=== PATIENT | male | born 1945 | race Caucasian/White ===

== ENCOUNTER → 2018-04-12 06:28 | Outpatient (CLI) | payer MEDICARE, OTHER, SELFPAY ==
--- NOTE | 2018-04-12 06:29 | ECHOD_ITS ---
Reason For Study: CHEST PAIN Procedure This was a 2D Doppler, Color Flow transthoracic echocardiogram. The exam was of adequate technical quality. Exam performed in department. Left Ventricle Normal LV size. Left ventricular systolic function is normal. The estimated ejection fraction is 65 %. No regional wall motion abnormalities noted. Right Ventricle Normal RV size. ICD or pacer leads identified within the right ventricle. Normal systolic function. Atria The left atrium is mildly enlarged. Normal right atrium. ICD or pacer leads identified within the right atrium. No doppler evidence for ASD. Mitral Valve There is no mitral annular calcification. Normal mitral valve. Mild (1+) mitral valve insufficiency. Tricuspid Valve Normal tricuspid valve. Mild tricuspid valve insufficiency. Right ventricular systolic pressure estimated to be 29 mmHg. Aortic Valve Trisinus/trileaflet aortic valve. Mild focal aortic valve calcification. Trivial aortic valve insufficiency. Pulmonic Valve The pulmonic valve is not well visualized. Trivial pulmonic valve insufficiency. Great Vessels Normal sized aortic root. Pericardium/Pleural No pericardial effusion. MMode/2D Measurements & Calculations LVIDd: 5.0 cm IVSd: 1.1 cm Ao root diam: 3.3 cm LVIDs: 3.4 cm LVPWd: 1.2 cm LA dimension: 4.0 cm RVDd: 3.3 cm FS: 31.4 % LAV(MOD-bp): 71.3 ml LA A4 area: 22.9 cm2 RA A4 area: 19.7 cm2 LAV(MOD-bp) Indexed: 31.4 ml/m2 LAV(MOD-sp2): 72.6 ml LAV(MOD-sp4): 73.5 ml Doppler Measurements & Calculations MV E max harshil: 69.0 cm/sec Lat Peak E' Harshil: 8.6 cm/sec Med Peak E' Harshil: 14.7 cm/sec MV A max harshil: 46.7 cm/sec E/E' lat: 8.0 E/E' med: 4.7 MV E/A: 1.5 Ao V2 max: 112.0 cm/sec AI max harshil: 300.5 cm/sec LV V1 max: 74.4 cm/sec Ao max P.0 mmHg AI max P.2 mmHg LV V1 max P.2 mmHg AI dec slope: 107.2 cm/sec2 AI P1/2t: 820.6 msec MR max harshil: 459.0 cm/sec PA V2 max: 76.2 cm/sec PI end-d harshil: 92.6 cm/sec MR max P.3 mmHg TR max harshil: 255.2 cm/sec TR max P.1 mmHg Interpretation Summary Left ventricular systolic function is normal. The estimated ejection fraction is 65 %. The left atrium is mildly enlarged. Mild (1+) mitral valve insufficiency. Mild tricuspid valve insufficiency. Mild focal aortic valve calcification. Trivial aortic valve insufficiency. Trivial pulmonic valve insufficiency. Right ventricular systolic pressure estimated to be 29 mmHg. Transmitral diastolic flow velocities suggest diastolic dysfunction (pseudonormal pattern). ICD or pacer leads identified within the right atrium ICD or pacer leads identified within the right ventricle. Ordering Physician: Ayaan Miramontes Referring Physician: TAMI Sales M.D. Performed By: Sendy Johnson RDCS, RVT
--- NOTE | 2018-04-12 17:54 | STRESSREP ---
Stress Test Report Date: 04/12/2018 Procedure: Pharmacologic stress nuclear imaging study Indications: Chest pain; CAD; PCI; PPM Consent: Per the patient Procedure: The patient underwent pharmacologic (Regadenoson) evaluation with a peak heart rate of 83 beats per minute (56 predicted maximal heart rate) and a peak blood pressure of 120/80 mmHg. The baseline ECG demonstrated normal sinus rhythm. The peak pharmacologic ECG demonstrated no obvious ECG changes. There were no cardiac dysrhythmias pretest, during pharmacologic infusion, or recovery. There was no complaint of chest discomfort during pharmacologic infusion or recovery. The examination was discontinued secondary to completion of protocol. Impression: 1. Pharmacologic (Regadenoson) evaluation 2. Peak pharmacologic ECG with no obvious ECG changes. 3. There were no cardiac dysrhythmias pretest, during pharmacologic infusion, or recovery. 4. Nuclear images pending Myocardial perfusion imaging study: Technique: The patient was injected with 14.5 millicuries of technetium 99m Cardiolite and subsequently rest SPECT Cardiolite nuclear imaging was obtained in the horizontal long, vertical long, and short axis views. The patient underwent pharmacologic (Regadenoson) evaluation with a peak heart rate of 83 beats per minute (56 % percent predicted maximal heart rate) and a peak blood pressure of 120/80 mmHg. The patient was injected with 44.1 millicuries of technetium 99m Cardiolite and subsequently stress SPECT Cardiolite nuclear imaging was obtained in the horizontal long, vertical long, and short axis views. A gated Cardiolite study at peak stress was obtained. Interpretation: Rest and stress SPECT Cardiolite nuclear imaging status post realignment, normalization, and attenuation correction demonstrate relative uniform tracer uptake and myocardial perfusion appearing within normal limits. There is end systolic thickening and brightening. The gated Cardiolite study demonstrates myocardial thickening and inward wall motion. The reported LVEF is 62 %. Impression: 1. Rest and stress SPECT Cardiolite nuclear imaging demonstrate relative uniform tracer uptake and myocardial perfusion appearing within normal limits. 2. The gated Cardiolite study reports an LVEF of 62 %. This note was generated with [employer] software. It may contain incorrect words, spelling, and punctuation that were not noted in checking the note before signing.
== END ==
PROVIDERS: Family Provider Family Medicine; PCP Family Medicine; Referring Provider Internal Medicine Cardiovascular Disease; Visit Provider Internal Medicine Cardiovascular Disease
DX: I25.10 Atherosclerotic heart disease of native coronary artery without angina pectoris (principal); Z95.5 Presence of coronary angioplasty implant and graft
CPT/HCPCS: 78452; 93017; 93306; A9500; A4216; J2785

== ENCOUNTER → 2018-08-04 12:22 | Outpatient (CLI) | payer MEDICARE, SELFPAY ==
[2018-06-17 10:06] VITALS: BMI 32.8
[2018-08-04 13:17] LABS: ALB/GLOB Ratio 1.1 RATIO (0.9-2.4); AST(SGOT) 23 U/L (15-37); Alanine Aminotransfer ALT/SGPT 36 U/L (16-61); Albumin, Serum 3.8 g/dL (3.2-5.0); Alkaline Phosphatase 49 U/L (45-117); Anion Gap 7 (5-15); BUN 16 mg/dL (7-18); BUN/Creat Ratio 14.4 RATIO (10-20); CPK Total, Creatine Kinase 72 U/L (39-308); Calcium,Total 8.7 mg/dL (8.5-10.1); Chloride 105 mmol/L (98-107); Cholesterol 176 mg/dL (200); Creatinine, Serum 1.11 mg/dL (0.70-1.30); EST Glomerular Filtration Rate 69 mL/min (>60); Est Glom Filt Rate - Afr Amer 83 mL/min (>60); Globulin 3.6 g/dL (2.2-4.2); Glucose 88 mg/dL (74-106); High Density Lipoprotein 36 mg/dL; Potassium 4.2 mmol/L (3.5-5.1); Protein, Total 7.4 g/dL (6.4-8.2); Sodium Level 142 mmol/L (136-145); Triglycerides 160 mg/dL; Very Low Density Lipoprotein 32 mg/dL (5-40)
== END ==
PROVIDERS: Family Provider Family Medicine; PCP Family Medicine; Referring Provider Family Medicine; Visit Provider Family Medicine
DX: E78.5 Hyperlipidemia, unspecified (principal)
CPT/HCPCS: 80053; 80061; 82550

== ENCOUNTER → 2018-10-12 08:04 | Outpatient (CLI) | payer MEDICARE, SELFPAY ==
[2018-06-17 10:06] VITALS: BMI 32.8
--- NOTE | 2018-10-12 08:08 | RAD_ITS ---
STUDY: X-RAY - ESOPHAGUS (BARIUM SWALLOW) WITH FLUOROSCOPY REASON FOR EXAM: Male, 73 years old. History of esophageal diverticulum. TECHNIQUE: 16 view(s) of the esophagus were obtained following swallowing of barium. FLUOROSCOPY TIME (if supplied): (0:30) minutes/seconds COMPARISON: None. FINDINGS: There is no demonstrated esophageal foreign body. There is no demonstrated stricture or mucosal abnormality. There is evidence of a traction diverticulum in the midportion of the esophagus. This measures 5.5 mm x 3.9 mm. Normal gastroesophageal junction, without a demonstrated hiatal hernia. The patient ingest a 12 mm tablet of barium without any difficulty. There is also evidence of a diverticula involving the second and fourth portions of the duodenum. The largest measures 8.7 mm x 9.5 mm. There is atherosclerotic calcification of the aortic arch with tortuosity of the descending aorta. Normal visualized pulmonary parenchyma. Normal visualized osseous structures of the thorax. 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 Diverticula seen in the second portion and fourth portion of the duodenum. Electronically Signed: Mumtaz Geiger, at 15:37 EDT , Service support ,
== END ==
PROVIDERS: Family Provider Family Medicine; PCP Family Medicine; Referring Provider Family Medicine; Visit Provider Family Medicine
DX: Q39.6 Congenital diverticulum of esophagus (principal)
CPT/HCPCS: 74220

== ENCOUNTER 2019-03-23 10:08 | Observation (INO) | payer MEDICARE, SELFPAY ==
[2018-12-23 12:59] VITALS: BMI 32.9
[2019-03-23] VITALS (14 sets, daily range): BP systolic 94–157; BP diastolic 58–89; PULSE 70–130; RESP 12–18; TEMP 36.3–36.8; O2SAT 96–99; BMI 31.4; BMI 32.3; BMI 32.4
--- NOTE | 2019-03-23 10:17 | EKG12_ITS ---
Test Reason : CP Blood Pressure : / mmHG Vent. Rate : 141 BPM Atrial Rate : 300 BPM P-R Int : 000 ms QRS Dur : 078 ms QT Int : 290 ms P-R-T Axes : 000 014 049 degrees QTc Int : 444 ms Atrial fibrillation with rapid ventricular response Abnormal ECG Confirmed by AUBREY NG, BERONICA ([id number]), material expeditor LOGAN NEWELL ([id number] on 03/27/2019 3:45:46 PM Referred By: Diana Aldana Confirmed By:STEPHANIE BURGOS MD
--- NOTE | 2019-03-23 10:21 | EKG12_ITS ---
Test Reason : CP Blood Pressure : / mmHG Vent. Rate : 121 BPM Atrial Rate : 340 BPM P-R Int : 000 ms QRS Dur : 080 ms QT Int : 332 ms P-R-T Axes : 000 020 018 degrees QTc Int : 471 ms Atrial fibrillation with rapid ventricular response with premature ventricular or aberrantly conducte d complexes Abnormal ECG Confirmed by AUBREY NG, BERONICA ([id number]), assistant film editor LOGAN NEWELL ([id number]) on 03/27/2019 4:09:47 PM Referred By: Diana Aldana Confirmed By:STEPHANIE BURGOS MD
--- NOTE | 2019-03-23 10:26 | ED.VIS.GEN ---
History of Present Illness Chief Complaint: Chest Pain Informant: Patient Onset: Today Narrative: Presents with chest pressure and aching awakening at 2:30 AM this morning less than 8 hours ago. States symptoms were persistent was slowly improving and resolved prior to arrival. Reports no radicular symptoms, states had sweats. No nausea or dyspnea. Reports for coronary stents in [address] Miramontes, also reports had a pacemaker placed in 2013 due to slow heart rate. History of atrial fibrillation on Xarelto, he also is on Plavix took both medications this morning. He does not take aspirin due to history of nosebleeds. History of hypertension, hypercholesterolemia. Remote tobacco in the 1960s. Occasional dry cough. No vomiting or diarrhea. Reports lightheaded symptoms this morning. Denies feelings of racing heart or palpitations. Prior similar symptoms: Yes Past Medical History - Allergies and Home Meds Allergies/Adverse Reactions: Allergies atorvastatin [From Lipitor] Adverse Reaction (Severe, Verified 03/23/19 10:09) elevated LFT's lisinopril Adverse Reaction (Severe, Verified 03/23/19 10:09) cough gemfibrozil Adverse Reaction (Unknown, Verified 03/23/19 10:09) Unknown simvastatin Adverse Reaction (Unknown, Verified 03/23/19 10:09) Unknown bacitracin [From Triple Antibiotic] Adverse Reaction (Verified 03/23/19 10:09) Unknown bacitracin zinc [From Triple Antibiotic] Adverse Reaction (Verified 03/23/19 10:09) Unknown colistimethate sodium [From Triple Antibiotic] Adverse Reaction (Verified 03/23/19 10:09) Unknown gramicidin D [From Triple Antibiotic] Adverse Reaction (Verified 03/23/19 10:09) Unknown neomycin sulfate [From Triple Antibiotic] Adverse Reaction (Verified 03/23/19 10:09) Unknown polymyxin B [From Triple Antibiotic] Adverse Reaction (Verified 03/23/19 10:09) Unknown polymyxin B sulfate [From Triple Antibiotic] Adverse Reaction (Verified 03/23/19 10:09) Unknown pramoxine HCl [From Triple Antibiotic] Adverse Reaction (Verified 03/23/19 10:09) Unknown Primary Care Physician: Nasim Sales III, MD [Primary Care Provider] - Surgical History: angioplasty, cholecystectomy, pacemaker implantation, - - Repair of a torn ligament in his ankle Smoking Status: Former smoker - Family History Maternal Family History: Family History (Last Reviewed 06/17/18 @ 10:07 by Loida Guerrero) Mother CVA (cerebral vascular accident) Father Heart disease Sister Heart disease Family History: Reports: Heart Disease Sibling Family History: Family History (Last Reviewed 06/17/18 @ 10:07 by Loida Guerrero) Mother CVA (cerebral vascular accident) Father Heart disease Sister Heart disease Family History: Reports: Heart Disease Review of Systems General: Denies: Chills, Fever, Sweats Eyes: Denies: Visual changes - bilaterally, Diplopia ENT: Denies: Rhinorrhea, Sore throat Cardiovascular: Reports: Chest pain. Denies: Palpitations Respiratory: Reports: Cough. Denies: Dyspnea, Dyspnea on exertion Gastrointestinal: Denies: Abdominal pain, Nausea, Vomiting, Diarrhea, Melena, Hematochezia Genitourinary: Denies: Dysuria, Hematuria, Frequency Musculoskeletal: Denies: Back pain, Extremity Pain Skin: Denies: Rash, Wounds Neurological: Denies: Headache, Weakness, Numbness Physical Exam Vital Signs/Narrative: Vital Signs Temp Pulse Resp BP Pulse Ox 03/23/19 10:09 97.3 F L 78 12 94/65 98 Inital Vital Signs reviewed: Yes General: Well nourished, Well developed, No Acute Distress Head: Normocephalic, Atraumatic Eyes: Perrl, EOMI ENT: Moist mucous membranes, No rhinorrhea Neck: Supple, Nontender Cardiovascular: Irregular, Tachycardia Respiratory: No distress, CTA bilaterally, Chest nontender Abdomen: Soft, Nontender, Nondistended, Normal bowel sounds Back: Nontender, Normal Inspection Extremities: Nontender, No edema Skin: Normal color, No rash Neurological: Alert, Oriented x3, Cranial nerves II-XII grossly intact, Normal Strength, Normal Sensation Psychological: Normal affect, Normal Mood Diagnostic/Tx/Re-eval Abnormal Lab Results 03/23/19 03/23/19 03/23/19 10:24 10:24 10:24 WBC 7.0 RBC 4.75 Hgb 14.8 Hct 45.7 MCV 96.2 H MCH 31.2 MCHC 32.4 RDW Std Deviation 47.7 H RDW Coeff of Mimi 13.4 Plt Count 280 MPV 11.7 Immature Gran % (Auto) 0.600 Neut % (Auto) 75.4 H Lymph % (Auto) 13.8 L Clark % (Auto) 9.2 Eos % (Auto) 0.7 Baso % (Auto) 0.3 Absolute Neuts (auto) 5.3 Absolute Lymphs (auto) 0.97 Nucleated RBC % 0 PT 25.4 H INR 2.3 APTT 47.7 H Sodium 140 Potassium 3.9 Chloride 109 H Carbon Dioxide 29.0 Anion Gap 2 L BUN 21 H Creatinine 1.60 H Estim Creat Clear Calc 43.14 Est GFR (MDRD) Af Amer 55 L Est GFR (MDRD) Non-Af 45 L BUN/Creatinine Ratio 13.1 Glucose 116 H Calcium 9.0 Troponin I < 0.015 Clinical Impression(s) from Imaging Studies Chest X-Ray 03/23/19 10:28 IMPRESSION: Blunting of left costophrenic angle with mild increased markings at the left lung base suggestive of linear atelectasis and/or scarring. Electronically Signed: Mumtaz Juanjo, at 11:24 EDT , Service support , Patient EKG with AWindy fib with RVR at 141, blood pressure initial 90 465 triage, however my evaluation was 110 systolic. He was monitored without intervention heart rate improved to 90s to the 110s. Cardiac work-up negative. Labs noted slight PARK creatinine 1.6 from 1.1. Given 500 cc bolus. He remains asymptomatic he did take his Plavix and Xarelto this morning therefore no additional anticoagulants are given especially with nosebleeds from aspirin. Patient's heart score is a 4. I discussed with hospitalist Dr. Aldana for admission to PCU. - EKG Initial EKG Interpretation: Atrial Fibrillation - Atrial fibrillation rate of 141, no ST changes. ED Disposition - Plan for ED Patient: Disposition: Acute Care Hospital [facility] Diagnosis: Chest pain, Atrial fibrillation, PARK (acute kidney injury) Referrals: Nasim Sales III, MD [Primary Care Provider] -
--- NOTE | 2019-03-23 10:28 | RAD_ITS ---
STUDY: X-RAY CHEST REASON FOR EXAM: Male, 74 years old. Chest pain. TECHNIQUE: Single AP portable view of the chest. COMPARISON: Comparison is made with prior study dated April 26, 2016. FINDINGS: EKG electrodes are seen. Blunting of the left costophrenic angle with increased markings at the left lung base suggestive of left basilar atelectasis and/or scarring. Normal size heart. A left-sided dual-chamber pacemaker is seen. Normal mediastinum and jose. Normal visualized pulmonary arteries. There is atherosclerotic tortuosity of the aortic arch and descending thoracic aorta. There are diffuse degenerative changes of the visualized thoracic spine. Normal visualized ribs, clavicles, and shoulders. There is no demonstrated abnormality of the visualized soft tissue structures of the upper abdomen. RAD/Chest 1 View (Portable) IMPRESSION: Blunting of left costophrenic angle with mild increased markings at the left lung base suggestive of linear atelectasis and/or scarring. Electronically Signed: Mumtaz Geiger, at 11:24 EDT , Service support ,
[2019-03-23 10:37] LABS: Absolute Lymphocyte Count 0.97 X10^3/uL (0.83-4.51); Absolute Neutrophil Count 5.3 X10^3/uL (2.0-7.7); Basophil# 0.02 X10^3/uL; Basophil% 0.3 % (0-1); Eosinophil# 0.05 X10^3/uL; Eosinophils% 0.7 % (0-5); Hematocrit 45.7 % (40-54); Hemoglobin 14.8 g/dL (13.0-16.5); Lymphocyte # 0.97 X10^3/ul (4.0); Lymphocyte % 13.8 % (19-41); Mean Corp Hgb Conc 32.4 g/dL (32-36); Mean Corpuscular Hgb 31.2 pg (27.0-32.0); Mean Corpuscular Volume 96.2 fL (80-94); Mean Platelet Vol. 11.7 fl (6.2-12.0); Monocyte# 0.65 X10^3/uL; Monocyte% 9.2 % (0-10); NRBC Flagged by Analyzer 0 % (0-5); Neutrophil % 75.4 % (47-70); Platelet Count 280 K/mm3 (150-450); RBC Distribution Width CV 13.4 % (11.6-14.6); RBC Distribution Width SD 47.7 fl (35.1-43.9); Red Blood Count 4.75 M/mm3 (4.6-6.2)
[2019-03-23 10:54] LABS: Anion Gap 2 (5-15); BUN 21 mg/dL (7-18); BUN/Creat Ratio 13.1 RATIO (10-20); Chloride 109 mmol/L (98-107); EST Glomerular Filtration Rate 45 mL/min (>60); Est Glom Filt Rate - Afr Amer 55 mL/min (>60); Estimated Creatinine Clearance 43.14 ml/min; Glucose 116 mg/dL (74-106); Potassium 3.9 mmol/L (3.5-5.1); Sodium Level 140 mmol/L (136-145)
[2019-03-23 10:59] LABS: International Normalized Ratio 2.3; Partial Thromboplast Time 47.7 Seconds (24.1-36.2); Prothrombin Time (Protime)PT. 25.4 SECONDS (11.7-14.9)
--- NOTE | 2019-03-23 12:00 | HP.PCM_ITS ---
History of Present Illness Date of Admission: 03/23/19 Chief Complaint: Chest pain The patient is a 74 year old M with a past medical history as listed. He was admitted through the ED on 03/23/2019 with a complaint of chest pressure was started at around 2:30 AM on morning of admission. He had associated ligh theadedness, dizziness and some nausea but no vomiting and said the pain radiated up to the side of his left jaw. Pain was persistent and was worsened with slight exertion and relieved by rest so he decided to come into the ED. 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 He has a history of A. fib on Xarelto and states his been compliant with his medications. He has not taken his beta-reinier today as it usually taken in the evenings that he took it last evening. In the ED, he was noted to be in A. fib and going in and out of RVR. He denied any palpitations or feelings of racing heart. Review of systems is otherwise negative. In the ED, vitals were essentially stable but heart rate was fluctuating from the low 100s up to 1 the 130s during review. Initial troponin was negative and creatinine was 1.6, with a baseline of around 1.1. CBC was unremarkable and EKG showed A. fib with RVR. He has been admitted to be managed for chest pain to rule out ACS and A. fib with RVR. [] Past Medical History Past Medical History (Chronic Problems): Chronic Problems (Last Updated 12/23/18 @ 13:23 by LESA Chaves) Hyperlipidemia (Chronic) Presence of stent in coronary artery (Chronic ~06/17/12) PTCA/RAMIN in the prox LAD, distal RCA and prox Rt PDA 06/17/12 Atherosclerotic heart disease of inupiat coronary artery without angina pectoris (Chronic) Paroxysmal atrial fibrillation (Chronic) Sick sinus syndrome (Chronic) Presence of cardiac pacemaker (Chronic ~2013) Implant 04/04/14 Hypertension (Chronic) Medical History: Medical History (Last Updated 12/23/18 @ 13:23 by LESA Chaves) Hyperlipidemia (Chronic) E78.5 Atherosclerotic heart disease of inupiat coronary artery without angina pectoris (Chronic) I25.10 Paroxysmal atrial fibrillation (Chronic) I48.0 Sick sinus syndrome (Chronic) I49.5 Presence of cardiac pacemaker (Chronic) Onset Date: ~2013 Z95.0 Implant 04/04/14 Hypertension (Chronic) I10 Diverticulosis K57.90 GERD (gastroesophageal reflux disease) K21.9 RADHA (obstructive sleep apnea) G47.33 Osteoarthritis M19.90 RLS (restless legs syndrome) G25.81 Tubular adenoma of colon D12.6 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 Chest pain on exertion (Inactive) R07.9 Colon polyp (Inactive) K63.5 Zenkers diverticulum (Inactive) K22.5 Allergies atorvastatin [From Lipitor] Adverse Reaction (Severe, Verified 03/23/19 10:09) elevated LFT's lisinopril Adverse Reaction (Severe, Verified 03/23/19 10:09) cough gemfibrozil Adverse Reaction (Unknown, Verified 03/23/19 10:09) Unknown simvastatin Adverse Reaction (Unknown, Verified 03/23/19 10:09) Unknown bacitracin [From Triple Antibiotic] Adverse Reaction (Verified 03/23/19 10:09) Unknown bacitracin zinc [From Triple Antibiotic] Adverse Reaction (Verified 03/23/19 10:09) Unknown colistimethate sodium [From Triple Antibiotic] Adverse Reaction (Verified 03/23/19 10:09) Unknown gramicidin D [From Triple Antibiotic] Adverse Reaction (Verified 03/23/19 10:09) Unknown neomycin sulfate [From Triple Antibiotic] Adverse Reaction (Verified 03/23/19 10:09) Unknown polymyxin B [From Triple Antibiotic] Adverse Reaction (Verified 03/23/19 10:09) Unknown polymyxin B sulfate [From Triple Antibiotic] Adverse Reaction (Verified 03/23/19 10:09) Unknown pramoxine HCl [From Triple Antibiotic] Adverse Reaction (Verified 03/23/19 10:09) Unknown Home Medications: Ambulatory Orders Medication Instructions Recorded Clopidogrel Bisulfate [Plavix] 75 mg PO DAILY 04/29/13 Nadolol [Corgard (Beta Reinier)] 10 mg PO QHS 12/01/14 Losartan Potassium [Cozaar] 25 mg PO DAILY 04/26/16 Pantoprazole Sodium [Protonix] 40 mg PO DAILY 03/23/17 nitroglycerin 0.4 mg sublingual 0.4 mg SUBLINGUAL Q5-15M PRN #25 09/06/18 tablet tab rivaroxaban 20 mg tablet 20 mg PO DAILY #30 tab 05/19/18 tamsulosin 0.4 mg capsule 0.4 mg PO DAILY 06/17/18 fenofibrate 160 mg tablet 160 mg PO DAILY #30 tab 09/01/18 Surgical History: Surgical History (Last Reviewed 06/17/18 @ 10:07 by Loida Guerrero) Presence of stent in coronary artery (Chronic) Onset Date: ~06/17/12 Z95.5 PTCA/RAMIN in the prox LAD, distal RCA and prox Rt PDA 06/17/12 Postsurgical percutaneous transluminal coronary angioplasty (PTCA) status Onset Date: ~06/17/12 Z98.61 PTCA/RAMIN in the prox LAD, distal RCA and prox Rt PDA 06/17/12 History of cataract surgery Z98.49 History of inguinal hernia repair Z98.890, Z87.19 History of laparoscopic cholecystectomy Z90.49 Surgical History: angioplasty, cholecystectomy, pacemaker implantation, - - Repair of a torn ligament in his ankle Psychiatric History: No pertinent psych hx Lives: Spouse/ Significant Other Smoking Status: Former smoker Tobacco Use: Non-smoker Alcohol: None Drugs: None - *Family History Maternal Family History: Family History (Last Reviewed 06/17/18 @ 10:07 by Loida Guerrero) Mother CVA (cerebral vascular accident) Father Heart disease Sister Heart disease History Items: Heart Disease Sibling Family History: Family History (Last Reviewed 06/17/18 @ 10:07 by Loida Guerrero) Mother CVA (cerebral vascular accident) Father Heart disease Sister Heart disease History Items: Heart Disease Review of Systems Constitutional: Denies: Chills, Fever, Malaise, Weakness, Weight Change Eyes: Reports: Blurred vision HEENT: Denies: Head Aches, Sinus Congestion, Sinus Drainage Cardiovascular: Reports: Chest Pain, Chest Pressure, Heaviness, Light Headedness. Denies: Chest Tightness, Edema, Orthopnea, Palpitations, Paroxysmal Noc. Dyspnea, Syncope Respiratory: Denies: Cough, Pleuritic Pain, Shortness of Breath, Shortness of breath at rest, Sputum production Gastrointestinal: Denies: Abdominal Pain, Nausea, Vomiting Genitourinary: Denies: Dysuria Musculoskeletal: Denies: Joint Pain, Joint Tenderness Skin: Denies: Rash, Wounds Neurological: Denies: Numbness, Tingling, Focal weakness Psychiatric: Denies: Anxiety, Depression, Homicidal Ideations, Suicidal Ideations Hematologic/ Lymphatic: Denies: Easy Bruising, Easy Bleeding VTE Information - Inpt Only VTE Present on Admission: No VTE Pharm Prophylaxis ordered?: Yes Patient Problems: Active and Suspected Problems (Last Updated 12/23/18 @ 13:23 by LESA Chaves) Chest pain (Acute) Atrial fibrillation (Acute) PARK (acute kidney injury) (Acute) - Physical Exam General: Alert, Oriented x3, Cooperative, No apparent distress HEENT: Atraumatic, PERRLA, EOMI, Normocephalic Oral: Moist Mucosa Neck: Supple, No JVD, Negative Carotid Bruits Lungs: Clear to auscultation, Normal air movement, No rhonchi, No wheeze Cardiovascular: Regular rate, Regular Rhythm, Normal S1, Normal S2, No murmurs, - - pacemaker palpable in left upper chest Abdomen: Bowel Sounds Present, Soft, Non Tender, Non-Distended, No Hepato- splenomegaly Extremities: No clubbing, No cyanosis, No edema, Capillary Refill Less than 3 Seconds Skin: No rashes, No breakdown Musculoskeletal: No Tenderness to Palpation of Joints or Extremities Lymphatic: No Cervical, Supraclavicular, or Inguinal Adenopathy Neurological: Cranial nerves II-XII grossly intact, Neuro grossly intact, Motor Exam 5/5 strength throughout Psych/Mental Status: Normal Affect, Appropriate, Alert and oriented to time, place, person, mood and affect Vital Signs Temp Pulse Resp BP Pulse Ox 97.3 F L 78 12 94/65 98 03/23/19 10:09 03/23/19 10:09 03/23/19 10:09 03/23/19 10:03/23/19 10:09 Oxygen Flow Rate (L/min) 2 Oxygen Delivery Method Nasal Cannula Weight: 225 lb 12.054 oz Body Mass Index (BMI) 31.4 Laboratory Tests Past 24 Hrs 03/23/19 03/23/19 03/23/19 10:24 10:24 10:24 WBC 7.0 RBC 4.75 Hgb 14.8 Hct 45.7 MCV 96.2 H MCH 31.2 MCHC 32.4 RDW Std Deviation 47.7 H RDW Coeff of Mimi 13.4 Plt Count 280 MPV 11.7 Immature Gran % (Auto) 0.600 Neut % (Auto) 75.4 H Lymph % (Auto) 13.8 L Haywood % (Auto) 9.2 Eos % (Auto) 0.7 Baso % (Auto) 0.3 Absolute Neuts (auto) 5.3 Absolute Lymphs (auto) 0.97 Nucleated RBC % 0 PT 25.4 H INR 2.3 APTT 47.7 H Sodium 140 Potassium 3.9 Chloride 109 H Carbon Dioxide 29.0 Anion Gap 2 L BUN 21 H Creatinine 1.60 H Estim Creat Clear Calc 43.14 Est GFR (MDRD) Af Amer 55 L Est GFR (MDRD) Non-Af 45 L BUN/Creatinine Ratio 13.1 Glucose 116 H Calcium 9.0 Troponin I < 0.015 Diagnostic Data Chest X-Ray 03/23/19 10:28 IMPRESSION: Blunting of left costophrenic angle with mild increased markings at the left lung base suggestive of linear atelectasis and/or scarring. Electronically Signed: Mumtaz Juanjo, at 11:24 EDT , Service support , Assessment/Plan All Active Problems (Last Updated 12/23/18 @ 13:23 by LESA Chaves) Chest pain (Acute) Atrial fibrillation (Acute) PARK (acute kidney injury) (Acute) 74-year-old male admitted with complaint of chest pain. 1. Chest pain to r/o ACS * admit to PCU with telemetry * has a history of CAD s/p stents x 4, last one being in 2011 * initial tropnin negative, and EKG showed no acute ST changes and showed Afib * cycle troponins * if troponins x 3 are negative, to have stress test tomorrow * 2. Afib wtih RVR * has known history of AFib; last took his nadolol last night * HR fluctuates between 90s and 130s at time of review * on xarelto * resume nadolol; IV lopressor prn if HR remains poorly controlled * 3. PARK: Cr is 1.6. Baseline Cr is ~ 1.1. Will hydrate and monitor 4. Hypertension: on nadolol and losartan. Will monitor 5. History of CAD s/p stents: has had 4 stents, last onei n 2011. On nadolol, fenofibrate (due to statin allergy) and losartan 6. BPH: on tamsulosin DVT prophylaxis: on xarelto; will hold xarelto and give therapeutic lovenox in light of chest pain, pending stress test result Code Visit OBSV E&M: [id number] Initial observation care L3
--- NOTE | 2019-03-23 12:08 | CASEMGMT ---
RN CM Assessment Introduced role of RN CM to patient, patient Destinee and Dtr Demetrice Baldwin at bedside.? Patient is alert, oriented and able?to participate in RN CM Assessment. ?Care providers, pharmacy, and demographics verified. Presentation: Chest pressure this morning, H/o stents in 2011. Admit Dx: CP Re-Admit: No Barriers/Issues: None PCP: Nasim Sales Specialists: Cardio- Dr Miramontes Preferred Pharmacy: [facility] Insurance: [facility] Rx Benefit:?Yes LNOK: Destinee Perez LW/HPOA: Has a HPOA who is Dtr Demetrice Baldwin, aware not on file at [facility]. Living Arrangements:? Lives with and 9yo grandchild in a 2 story home, Bedroom on upper level with 15 steps. 4 steps to enter home. ADL?s: Independent with ambulation and ADLs Transportation: Patient and drive. to transport upon DC. DME: None HHC: None SNF: None Goal: Home and does not think will have any needs. Denies any issues, concerns or questions with DC Planning at this time. Aware CM remains available for any emerging needs. DC PLAN: Home with no anticipated needs identified. ESTEE Mckenzie
[2019-03-23] MEDS: Nadolol 20 MG Tablet 10 MG PO (14:37)
[2019-03-23] MEDS: 0.9% Normal Saline 1,000 ML 100 ML IV (14:37)
[2019-03-23] MEDS: Metoprolol Tartrate 5 MG/5 ML Vial IV ×3 (14:53→15:09)
[2019-03-23] MEDS: Enoxaparin 100 MG/ML Syringe SC (21:38)
[2019-03-24] VITALS (10 sets, daily range): BP systolic 97–128; BP diastolic 58–81; PULSE 63–144; RESP 18; TEMP 36.3–36.7; O2SAT 97–98
--- NOTE | 2019-03-24 05:55 | EKG12_ITS ---
Test Reason : AM EKG Blood Pressure : / mmHG Vent. Rate : 101 BPM Atrial Rate : 163 BPM P-R Int : 000 ms QRS Dur : 080 ms QT Int : 308 ms P-R-T Axes : 000 026 020 degrees QTc Int : 399 ms Atrial fibrillation with rapid ventricular response Abnormal ECG When compared with ECG of 23-MAR-2019 13:03, MANUAL COMPARISON REQUIRED, DATA IS UNCONFIRMED Confirmed by AUBREY NG, BERONICA ([id number]), image editor LOGAN NEWELL ([id number]) on 03/27/2019 4:11:27 PM Referred By: Diana Aldana Confirmed By:STEPHANIE BURGOS MD
[2019-03-24] MEDS: Losartan Potassium 25 MG Tablet PO (06:02)
[2019-03-24] MEDS: Clopidogrel Bisulfate 75 MG Tablet PO (06:02)
[2019-03-24 06:16] LABS: Absolute Lymphocyte Count 1.38 X10^3/uL (0.83-4.51); Absolute Neutrophil Count 4.5 X10^3/uL (2.0-7.7); Basophil# 0.02 X10^3/uL; Basophil% 0.3 % (0-1); Eosinophil# 0.07 X10^3/uL; Eosinophils% 1.1 % (0-5); Hematocrit 43.8 % (40-54); Hemoglobin 14.4 g/dL (13.0-16.5); Lymphocyte # 1.38 X10^3/ul (4.0); Lymphocyte % 20.8 % (19-41); Mean Corp Hgb Conc 32.9 g/dL (32-36); Mean Corpuscular Hgb 31.2 pg (27.0-32.0); Mean Platelet Vol. 12.1 fl (6.2-12.0); Monocyte# 0.59 X10^3/uL; Monocyte% 8.9 % (0-10); NRBC Flagged by Analyzer 0 % (0-5); Neutrophil # 4.54 X10^3/uL (2.7-7.7); Neutrophil % 68.6 % (47-70); Platelet Count 243 K/mm3 (150-450); RBC Distribution Width CV 13.6 % (11.6-14.6); RBC Distribution Width SD 47.5 fl (35.1-43.9); Red Blood Count 4.61 M/mm3 (4.6-6.2); White Blood Count 6.6 K/mm3 (4.4-11.0)
[2019-03-24 06:45] LABS: Anion Gap 6 (5-15); BUN 20 mg/dL (7-18); BUN/Creat Ratio 17.4 RATIO (10-20); Calcium,Total 8.2 mg/dL (8.5-10.1); Chloride 110 mmol/L (98-107); Creatinine, Serum 1.15 mg/dL (0.70-1.30); EST Glomerular Filtration Rate 66 mL/min (>60); Est Glom Filt Rate - Afr Amer 80 mL/min (>60); Estimated Creatinine Clearance 60.02 ml/min; Glucose 102 mg/dL (74-106); Potassium 3.9 mmol/L (3.5-5.1); Sodium Level 142 mmol/L (136-145)
[2019-03-24] MEDS: Tamsulosin HCl 0.4 MG Capsule PO (09:38)
[2019-03-24] MEDS: Pantoprazole Sodium 40 MG Tablet PO (09:38)
[2019-03-24] MEDS: Fenofibrate 145 MG Tablet PO (09:38)
--- NOTE | 2019-03-24 10:10 | STRESSREP ---
Stress Test Report Date: March 24, 2019 Procedure: Pharmacologic stress nuclear imaging study Indications: [Chest pain] Consent: Per the patient Procedure: The patient underwent pharmacologic (Regadenoson) evaluation with a peak heart rate of 120 beats per minute (82 %predicted maximal heart rate) and a peak blood pressure of 122/70 mmHg. The baseline ECG demonstrated atrial fibrillation. EKG during lexiscan infusion revealed no significant ischemic changes. EKG post infusion revealed no significant ischemic changes [There were no significant cardiac dysrhythmias pretest, during pharmacologic infusion, or recovery]. Occasional PVCs noted. [There was no complaint of chest discomfort during pharmacologic infusion or recovery]. The examination was discontinued secondary to completion of protocol. Impression: 1. Lexiscan stress test test is negative for Lexiscan infusion induced EKG changes of ischemia. 2. Lexiscan stress test test is negative for Lexiscan infusion induced chest pain. 3. Results of the nuclear portion of the test is as below Myocardial perfusion imaging study: Technique: The patient was injected with 10.2 millicuries of technetium 99m Cardiolite and subsequently rest SPECT Cardiolite nuclear imaging was obtained in the horizontal long, vertical long, and short axis views. The patient underwent pharmacologic (Regadenoson) evaluation. Please see above for details. The patient was injected with 30.1 millicuries of technetium 99m Cardiolite and subsequently stress SPECT Cardiolite nuclear imaging was obtained in the horizontal long, vertical long, and short axis views. A gated Cardiolite study at peak stress was obtained. Interpretation: Rest and stress SPECT Cardiolite nuclear imaging status post realignment, normalization, and attenuation correction demonstrate normal myocardial radioisotope uptake during the rest and stress images. Gated images reveal mild apical hypokinesis which could be artifactual. The reported LVEF is 59 %. Impression: 1. There is no evidence of significant ischemia or infarction. 2. Estimated ejection fraction is 59%. This note was generated with [employer] software. It may contain incorrect words, spelling, and punctuation that were not noted in checking the note before signing.
--- NOTE | 2019-03-24 11:00 | DCINST_ITS ---
- Discharge Diagnoses Current Active Problems: Current Active and Chronic Problems (Last Updated 12/23/18 @ 13:23 by LESA Chaves) Chest pain (Acute) Atrial fibrillation (Acute) PARK (acute kidney injury) (Acute) You will use the following diet at home:: Cardiac Your food should be the consistency of: Regular Your liquids should be the consistency of: Regular/Thin Discharge Activity: Return to Normal Activity Weight Bearing Status: Weight bearing as tolerated Call your doctor if you observe: Shortness of breath, Dizziness, Chest pain, Increased palpitations (irregular heartbeat) Instructions: Angina, Warning Signs of a Heart Attack, Atrial Fibrillation Additional Instructions: Nadolol changed to metoprolol 50mg bid. TO follow up with motion picture critic for pacemaker check as scheduled Allergies/Adverse Reactions: Allergies atorvastatin [From Lipitor] Adverse Reaction (Severe, Verified 03/23/19 10:09) elevated LFT's lisinopril Adverse Reaction (Severe, Verified 03/23/19 10:09) cough gemfibrozil Adverse Reaction (Unknown, Verified 03/23/19 10:09) Unknown simvastatin Adverse Reaction (Unknown, Verified 03/23/19 10:09) Unknown bacitracin [From Triple Antibiotic] Adverse Reaction (Verified 03/23/19 10:09) Unknown bacitracin zinc [From Triple Antibiotic] Adverse Reaction (Verified 03/23/19 1 0:09) Unknown colistimethate sodium [From Triple Antibiotic] Adverse Reaction (Verified 03/23/19 10:09) Unknown gramicidin D [From Triple Antibiotic] Adverse Reaction (Verified 03/23/19 10:09) Unknown neomycin sulfate [From Triple Antibiotic] Adverse Reaction (Verified 03/23/19 10:09) Unknown polymyxin B [From Triple Antibiotic] Adverse Reaction (Verified 03/23/19 10:09) Unknown polymyxin B sulfate [From Triple Antibiotic] Adverse Reaction (Verified 03/23/19 10:09) Unknown pramoxine HCl [From Triple Antibiotic] Adverse Reaction (Verified 03/23/19 10:09) Unknown Medications to take at Discharge Clopidogrel Bisulfate [Plavix] 75 mg PO DAILY 04/29/13 Losartan Potassium [Cozaar] 25 mg PO DAILY 04/26/16 Pantoprazole Sodium [Protonix] 40 mg PO DAILY 03/23/17 nitroglycerin 0.4 mg sublingual tablet 0.4 mg SUBLINGUAL Q5-15M PRN #25 tab 03/17/18 rivaroxaban 20 mg tablet 20 mg PO DAILY #30 tab 05/19/18 tamsulosin 0.4 mg capsule 0.4 mg PO DAILY 06/17/18 fenofibrate 160 mg tablet 160 mg PO DAILY #30 tab 09/01/18 Metoprolol Tartrate [Lopressor (beta azul)] 50 mg PO BID #60 tab 03/24/19 The following prescriptions were given: Metoprolol Tartrate [Lopressor (beta azul)] 50 mg PO BID #60 tab Transmission Status: Pending to [id number] Primary Care Physician: Nasim Sales III, MD [Primary Care Provider] - Please follow up with your Primary Care Physician in: one week Test Results: Test results from this visit will be discussed in further detail at your follow- up appointment, if applicable. Please Follow Up With: Ayaan Miramontes MD When: 1-2 weeks; call office within one week for an appointment Proposed Discharge Date: 03/24/19
--- NOTE | 2019-03-24 11:02 | PCM.DC.SUM ---
Discharge Date and Diagnosis - Problem List Patient Problems: Active and Suspected Problems (Last Updated 12/23/18 @ 13:23 by LESA Chaves) Chest pain (Acute) Atrial fibrillation (Acute) PARK (acute kidney injury) (Acute) Date of Admission: 03/23/19 Date of Discharge: 03/24/19 - Primary Discharge Diagnosis Active and Suspected Problems (Last Updated 12/23/18 @ 13:23 by LESA Chaves) Chest pain (Acute) Atrial fibrillation (Acute) PARK (acute kidney injury) (Acute) - Secondary Discharge Diagnosis Chronic Problems (Last Updated 12/23/18 @ 13:23 by LESA Chaves) Hyperlipidemia (Chronic) Presence of stent in coronary artery (Chronic ~06/17/12) PTCA/RAMIN in the prox LAD, distal RCA and prox Rt PDA 06/17/12 Atherosclerotic heart disease of [place] coronary artery without angina pectoris (Chronic) Paroxysmal atrial fibrillation (Chronic) Sick sinus syndrome (Chronic) Presence of cardiac pacemaker (Chronic ~2013) Implant 04/04/14 Hypertension (Chronic) Hospital Course and Treatment Imaging Results: 03/24/19 05:55 Nuclear Stress Test - Chemical [NM] AM (NON MEDS) Operations: None, - Procedures: Stress test Summary of Care Provided: The patient is a 74 year old M with a past medical history as listed. He was admitted through the ED on 03/23/2019 with a complaint of chest pressure was started at around 2:30 AM on morning of admission. He had associated lightheadedness, dizziness and some nausea but no vomiting and said the pain radiated up to the side of his left jaw. Pain was persistent and was worsened with slight exertion and relieved by rest so he decided to come into the ED. 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 He has a history of A. fib on Xarelto and states his been compliant with his medications. He has not taken his beta-azul today as it usually taken in the evenings that he took it last evening. In the ED, he was noted to be in A. fib and going in and out of RVR. He denied any palpitations or feelings of racing heart. Review of systems is otherwise negative. In the ED, vitals were essentially stable but heart rate was fluctuating from the low 100s up to the 130s during review. Initial troponin was negative and creatinine was 1.6, with a baseline of around 1.1. CBC was unremarkable and EKG showed A. fib with RVR. He was admitted to be managed for chest pain to rule out ACS and A. fib with RVR. Troponins were negative. Patient hadnt taken his nadolol on day of admisison; once this was given, HR improved to the 70s and 80s. However, on day of discharge, HR was fluctuating between high 90s and low hundreds. This was discussed with DR Kuhn (Dr Miramontes being currently away), and decision was made to give patient a dose of IV Cardizem and also switch nadolol to p.o. metoprolol 50 mg twice daily. Patient and family were on board with this idea. Patient remained hemodynamically stable. He had a stress test on 03/24/2019 which was negative. He was discharged home on 03/24/2019. 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 Patient's he has an upcoming pacemaker check with cardiology and he was counseled to keep this appointment. Patient seen and examined prior to discharge. He had no complaints. Review of systems otherwise negative. Labs and vitals reviewed. Home medication reviewed and reconciled. o/e: Vital Signs Height 5 ft 11 in Weight: 232 lb Weight in Pounds 232.0 lbs Pulse Ox 98 Temperature 97.8 F Pulse Rate 107 Respiratory Rate 18 Blood Pressure 114/81 Blood Pressure Position Semi-Fowlers General: Alert, Oriented x3, Cooperative, No apparent distress HEENT: Atraumatic, PERRLA, EOMI, Normocephalic Oral: Moist Mucosa Neck: Supple, No JVD, Negative Carotid Bruits Lungs: Clear to auscultation, Normal air movement, No rhonchi, No wheeze Cardiovascular: Regular rate, Regular Rhythm, Normal S1, Normal S2, No murmurs, - - pacemaker Abdomen: Bowel Sounds Present, Soft, Non Tender, Non-Distended, No Hepato-splenomegaly Extremities: No clubbing, No cyanosis, No edema, Capillary Refill Less than 3 Seconds Skin: No rashes, No breakdown Musculoskeletal: No Tenderness to Palpation of Joints or Extremities Lymphatic: No Cervical, Supraclavicular, or Inguinal Adenopathy Neurological: Cranial nerves II-XII grossly intact, Neuro grossly intact, Motor Exam 5/5 strength throughout Psych/Mental Status: Normal Affect, Appropriate, Alert and oriented to time, place, person, mood and affect Plan as above. Patient Problems: Active and Suspected Problems (Last Updated 12/23/18 @ 13:23 by LESA Chaves) Chest pain (Acute) Atrial fibrillation (Acute) PARK (acute kidney injury) (Acute) - Physical Exam Vital Signs Temp Pulse Resp BP Pulse Ox 97.8 F 63 18 122/72 H 97 03/24/19 09:35 03/24/19 09:35 03/24/19 09:35 03/24/19 09:35 03/24/19 09:35 Oxygen Flow Rate (L/min) 2 Oxygen Delivery Method Room Air Weight: 232 lb Body Mass Index (BMI) 32.3 Intake and Output for Last 24 Hours 03/22/19 03/23/19 03/24/19 23:59 23:59 23:59 Intake Total 1548.33 / 1548.33 1151.67 / 1151.67 Balance 1548.33 / 1548.33 1151.67 / 1151.67 Laboratory Tests Past 24 Hrs 03/23/19 03/23/19 03/23/19 10:24 13:20 16:40 WBC RBC Hgb Hct MCV MCH MCHC RDW Std Deviation RDW Coeff of Mimi Plt Count MPV Immature Gran % (Auto) Neut % (Auto) Lymph % (Auto) [place] % (Auto) Eos % (Auto) Baso % (Auto) Absolute Neuts (auto) Absolute Lymphs (auto) Nucleated RBC % PT 25.4 H INR 2.3 APTT 47.7 H Sodium Potassium Chloride Carbon Dioxide Anion Gap BUN Creatinine Estim Creat Clear Calc Est GFR (MDRD) Af Amer Est GFR (MDRD) Non-Af BUN/Creatinine Ratio Glucose Calcium Troponin I < 0.015 < 0.015 03/24/19 03/24/19 05:19 05:19 WBC 6.6 RBC 4.61 Hgb 14.4 Hct 43.8 MCV 95.0 H MCH 31.2 MCHC 32.9 RDW Std Deviation 47.5 H RDW Coeff of Mimi 13.6 Plt Count 243 MPV 12.1 H Immature Gran % (Auto) 0.300 Neut % (Auto) 68.6 Lymph % (Auto) 20.8 [place] % (Auto) 8.9 Eos % (Auto) 1.1 Baso % (Auto) 0.3 Absolute Neuts (auto) 4.5 Absolute Lymphs (auto) 1.38 Nucleated RBC % 0 PT INR APTT Sodium 142 Potassium 3.9 Chloride 110 H Carbon Dioxide 26.0 Anion Gap 6 BUN 20 H Creatinine 1.15 Estim Creat Clear Calc 60.02 Est GFR (MDRD) Af Amer 80 Est GFR (MDRD) Non-Af 66 BUN/Creatinine Ratio 17.4 Glucose 102 Calcium 8.2 L Troponin I Discharge Diet: Low fat/ Low Cholesterol Discharge Activity: Return to Normal Activity Weight Bearing Status: Weight bearing as tolerated Call your doctor if you observe: Shortness of breath, Dizziness, Chest pain, Increased palpitations (irregular heartbeat) Home Medications: Medications to take at Discharge Clopidogrel Bisulfate [Plavix] 75 mg PO DAILY 04/29/13 Losartan Potassium [Cozaar] 25 mg PO DAILY 04/26/16 Pantoprazole Sodium [Protonix] 40 mg PO DAILY 03/23/17 nitroglycerin 0.4 mg sublingual tablet 0.4 mg SUBLINGUAL Q5-15M PRN #25 tab 03/17/18 rivaroxaban 20 mg tablet 20 mg PO DAILY #30 tab 05/19/18 tamsulosin 0.4 mg capsule 0.4 mg PO DAILY 06/17/18 fenofibrate 160 mg tablet 160 mg PO DAILY #30 tab 09/01/18 Metoprolol Tartrate [Lopressor (beta azul)] 50 mg PO BID #60 tab 03/24/19 Following Prescrptions Were Given to Patient: Metoprolol Tartrate [Lopressor (beta azul)] 50 mg PO BID #60 tab Transmission Status: Received by [id number] Primary Care Physician: Nasim Sales III, MD [Primary Care Provider] - Please follow up with your Primary Care Physician in: one week Please Follow Up With: Ayaan Miramontes MD When: 1-2 weeks; call office within one week for an appointment Patient Instructions: Angina, Atrial Fibrillation, Warning Signs of a Heart Attack Disposition: Home Minutes spent on discharge:: 35 Patient Condition:: Stable Medical Necessity - Tobacco Use Smoking Status: Former smoker Tobacco Use: Non-smoker Meaningful Use Info Meaningful Use Diagnoses (Choose all that apply): None applicable Code Visit OBSV E&M: 83565 Observation care discharge
[2019-03-24] MEDS: 0.9% NaCl Peripheral Flush Adult/Peds IV (11:28)
[2019-03-24] MEDS: Metoprolol Tartrate 50 MG Tablet PO (11:28)
[2019-03-24] MEDS: dilTIAZem 25 MG/5 ML Vial 20 MG IV BOLUS (11:28)
== END 2019-03-24 11:02 | disposition home or self-care (01) ==
LOC: ED 11:59 → PCU 13:05
PROVIDERS: Admitting Provider Student in an Organized Health Care Education/Training Program; Emergency Provider Emergency Medicine; Family Provider Family Medicine; PCP Family Medicine; Referring Provider Student in an Organized Health Care Education/Training Program; Visit Provider Student in an Organized Health Care Education/Training Program
DX: R07.89 Other chest pain (principal); I10 Essential (primary) hypertension; R42 Dizziness and giddiness; R11.0 Nausea; E78.5 Hyperlipidemia, unspecified; I48.0 Paroxysmal atrial fibrillation; G47.33 Obstructive sleep apnea (adult) (pediatric); G25.81 Restless legs syndrome; M19.90 Unspecified osteoarthritis, unspecified site; K21.9 Gastro-esophageal reflux disease without esophagitis; N17.9 Acute kidney failure, unspecified; N40.0 Benign prostatic hyperplasia without lower urinary tract symptoms; I25.10 Atherosclerotic heart disease of native coronary artery without angina pectoris; Z79.01 Long term (current) use of anticoagulants; Z79.02 Long term (current) use of antithrombotics/antiplatelets; Z87.891 Personal history of nicotine dependence; Z79.899 Other long term (current) drug therapy; Z95.0 Presence of cardiac pacemaker; Z95.5 Presence of coronary angioplasty implant and graft
CPT/HCPCS: 36415; 71045; 78452; 80048; 84484; 85025; 85610; 85730; 93005; 93017; 96361; 96372; 96374; 96375; 99218; 99285; A9500; J7030; J7040; A4216; G0378; J2785

== ENCOUNTER 2019-04-14 14:01 | Emergency (ER) | payer MEDICARE, SELFPAY ==
[2019-04-05 10:15] VITALS: BMI 32.6
[2019-04-14] VITALS (12 sets, daily range): BP systolic 106–156; BP diastolic 61–108; PULSE 60–127; RESP 12–21; TEMP 36.6; O2SAT 96–99; BMI 33.0
--- NOTE | 2019-04-14 14:19 | EKG12_ITS ---
Test Reason : PALPITATIONS Blood Pressure : / mmHG Vent. Rate : 119 BPM Atrial Rate : 340 BPM P-R Int : 000 ms QRS Dur : 084 ms QT Int : 274 ms P-R-T Axes : 000 019 030 degrees QTc Int : 385 ms Atrial fibrillation with rapid ventricular response Abnormal ECG Confirmed by JESUS NG, ELOY ([id number]), food editor MORA RUIZ ([id number]) on 04/18/2019 10:20:11 AM Referred By: CESAR/XAVI Confirmed By:ELOY LEE MD
--- NOTE | 2019-04-14 14:20 | RAD_ITS ---
STUDY: X-RAY CHEST REASON FOR EXAM: Male, 74 years old. Chest pain and chest palpitations. TECHNIQUE: Single AP portable view of the chest. COMPARISON: Comparison is made with prior study of March 23, 2019. FINDINGS: EKG electrodes are seen. Blunting of both kyphotic angles with increased markings at the lung bases suggesting bibasilar atelectasis. Normal size heart. A left-sided dual-chamber pacemaker is seen. Normal mediastinum and jose. Normal visualized pulmonary arteries. There is atherosclerotic tortuosity of the aortic arch and descending thoracic aorta. There are diffuse degenerative changes of the visualized thoracic spine. Normal visualized ribs, clavicles, and shoulders. There is no demonstrated abnormality of the visualized soft tissue structures of the upper abdomen. RAD/Chest 1 View (Portable) IMPRESSION: Blunting of both cause tremaine angles with mild degree of atelectasis at the lung bases. Electronically Signed: Mumtaz Geiger, at 14:47 EDT , Service support ,
--- NOTE | 2019-04-14 14:20 | EKG12_ITS ---
Test Reason : REPEAT Blood Pressure : / mmHG Vent. Rate : 108 BPM Atrial Rate : 340 BPM P-R Int : 000 ms QRS Dur : 084 ms QT Int : 318 ms P-R-T Axes : 000 008 041 degrees QTc Int : 426 ms Atrial fibrillation with rapid ventricular response Abnormal ECG Confirmed by JESUS NG, ELOY ([id number]), state editor MORA RUIZ ([id number]) on 04/18/2019 10:20:34 AM Referred By: CESAR Confirmed By:ELOY LEE MD
--- NOTE | 2019-04-14 14:21 | ED.DCSUM_ITS ---
History of Present Illness Chief Complaint: Palpitations Detail of Chief Complaint: Onset 11 AM and read narrative Informant: Patient Onset: Today, Hours Context: Sudden Onset Timing: Continuous Quality: Palpitations Location: Chest airway. Current Severity: Mild Maximum Severity: Moderate Worsened by: Nothing Relieved by: . Nothing Associated Symptoms: . Diaphoresis,. Chest discomfort with bilateral jaw pain Narrative: She is a 74-year-old male recently admitted for A. fib with RVR. He presents because of palpitations that started at 11 AM. He states he was diaphoretic at noon. He reports chest discomfort that started 15 minutes ago, 1400 with radiation to the jaw right and left side. He has no other associated symptoms. Patient is on Xarelto. Patient has never been cardioverted. He denies leg pain , swelling discoloration. He denies history of PE or DVT. He denies shortness of breath, dyspnea on exertion, orthopnea or PND. Prior similar symptoms: Yes Recent Illness/Hospitalization: Yes - Past Medical History (1) Atrial fibrillation Status: Acute (2) Atherosclerotic heart disease of [place] coronary artery without angina pectoris Status: Chronic (3) Hyperlipidemia Status: Chronic (4) Hypertension Status: Chronic (5) Paroxysmal atrial fibrillation Status: Chronic (6) Presence of cardiac pacemaker Status: Chronic Comment: Implant 04/04/14 (7) Presence of stent in coronary artery Status: Chronic Comment: PTCA/RAMIN in the prox LAD, distal RCA and prox Rt PDA 06/17/12 (8) Sick sinus syndrome Status: Chronic Past Medical History - Allergies and Home Meds Allergies/Adverse Reactions: Allergies atorvastatin [From Lipitor] Adverse Reaction (Severe, Verified 04/14/19 14:02) elevated LFT's lisinopril Adverse Reaction (Severe, Verified 04/14/19 14:02) cough gemfibrozil Adverse Reaction (Unknown, Verified 04/14/19 14:02) Unknown simvastatin Adverse Reaction (Unknown, Verified 04/14/19 14:02) Unknown bacitracin [From Triple Antibiotic] Adverse Reaction (Verified 04/14/19 14:02) Unknown bacitracin zinc [From Triple Antibiotic] Adverse Reaction (Verified 04/14/19 14:02) Unknown colistimethate sodium [From Triple Antibiotic] Adverse Reaction (Verified 04/14/19 14:02) Unknown gramicidin D [From Triple Antibiotic] Adverse Reaction (Verified 04/14/19 14:02) Unknown neomycin sulfate [From Triple Antibiotic] Adverse Reaction (Verified 04/14/19 14:02) Unknown polymyxin B [From Triple Antibiotic] Adverse Reaction (Verified 04/14/19 14:02) Unknown polymyxin B sulfate [From Triple Antibiotic] Adverse Reaction (Verified 04/14/19 14:02) Unknown pramoxine HCl [From Triple Antibiotic] Adverse Reaction (Verified 04/14/19 14:02) Unknown Primary Care Physician: Tremaine Sales III, MD [Primary Care Provider] - Prior records reviewed: Yes Surgical History: angioplasty, cholecystectomy, pacemaker implantation, - - Repair of a torn ligament in his ankle Lives: Spouse/ Significant Other Smoking Status: Former smoker Alcohol: Rare Drugs: None - Family History Maternal Family History: Family History (Last Reviewed 04/05/19 @ 14:46 by LESA Chaves) Mother CVA (cerebral vascular accident) Father Heart disease Sister Heart disease Family History: Reports: Heart Disease Sibling Family History: Family History (Last Reviewed 04/05/19 @ 14:46 by LESA Chaves) Mother CVA (cerebral vascular accident) Father Heart disease Sister Heart disease Family History: Reports: Heart Disease Review of Systems General: Denies: Chills, Fever, Malaise, Sweats Eyes: Denies: Visual changes - bilaterally, Blurred Vision - bilaterally, Diplopia ENT: Denies: Rhinorrhea, Sore throat Cardiovascular: Reports: Chest pain, Palpitations, Heart racing Respiratory: Reports: Dyspnea. Denies: Cough, Sputum, Dyspnea on exertion, Orthopnea, Paroxysmal nocturnal dyspnea, -, - Gastrointestinal: Denies: Abdominal pain, Nausea, Vomiting, Diarrhea, Melena, Hematochezia Genitourinary: Denies: Dysuria, Hematuria, Frequency Musculoskeletal: Denies: Myalgias, Arthralgias, Neck pain, Back pain, Swelling, Extremity Pain Skin: Denies: Rash, Wounds Neurological: Denies: Headache, Weakness, Numbness Hematologic: Denies: Easy bruising, Easy bleeding Allergy: Denies: Uticaria, Swelling of the mouth, Swelling of the tongue Physical Exam Vital Signs/Narrative: Vital Signs Temp Pulse Resp BP Pulse Ox 04/14/19 14:03 97.9 F 127 H 15 156/108 H 98 Inital Vital Signs reviewed: Yes General: Well nourished, Well developed, No Acute Distress Head: Normocephalic, Atraumatic Eyes: Perrl, EOMI. Negative for: Pale conjunctiva, Scleral icterus ENT: Moist mucous membranes, No rhinorrhea Neck: Supple, Nontender, No lymphadenopathy, No JVD Cardiovascular: Irregular, Tachycardia Respiratory: No distress, CTA bilaterally, Chest nontender Abdomen: Soft, Nontender, Nondistended, Normal bowel sounds Rectal: Deferred Back: Nontender, Normal Inspection Extremities: Nontender, No edema Skin: Normal color, No rash, No Trauma. Negative for: Cyanosis, Diaphoresis, Jaundice Neurological: Alert, Oriented x3, Cranial nerves II-XII grossly intact, Normal Strength, Normal Sensation Psychological: Normal affect, Normal Mood Diagnostic/Tx/Re-eval Impressions Chest X-Ray 04/14/19 14:20 IMPRESSION: Blunting of both cause tremaine angles with mild degree of atelectasis at the lung bases. Electronically Signed: Mumtaz Geiger, at 14:47 EDT , Service support , 04/14/19 14:20 Chest 1 View (Portable) [RAD] Stat Laboratory Results 04/14/19 04/14/19 14:10 14:10 WBC 6.3 RBC 4.67 Hgb 14.6 Hct 45.1 MCV 96.6 H MCH 31.3 MCHC 32.4 RDW Std Deviation 48.1 H RDW Coeff of Mimi 13.6 Plt Count 262 MPV 11.8 Sodium 141 Potassium 3.8 Chloride 107 Carbon Dioxide 28.0 Anion Gap 6 BUN 20 H Creatinine 1.25 Estim Creat Clear Calc 55.22 Est GFR (MDRD) Af Amer 73 Est GFR (MDRD) Non-Af 60 BUN/Creatinine Ratio 16.0 Glucose 92 Calcium 8.6 Troponin I < 0.015 Chest x-ray reveals no acute process. H&H is unremarkable. GFR is 60. First troponin is less than 0.015. - EKG Initial EKG Interpretation: Atrial Fibrillation - Circular rate is 119. QRS duration 84 ms. QT duration 274 ms and axis is normal. Follow-up EKG Interpretation: Atrial Fibrillation - Ventricular rate 108. QRS duration 84 ms. QT duration 318 ms. [place] is normal. EKG is unchanged from first EKG. This EKG was obtained with chest discomfort. - Medical Decision Making History of recurrent A. fib on Xarelto patient was given option of cardioversion. He states he would like to think about it. Because patient now is complaining of chest discomfort radiation to the right and left side of his jaw will obtain a repeat patient was informed if he is truly having cardiac chest pain since he has had coronary disease the treatment for A. fib with RVR is cardioversion. He has not had anything to eat since 11 AM. Chest pain may be related to the A. fib versus cardiac ischemia versus other causes. Was informed that his first EKG and second EKG reveals no evidence of cardiac ischemia. His blood work was unremarkable. After explaining risk benefits of cardioversion and sedation with propofol he will consent. He was given opportunity ask questions. None were asked. He has no contraindications to propofol and specifically no allergy to egg or soy products. Case was discussed with Dr. Dias who is on-call for cardiology. Since patient is pain-free and is no longer in A. fib will discharge to home. Procedures Procedure(s): 1. Deep procedural sedation using a total of 70 mg of propofol. Total time of procedure 5 minutes. 2. Cardioversion unsuccessful with 150 J. Successful with 200 J synchronized. Patient now has a paced rhythm on the monitor. He is no longer in A. fib. ED Disposition - Plan for ED Patient: Disposition: Home or Assisted Living Diagnosis: Atrial fibrillation with rapid ventricular response Instructions: Atrial Fibrillation Referrals: Tremaine Sales III, MD [Primary Care Provider] - Ayaan Miramontes MD [STAFF PHYSICIAN] - 5-7 Days
[2019-04-14 14:41] LABS: Hematocrit 45.1 % (40-54); Hemoglobin 14.6 g/dL (13.0-16.5); Mean Corp Hgb Conc 32.4 g/dL (32-36); Mean Corpuscular Hgb 31.3 pg (27.0-32.0); Mean Corpuscular Volume 96.6 fL (80-94); Mean Platelet Vol. 11.8 fl (6.2-12.0); Platelet Count 262 K/mm3 (150-450); RBC Distribution Width CV 13.6 % (11.6-14.6); RBC Distribution Width SD 48.1 fl (35.1-43.9); Red Blood Count 4.67 M/mm3 (4.6-6.2); White Blood Count 6.3 K/mm3 (4.4-11.0)
[2019-04-14 15:02] LABS: Anion Gap 6 (5-15); BUN 20 mg/dL (7-18); Calcium,Total 8.6 mg/dL (8.5-10.1); Chloride 107 mmol/L (98-107); Creatinine, Serum 1.25 mg/dL (0.70-1.30); EST Glomerular Filtration Rate 60 mL/min (>60); Est Glom Filt Rate - Afr Amer 73 mL/min (>60); Estimated Creatinine Clearance 55.22 ml/min; Glucose 92 mg/dL (74-106); Potassium 3.8 mmol/L (3.5-5.1); Sodium Level 141 mmol/L (136-145)
[2019-04-14] MEDS: Propofol 200 MG/20 ML Vial IV BOLUS (16:33)
--- NOTE | 2019-04-14 17:37 | ED.RN ---
REVIEWED D/C INSTRUCTIONS, FOLLOW UP CARE, AND S/S THAT WOULD WARRANT A RETURN TO THE ED WITH PT. PT VERBALIZED AN UNDERSTANDING AND DENIES FURTHER QUESTIONS FOR THIS RN. PT SKIN P/W/D, RESP EVEN AND UNLABORED, PT A&O X 3, NO DISTRESS NOTED. PT AMBULATED OUT OF ED, GAIT STEADY.
== END 2019-04-14 17:38 | disposition home or self-care (01) ==
PROVIDERS: Emergency Provider Emergency Medicine; Family Provider Family Medicine; PCP Family Medicine
DX: I48.0 Paroxysmal atrial fibrillation (principal); I25.10 Atherosclerotic heart disease of native coronary artery without angina pectoris; E78.5 Hyperlipidemia, unspecified; I10 Essential (primary) hypertension; Z95.0 Presence of cardiac pacemaker; Z95.5 Presence of coronary angioplasty implant and graft; Z87.891 Personal history of nicotine dependence; Z79.02 Long term (current) use of antithrombotics/antiplatelets; Z79.899 Other long term (current) drug therapy
CPT/HCPCS: 71045; 80048; 84484; 85027; 92960; 93005; 96374; 99285; J7030; A4216

== ENCOUNTER 2019-05-16 10:15 | Day surgery (SDC) | payer MEDICARE, SELFPAY ==
[2019-05-03 15:27] VITALS: BMI 33.5
[2019-05-15 10:55] VITALS: BMI 33.5
--- NOTE | 2019-05-16 11:49 | HP.PCM_ITS ---
Problem List (1) Atrial fibrillation Status: Acute (2) CAD in [place] artery Status: Chronic (3) Presence of stent in coronary artery Status: Chronic Comment: PTCA/RAMIN in the prox LAD, distal RCA and prox Rt PDA 06/17/12 (4) Presence of cardiac pacemaker Status: Chronic Comment: Implant 04/04/14 (5) Hyperlipidemia Status: Chronic Qualifiers: (6) Hypertension Status: Chronic History and Physical Date of Admission: 05/16/19 [facility] [address] [place] [address] OFFICE VISIT Date of Service: 05/03/19 MR#: [id number] Acct: [id number] Name: CONSTANTINO CORBETT Rep # : [id number] : 1945 Provider: Loida Hartman Age/Sex: 74/M Location: [facility] Status: Signed HPI HPI History of Present Illness Details: CONSTANTINO CORBETT, is a 73 M who presents to the office today for for outpatient cardiovascular follow-up. He has a history of paroxysmal atrial fibrillation, permanent pacemaker, CAD status post LAD and RCA PCI, hyperlipidemia, and hypertension. Patient was in the hospital on March 23, 2019 for shortness of breath. He was noted to have atrial fibrillation with RVR. He was given IV Cardizem and nadolol. He was then in the ER on 04/14 for AFib with RVR. He notes that he has been having flucating BP readings. He notes that when it is low he feels fatigued. He sts that he feels like his chest is quivering currently. He sts that he notes that he feels that this is also occurring at bedtime. He notes that in the morning he wakes up and feels okay. He notes that a few minutes later he notes that he has a pressure in his chest and has cold sweats, he notes that this will last for a while then it will go away, then he notes that he is fatigued the rest of the day. He notes that this has been ongoing since his ER visit. EKG today demonstrates atrial fibrillation. Intake Vital Signs 05/03/19 Height 5 ft 11 in 05/03/19 Weight: 240 lb 05/03/19 Body Mass Index (BMI) 33.5 05/03/19 Blood Pressure 122/77 H 05/03/19 Blood Pressure Location Lt brachial 05/03/19 Blood Pressure Position Sitting 05/03/19 Respiratory Rate 18 05/03/19 Pulse Rate 95 05/03/19 Pulse Source Monitor 05/03/19 Pulse Ox 98 Intake Visit Reasons: palpitations Batch Attendant Required: No Accompanied by: None Is patient in pain?: No Allergies atorvastatin [From Lipitor] Adverse Reaction (Severe, Verified 05/03/19 15:27) elevated LFT's lisinopril Adverse Reaction (Severe, Verified 05/03/19 15:27) cough gemfibrozil Adverse Reaction (Unknown, Verified 05/03/19 15:27) Unknown simvastatin Adverse Reaction (Unknown, Verified 05/03/19 15:27) Unknown bacitracin [From Triple Antibiotic] Adverse Reaction (Verified 05/03/19 15:27) Unknown bacitracin zinc [From Triple Antibiotic] Adverse Reaction (Verified 05/03/19 15:27) Unknown colistimethate sodium [From Triple Antibiotic] Adverse Reaction (Verified 05/03/19 15:27) Unknown gramicidin D [From Triple Antibiotic] Adverse Reaction (Verified 05/03/19 15:27) Unknown neomycin sulfate [From Triple Antibiotic] Adverse Reaction (Verified 05/03/19 15:27) Unknown polymyxin B [From Triple Antibiotic] Adverse Reaction (Verified 05/03/19 15:27) Unknown polymyxin B sulfate [From Triple Antibiotic] Adverse Reaction (Verified 05/03/19 15:27) Unknown pramoxine HCl [From Triple Antibiotic] Adverse Reaction (Verified 05/03/19 15:27) Unknown Medications Clopidogrel Bisulfate [Plavix] 75 mg PO DAILY 04/29/13 [History Confirmed 05/03/19] Losartan Potassium [Cozaar] 25 mg PO DAILY 04/26/16 [History Confirmed 05/03/19] Pantoprazole Sodium [Protonix] 40 mg PO DAILY 03/23/17 [History Confirmed 05/03/19] nitroglycerin 0.4 mg sublingual tablet 0.4 mg SUBLINGUAL Q5-15M PRN #25 tab 03/17/18 [Rx Confirmed 05/03/19] tamsulosin 0.4 mg capsule 0.4 mg PO DAILY 06/17/18 [History Confirmed 05/03/19] fenofibrate 160 mg tablet 160 mg PO DAILY #30 tab 09/01/18 [Rx Confirmed 05/03/19] metoprolol tartrate 50 mg tablet 50 mg PO BID #180 tab 04/05/19 [Rx Confirmed 05/03/19] rivaroxaban 20 mg tablet 20 mg PO DAILY #30 tab 04/05/19 [Rx Confirmed 05/03/19] amiodarone 200 mg tablet 200 mg PO .COMPLEX #42 tab 05/03/19 [Rx Confirmed 05/03/19] furosemide 40 mg tablet 40 mg PO DAILY #30 tab 05/03/19 [Rx Confirmed 05/03/19] [facility] Medical History Hyperlipidemia (Chronic) Atherosclerotic heart disease of [place] coronary artery without angina pectoris (Chronic) Paroxysmal atrial fibrillation (Chronic) Sick sinus syndrome (Chronic) Presence of cardiac pacemaker (Chronic ~2013) Hypertension (Chronic) Diverticulosis (Chronic) GERD (gastroesophageal reflux disease) (Chronic) RADHA (obstructive sleep apnea) (Chronic) Osteoarthritis (Chronic) RLS (restless legs syndrome) (Chronic) Tubular adenoma of colon (Chronic) [place] diverticulum (Chronic) Chest pain on exertion (Inactive) Colon polyp (Inactive) [place] diverticulum (Inactive) Surgical History Presence of stent in coronary artery (Chronic ~06/17/12) Postsurgical percutaneous transluminal coronary angioplasty (PTCA) status (Chronic ~06/17/12) History of cataract surgery (Resolved) History of inguinal hernia repair (Resolved) History of laparoscopic cholecystectomy (Resolved) Family History Mother CVA (cerebral vascular accident) Father Heart disease Sister Heart disease Social History (Updated 05/05/19 @ 16:43 by LESA Chaves) Smoking Status: Former smoker alcohol intake: never ROS Const Const: Positive for fatigue and weakness; negative for fever(s) or headache(s) Eyes Eyes: Negative for blind spots, loss of peripheral vision or transient loss of vision ENT ENT: Negative for headache(s), dizziness, tinnitus or Nosebleed/epistaxis Cardio Chest Pain: No Palpitations: Yes Edema: Bilateral Muscle aches with walking: None Resp Respiratory: Positive for SOB with activity; negative for SOB at rest, SOB orthopnea\SOB lying down or Cough GI GI: Negative nausea, vomiting, heartburn or vomiting blood/hematemesis : Negative for hematuria Musc Musc: Negative for muscle aches/ myalgia Neuro Neuro: Positive for weakness; negative for dizziness, lightheadedness, near syncope, syncope, orthostatic symptoms or headache(s) Mamadou Hematologic/Lymphatic: Negative for easy bleeding Endo Endo: Positive for fatigue Cardiology Exam Const Appearance: cooperative and other (Appears fatigued) Nutritional Appearance: overweight Orientation: alert, awake and oriented x3 Head Head: normal to inspection, normocephalic and atraumatic Ears: hearing grossly normal bilaterally Nose: external nose normal Face and Sinus: face symmetric Mouth: oral mucosae normal Teeth and gingiva: fair dentition Eyes Eyelids: eyelids normal Conjunctivae: conjunctivae normal Pupils: PERRL EOM: EOM intact bilaterally Neck Neck: normal visual inspection Carotids: normal carotid upstroke Chest Chest inspection: normal inspection of the chest and symmetric chest movement Auscultation: Bilateral: Clear to Auscultation Cardio Palpation: normal PMI Rate: tachycardic Rhythm: irregularly irregular Heart sounds: S1 normal and S2 normal GI GI: normal to inspection, soft and bowel sounds present Neuro General: alert, awake, oriented x3, gait normal, moves all extremities, no focal sensory deficit and no focal motor deficits Skin Skin: no rashes or lesions noted Extremities Pulses: Normal: Right Radial Pulse, Left Radial Pulse Lower Extremity Edema: None: Bilateral Psych Psychological: normal affect Assessment & Plan 1. Atrial fibrillation I48.91 Plan - LESA Chaves Feel the patient is symptomatic with his atrial fibrillation. His rate is not well controlled. He is on metoprolol. He is also on a factor X a inhibitor in addition to his Plavix. Would like to start him on an antiarrhythmic. We will load him with amiodarone. We will have him return next week for an EKG, if he remains in atrial fibrillation we will then plan on a cardioversion. With his shortness of breath will also add a diuretic to see if this helps with his symptoms. If he is not able to be successfully cardioverted would consider referring him to EP. 2. Atherosclerosis of [place] coronary artery of [place] heart without angina pectoris I25.10 Plan - LESA Chaves Stable, from a cardiac standpoint patient does not have any symptoms of angina. We recommend that they continue with current aggressive medical management and risk factor modification. 3. Hypertension I10 Plan - LESA Chaves Blood pressure is well controlled on current medications, we do not recommend any changes at this time. 4. Presence of cardiac pacemaker Z95.0 Implant 04/04/14 Plan - LESA Chaves Pacemaker is functioning appropriately. We will continue to monitor at routine scheduled pacemaker interrogations. 5. Hyperlipidemia, unspecified hyperlipidemia type E78.5 Plan - LESA Chaves Managed by PCP, will continue with current medications. Laboratory Tests 08/04/18 13:10 Cholesterol 176 LDL Cholesterol 108 HDL Cholesterol 36 L Plan Detail Other Medications New: amiodarone 200 mg PO take 3 times a day for one week, then decrease to twice a day for a week, then once a day; 42 tabs 11RF furosemide (Lasix) 40 mg PO DAILY 30 tabs 3RF Additional Comments - LESA Chaves The above patient was discussed with Dr. Miramontes, he agrees with plan of care. Thank you for allowing us to participate in patient's plan of care, if you have any questions please do not hesitate to call. This note was generated using a voice recognition system and there may be incorrect words, spelling or punctuation errors that were not noted when reviewing the office note prior to saving. Follow Up 1 Week (EKG- will schedule cardioversion then if still in AFib) 1 Month (MMM- please give portal information) Coding Level of Care Code Off vis,est,level 4 Diagnoses Atrial fibrillation I48.91 Atherosclerosis of [place] coronary artery of [place] heart without angina pectoris I25.10 ??[place] vs. transplanted heart: [place] heart Hypertension I10 ??Hypertension type: essential hypertension Presence of cardiac pacemaker Z95.0 Hyperlipidemia, unspecified hyperlipidemia type E78.5 ??Hyperlipidemia type: unspecified Coding Level of Care Code Off vis,est,level 4 Diagnoses Atrial fibrillation I48.91 Atherosclerosis of [place] coronary artery of [place] heart without angina pectoris I25.10 ??[place] vs. transplanted heart: [place] heart Hypertension I10 ??Hypertension type: essential hypertension Presence of cardiac pacemaker Z95.0 Hyperlipidemia, unspecified hyperlipidemia type E78.5 ??Hyperlipidemia type: unspecified Supplemental Info Supplemental Information Echocardiogram in 2018: Left ventricular systolic function is normal. The estimated ejection fraction is 65 %. The left atrium is mildly enlarged. Mild (1+) mitral valve insufficiency. Mild tricuspid valve insufficiency. Mild focal aortic valve calcification. Trivial aortic valve insufficiency. Trivial pulmonic valve insufficiency. Right ventricular systolic pressure estimated to be 29 mmHg. Transmitral diastolic flow velocities suggest diastolic dysfunction (pseudonormal pattern). ICD or pacer leads identified within the right atrium ICD or pacer leads identified within the right ventricle. Stress Test 2019: Impression: 1. Lexiscan stress test test is negative for Lexiscan infusion induced EKG changes of ischemia. 2. Lexiscan stress test test is negative for Lexiscan infusion induced chest pain. 3. Results of the nuclear portion of the test is as below Myocardial perfusion imaging study: Technique: The patient was injected with 10.2 millicuries of technetium 99m Cardiolite and subsequently rest SPECT Cardiolite nuclear imaging was obtained in the horizontal long, vertical long, and short axis views. The patient underwent pharmacologic (Regadenoson) evaluation. Please see above for details. The patient was injected with 30.1 millicuries of technetium 99m Cardiolite and subsequently stress SPECT Cardiolite nuclear imaging was obtained in the horizontal long, vertical long, and short axis views. A gated Cardiolite study at peak stress was obtained. Interpretation: Rest and stress SPECT Cardiolite nuclear imaging status post realignment, normalization, and attenuation correction demonstrate normal myocardial radioisotope uptake during the rest and stress images. Gated images reveal mild apical hypokinesis which could be artifactual. The reported LVEF is 59 %. Impression: 1. There is no evidence of significant ischemia or infarction. 2. Estimated ejection fraction is 59%. Labs LDL Cholesterol 108 mg/dL (0-130) 08/04/18 HDL Cholesterol 36 mg/dL (40-) L 08/04/18 Triglycerides 160 mg/dL (-199) 08/04/18 VLDL Cholesterol 32 mg/dL (5-40) 08/04/18 Diagnostics Electrocardiogram 04/14/19 Stress Test Nuclear Medicine 03/24/19 Stress Test 03/24/19 Pacemaker Check 03/30/19 Chest X-Ray 04/14/19 05/05/19 [id number] <Electronically signed by Loida Owens> Date _ Loida MCFADDEN 05/08/19 0750<Electronically signed by Ayaan Miramontes MD> Cosigner Signature: Date (if applicable) Ayaan Miramontes MD CC: ~ I have re-examined the patient. There are no clinical changes since date of exam.
--- NOTE | 2019-05-16 12:25 | PCM.OP.PRO ---
Procedure Report Date of Procedure: 05/16/19 CONSCIOUS SEDATION REPORT DATE OF SERVICE: May 16, 2019 BRIEF HISTORY OF PRESENT ILLNESS: The patient is a 74-year-old male who presented to [facility] for an elective outpatient cardioversion due to underlying atrial fibrillation. The patient denies a history of COPD or asthma. He is a non-smoker. He does report having been diagnosed previously with obstructive sleep apnea, but reports that he does not currently utilize any form of nocturnal Pap therapy. He is currently anticoagulated on Xarelto. His last known ejection fraction was approximately 60%. PHYSICAL EXAMINATION: VITAL SIGNS: Reviewed and were acceptable. GENERAL: The patient is a male, in no apparent distress, speaking in full sentences. HEENT: Normocephalic, atraumatic. Mucous membranes are moist and pink. Good mouth opening noted. Trachea is midline. Good neck mobility. CHEST: S1, S2 irregularly irregular. No murmurs, rubs or gallops were noted. LUNGS: Clear to auscultation bilaterally without appreciable wheezes, rales or rhonchi. ABDOMEN: Soft, nontender, nondistended. Positive bowel sounds. EXTREMITIES: There is no clubbing, cyanosis or edema. ASA Class: II DESCRIPTION OF PROCEDURE: After confirmation of informed consent, the patient's anesthesia plan was reviewed in detail. Propofol was chosen. Risks and benefits were reviewed and the patient agreed to proceed. At 1202, the patient was given 40 mg of propofol. The patient achieved an appropriate level of sedation and was given a 200 joule synchronized cardioversion by Dr. Miramontes at the bedside. This was successful in achieving normal sinus rhythm. The patient was monitored until 1212, at which time he reached his baseline mental status and function. The patient tolerated the procedure well. COMPLICATIONS: None ESTIMATED BLOOD LOSS: None RECOMMENDATIONS: Okay to recover in usual fashion. Code Visit [id number]: Other Procedure See Report - [id number]
--- NOTE | 2019-05-16 13:11 | EKG12_ITS ---
Test Reason : DCCV Blood Pressure : / mmHG Vent. Rate : 062 BPM Atrial Rate : 062 BPM P-R Int : 224 ms QRS Dur : 090 ms QT Int : 432 ms P-R-T Axes : -14 012 027 degrees QTc Int : 438 ms Poor data quality, interpretation may be adversely affected Atrial-paced rhythm with prolonged AV conduction Abnormal ECG When compared with ECG of 16-MAY-2019 11:30, MANUAL COMPARISON REQUIRED, DATA IS UNCONFIRMED Confirmed by JAI NG, RLAPH ([id number]), publications editor MORA RUIZ ([id number]) on 05/23/2019 3:12:31 PM Referred By: Ayaan Miramontes Confirmed By:RALPH VERGARA MD
--- NOTE | 2019-05-16 13:12 | CARDIOVERS_ITS ---
Cardioversion Cardioversion: Date: 05-16-19 Procedure: Synchronized Biphasic DC Cardioversion Indications: Atrial fibrillation/flutter Consent: [Per the Patient] Anesthesia: per Dr. Baker of pulmonology and critical care medicine with propofol 40 mg IV push total Procedure: Synchronized Biphasic DC Cardioversion: 200 J x1: Result: Sinus rhythm Complications: no apparent complications This note was generated with Continuentation software. It may contain incorrect words, spelling, and punctuation that were not noted in checking the note before signing.
== END 2019-05-16 13:20 | disposition home or self-care (01) ==
LOC: CLSP 10:16
PROVIDERS: Family Provider Family Medicine; PCP Family Medicine; Referring Provider Internal Medicine Cardiovascular Disease; Visit Provider Internal Medicine Cardiovascular Disease
DX: I48.91 Unspecified atrial fibrillation (principal); I25.10 Atherosclerotic heart disease of native coronary artery without angina pectoris; I10 Essential (primary) hypertension; Z95.0 Presence of cardiac pacemaker; E78.5 Hyperlipidemia, unspecified; E66.3 Overweight; Z68.33 Body mass index [BMI] 33.0-33.9, adult; K21.9 Gastro-esophageal reflux disease without esophagitis; M19.90 Unspecified osteoarthritis, unspecified site; Z87.891 Personal history of nicotine dependence; Z79.02 Long term (current) use of antithrombotics/antiplatelets; Z79.899 Other long term (current) drug therapy
CPT/HCPCS: 92960; 93005; J7040

== ENCOUNTER → 2020-01-31 | Outpatient (CLI) | payer MEDICARE, SELFPAY ==
[2020-01-18 10:56] VITALS: BMI 33.5
[2020-01-31 17:21] LABS: Ferritin 127 ng/mL (26-388)
== END | disposition home or self-care (01) ==
LOC: LAB 15:22
PROVIDERS: PCP Family Medicine; Referring Provider Internal Medicine Pulmonary Disease; Visit Provider Internal Medicine Pulmonary Disease
DX: R25.2 Cramp and spasm (principal)
CPT/HCPCS: 36415; 82728

== ENCOUNTER → 2020-04-16 | Outpatient (CLI) | payer MEDICARE, SELFPAY ==
[2020-01-18 10:56] VITALS: BMI 33.5
[2020-04-16 12:40] LABS: Anion Gap 3 (5-15); Chloride 104 mmol/L (98-107); Potassium 3.6 mmol/L (3.5-5.1); Sodium Level 137 mmol/L (136-145)
[2020-04-17 08:40] LABS: Calcium,Total 8.7 mg/dL (8.5-10.1); Magnesium 2.5 mg/dL (1.6-2.6)
== END | disposition home or self-care (01) ==
LOC: LAB 11:29
PROVIDERS: PCP Family Medicine; Referring Provider Internal Medicine Pulmonary Disease; Visit Provider Internal Medicine Pulmonary Disease
DX: G47.33 Obstructive sleep apnea (adult) (pediatric) (principal); G25.81 Restless legs syndrome; I48.91 Unspecified atrial fibrillation
CPT/HCPCS: 36415; 80051; 82310; 83735

== ENCOUNTER → 2020-04-30 | Outpatient (CLI) | payer MEDICARE, SELFPAY ==
[2020-01-18 10:56] VITALS: BMI 33.5
[2020-04-30 12:35] LABS: Hematocrit 46.6 % (40-54); Hemoglobin 15.1 g/dL (13.0-16.5); Mean Corp Hgb Conc 32.4 g/dL (32-36); Mean Corpuscular Hgb 30.8 pg (27.0-32.0); Mean Corpuscular Volume 94.9 fL (80-94); Mean Platelet Vol. 12.6 fl (6.2-12.0); Platelet Count 243 K/mm3 (150-450); RBC Distribution Width SD 49.2 fl (35.1-43.9); Red Blood Count 4.91 M/mm3 (4.6-6.2); White Blood Count 7.2 K/mm3 (4.4-11.0)
[2020-04-30 12:55] LABS: ALB/GLOB Ratio 1.1 RATIO (0.9-2.4); AST(SGOT) 24 U/L (15-37); Alanine Aminotransfer ALT/SGPT 26 U/L (16-61); Albumin, Serum 3.9 g/dL (3.2-5.0); Alkaline Phosphatase 45 U/L (45-117); Anion Gap 4 (5-15); BUN 20 mg/dL (7-18); BUN/Creat Ratio 14.4 RATIO (10-20); Calcium,Total 9.1 mg/dL (8.5-10.1); Chloride 104 mmol/L (98-107); Cholesterol 169 mg/dL (200); Creatinine, Serum 1.39 mg/dL (0.70-1.30); EST Glomerular Filtration Rate 53 mL/min (>60); Est Glom Filt Rate - Afr Amer 64 mL/min (>60); Globulin 3.6 g/dL (2.2-4.2); Glucose 98 mg/dL (74-106); High Density Lipoprotein 37 mg/dL; Protein, Total 7.5 g/dL (6.4-8.2); Sodium Level 137 mmol/L (136-145); Triglycerides 141 mg/dL; Very Low Density Lipoprotein 28 mg/dL (5-40)
== END | disposition home or self-care (01) ==
LOC: LABSPEC 12:19
PROVIDERS: PCP Family Medicine; Visit Provider Family Medicine
DX: I10 Essential (primary) hypertension (principal); E78.5 Hyperlipidemia, unspecified
CPT/HCPCS: 80053; 80061; 85027

== ENCOUNTER → 2020-08-21 09:46 | Outpatient (CLI) | payer MEDICARE, SELFPAY ==
[2020-01-18 10:56] VITALS: BMI 33.5
[2020-08-21 11:19] LABS: Hemoglobin A1c 6.2 % (3.8-5.6)
[2020-08-21 11:28] LABS: Magnesium 2.2 mg/dL (1.6-2.6)
== END ==
PROVIDERS: PCP Family Medicine; Referring Provider Family Medicine; Visit Provider Family Medicine
DX: Z79.899 Other long term (current) drug therapy (principal)
CPT/HCPCS: 36415; 83036; 83735; 84443

== ENCOUNTER → 2020-09-24 14:54 | Outpatient (CLI) | payer MEDICARE, SELFPAY ==
[2020-09-24 14:19] VITALS: BMI 33.7
--- NOTE | 2020-09-24 15:02 | VDLE_ITS ---
Reason For Study: Swelling RIGHT LEFT GSV is normal. CFV is compressible, spontaneous, phasic, CFV is compressible, spontaneous, phasic, competent, and demonstrates normal competent and demonstrates normal augmentation. augmentation. FV is compressible, spontaneous, phasic, competent and demonstrates normal augmentation. POP V is compressible, spontaneous, phasic, competent and demonstrates normal augmentation. T/P Trunk is compressible. PTV is compressible. RT PerV is compressible. Procedure This is a venous duplex using B-mode, color flow and spectral Doppler. Exam performed in department. A preliminary report was called and/or faxed to [facility]. Interpretation Summary There is no evidence of right lower extremity deep vein thrombosis. Right great saphenous vein appears patent and compressible segmentally. Normal flow patterns left common femoral vein Ordering Physician: Jose Luis Sales Referring Physician: TAMI Sales M.D. Performed By: Rossy Arevalo RVT
[2020-09-24 15:53] LABS: Hematocrit 48.3 % (40-54); Hemoglobin 15.3 g/dL (13.0-16.5); Mean Corp Hgb Conc 31.7 g/dL (32-36); Mean Corpuscular Hgb 30.4 pg (27.0-32.0); Mean Corpuscular Volume 95.8 fL (80-94); Mean Platelet Vol. 12.7 fl (6.2-12.0); Platelet Count 261 K/mm3 (150-450); RBC Distribution Width CV 14.6 % (11.6-14.6); RBC Distribution Width SD 51.8 fl (35.1-43.9); Red Blood Count 5.04 M/mm3 (4.6-6.2); White Blood Count 7.2 K/mm3 (4.4-11.0)
[2020-09-24 16:21] LABS: BNP,B-Type NATRIURETIC PEPTIDE 266.9 pg/mL (0-100)
[2020-09-24 16:23] LABS: ALB/GLOB Ratio 1.1 RATIO (0.9-2.4); AST(SGOT) 27 U/L (15-37); Alanine Aminotransfer ALT/SGPT 32 U/L (16-61); Alkaline Phosphatase 52 U/L (45-117); Anion Gap 6 (5-15); BUN 20 mg/dL (7-18); BUN/Creat Ratio 12.5 RATIO (10-20); Chloride 104 mmol/L (98-107); EST Glomerular Filtration Rate 45 mL/min (>60); Est Glom Filt Rate - Afr Amer 54 mL/min (>60); Globulin 3.8 g/dL (2.2-4.2); Glucose 90 mg/dL (74-106); Potassium 4.1 mmol/L (3.5-5.1); Protein, Total 7.8 g/dL (6.4-8.2); Sodium Level 138 mmol/L (136-145)
== END ==
PROVIDERS: PCP Family Medicine; Referring Provider Surgery; Visit Provider Surgery
DX: Z01.818 Encounter for other preprocedural examination (principal); M79.604 Pain in right leg; R60.0 Localized edema; R07.9 Chest pain, unspecified
CPT/HCPCS: 36415; 80053; 83880; 85027; 93971

== ENCOUNTER → 2020-09-30 10:40 | Outpatient (CLI) | payer MEDICARE, SELFPAY ==
[2020-09-24 14:19] VITALS: BMI 33.7
--- NOTE | 2020-09-30 10:43 | ECHOD_ITS ---
Reason For Study: CHF Procedure This was a 2D Doppler, Color Flow transthoracic echocardiogram. The study was technically difficult. Due to arrhythmia. Exam performed in department. Left Ventricle Normal LV size. Left ventricular systolic function is normal. The estimated ejection fraction is 55 %. Unable to assess diastolic dysfunction. No regional wall motion abnormalities noted. Right Ventricle Normal RV size. ICD or pacer leads identified within the right ventricle. Normal systolic function. Atria The left atrium is moderately enlarged. Normal right atrium. ICD or pacer leads identified within the right atrium. No doppler evidence for ASD. Mitral Valve There is no mitral annular calcification. Normal mitral valve. Mild (1+) mitral valve insufficiency. Tricuspid Valve Normal tricuspid valve. Mild to moderate (1-2+) tricuspid valve insufficiency. Right ventricular systolic pressure estimated to be 34 mmHg. Aortic Valve Trisinus/trileaflet aortic valve. Mild focal aortic valve calcification. Trivial aortic valve insufficiency. Pulmonic Valve The pulmonic valve is not well visualized. Trivial pulmonic valve insufficiency. Great Vessels Normal sized aortic root. Pericardium/Pleural No pericardial effusion. MMode/2D Measurements & Calculations LVIDd: 5.1 cm IVSd: 1.1 cm Ao root diam: 3.4 cm LVIDs: 3.7 cm LVPWd: 1.1 cm FS: 26.2 % LAV(MOD-bp): 84.7 ml LA A4 area: 27.2 cm2 LA dimension(2D): 4.6 cm LAV(MOD-bp) Indexed: 37.2 ml/m2 LAV(MOD-sp2): 67.9 ml LAV(MOD-sp4): 98.3 ml RA A4 area: 18.7 cm2 Doppler Measurements & Calculations MV E max lisandro: 77.5 cm/sec Ao V2 max: 92.4 cm/sec LV V1 max: 74.3 cm/sec Ao max P.4 mmHg LV V1 max P.2 mmHg PA V2 max: 69.7 cm/sec TR max lisandro: 273.3 cm/sec TR max P.7 mmHg ECHO/Echo Complete Interpretation Summary The study was technically difficult. Left ventricular systolic function is normal. The estimated ejection fraction is 55 %. The left atrium is moderately enlarged. Mild (1+) mitral valve insufficiency. Mild to moderate (1-2+) tricuspid valve insufficiency. Mild focal aortic valve calcification. Trivial pulmonic valve insufficiency. Right ventricular systolic pressure estimated to be 34 mmHg. Unable to assess diastolic dysfunction. ICD or pacer leads identified within the right atrium ICD or pacer leads identified within the right ventricle. Ordering Physician: Ayaan Miramontes Referring Physician: Nasim Sales Performed By: Sendy Johnson, FELIX, RVT
== END ==
PROVIDERS: PCP Family Medicine; Referring Provider Internal Medicine Cardiovascular Disease; Visit Provider Internal Medicine Cardiovascular Disease
DX: I49.5 Sick sinus syndrome (principal); I25.10 Atherosclerotic heart disease of native coronary artery without angina pectoris; R60.9 Edema, unspecified; Z95.0 Presence of cardiac pacemaker
CPT/HCPCS: 93306

== ENCOUNTER 2020-11-13 05:20 | Day surgery (SDC) | payer MEDICARE, SELFPAY ==
[2020-09-24 14:19] VITALS: BMI 33.7
[2020-10-31 09:42] VITALS: BMI 33.5
[2020-11-05 09:54] LABS: Hematocrit 47.5 % (40-54); Hemoglobin 14.9 g/dL (13.0-16.5); Mean Corp Hgb Conc 31.4 g/dL (32-36); Mean Corpuscular Hgb 29.6 pg (27.0-32.0); Mean Corpuscular Volume 94.4 fL (80-94); Mean Platelet Vol. 12.5 fl (6.2-12.0); Platelet Count 223 K/mm3 (150-450); RBC Distribution Width CV 14.7 % (11.6-14.6); RBC Distribution Width SD 51.1 fl (35.1-43.9); Red Blood Count 5.03 M/mm3 (4.6-6.2)
[2020-11-05 10:06] LABS: International Normalized Ratio 1.4; Prothrombin Time (Protime)PT. 16.6 SECONDS (11.7-14.9)
[2020-11-05 10:07] LABS: Partial Thromboplast Time 36.4 Seconds (24.1-36.2)
[2020-11-05 10:26] LABS: AST(SGOT) 26 U/L (15-37); Alanine Aminotransfer ALT/SGPT 29 U/L (16-61); Albumin, Serum 3.9 g/dL (3.2-5.0); Alkaline Phosphatase 49 U/L (45-117); Anion Gap 5 (5-15); BUN 17 mg/dL (7-18); BUN/Creat Ratio 13.4 RATIO (10-20); Bilirubin, Direct 0.36 mg/dL (0.00-0.30); Calcium,Total 8.7 mg/dL (8.5-10.1); Chloride 104 mmol/L (98-107); Creatinine, Serum 1.27 mg/dL (0.70-1.30); EST Glomerular Filtration Rate 59 mL/min (>60); Est Glom Filt Rate - Afr Amer 71 mL/min (>60); Globulin 3.6 g/dL (2.2-4.2); Glucose 96 mg/dL (74-106); Potassium 3.9 mmol/L (3.5-5.1); Protein, Total 7.5 g/dL (6.4-8.2); Sodium Level 138 mmol/L (136-145)
[2020-11-13] VITALS (7 sets, daily range): BP systolic 96–139; BP diastolic 56–80; PULSE 68–100; RESP 16; TEMP 35.8–36.9; O2SAT 88–97; BMI 73.6; BMI 33.4
--- NOTE | 2020-11-13 05:55 | PCM.HP.BLA ---
History and Physical Date of Admission: 11/13/20 Intake Visit Reasons: H & P hernia surgery 11/08 Chief Complaint: umbilical hernia Manager Business Planning Required: No Is patient in pain?: No Allergies atorvastatin [From Lipitor] Adverse Reaction (Severe, Verified 10/31/20 09:43) elevated LFT'slisinopril Adverse Reaction (Severe, Verified 10/31/20 09:43) coughgemfibrozil Adverse Reaction (Unknown, Verified 10/31/20 09:43) Unknownsimvastatin Adverse Reaction (Unknown, Verified 10/31/20 09:43) Unknownbacitracin [From Triple Antibiotic] Adverse Reaction (Verified 10/31/20 09:43) Unknownbacitracin zinc [From Triple Antibiotic] Adverse Reaction (Verified 10/31/20 09:43) Unknowncolistimethate sodium [From Triple Antibiotic] Adverse Reaction (Verified 10/31/20 09:43) Unknowngramicidin D [From Triple Antibiotic] Adverse Reaction (Verified 10/31/20 09:43) Unknownneomycin sulfate [From Triple Antibiotic] Adverse Reaction (Verified 10/31/20 09:43) Unknownpolymyxin B [From Triple Antibiotic] Adverse Reaction (Verified 10/31/20 09:43) Unknownpolymyxin B sulfate [From Triple Antibiotic] Adverse Reaction (Verified 10/31/20 09:43) Unknownpramoxine HCl [From Triple Antibiotic] Adverse Reaction (Verified 10/31/20 09:43) Unknown Medications Clopidogrel Bisulfate [Plavix] 75 mg PO DAILY 04/29/13 [History Confirmed 10/31/20] Pantoprazole Sodium [Protonix] 40 mg PO DAILY 03/23/17 [History Confirmed 10/31/20] nitroglycerin 0.4 mg sublingual tablet 0.4 mg SUBLINGUAL Q5-15M PRN #25 tab 03/17/18 [Rx Confirmed 10/31/20] tamsulosin 0.4 mg capsule 0.4 mg PO DAILY 06/17/18 [History Confirmed 10/31/20] fenofibrate 160 mg tablet 160 mg PO DAILY #30 tab 09/01/18 [Rx Confirmed 10/31/20] diltiazem HCl 240 mg capsule,extended release 24 hr 240 mg PO DAILY #30 cap 05/03/20 [Rx Confirmed 10/31/20] rivaroxaban 20 mg tablet 20 mg PO DAILY #30 tab 05/22/20 [Rx Confirmed 10/31/20] metoprolol tartrate 50 mg tablet 25 mg PO BID #180 tab 09/04/20 [Rx Confirmed 10/31/20] furosemide 40 mg tablet 40 mg PO .COMPLEX PRN #90 tab 10/09/20 [Rx Confirmed 10/31/20] PFSH Medical History? Ventral incisional hernia without obstruction or gangrene (Acute) Hyperlipidemia (Chronic) Atherosclerotic heart disease of [place] coronary artery without angina pectoris (Chronic) Paroxysmal atrial fibrillation (Chronic) Sick sinus syndrome (Chronic) Presence of cardiac pacemaker (Chronic ~2013) Hypertension (Chronic) Diverticulosis (Chronic) GERD (gastroesophageal reflux disease) (Chronic) RADHA (obstructive sleep apnea) (Chronic) Osteoarthritis (Chronic) RLS (restless legs syndrome) (Chronic) Tubular adenoma of colon (Chronic) [place] diverticulum (Chronic) History of cardioversion (Resolved ~05/16/19) Chest pain on exertion (Inactive) Colon polyp (Inactive) [place] diverticulum (Inactive) Surgical History? Presence of stent in coronary artery (Chronic ~06/17/12) Postsurgical percutaneous transluminal coronary angioplasty (PTCA) status (Chronic ~06/17/12) History of cataract surgery (Resolved) History of inguinal hernia repair (Resolved) History of laparoscopic cholecystectomy (Resolved) Family History? Mother CVA (cerebral vascular accident)Father Heart diseaseSister Heart disease Social History? (Updated 10/31/20 @ 15:43 by Marilu MCFADDEN PA-C) Smoking Status:? Former smoker? alcohol intake:? never? HPI HPI HPI: CONSTANTINO BECERRILTRACYOBEY, is a 75 M who presents to the office today for? HPI HPI Surgical H&P: Yes HPI: CONSTANTINO CORBETT, is a 75 M who presents to the office today for an update history and physical for an elective hernia repair. Patient denies recent hospitalizations or illnesses. Patient denies any new issues with hernia. He is maintained on Plavix and Xarelto due to stents and history of A Fib. Patient denies chest pain or shortness of breath.? Patient's previous history per Dr. Sales: CONSTANTINO CORBETT, is a 75 M who presents to the office today for surgical consultation regarding a ventral hernia.? The patient has requested that I assist him with his surgical care.? His primary care physician is Dr. Nasim Sales, [facility] and his customs import specialist is Dr. Ayaan Miramontes. Within the past month or so he has developed a bulge with some intermittent tenderness just superior to the umbilicus.? I have assisted him with a remote laparoscopic cholecystectomy. He also complains today of a sore spot at the lateral right ankle.? He is concerned about the possibility of DVT.? He denies any history of trauma. He denies any cough or sneeze or history of acute injury to the abdomen. He does note that he has had some progressive weight gain.? He is not sure whether this is fluid weight or nutritional weight. Upon investigating the weight change he does note that whereas he has had chronic swelling of the left lower extremity he has newer swelling of the right lower extremity and more swelling noted bilaterally. He does have a history of atrial fibrillation and sleep apnea and has a left chest pacemaker in place.? He is on clopidogrel and Xarelto.? He claims in addition to that he previously was on aspirin but developed epistasis and had the aspirin held. He states that he was evaluated for possible ablation of his A. fib because he can frequently be erratic but he states he was not felt to be a candidate at that time. His most recent colonoscopy was September 03, 2016.? 2 polyps were removed from the descending colon.? Diverticulosis was identified.? That procedure was performed by Dr. Lewis Llanos. He was just recently seen September 04, [address] Ayaan Miramontes.? At that time the patient was not admitting to any new complaints.? I do not believe that the patient mentioned that he was wanting to proceed with surgical repair of his hernia. ROS General General: Yes fatigue; no weight change, appetite, colon cancer, breast cancer or weakness HEENT HEENT: No difficulty swallowing, eye injury, eye surgery, swollen glands or hoarseness Endo Endocrine: No thyroid disease, diabetes mellitus, thyroid cancer, Hair loss, heat intolerance or cold intolerance Musc Musculoskeletal: No back problems, arthritis, rheumatoid arthritis, gout or joint pain Cardio Cardiovascular: Yes pacemaker, heart disease, atrial fibrillation, high blood pressure and heart stent; no murmur, heart attack, palpitations, shortness of breat with exertion or chest pain Psych Psychiatric: No depression, anxiety or hearing voices Resp Respiratory: Yes shortness of breath, Yes sleep apnea, No cough, No COPD, No asthma, No emphysema, No wheezing Gastro Gastrointestinal: Yes abdominal pain, No nausea or vomiting, No diarrhea, No constipation, No blood in stool, Yes acid reflux, No hemorrhoids, No ulcers, No gallbladder problem, No black,tarry stools [place] Hematologic: Yes blood thinners, No blood disorders, No bleeding, No anemia, No blood clots Neuro Neurologic: No weakness Exam Const General: cooperative, healthy appearing, comfortable, no acute distress HENMT Head: normal to inspection Eyes General: appearance normal, both eyes and all related structures Neck Neck: normal visual inspection Neck mass: No Resp Effort & Inspection: normal respiratory effort Auscultation: clear to auscultation bilaterally Cardio Rate: regular rate Rhythm: regular rhythm Heart Sounds: no murmurs GI Inspection: normal to inspection Palpation: soft, hernia (superior to the umbilicus. Well-healed umbilical incision noted. ) Auscultation: normal bowel sounds Skin General: no rashes or lesions noted Neuro General: no focal motor deficits Extrem General: edema (bilaterally) Psych Appearance: grossly normal Affect: normal affect Assessment & Plan Problems 1. Ventral incisional hernia without obstruction or gangrene? K43.[address] Sales will plan to perform a supraumbilical ventral? hernia repair with mesh. Procedure details, risks and benefits have been reviewed. Patient has had the opportunity to ask and have questions answered. Patient verbally understands and agrees with the plan. Patient was instructed to hold Plavix and Xarelto 48 hours prior to the procedure. ?? I have re-examined the patient. There are no clinical changes since date of exam.
[2020-11-13] MEDS: Lactated Ringers 1,000 ML 100 ML IV ×2 (06:06→10:49)
[2020-11-13] MEDS: Cefazolin 2 GM in 0.9% Normal Saline 100 ML IV (07:30)
--- NOTE | 2020-11-13 07:30 | HERN_PTH ---
PATIENT: CONSTANTINO CORBETT [place] [facility] [id number] AGE/SX: 75/M ROOM: RE11/13/[address]: Dr. Jose Luis Sales MD : 1945 BED: DIS: 11/13/2020 SPEC #: [id number] RECD: 11/13/20 10:19 STATUS: NIR PHILLIPS #: [id number] ANDREA: 11/13/20 07:[address]: Jose Luis Sales DEPT: SURGICAL PATHOLOGY RECD BY: Mahad Wynn ENTERED: 11/13/20 11:33 SP TYPE: Hernia OTHR DR: Dr. Nasim Sales IIIMD Tissues: HERNIA Procedures: Surgery Specimen Level II HEADER OPERATION: Ventral hernia, incisional repair with mesh PRE-OP DIAGNOSIS: Ventral incisional hernia TISSUE SUBMITTED: Hernia sac and contents MICROSCOPIC DIAGNOSIS Hernia sac and contents: Pieces of fibroadipose and fibroconnective tissue, consistent with hernia sac with chronic inflammation and reactive changes. PRATIK:dot 11/14/2020 MICROSCOPIC DESCRIPTION Slides are reviewed. GROSS DESCRIPTION Received in fixative is one container labeled with the patient's name and designated hernia sac and contents. The specimen consists of two pieces of soft tissue that in aggregate measure 2.3 x 1.2 x 0.6 cm. No mass lesion is identified. The larger piece is serially sectioned. The entire specimen is submitted in one cassette. / PRATIK:dot 11/13/20 TC:5 CPT: 12460
[2020-11-13] MEDS: Bupivacaine Mpf 0.5% 30 ML VIAL (07:51)
--- NOTE | 2020-11-13 08:11 | PCM.OPRPT ---
Problems Associated Problem List Diagnoses (1) Ventral incisional hernia without obstruction or gangrene: Report of Operation Date of Procedure: 11/13/20 Pre-Operative Diagnosis: Supraumbilical ventral incisional hernia Post-Operative Diagnosis: Same Surgery/Procedure Performed:: Ventral incisional herniorrhaphy with 6.4 cm Ventralex mesh, lot [id number] reference #[id number] expiry date 05/08/2022 Description of Surgical Findings:: Timeout and informed consent was obtained. 75-year-old gent was taken to the operating placement table underwent general endotracheal intubation esthesia. Ancef 2 g were given intravenously. A transverse supraumbilical incision was created sharp dissection carried down through the subcutaneous tissue a hernia sac was rapidly encountered and had very thick wall to it. I carefully opened the sac and gain access to the peritoneum fortunately was no bowel involvement. I used electrocautery to amputate the sac. I then freed up the preperitoneal space. I placed a 6.4 cm Ventralex mesh into the preperitoneal space I secured the tails with interrupted 0 Nurolon. I then transversely approximated the defect with interrupted 0 Nurolon capturing the mesh with several of the closure bites. Excellent closure was achieved. The fascia and subcutaneous tissues was anesthetized with a total of 30 cc of 0.5% Marcaine. The skin edges were approximated running septic or 4 Monocryl. Steri-Strips Telfa OpSite dressings applied. Sponge and instrument and needle counts were reported to the surgeon to be correct. Blood loss minimal. No apparent complications. Specimens hernia sac. Drains none. Blood loss minimal. Jose Luis Sales M.D., F.A.C.S. Type of Anesthesia: General Anesthesiologist: Kiara Castillo
--- NOTE | 2020-11-13 08:22 | PCM.DC ---
Discharge Instructions Outpatient Procedure Reason For Visit: VENTRAL/INCISIONAL HERNIA REPAIR W MESH Procedure: Hernia Diet Discharge Diet: Light diet - advance as tolerated Activity Discharge Activity: Return to Normal Activity, May Drive (when you are no longer taking narcotic pain medications.) and May Shower (with the bandage in place 1-2 days after surgery.) Lifting Restrictions: 20 pounds for 8 weeks. Additional Activity Instructions:: Climbing stairs is fine, walking is encouraged. Sitting in bed may be uncomfortable. Sitting up using your lateral muscles (sitting up sideways) is usually more comfortable. Do not drive, work heavy equipment of sign legal documents for 24 hours. If your hernia repair was an ingunial repair, you may have scrotal swelling, an ice pack and/or athletic support can provide more comfort. Pain medications may cause nausea, you should typically eat light foods as you take your pain medications. Pain medications may also cause constipation. If you have difficulty with this, discuss with your doctor. Dressing / Incision Call your doctor if your incision/area has: Continuous Slow Oozing, Sudden Increased Bleeding, Increased Pain/ Swelling, Increased Redness and Foul Smelling Discharge Call your doctor if you observe: Fever of 101 or Higher Suture Line Care: Avoid Pulling/Pushing and Avoid Pinching/Bending Additional Dressing/Incision Instructions:: Leave the operative bandage on for 2-3 days. When you remove the bandage, leave the steri-strips on place until your follow up appointment or they fall off. Follow Up Care Please Follow Up With: Jose Luis Sales MD When: Call [phone] to make an appointment to be seen in 7 days. Test Results: Test results from this visit will be discussed in further detail at your follow-up appointment, if applicable. Discharge Plan Admission Primary Reason for Your Visit: Ventral incisional hernia Attending Provider: Jose Luis Sales Primary Care Provider: Nasim Sales III Discharge Orders/Prescriptions Prescriptions: No Action nitroglycerin 0.4 mg tablet, sublingual 0.4 mg SUBLINGUAL Q5-15M PRN (Reason: chest pain) Qty: 25 RF: 1 tamsulosin 0.4 mg capsule 0.4 mg PO DAILY RF: 0 metoprolol tartrate 50 mg tablet 25 mg PO BID Qty: 180 RF: 3 clopidogrel 75 MG tablet 75 mg PO DAILY RF: 0 pantoprazole 40 MG tablet 40 mg PO DAILY RF: 0 fenofibrate 160 mg tablet 160 mg tablet 160 mg PO DAILY Qty: 30 RF: 11 diltiazem HCl 240 mg capsule,extended release 24hr 240 mg PO DAILY Qty: 30 RF: 11 rivaroxaban 20 mg tablet 20 mg PO DAILY Qty: 30 RF: 11 furosemide [Lasix] 40 mg tablet 40 mg PO .COMPLEX PRN (Reason: edema, SOB) Qty: 90 RF: 3 Referrals: Nasim Sales III, MD [Primary Care Provider] -
--- NOTE | 2020-11-13 11:42 | DCINST_ITS ---
Discharge Instructions Outpatient Procedure Reason For Visit: VENTRAL/INCISIONAL HERNIA REPAIR W MESH Diet Discharge Diet: Light diet - advance as tolerated Activity Discharge Activity: Return to Normal Activity, May Drive (when you are no longer taking narcotic pain medications.) and May Shower (with the bandage in place 1-2 days after surgery.) Additional Activity Instructions:: Climbing stairs is fine, walking is encourag ed. Sitting in bed may be uncomfortable. Sitting up using your lateral muscles (sitting up sideways) is usually more comfortable. Do not drive, work heavy equipment of sign legal documents for 24 hours. If your hernia repair was an ingunial repair, you may have scrotal swelling, an ice pack and/or athletic support can provide more comfort. Pain medications may cause nausea, you should typically eat light foods as you take your pain medications. Pain medications may also cause constipation. If you have difficulty with this, discuss with your doctor. Dressing / Incision Call your doctor if your incision/area has: Continuous Slow Oozing, Sudden Increased Bleeding, Increased Pain/ Swelling, Increased Redness and Foul Smelling Discharge Call your doctor if you observe: Fever of 101 or Higher Suture Line Care: Avoid Pulling/Pushing and Avoid Pinching/Bending Additional Dressing/Incision Instructions:: Leave the operative bandage on for 2-3 days. When you remove the bandage, leave the steri-strips on place until your follow up appointment or they fall off. Follow Up Care Please Follow Up With: Jose Luis Sales MD Test Results: Test results from this visit will be discussed in further detail at your follow-up appointment, if applicable. Discharge Plan Admission Primary Reason for Your Visit: Ventral incisional hernia Attending Provider: Jose Luis Sales Primary Care Provider: Nasim Sales III Discharge Orders/Prescriptions Prescriptions: New hydrocodone-acetaminophen 5-325 mg tablet 1 tab PO Q6H PRN (Reason: pain) 2 Days Qty: 5 RF: 0 Continued nitroglycerin 0.4 mg tablet, sublingual 0.4 mg SUBLINGUAL Q5-15M PRN (Reason: chest pain) Qty: 25 RF: 1 tamsulosin 0.4 mg capsule 0.4 mg PO DAILY RF: 0 metoprolol tartrate 50 mg tablet 25 mg PO BID Qty: 180 RF: 3 clopidogrel 75 MG tablet 75 mg PO DAILY RF: 0 pantoprazole 40 MG tablet 40 mg PO DAILY RF: 0 fenofibrate 160 mg tablet 160 mg tablet 160 mg PO DAILY Qty: 30 RF: 11 diltiazem HCl 240 mg capsule,extended release 24hr 240 mg PO DAILY Qty: 30 RF: 11 rivaroxaban 20 mg tablet 20 mg PO DAILY Qty: 30 RF: 11 furosemide [Lasix] 40 mg tablet 40 mg PO .COMPLEX PRN (Reason: edema, SOB) Qty: 90 RF: 3 Referrals: Nasim Sales III, MD [Primary Care Provider] - Disposition Disposition (needs filled in before D/C Order can be placed): Home, self care
== END 2020-11-13 12:09 | disposition home or self-care (01) ==
LOC: SDC 05:22 → AC 05:22
PROVIDERS: Anesthesiology; PCP Family Medicine; Referring Provider Surgery; Visit Provider Surgery
PROC: (CPT 49560; principal; 2020-11-13 07:15)
DX: K43.2 Incisional hernia without obstruction or gangrene (principal); E78.5 Hyperlipidemia, unspecified; I25.10 Atherosclerotic heart disease of native coronary artery without angina pectoris; I48.0 Paroxysmal atrial fibrillation; I10 Essential (primary) hypertension; K21.9 Gastro-esophageal reflux disease without esophagitis; M19.90 Unspecified osteoarthritis, unspecified site; G47.33 Obstructive sleep apnea (adult) (pediatric); Z95.0 Presence of cardiac pacemaker; Z95.5 Presence of coronary angioplasty implant and graft; Z87.891 Personal history of nicotine dependence; Z79.02 Long term (current) use of antithrombotics/antiplatelets; Z79.899 Other long term (current) drug therapy
CPT/HCPCS: 00832; 49560; 49568; 36415; 80048; 80076; 85027; 85610; 85730; 88302; C1781; J7120

== ENCOUNTER 2021-04-22 09:53 | Day surgery (SDC) | payer MEDICARE, SELFPAY ==
[2021-04-22] VITALS (9 sets, daily range): BP systolic 105–147; BP diastolic 76–127; PULSE 97–129; RESP 16–18; TEMP 36.2–36.6; O2SAT 96–100; BMI 33.0
[2021-04-22] MEDS: Lactated Ringers 1,000 ML 100 ML IV (10:25)
--- NOTE | 2021-04-22 10:37 | PCM.HP.BLA ---
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 Accompanied by: Is patient in pain?: No Allergies atorvastatin [From Lipitor] Adverse Reaction (Severe, Verified 02/24/21 14:23) elevated LFT's lisinopril Adverse Reaction (Severe, Verified 02/24/21 14:23) cough gemfibrozil Adverse Reaction (Unknown, Verified 02/24/21 14:23) Unknown simvastatin Adverse Reaction (Unknown, Verified 02/24/21 14:23) Unknown bacitracin [From Triple Antibiotic] Adverse Reaction (Verified 02/24/21 14:23) Unknown colistimethate sodium [From Triple Antibiotic] Adverse Reaction (Verified 02/24/21 14:23) Unknown gramicidin D [From Triple Antibiotic] Adverse Reaction (Verified 02/24/21 14:23) Unknown neomycin sulfate [From Triple Antibiotic] Adverse Reaction (Verified 02/24/21 14:23) Unknown polymyxin B [From Triple Antibiotic] Adverse Reaction (Verified 02/24/21 14:23) Unknown pramoxine HCl [From Triple Antibiotic] Adverse Reaction (Verified 02/24/21 14:23) Unknown Medications clopidogrel 75 mg PO DAILY 04/29/13 [History Confirmed 02/24/21] pantoprazole 40 mg PO DAILY 03/23/17 [History Confirmed 02/24/21] nitroglycerin 0.4 mg sublingual tablet 0.4 mg SUBLINGUAL Q5-15M PRN #25 tab 03/17/18 [Rx Confirmed 02/24/21] tamsulosin 0.4 mg capsule 0.4 mg PO DAILY 06/17/18 [History Confirmed 02/24/21] fenofibrate 160 mg tablet 160 mg PO DAILY #30 tab 09/01/18 [Rx Confirmed 02/24/21] diltiazem HCl 240 mg capsule,extended release 24 hr 240 mg PO DAILY #30 cap 05/03/20 [Rx Confirmed 02/24/21] rivaroxaban 20 mg tablet 20 mg PO DAILY #30 tab 05/22/20 [Rx Confirmed 02/24/21] furosemide 40 mg tablet 40 mg PO DAILY PRN tab 12/03/20 [History Confirmed 02/24/21] FORMERLY [facility], 1928–1983 Medical History Atherosclerotic heart disease of [place] coronary artery without angina pectoris Colon polyp Diverticulosis GERD (gastroesophageal reflux disease) History of cardioversion (~05/16/19) Hyperlipidemia Hypertension RADHA (obstructive sleep apnea) Osteoarthritis Paroxysmal atrial fibrillation Presence of cardiac pacemaker (~2013) RLS (restless legs syndrome) Sick sinus syndrome Tubular adenoma of colon Ventral incisional hernia without obstruction or gangrene Zenkers diverticulum Surgical History History of cataract surgery History of inguinal hernia repair History of laparoscopic cholecystectomy Postsurgical percutaneous transluminal coronary angioplasty (PTCA) status (~06/17/12) Presence of stent in coronary artery (~06/17/12) Family History Mother CVA (cerebral vascular accident) Father Heart disease Sister Heart disease Social History Smoking Status: Former smoker alcohol intake: never HPI HPI HPI: CONSTANTINO APONTEOBEY, is a 75 M who presents to the office today for surgical consultation regarding possible colonoscopy. The patient is referred by Dr. Lupillo Israel and a written copy my surgical consult recommendations will return to her. The patient's most recent colonoscopy was December 27, 2015. There is a family history of colon cancer. Esophagogastroduodenoscopy performed by Dr. Lewis Llanos August 30, 2015 demonstrated mild gastritis. Reflux esophagitis was felt to be present. Retained food in the stomach was noted. He has no complaints today. He is on Xarelto because he is in chronic atrial fibrillation. He is on clopidogrel because he has coronary stents in place but those were placed in 2012. He states he has not had any hospitalizations. No abdominal pain. No bright red blood per rectum or melena. He does not get any routine exercise. He does note that bilateral lower extremities will swell throughout the day but will resolve in the morning. He has avoided COVID-19. ROS General General: Yes fatigue; No weight change, appetite, colon cancer, breast cancer or weakness HEENT HEENT: No difficulty swallowing, eye injury, eye surgery, swollen glands or hoarseness Endo Endocrine: No thyroid disease, diabetes mellitus, thyroid cancer, Hair loss, heat intolerance or cold intolerance Skin Skin: No rash or changing moles Breast Breast: No left breast lump, right breast lump, nipple discharge, breast pain, abnormal mammogram, abnormal US or breast enlargement Musc Musculoskeletal: Yes arthritis; No back problems, rheumatoid arthritis, gout or joint pain Cardio Cardiovascular: Yes pacemaker, heart disease, atrial fibrillation, high blood pressure and heart stent; No murmur, heart attack, palpitations, shortness of breat with exertion or chest pain Psych Psychiatric: No depression, anxiety or hearing voices Resp Respiratory: No shortness of breath, Yes sleep apnea, No cough, No COPD, No asthma, No emphysema and No wheezing Gastro Gastrointestinal: No abdominal pain, No nausea or vomiting, No diarrhea, No constipation, No blood in stool, Yes acid reflux, No hemorrhoids, No ulcers, No gallbladder problem and No black,tarry stools [place] Hematologic: Yes blood thinners, No blood disorders, No bleeding, Yes anemia and No blood clots Neuro Neurologic: No system reviewed and no additional complaints, except as documented, No as per HPI, No abnormal gait, No abnormal hearing, No abnormal movements, No abnormal speech, No behavioral changes, No burning sensations, No confusion, No convulsions, No disequilibrium, No dizziness, No localized weakness, No frequent falls, No headache(s), No lack of coordination, No loss of vision, No memory loss, No numbness, No other visual disturbances, No radicular pain, No restless legs, No sensory deficit, No syncope, No tingling, No tremor(s), No weakness and No other Exam Const General: cooperative, comfortable and no acute distress Nutritional Appearance: obese Orientation: alert and awake [facility] Head: normal to inspection Eyes General: appearance normal, both eyes and all related structures Resp Effort & Inspection: normal respiratory effort Auscultation: clear to auscultation bilaterally Cardio Rate: regular rate Rhythm: regular rhythm GI Palpation: soft and no hepatosplenomegaly Other: Overweight, no palpable masses, normal bowel sounds Musc Cervical Spine: normal cervical lordosis Neuro General: patient alert and patient awake Extrem Other: 1+ bilateral extremity pitting edema Psych Appearance: grossly normal COVID (Procedure Consent) Procedure Criteria Procedure Criteria: Yes Elective The surgeon/proceduralist and patient have discussed in detail the risk of exposure to and/or potential harm posed by the COVID-19 virus with having a surgery/procedure at this time versus the risk of delaying the surgery/procedure. It is not possible to know either the risk of delaying the surgery or procedure or chance of getting an infection with perfect accuracy, but a joint decision was made between the patient and the surgeon/proceduralist to proceed at this time with the scheduled surgery/procedure as indicated on the consent form. Assessment and Plan Assessment and Plan (1) Family history of malignant neoplasm of colon in first degree relative diagnosed when younger than 60 years of age: Status: Acute Plan - Dr. Jose Luis Sales MD: Family history of colon cancer in a first-degree relative. I propose for the patient a colonoscopy with possible biopsy or polypectomy as indicated. We will have him hold his Xarelto 48 hours ahead of time. He will take his Plavix 1 day preprocedure. We will utilize monitored anesthesia care . He has the pacemaker defibrillator left chest. He has had an opportunity to ask and have questions answered. We will schedule procedure at his discretion. I very much appreciate the kind opportunity of assisting with surgical care. 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 Nasim Sales, III Jose Luis Sales M.D., F.A.C.S I have re-examined the patient. There are no clinical changes since date of exam.
--- NOTE | 2021-04-22 11:00 | COLBX_PTH ---
PATIENT: CONSTANTINO CORBETT LOC: EN U#:[id number] AGE/SX: 76/M ROOM: RE04/22/[address]: Dr. Jose Luis Sales MD : 1945 BED: DIS: 04/22/2021 SPEC #: [id number] RECD: 04/22/21 15:51 STATUS: NIR PHILLIPS #: [id number] ANDREA: 04/22/21 11:[address]: Jose Luis Sales DEPT: SURGICAL PATHOLOGY RECD BY: Mahad Wynn ENTERED: 04/23/21 08:16 SP TYPE: COLON BX STANISLAW DR: Dr. Ruma Terry MD Tissues: A - COLON BIOPSY B - COLON BIOPSY Procedures: Surgery Specimen Level IV HEADER OPERATION: Colonoscopy (MAC) PRE-OP DIAGNOSIS: Family history of malignant neoplasm of colon TISSUE SUBMITTED: A ? Hepatic flexure polyp biopsy, B - Hepatic flexure polyp biopsy #2 MICROSCOPIC DIAGNOSIS A. Hepatic flexure polyp, biopsy: Fragments of tubular adenoma. B. Hepatic flexure polyp #2, biopsy: Tubular adenoma. PRATIK:dot 04/24/2021 MICROSCOPIC DESCRIPTION Slides are reviewed. GROSS DESCRIPTION A - Received in fixative is one container labeled with the patient's name and designated hepatic flexure polyp biopsy. The specimen consists of multiple irregular fragments of light dobson soft tissue that in aggregate measure 1 x 0.5 x 0.1 cm. The specimen is totally submitted in one cassette. B - Received in fixative is one container labeled with the patient's name and designated hepatic flexure polyp biopsy #2. The specimen consists of one irregular fragment of light dobson soft tissue that measures 0.3 x 0.3 x 0.1 cm. The specimen is totally submitted in one cassette. / PRATIK:dot 04/23/21 TC:1 CPT: 23929 x2
--- NOTE | 2021-04-22 11:17 | OP.COLON_ITS ---
Patient Name: Rylan Perez Procedure Date: 04/22/2021 10:05 AM Date of : 1945 Age: 76 Procedure: Colonoscopy Indications: Family history of colon cancer in a first-degree relative Providers: Jose Luis Sales MD Medicines: See the Anesthesia note for documentation of the administered medications Patient Profile: Last Colonoscopy: 5 years ago. Complications: No immediate complications. Procedure: Pre-Anesthesia Assessment: - Prior to the procedure, a History and Physical was performed, and patient medications and allergies were reviewed. The patient's tolerance of previous anesthesia was also reviewed. The risks and benefits of the procedure and the sedation options and risks were discussed with the patient. All questions were answered, and informed consent was obtained. Prior Anticoagulants: The patient has taken Plavix (clopidogrel), last dose was 1 day prior to procedure. ASA Grade Assessment: III - A patient with severe systemic disease. After reviewing the risks and benefits, the patient was deemed in satisfactory condition to undergo the procedure. After I obtained informed consent, the scope was passed under direct vision. Throughout the procedure, the patient's blood pressure, pulse, and oxygen saturations were monitored continuously. The pediatric colonoscope was introduced through the anus and advanced to the cecum, identified by appendiceal orifice and ileocecal valve. The colonoscopy was performed without difficulty. The patient tolerated the procedure well. The quality of the bowel preparation was adequate to identify polyps. The ileocecal valve and the appendiceal orifice were photographed. Scope In: 10:52:49 AM Scope Withdrawal Time 0 hours 11 minutes 44 seconds Scope Out: 11:09:42 AM Total Procedure Duration Time 0 hours 16 minutes 53 seconds Findings: The digital rectal exam findings include non-thrombosed internal hemorrhoids and internal hemorrhoids that prolapse with straining, but require manual replacement into the anal canal (Grade III). Pertinent negatives include normal prostate (size, shape, and consistency). A 9 mm polyp was found in the hepatic flexure. The polyp was sessile. The polyp was removed with a cold biopsy forceps. Resection and retrieval were complete. A 4 mm polyp was found in the hepatic flexure. The polyp was sessile. The polyp was removed with a cold biopsy forceps. Resection and retrieval were complete. Multiple diverticula were found in the sigmoid colon and descending colon. Impression: - Non-thrombosed internal hemorrhoids and internal hemorrhoids that prolapse with straining, but require manual replacement into the anal canal (Grade III) found on digital rectal exam. - One 9 mm polyp at the hepatic flexure, removed with a cold biopsy forceps. Resected and retrieved. - One 4 mm polyp at the hepatic flexure, removed with a cold biopsy forceps. Resected and retrieved. - Diverticulosis in the sigmoid colon and in the descending colon. Recommendation: - Discharge patient to home. - Resume previous diet. - Continue present medications. - Repeat colonoscopy in 5 years for surveillance. - Telephone my office for pathology results in 1 week. Procedure Code(s): --- Professional --- 32447, Colonoscopy, flexible; with biopsy, single or multiple Diagnosis Code(s): --- Professional --- K64.2, Third degree hemorrhoids D12.3, Benign neoplasm of transverse colon (hepatic flexure or splenic flexure) Z80.0, Family history of malignant neoplasm of digestive organs K57.30, Diverticulosis of large intestine without perforation or abscess without bleeding CPT copyright 2017 [employer]. All rights reserved. The codes documented in this report are preliminary and upon invoice coder review may be revised to meet current compliance requirements. Jose Luis Sales MD 04/22/2021 11:17:11 AM This report has been signed electronically. Number of Addenda: 0 Note Initiated On: 04/22/2021 10:05 AM
--- NOTE | 2021-04-22 11:18 | OP.CCLET_ITS ---
04/22/2021 Ruma Terry [facility] [address] [place] [address] Re : Colonoscopy procedure for Rylan Perez Dear Dr. Terry This procedure was performed on Thursday, April 22, 2021. My impressions and recommendations are as follows: Impressions : - Non-thrombosed internal hemorrhoids and internal hemorrhoids that prolapse with straining, but require manual replacement into the anal canal (Grade III) found on digital rectal exam. - One 9 mm polyp at the hepatic flexure, removed with a cold biopsy forceps. Resected and retrieved. - One 4 mm polyp at the hepatic flexure, removed with a cold biopsy forceps. Resected and retrieved. - Diverticulosis in the sigmoid colon and in the descending colon. Recommendations : - Discharge patient to home. - Resume previous diet. - Continue present medications. - Repeat colonoscopy in 5 years for surveillance. - Telephone my office for pathology results in 1 week. My findings are described in the full procedure note, which is enclosed. If I can be of further assistance, please feel free to contact me at Doctor phone number(s): Work: . Sincerely, Jose Luis Sales MD 04/22/2021 11:17:11 AM This report has been signed electronically.
[2021-04-22] MEDS: dilTIAZem CD 240 MG Capsule PO (11:29)
== END 2021-04-22 12:36 | disposition home or self-care (01) ==
LOC: EN 09:55 → AC 09:55
PROVIDERS: PCP Internal Medicine; Referring Provider Internal Medicine; Visit Provider Surgery
PROC: 0DJD8ZZ Inspection of Lower Intestinal Tract, Via Natural or Artificial Opening Endoscopic (ICD-10-PCS; CPT 45378; principal; 2021-04-22 10:55)
DX: D12.3 Benign neoplasm of transverse colon (principal); K57.30 Diverticulosis of large intestine without perforation or abscess without bleeding; K64.2 Third degree hemorrhoids; Z80.0 Family history of malignant neoplasm of digestive organs; I25.10 Atherosclerotic heart disease of native coronary artery without angina pectoris; K21.9 Gastro-esophageal reflux disease without esophagitis; E78.5 Hyperlipidemia, unspecified; I10 Essential (primary) hypertension; G47.33 Obstructive sleep apnea (adult) (pediatric); M19.90 Unspecified osteoarthritis, unspecified site; I48.0 Paroxysmal atrial fibrillation; J45.909 Unspecified asthma, uncomplicated; Z79.02 Long term (current) use of antithrombotics/antiplatelets; Z87.891 Personal history of nicotine dependence; Z95.0 Presence of cardiac pacemaker; Z95.5 Presence of coronary angioplasty implant and graft; Z79.899 Other long term (current) drug therapy
CPT/HCPCS: 45380; 88305; J7120; J2405

== ENCOUNTER 2021-07-18 07:55 | Outpatient (CLI) | payer MEDICARE, SELFPAY ==
[2021-07-18 09:22] LABS: AST(SGOT) 24 U/L (15-37); Alanine Aminotransfer ALT/SGPT 28 U/L (16-61); Albumin, Serum 3.9 g/dL (3.2-5.0); Alkaline Phosphatase 54 U/L (45-117); Bilirubin, Direct 0.43 mg/dL (0.00-0.30); Cholesterol 156 mg/dL (200); Globulin 4.3 g/dL (2.2-4.2); High Density Lipoprotein 35 mg/dL; Protein, Total 8.2 g/dL (6.4-8.2); Triglycerides 115 mg/dL; Very Low Density Lipoprotein 23 mg/dL (5-40)
== END 2021-07-18 23:59 | disposition short-term general hospital (02) ==
LOC: LAB 07:57
PROVIDERS: PCP Internal Medicine; Referring Provider Internal Medicine Cardiovascular Disease; Visit Provider Internal Medicine Cardiovascular Disease
DX: E78.00 Pure hypercholesterolemia, unspecified (principal)
CPT/HCPCS: 80061; 80076

== ENCOUNTER → 2021-12-31 | Outpatient (CLI) | payer MEDICARE, SELFPAY ==
[2021-12-31 12:06] LABS: Absolute Lymphocyte Count 0.78 X10^3/uL (0.83-4.51); Absolute Neutrophil Count 5.8 X10^3/uL (2.0-7.7); Basophil# 0.04 X10^3/uL; Basophil% 0.5 % (0-1); Eosinophil# 0.04 X10^3/uL; Eosinophils% 0.5 % (0-5); Hematocrit 46.9 % (40-54); Hemoglobin 15.4 g/dL (13.0-16.5); Lymphocyte # 0.78 X10^3/ul (0.83-4.51); Lymphocyte % 10.6 % (19-41); Mean Corp Hgb Conc 32.8 g/dL (32-36); Mean Corpuscular Hgb 30.8 pg (27.0-32.0); Mean Corpuscular Volume 93.8 fL (80-94); Mean Platelet Vol. 12.7 fl (6.2-12.0); Monocyte# 0.65 X10^3/uL; Monocyte% 8.8 % (0-10); NRBC Flagged by Analyzer 0 % (0-5); Neutrophil % 78.9 % (47-70); Platelet Count 249 K/mm3 (150-450); RBC Distribution Width CV 15.1 % (11.6-14.6); RBC Distribution Width SD 52.6 fl (35.1-43.9); White Blood Count 7.4 K/mm3 (4.4-11.0)
[2021-12-31 12:32] LABS: AST(SGOT) 23 U/L (15-37); Alanine Aminotransfer ALT/SGPT 30 U/L (16-61); Albumin, Serum 3.8 g/dL (3.2-5.0); Alkaline Phosphatase 52 U/L (45-117); Anion Gap 8 (5-15); BUN 19 mg/dL (7-18); BUN/Creat Ratio 14.7 RATIO (10-20); Calcium,Total 9.1 mg/dL (8.5-10.1); Chloride 103 mmol/L (98-107); Creatinine, Serum 1.29 mg/dL (0.70-1.30); EST Glomerular Filtration Rate 57 mL/min (>60); Est Glom Filt Rate - Afr Amer 70 mL/min (>60); Globulin 3.8 g/dL (2.2-4.2); Glucose 72 mg/dL (74-106); Potassium 3.8 mmol/L (3.5-5.1); Protein, Total 7.6 g/dL (6.4-8.2); Sodium Level 138 mmol/L (136-145)
== END | disposition home or self-care (01) ==
LOC: BIMLAB 11:15
PROVIDERS: PCP Internal Medicine; Visit Provider Physician Assistant
DX: I10 Essential (primary) hypertension (principal); I48.91 Unspecified atrial fibrillation; L29.9 Pruritus, unspecified; E78.5 Hyperlipidemia, unspecified
CPT/HCPCS: 36415; 80053; 85025

== ENCOUNTER 2022-06-04 20:35 | Emergency (ER) | payer MEDICARE, SELFPAY ==
[2022-06-04 20:36] VITALS: BP 127/92; PULSE 102; RESP 22; TEMP 36.9; O2SAT 98; BMI 34.2
--- NOTE | 2022-06-04 20:53 | EKG12_ITS ---
Test Reason : SOB Blood Pressure : / mmHG Vent. Rate : 118 BPM Atrial Rate : 000 BPM P-R Int : 000 ms QRS Dur : 090 ms QT Int : 320 ms P-R-T Axes : 000 026 -01 degrees QTc Int : 448 ms Atrial fibrillation with rapid ventricular response Low voltage QRS Nonspecific ST abnormality Abnormal ECG Confirmed by JAI NG, RALPH ([id number]), metropolitan editor SG MATSON ([id number]) on 06/08/2022 11:53:35 AM Referred By: NIKI Confirmed By:RALPH VERGARA MD
--- NOTE | 2022-06-04 20:54 | ED.VIS.DYS ---
HPI History of Present Illness Chief Complaint: Shortness of Breath Narrative Narrative: 77-year-old male past medical history of coronary artery disease with stenting presents with months of increasing shortness of breath that has actually gotten worse over the last week or so. He states last week [facility] and was put on antibiotics. He took 5 days worth of it, but went to see his primary care physician because he felt more short of breath. He has an occasional cough. He states his fever had resolved but came back tonight. His primary care provider, Dr. Dennis, put him on azithromycin and he has taken at least 2 days of that. He states he feels more short of breath and dyspnea on exertion. He denies any leg swelling. No chest pain or tightness. He states at times it is hard for him to take a deep breath, but if he positions his arms in a certain way he can. He was concerned because of the increasing shortness of breath especially today. [facility] Medical History Asthma Atherosclerotic heart disease of [place] coronary artery without angina pectoris Atrial fibrillation CAD in [place] artery Cardiology follow-up encounter Colon polyp Diverticulosis Essential hypertension GERD (gastroesophageal reflux disease) History of cardioversion (~05/16/19) History of echocardiogram History of edema History of stress test Hyperlipidemia Non-smoker RADHA (obstructive sleep apnea) Osteoarthritis Presence of cardiac pacemaker (~2013) RLS (restless legs syndrome) Sick sinus syndrome Tubular adenoma of colon Ventral incisional hernia without obstruction or gangrene Wears glasses Wears partial dentures [place] diverticulum Home Medications pantoprazole 40 mg tablet,delayed release 40 mg PO DAILY acid reflux 03/23/17 [History Last Taken Unknown] furosemide 40 mg tablet (Lasix) 40 mg PO DAILY PRN edema, SOB 12/03/20 [History Last Taken Unknown] fenofibrate 160 mg tablet 160 mg PO DAILY #30 tabs 05/27/21 [Rx Last Taken Unknown] tamsulosin 0.4 mg capsule 0.4 mg PO DAILY prostate #90 caps 05/28/21 [Rx Last Taken Unknown] nitroglycerin 0.4 mg sublingual tablet 0.4 mg sublingual Q5-15M PRN chest pain #25 tabs 12/29/21 [Rx Last Taken Unknown] clopidogrel 75 mg tablet 75 mg PO DAILY blood thinner #90 tabs 04/21/22 [Rx Last Taken Unknown] diltiazem HCl 240 mg capsule,extended release 24 hr 240 mg PO DAILY #30 caps 05/06/22 [Rx Last Taken Unknown] amoxicillin 875 mg tablet 875 mg PO BID ear infection 10 days #20 tabs 05/30/22 [Rx Last Taken Unknown] azithromycin 500 mg tablet (Zithromax) 500 mg PO DAILY 5 days #5 tabs 06/03/22 [Rx Last Taken Unknown] dextromethorphan-guaifenesin 10 mg-100 mg/5 mL oral syrup 10 ml PO Q4H PRN cough #200 mL 06/03/22 [Rx Last Taken Unknown] rivaroxaban 20 mg tablet 20 mg PO DAILY #90 tabs 06/03/22 [Rx Last Taken Unknown] albuterol sulfate 90 mcg/actuation aerosol inhaler (Ventolin HFA) 1 - 2 puff inhalation Q4H PRN PRN Wheezing #1 ea 06/04/22 [Rx Last Taken Unknown] Allergy/AdvReac Type Severity Reaction Status Date / Time atorvastatin [From Lipitor] AdvReac Severe elevated Verified 06/04/22 20:39 LFT's lisinopril AdvReac Severe cough Verified 06/04/22 20:39 gemfibrozil AdvReac Unknown Unknown Verified 06/04/22 20:39 simvastatin AdvReac Unknown Unknown Verified 06/04/22 20:39 bacitracin AdvReac Unknown Verified 06/04/22 20:39 [From Triple Antibiotic] colistimethate sodium AdvReac Unknown Verified 06/04/22 20:39 [From Triple Antibiotic] gramicidin D AdvReac Unknown Verified 06/04/22 20:39 [From Triple Antibiotic] neomycin sulfate AdvReac Unknown Verified 06/04/22 20:39 [From Triple Antibiotic] polymyxin B AdvReac Unknown Verified 06/04/22 20:39 [From Triple Antibiotic] pramoxine HCl AdvReac Unknown Verified 06/04/22 20:39 [From Triple Antibiotic] Family History Mother CVA (cerebral vascular accident) Father Heart disease Sister Heart disease Other Arthritis Hyperlipemia Hypertension Surgical History H/O umbilical hernia repair History of cataract surgery History of colonoscopy (~04/2021) History of inguinal hernia repair History of laparoscopic cholecystectomy Postsurgical percutaneous transluminal coronary angioplasty (PTCA) status (~06/17/12) Presence of stent in coronary artery (~06/17/12) Social History Smoking Status: Former smoker how long ago did patient quit smokin' alcohol intake: never substance use type: does not use caffeine: Yes Type: carbonated beverages Number of servings: 3 ROS ROS ED ROS Narrative Constitutional: Intermittent fever, no chills. HEENT: No sore throat. No neck pain. No loss of vision. No rhinorrhea. Cardiovascular: No chest pain. No palpitations. No pedal edema. Respiratory: Occasional cough, positive shortness of breath. Positive dyspnea on exertion. Abdominal: No abdominal pain. No nausea. No vomiting. Genitourinary: No dysuria. No hematuria. Musculoskeletal: No myalgias. No arthralgias. Neurologic: No headaches. No dizziness. No lightheadedness. Skin: No rash. No change in color. Psychiatric: No depression. No anxiety. EXAM Physical Exam Narrative Exam Narrative: Afebrile. Vital signs noted. HEENT: Normocephalic. Atraumatic. PERRL, EOMI. Neck soft and supple. No point tenderness or step off. Cardiovascular: Regular rate and rhythm with intermittent tachycardia. No murmurs, rubs, or gallops appreciated. Respiratory: No tachypnea. Diffuse rhonchi on occasion with occasional expiratory wheeze. Gastrointestinal: Abdomen soft, nontender, with normoactive bowel sounds. No rebound or guarding. Neurological: Awake. Alert. Nonfocal, nonlateralizing. Skin: No rash. Normal color. No pallor. Musculoskeletal: No pedal edema. Full range of motion extremities. Const Vital Signs: 06/04/22 20:36 06/04/22 20:38 06/04/22 20:50 Temperature 98.4 F Temperature Source Temporal Pulse Rate 102 H Respiratory Rate 22 H Respiratory Effort Normal Non-Labored Respiratory Depth Normal Respiratory Pattern Normal Blood Pressure 127/92 H Blood Pressure Mean 103 Pulse Ox 98 Oxygen Delivery Method Room Air Room Air 06/04/22 21:09 06/04/22 22:02 Temperature Temperature Source Pulse Rate 130 H 62 Respiratory Rate 16 18 Respiratory Effort Respiratory Depth Respiratory Pattern Normal Blood Pressure 133/69 H Blood Pressure Mean Pulse Ox 96 Oxygen Delivery Method MDM MDM MDM Narrative Medical decision making narrative: Respiratory swabs were obtained. He was given DuoNeb aerosolized treatment. Chest x-ray in 2 views was obtained along with basic lab work. I am also concerned for CHF given his increasing shortness of breath although he has no clinical pedal edema on exam. EKG interpreted by myself demonstrates atrial fibrillation with rapid ventricular response at [address] changes. No STEMI. CBC is grossly normal with a normal white count of 7.0, hemoglobin normal at 14.5, hematocrit 45.2. Electrolyte panel is grossly unremarkable with a normal BUN and creatinine. Troponin is 8. BNP slightly elevated at 291. Chest x-ray in 2 views interpreted by myself shows opacity in the right lung base consistent with pneumonia, however he is already on antibiotics. He will finish his course of therapy. He was given DuoNeb aerosolized treatment upon repeat examination states he feels improved. He was given Lopressor 5 mg intravenously for varying heart rate, but of note patient does have a pacemaker. He will be given an albuterol inhaler here to use at home. He was given a prescription for an additional albuterol inhaler should this run out. He will follow-up with his primary care provider next week. I feel he be discharged safely home with follow-up. I do not feel that he requires admission for his pneumonia. Return instructions to the emergency department were reviewed. Patient and are comfortable with the plan. Disposition is discharged home in stable condition. Lab Data Attestation: I reviewed the patient's lab results. Labs: Laboratory Results - last 24 hr 06/04/22 06/04/22 06/04/22 21:00 21:00 21:00 WBC 7.0 RBC 4.83 Hgb 14.5 Hct 45.2 MCV 93.6 MCH 30.0 MCHC 32.1 RDW Std Deviation 52.0 H RDW Coeff of Mimi 15.0 H Plt Count 279 MPV 12.0 Immature Gran % (Auto) 0.700 Neut % (Auto) 78.2 H Lymph % (Auto) 12.4 L Lee % (Auto) 7.3 Eos % (Auto) 1.1 Baso % (Auto) 0.3 Absolute Neuts (auto) 5.5 Absolute Lymphs (auto) 0.87 Nucleated RBC % 0 Sodium 137 Potassium 4.2 Chloride 104 Carbon Dioxide 27.0 Anion Gap 6 BUN 16 Creatinine 1.07 Estim Creat Clear Calc 61.58 Est GFR (MDRD) Af Amer 86 Est GFR (MDRD) Non-Af 71 BUN/Creatinine Ratio 15.0 Glucose 107 H Calcium 9.1 Troponin I High Sens 8 B-Natriuretic Peptide 291.8 H Radiography Diagnostic Testing: Clinical Impression(s) from Imaging Studies Chest X-Ray 06/04/22 21:19 IMPRESSION: 1. Patchy opacity right lung base may be due to pneumonia or edema. 2. Small bilateral pleural effusions. 3. No change pacemaker. Electronically Signed: Franky Baldwin MD at 21:49 EST , Discharge Plan Triage Chief Complaint: Shortness of Breath ED Provider: Oziel Berg Dx/Rx/DC Orders Clinical Impression: Pneumonia, SOB (shortness of breath), Atrial fibrillation Instructions: ED Dyspnea, ED Pneumonia (Adult) Prescriptions: New albuterol sulfate [Ventolin HFA] 90 mcg/actuation HFA aerosol inhaler 1 - 2 puff inhalation Q4H PRN PRN (Reason: Wheezing) Qty: 1 0RF No Action furosemide [Lasix] 40 mg tablet 40 mg PO DAILY PRN (Reason: edema, SOB) amoxicillin 875 mg tablet 875 mg PO BID 10 Days Qty: 20 0RF Rx Instructions: take with food dextromethorphan-guaifenesin 10-100 mg/5 mL syrup 10 ml PO Q4H PRN (Reason: cough) Qty: 200 1RF azithromycin [Zithromax] 500 mg tablet 500 mg PO DAILY 5 Days Qty: 5 0RF pantoprazole 40 MG tablet 40 mg PO DAILY fenofibrate 160 mg tablet 160 mg tablet 160 mg PO DAILY Qty: 30 11RF tamsulosin 0.4 mg capsule 0.4 mg PO DAILY Qty: 90 3RF nitroglycerin 0.4 mg tablet, sublingual 0.4 mg sublingual Q5-15M PRN (Reason: chest pain) Qty: 25 3RF clopidogrel 75 mg tablet 75 mg PO DAILY Qty: 90 3RF Hold Instructions: Order Changed diltiazem HCl 240 mg capsule,extended release 24hr 240 mg PO DAILY Qty: 30 11RF rivaroxaban 20 mg tablet 20 mg PO DAILY Qty: 90 3RF Primary Care Provider: Ruma Terry Referrals: Ruma Terry MD [Primary Care Provider] - 3-5 Days if not improving Disposition Disposition: Home, Self Care
[2022-06-04] MEDS: Ipratropium/Albuterol Sulfate 3 ML AMPUL.NEB INHALATION (21:02)
[2022-06-04 21:06] LABS: Absolute Lymphocyte Count 0.87 X10^3/uL (0.83-4.51); Absolute Neutrophil Count 5.5 X10^3/uL (2.0-7.7); Basophil# 0.02 X10^3/uL; Basophil% 0.3 % (0-1); Eosinophil# 0.08 X10^3/uL; Eosinophils% 1.1 % (0-5); Hematocrit 45.2 % (40-54); Hemoglobin 14.5 g/dL (13.0-16.5); Lymphocyte # 0.87 X10^3/ul (0.83-4.51); Lymphocyte % 12.4 % (19-41); Mean Corp Hgb Conc 32.1 g/dL (32-36); Mean Corpuscular Volume 93.6 fL (80-94); Monocyte# 0.51 X10^3/uL; Monocyte% 7.3 % (0-10); NRBC Flagged by Analyzer 0 % (0-5); Neutrophil # 5.47 X10^3/uL (2.7-7.7); Neutrophil % 78.2 % (47-70); Platelet Count 279 K/mm3 (150-450); Red Blood Count 4.83 M/mm3 (4.6-6.2)
[2022-06-04 21:09] VITALS: PULSE 130; RESP 16
--- NOTE | 2022-06-04 21:19 | RAD_ITS ---
EXAM: XR CHEST, 2 VIEWS CLINICAL INDICATION: shortness of breath TECHNIQUE: Frontal and lateral views of the chest. This report was created using [employer] report generation technology. COMPARISON: 04/14/2019. FINDINGS: LUNGS AND PLEURAL SPACES: Patchy opacity right lung base may be due to pneumonia or edema. Small bilateral pleural effusions. No pneumothorax. HEART: Unremarkable. Cardiac silhouette not enlarged. MEDIASTINUM: Central airways and mediastinal contour are unremarkable. BONES/JOINTS: Unremarkable. SOFT TISSUES: Unremarkable. TUBES, LINES AND DEVICES: No change pacemaker. RAD/Chest PA and Lateral IMPRESSION: 1. Patchy opacity right lung base may be due to pneumonia or edema. 2. Small bilateral pleural effusions. 3. No change pacemaker. Electronically Signed: Franky Baldwin MD at 21:49 EST ,
[2022-06-04 21:24] LABS: BNP,B-Type NATRIURETIC PEPTIDE 291.8 pg/mL (0-100)
[2022-06-04 21:26] LABS: Anion Gap 6 (5-15); BUN 16 mg/dL (7-18); Calcium,Total 9.1 mg/dL (8.5-10.1); Chloride 104 mmol/L (98-107); Creatinine, Serum 1.07 mg/dL (0.70-1.30); EST Glomerular Filtration Rate 71 mL/min (>60); Est Glom Filt Rate - Afr Amer 86 mL/min (>60); Estimated Creatinine Clearance 61.58 ml/min; Glucose 107 mg/dL (74-106); Potassium 4.2 mmol/L (3.5-5.1); Sodium Level 137 mmol/L (136-145); Troponin-I HS 8 pg/mL (3.0-78.0)
[2022-06-04 22:02] VITALS: BP 123/72; PULSE 105; RESP 18; O2SAT 96
[2022-06-04 22:08] VITALS: PULSE 135
[2022-06-04] MEDS: Metoprolol Tartrate 5 MG/5 ML Vial IV (22:10)
[2022-06-04] MEDS: Albuterol Sulfate 8 gm Inhaler (60 puffs) 4 PUFF INHALATION (22:31)
== END 2022-06-04 22:42 | disposition home or self-care (01) ==
PROVIDERS: Emergency Provider Emergency Medicine; PCP Internal Medicine; Visit Provider Emergency Medicine
DX: J18.9 Pneumonia, unspecified organism (principal); I48.91 Unspecified atrial fibrillation; E78.5 Hyperlipidemia, unspecified; I10 Essential (primary) hypertension; I25.10 Atherosclerotic heart disease of native coronary artery without angina pectoris; R06.02 Shortness of breath; J45.909 Unspecified asthma, uncomplicated; Z95.0 Presence of cardiac pacemaker; Z87.891 Personal history of nicotine dependence
CPT/HCPCS: 71046; 80048; 83880; 84484; 85025; 87428; 87807; 93005; 94640; 96374; 99284; A4216

== ENCOUNTER → 2022-07-30 | Outpatient (CLI) | payer MEDICARE, SELFPAY ==
--- NOTE | 2022-07-30 12:48 | CDU_ITS ---
Reason For Study: Abnormal Screening Rt. Velocities/BP Lt. Velocities/BP Prox CCA 52.2/8.8 cm/sec. Prox CCA 87.9/9.3 cm/sec. Mid CCA 63.6/11.6 cm/sec. Mid CCA 65.5/7.3 cm/sec. Dist CCA 60.7/11.6 cm/sec. Dist CCA 52.3/9.5 cm/sec. Prox ICA 112.6/20.4 cm/sec. Prox ICA 62.2/17.1 cm/sec. Mid ICA 106.0/20.0 cm/sec. Mid ICA 84.2/19.3 cm/sec. Dist ICA 98.6/27.4 cm/sec. Dist ICA 68.8/11.7 cm/sec. Rt. ICA/CCA = 1.7. Lt. ICA/CCA = 1.3. Prox ECA 112.6/11.6 cm/sec. Prox ECA 85.3/9.5 cm/sec. Rt. Vert. 43.7/13.5 cm/sec. Lt. Vert. 42.5/4.4 cm/sec. Right Extracranial There is intimal thickening but no significant atherosclerotic plaque noted in the right common carotid artery. There is heterogeneous, irregular atherosclerotic plaque noted in the right internal carotid artery. There is heterogeneous, smooth atherosclerotic plaque noted in the right external carotid artery. Antegrade flow is noted in the right vertebral artery. Left Extracranial There is homogeneous, smooth atherosclerotic plaque noted in the left common carotid artery. There is heterogeneous, irregular atherosclerotic plaque noted in the left internal carotid artery. There is intimal thickening but no significant atherosclerotic plaque noted in the left external carotid artery. Antegrade flow is noted in the left vertebral artery. Procedure Carotid Duplex 91004. This is a Carotid Duplex examination using B-mode, color flow and specral Doppler. The exam was diagnostic. The study was technically limited due to irregular cardiac rhythms and labored breathing. Exam performed in department. VL/Carotid Duplex Ultrasound Interpretation Summary Mild (<50%) stenosis right extracranial internal carotid. Mild (<50%) stenosis left extracranial internal carotid. Patent and antegrade vertebrals bilaterally. Ordering Physician: Ha Hayes Performed By: Roland Santana RVT
--- NOTE | 2022-07-30 12:48 | ECHOD_ITS ---
Reason For Study: AFIB/FLUTTER Procedure This was a 2D Doppler, Color Flow transthoracic echocardiogram. The study was technically difficult. Due to arrhythmia. Exam performed in department. Left Ventricle Normal LV size. Apical false tendon noted. Left ventricular systolic function is normal. The estimated ejection fraction is 55 %. Diastolic function is indeterminate. Right Ventricle Normal RV size. ICD or pacer leads identified within the right ventricle. Normal systolic function. Atria The left atrium is moderately enlarged. The right atrium is mildly enlarged. No doppler evidence for ASD. Mitral Valve There is no mitral annular calcification. Normal mitral valve. Mild (1+) mitral valve insufficiency. Tricuspid Valve Normal tricuspid valve. Mild to moderate (1-2+) tricuspid valve insufficiency. Right ventricular systolic pressure estimated to be 32 mmHg. Aortic Valve Trisinus/trileaflet aortic valve. Mild focal aortic valve thickening. Mild focal aortic valve calcification. Mild (1+) aortic valve insufficiency. Pulmonic Valve The pulmonic valve is not well visualized. Trivial pulmonic valve insufficiency. Great Vessels Normal sized aortic root. Pericardium/Pleural No pericardial effusion. MMode/2D Measurements & Calculations LVIDd: 5.6 cm IVSd: 1.1 cm Ao root diam: 3.5 cm LVIDs: 4.5 cm LVPWd: 1.1 cm RVDd: 3.4 cm FS: 19.5 % LAV(MOD-bp): 72.0 ml EDV(MOD-sp4): 77.0 ml EDV(MOD-sp2): 64.0 ml LAV(MOD-bp) Indexed: 31.5 ml/m2 ESV(MOD-sp4): 49.3 ml ESV(MOD-sp2): 42.1 ml LAV(MOD-sp2): 72.6 ml EF(MOD-sp4): 36.0 % EF(MOD-sp2): 34.3 % LAV(MOD-sp4): 72.1 ml SV(MOD-sp4): 27.7 ml SV(MOD-sp2): 22.0 ml LA A4 area: 23.2 cm2 LA dimension(2D): 5.1 cm RA A4 area: 21.5 cm2 Time Measurements MV dec time: 0.15 sec Doppler Measurements & Calculations MV E max lisandro: 70.1 cm/sec Ao V2 max: 111.5 cm/sec LV V1 max: 60.1 cm/sec Ao max P.0 mmHg LV V1 max P.4 mmHg Ao V2 mean: 70.6 cm/sec LV V1 mean P.85 mmHg Ao mean P.3 mmHg LV V1 mean: 44.0 cm/sec Ao V2 VTI: 18.0 cm LV V1 VTI: 12.9 cm AV (velocity ratio): 0.72 PA V2 max: 68.6 cm/sec TR max lisandro: 244.0 cm/sec TR max P.8 mmHg ECHO/Echo Complete Interpretation Summary The study was technically difficult. Left ventricular systolic function is normal. The estimated ejection fraction is 55 %. Apical false tendon noted. The left atrium is moderately enlarged. Mild (1+) mitral valve insufficiency. Mild to moderate (1-2+) tricuspid valve insufficiency. Mild focal aortic valve thickening. Mild focal aortic valve calcification. Mild (1+) aortic valve insufficiency. Trivial pulmonic valve insufficiency. Right ventricular systolic pressure estimated to be 32 mmHg. Diastolic function is indeterminate. ICD or pacer leads identified within the right ventricle. Ordering Physician: Ha Hayes Referring Physician: Ruma Terry Performed By: Sendy Johnson, FELIX, RVT
== END | disposition home or self-care (01) ==
LOC: CVS 12:47
PROVIDERS: PCP Internal Medicine; Visit Provider Nurse Practitioner Family
DX: I48.91 Unspecified atrial fibrillation (principal); I77.9 Disorder of arteries and arterioles, unspecified; I65.23 Occlusion and stenosis of bilateral carotid arteries; I25.10 Atherosclerotic heart disease of native coronary artery without angina pectoris; Z95.5 Presence of coronary angioplasty implant and graft
CPT/HCPCS: 93306; 93880

== ENCOUNTER 2023-05-19 07:27 | Emergency (ER) | payer MEDICARE, SELFPAY ==
[2023-05-19 07:28] VITALS: BP 168/104; PULSE 63; RESP 18; TEMP 35.9; O2SAT 98; BMI 33.7
--- NOTE | 2023-05-19 07:52 | CT_ITS ---
STUDY: CT CHEST, ABDOMEN T PELVIS WITHOUT CONTRAST REASON FOR EXAM: Male, 78 years old. Left posterior rib trauma. Left flank pain. Nausea and vomiting. RADIATION DOSAGE (If Supplied By Facility): CTDIvol = ( 24.77 ) mGy, DLP = ( 2289.21 ) mGycm TECHNIQUE: Transaxial imaging was performed without the administration of intravenous contrast material. Individualized dose optimization techniques were used for this CT. COMPARISON: No relevant priors. FINDINGS: CHEST Calcified right hilar lymph nodes. Tiny calcified granuloma in the posterior aspect of the right upper lobe. Increased linear markings in the anterior aspect of the left lower lobe as well as in the anterior aspect of the right lower lobe and both lower lobes suggestive of scarring. Mild atelectasis at the left lung base. There is no demonstrated pleural abnormality. There are calcifications of the coronary arteries. A left-sided dual-chamber pacemaker is seen. There are small lymph nodes within the mediastinum, which are normal in size and morphology most compatible with reactive lymph hyperplasia. Normal hilar regions. Normal unenhanced pulmonary arteries. There is atherosclerotic calcification of the aortic arch with tortuosity and elongation of the aortic arch and descending thoracic aorta. There are multi-level degenerative changes of the thoracic spine. Calcified splenic granuloma. ABDOMEN Normal liver. The patient is status post cholecystectomy. There is a benign calcified granuloma of the spleen. Normal pancreas. Normal bilateral adrenal glands. Normal right kidney. There is a 3.4 cm x 4 cm rounded soft tissue mass in the lateral inferior pole of the left kidney. A neoplastic process should be ruled out. Tiny nonobstructive left intrarenal calculus. Mild degree of left hydronephrosis with left perinephric stranding. There is a 3.5 mm calculus at the base of the bladder on the left side suggestive of a recently passed left ureteral calculus. Atherosclerotic plaque formation of the intrarenal branches more prominent on the right side. There is a small hiatal hernia. Normal small intestine. There are multiple colonic diverticula consistent with diverticulosis. The appendix is visualized and appears normal. There is diffuse atherosclerotic calcification of the abdominal aorta and its major visceral branches, without a demonstrated aneurysm. Normal inferior vena cava. Normal retroperitoneum. There is evidence of prior left inguinal hernia repair with mesh. Small residual left inguinal hernia containing fat as well as a small right inguinal hernia containing fat. Disc space narrowing at the L5-S1 level spondylosis in the upper lumbar spine. PELVIS Urinary bladder is empty. There is no pelvic fluid. There is no pelvic lymphadenopathy or mass lesion. There is diffuse atherosclerotic calcification of the pelvic arteries. CT/CT Chest, Abd, Pelvis WO Cont IMPRESSION: Findings suggestive of scarring at the lung bases as well as the right middle lobe. Status post cholecystectomy. 3.4 cm x 4 cm rounded soft tissue mass in the lateral inferior pole of the left kidney. A neoplastic process should be ruled out. Mild degree of left hydronephrosis and left hydroureter due to a recently passed left ureteral calculus measuring 3.5 mm. The calculus is seen at the level of the base of the bladder on the left side. Nonobstructive left intrarenal calculus. Electronically Signed: Mumtaz Geiger MD at 9:00 EST ,
--- NOTE | 2023-05-19 07:54 | EDS_ITS ---
HPI History of Present Illness Chief Complaint: Flank Pain Informant: patient and spouse/S.O. Narrative Narrative: 78-year-old male presenting to the emergency room with left flank pain. Patient states that the symptoms woke him today and have been a constant ache in the left CVA region. He notes some intermittent nausea and retching. Denies any bowel symptoms. Feels that his stream is weaker than normal. He denies any fevers. Laying back seems to make it worse it feels better when he stands. He notes it is worse with cough retching and touch. He states that yesterday he fell striking his left upper posterior/lateral chest. He denies any blood in the urine. No dysuria or frequency. He is on Xarelto. He denies striking his head. [facility] Medical History Abnormal ankle brachial index Asthma Atherosclerotic heart disease of [place] coronary artery without angina pectoris Atrial fibrillation CAD in [place] artery Cardiology follow-up encounter Colon polyp Diverticulosis Essential hypertension GERD (gastroesophageal reflux disease) History of cardioversion (~05/16/19) History of echocardiogram History of edema History of stress test Hyperlipidemia Non-smoker RADHA (obstructive sleep apnea) Osteoarthritis Presence of cardiac pacemaker (~2013) RLS (restless legs syndrome) Sick sinus syndrome Tubular adenoma of colon Ventral incisional hernia without obstruction or gangrene Wears glasses Wears partial dentures [place] diverticulum Home Medications pantoprazole 40 mg tablet,delayed release 40 mg PO DAILY acid reflux 03/23/17 [History Last Taken Unknown] nitroglycerin 0.4 mg sublingual tablet 0.4 mg sublingual Q5-15M PRN chest pain #25 tabs 12/29/21 [Rx Last Taken Unknown] rivaroxaban 20 mg tablet 20 mg PO DAILY #90 tabs 06/03/22 [Rx Last Taken Unknown] albuterol sulfate 90 mcg/actuation aerosol inhaler (Ventolin HFA) 1 - 2 puff inhalation Q4H PRN PRN Wheezing #1 ea 06/04/22 [Rx Last Taken Unknown] furosemide 40 mg tablet See Rx Instructions .Route .COMPLEX #90 tabs 06/10/22 [Rx Last Taken Unknown] tamsulosin 0.4 mg capsule 0.4 mg PO DAILY prostate #90 caps 06/10/22 [Rx Last Taken Unknown] fenofibrate 160 mg tablet 160 mg PO DAILY #90 tabs 08/13/22 [Rx Last Taken Unknown] clopidogrel 75 mg tablet 75 mg PO DAILY blood thinner #90 tabs 04/07/23 [Rx Last Taken Unknown] diltiazem HCl 240 mg capsule,extended release 24 hr 240 mg PO DAILY #90 caps 05/10/23 [Rx Last Taken Unknown] oxycodone-acetaminophen 5 mg-325 mg tablet 1 tab PO Q6H PRN PRN Pain 3 days #12 TABLETS 05/19/23 [Rx Last Taken Unknown] Allergy/AdvReac Type Severity Reaction Status Date / Time atorvastatin [From Lipitor] AdvReac Severe elevated Verified 05/19/23 07:28 LFT's lisinopril AdvReac Severe cough Verified 05/19/23 07:28 gemfibrozil AdvReac Unknown Unknown Verified 05/19/23 07:28 simvastatin AdvReac Unknown Unknown Verified 05/19/23 07:28 bacitracin AdvReac Unknown Verified 05/19/23 07:28 [From Triple Antibiotic] colistimethate sodium AdvReac Unknown Verified 05/19/23 07:28 [From Triple Antibiotic] gramicidin D AdvReac Unknown Verified 05/19/23 07:28 [From Triple Antibiotic] neomycin sulfate AdvReac Unknown Verified 05/19/23 07:28 [From Triple Antibiotic] polymyxin B AdvReac Unknown Verified 05/19/23 07:28 [From Triple Antibiotic] pramoxine HCl AdvReac Unknown Verified 05/19/23 07:28 [From Triple Antibiotic] Family History Mother CVA (cerebral vascular accident) Father Heart disease Sister Heart disease Other Arthritis Hyperlipemia Hypertension Surgical History H/O umbilical hernia repair History of cataract surgery History of colonoscopy (~04/2021) History of inguinal hernia repair History of laparoscopic cholecystectomy Postsurgical percutaneous transluminal coronary angioplasty (PTCA) status (~06/17/12) Presence of stent in coronary artery (~06/17/12) Social History Smoking Status: Former smoker how long ago did patient quit smokin's alcohol intake: never substance use type: does not use caffeine: Yes Type: carbonated beverages Number of servings: 3 ROS ROS ED Constitutional Constitutional ED: Denies chills, fever(s) or weight loss Eyes Eyes: Denies change in vision or diplopia ENT ENT ED: Denies ear pain, rhinorrhea or sore throat Cardiovascular Cardiovascular: Denies chest pain, orthopnea, palpitations or racing heartbeat Respiratory/Chest Respiratory/Chest: Denies cough, dyspnea or orthopnea Gastrointestinal Gastrointestinal: Reports nausea; Denies abdominal pain, diarrhea or vomiting Genitourinary Genitourinary ED: Denies dysuria, hematuria or urinary frequency Musculoskeletal Musculoskeletal: Reports back pain; Denies arthralgias or myalgias Integumentary Denies abscess or rash Neurologic Neurologic: Denies headache(s) or weakness Psychiatric Psychiatric: Denies anxiety, depression, suicidal ideation or suicidal thoughts Endocrine Endocrinology: Denies polydipsia, polyphagia or polyuria Allergic/Immunologic Allergic/Immunologic ED: Denies mouth swelling, tongue swelling or urticaria EXAM Physical Exam Const Vital Signs: 05/19/23 07:28 05/19/23 08:22 Temperature 96.7 F L Temperature Source Temporal Pulse Rate 63 71 Respiratory Rate 18 16 Blood Pressure 168/104 H 144/78 H Blood Pressure Mean 125 100 Pulse Ox 98 96 Oxygen Delivery Method Room Air Positive well nourished and well developed General Appearance ED: well developed HEENT Reports normocephalic, head/scalp atraumatic and moist mucous membranes Eyes PERRL and EOMs intact bilaterally Neck no lymphadenopathy, supple and no JVD Resp normal respiratory effort and clear to auscultation bilaterally Cardio regular rate, regular rhythm and no murmurs GI normal to inspection, nondistended, normoactive bowel sounds and non-tender Palpation: soft Back/Spine normal ROM Back/Spine Narrative: There is a purple area of ecchymosis in the upper left posterior lateral region of the ribs General Back: CVA tenderness left Extremity normal to inspection General Extremety ED: Negative for edema General Extremity: Negative for edema Neuro oriented x3 and CN's II-XII intact bilaterally Sensorium / Orientation: alert Motor Exam: strength 5/5 throughout Psych mental status grossly normal Mood & Affect: Negative for depressed or tearful Skin no rashes or lesions noted and no wounds MDM MDM MDM Narrative Medical decision making narrative: Patient received Toradol morphine and Zofran and has been resting more comfortably. White count 6.8 with hemoglobin of 15.8 and platelet count of 220. Creatinine slightly elevated off baseline at 1.35. Urinalysis demonstrates no overt infection or gross hematuria. CT of the chest demonstrates soft tissue contusion but no bony fracture. There is no pulmonary contusion or effusion noted. Noncontrasted CT of the abdomen pelvis demonstrates hydronephroureter due to the recent passage of an approximate 5 mm stone found in the bladder. There is noted to be soft tissue mass on the left kidney. Exact etiology is unclear. He should follow-up either with primary care or with urology at this point I will write for the patient to have some pain medication. I believe that he should be able to pass the stone. Lab Data Attestation: I reviewed the patient's lab results. Labs: Laboratory Results - last 24 hr 05/19/23 05/19/23 07:55 08:05 WBC 6.8 RBC 5.22 Hgb 15.8 Hct 49.1 MCV 94.1 H MCH 30.3 MCHC 32.2 RDW Std Deviation 52.7 H RDW Coeff of Mimi 15.2 H Plt Count 220 MPV 12.2 H Immature Gran % (Auto) 0.400 Neut % (Auto) 82.1 H Lymph % (Auto) 8.4 L [place] % (Auto) 7.8 Eos % (Auto) 1.0 Baso % (Auto) 0.3 Absolute Neuts (auto) 5.6 Absolute Lymphs (auto) 0.57 L Nucleated RBC % 0 Sodium 137 Potassium 3.9 Chloride 108 H Carbon Dioxide 25.0 Anion Gap 4 L BUN 22 H Creatinine 1.35 H Estim Creat Clear Calc 48.03 Est GFR (MDRD) Af Amer 66 Est GFR (MDRD) Non-Af 54 L BUN/Creatinine Ratio 16.3 Glucose 171 H Calcium 9.1 Urine Color Yellow Urine Clarity Sl. Cloudy Urine pH 5.0 Ur Specific [place] 1.025 Urine Protein 15 H Urine Glucose (UA) Normal Urine Ketones Negative Urine Occult Blood 25 H Urine Nitrite Negative Urine Bilirubin Negative Urine Urobilinogen 1 H Ur Leukocyte Esterase Negative Urine RBC 0-5 SEEN Urine WBC 0 SEEN Ur Squamous Epith Cells 0-5 SEEN Urine Bacteria 0 SEEN Urine Mucus 0 SEEN Radiography Diagnostic Testing: Clinical Impression(s) from Imaging Studies Chest/Abdomen/Pelvis CT 05/19/23 07:52 IMPRESSION: Findings suggestive of scarring at the lung bases as well as the right middle lobe. Status post cholecystectomy. 3.4 cm x 4 cm rounded soft tissue mass in the lateral inferior pole of the left kidney. A neoplastic process should be ruled out. Mild degree of left hydronephrosis and left hydroureter due to a recently passed left ureteral calculus measuring 3.5 mm. The calculus is seen at the level of the base of the bladder on the left side. Nonobstructive left intrarenal calculus. Electronically Signed: Mumtaz Geiger MD at 9:00 EST , Discharge Plan Triage Chief Complaint: Flank Pain ED Provider: Kolby Orr Dx/Rx/DC Orders Clinical Impression: Contusion of left back wall of thorax, Anticoagulated, Hydronephrosis, left, Kidney stone on left side Instructions: ED Kidney Stone, Passed Prescriptions: New oxycodone-acetaminophen [oxycodone-acetaminophen] 5-325 mg tablet 1 tab PO Q6H PRN PRN (Reason: Pain) 3 Days Qty: 12 0RF No Action pantoprazole 40 MG tablet 40 mg PO DAILY albuterol sulfate [Ventolin HFA] 90 mcg/actuation HFA aerosol inhaler 1 - 2 puff inhalation Q4H PRN PRN (Reason: Wheezing) Qty: 1 0RF nitroglycerin 0.4 mg tablet, sublingual 0.4 mg sublingual Q5-15M PRN (Reason: chest pain) Qty: 25 3RF rivaroxaban 20 mg tablet 20 mg PO DAILY Qty: 90 3RF furosemide 40 mg tablet See Rx Instructions .ROUTE .COMPLEX Qty: 90 3RF Dose Instruction: TAKE 1 TABLET BY MOUTH DAILY FOR THREE DAYS, THEN TAKE ONE TABLET NEEDED FOR EDEMA Rx Instructions: TAKE 1 TABLET BY MOUTH DAILY FOR THREE DAYS, THEN TAKE ONE TABLET NEEDED FOR EDEMA tamsulosin 0.4 mg capsule 0.4 mg PO DAILY Qty: 90 3RF fenofibrate 160 mg tablet 160 mg tablet 160 mg PO DAILY Qty: 90 3RF clopidogrel 75 mg tablet 75 mg PO DAILY Qty: 90 3RF Hold Instructions: Order Changed diltiazem HCl 240 mg capsule,extended release 24hr 240 mg PO DAILY Qty: 90 3RF Primary Care Provider: Ruma Terry Referrals: Abdullahi Younger MD [Med Staff - Active Staff] - 3-5 Days if not improving Ruma Terry MD [Primary Care Provider] - As Needed Disposition Disposition: Home, Self Care
[2023-05-19] MEDS: Ondansetron 4 MG/2 ML Vial IV (08:02)
[2023-05-19 08:04] LABS: Absolute Lymphocyte Count 0.57 X10^3/uL (0.83-4.51); Absolute Neutrophil Count 5.6 X10^3/uL (2.0-7.7); Basophil# 0.02 X10^3/uL; Basophil% 0.3 % (0-1); Eosinophil# 0.07 X10^3/uL; Hematocrit 49.1 % (40-54); Hemoglobin 15.8 g/dL (13.0-16.5); Lymphocyte # 0.57 X10^3/ul (0.83-4.51); Lymphocyte % 8.4 % (19-41); Mean Corp Hgb Conc 32.2 g/dL (32-36); Mean Corpuscular Hgb 30.3 pg (27.0-32.0); Mean Corpuscular Volume 94.1 fL (80-94); Mean Platelet Vol. 12.2 fl (6.2-12.0); Monocyte# 0.53 X10^3/uL; Monocyte% 7.8 % (0-10); NRBC Flagged by Analyzer 0 % (0-5); Neutrophil # 5.55 X10^3/uL (2.7-7.7); Neutrophil % 82.1 % (47-70); POSITIVE DIFFERENTIAL YES; Platelet Count 220 K/mm3 (150-450); RBC Distribution Width CV 15.2 % (11.6-14.6); RBC Distribution Width SD 52.7 fl (35.1-43.9); Red Blood Count 5.22 M/mm3 (4.6-6.2); White Blood Count 6.8 K/mm3 (4.4-11.0)
[2023-05-19] MEDS: Ketorolac 15 MG/ML Vial IV (08:05)
[2023-05-19] MEDS: Morphine 4 MG/ML Syringe IV (08:08)
[2023-05-19 08:16] LABS: Bacteria 0 SEEN /hpf (None Seen); Mucous, Urine 0 SEEN /hpf (<or=2+); White Blood Cells 0 SEEN /hpf (0-5)
[2023-05-19 08:17] LABS: Anion Gap 4 (5-15); BUN 22 mg/dL (7-18); BUN/Creat Ratio 16.3 RATIO (10-20); Calcium,Total 9.1 mg/dL (8.5-10.1); Chloride 108 mmol/L (98-107); Creatinine, Serum 1.35 mg/dL (0.70-1.30); EST Glomerular Filtration Rate 54 mL/min (>60); Est Glom Filt Rate - Afr Amer 66 mL/min (>60); Estimated Creatinine Clearance 48.03 ml/min; Glucose 171 mg/dL (74-106); Potassium 3.9 mmol/L (3.5-5.1); Sodium Level 137 mmol/L (136-145)
[2023-05-19 08:22] VITALS: BP 144/78; PULSE 71; RESP 16; O2SAT 96
[2023-05-19 08:22] LABS: Differential Indicated SCAN CRITERIA MET
[2023-05-19 08:23] LABS: Color, Urine Yellow (Yellow); Glucose, Dipstick Normal (Normal); Ketone-Dipstick Negative (Negative); Leukocyte Esterase-Dipstick Negative /ul (Negative); Nitrite-Dipstick Negative (Negative); Occult Blood-Urine 25 /ul (Negative); Protein-Dipstick 15 mg/dl (Negative); Specific Gravity, Urine 1.025 (1.002-1.030); Urine Bilirubin Dipstick Negative (Negative); Urine Clarity Sl. Cloudy (Clear); Urine Urobilinogen 1 mg/dl (Normal)
[2023-05-19 08:29] LABS: Red Blood Cells-Urine 0-5 SEEN /hpf (0-5); Squamous Epithelial Cells - UA 0-5 SEEN /hpf (0-5)
[2023-05-19 09:17] LABS: Differential Comment SCANNED
== END 2023-05-19 09:29 | disposition home or self-care (01) ==
PROVIDERS: Emergency Provider Emergency Medicine; PCP Internal Medicine; Visit Provider Emergency Medicine
DX: N13.2 Hydronephrosis with renal and ureteral calculous obstruction (principal); Z87.891 Personal history of nicotine dependence; I25.10 Atherosclerotic heart disease of native coronary artery without angina pectoris; I10 Essential (primary) hypertension; E78.5 Hyperlipidemia, unspecified; S20.222A Contusion of left back wall of thorax, initial encounter; Z79.01 Long term (current) use of anticoagulants; W19.XXXA Unspecified fall, initial encounter
CPT/HCPCS: 71250; 74176; 80048; 81001; 85025; 96374; 96375; 99283; A4216; J2405

== ENCOUNTER → 2023-05-31 | Outpatient (CLI) | payer MEDICARE, SELFPAY ==
[2023-05-31 12:40] LABS: Anion Gap 4 (5-15); BUN 27 mg/dL (7-18); BUN/Creat Ratio 20.5 RATIO (10-20); Chloride 105 mmol/L (98-107); Creatinine, Serum 1.32 mg/dL (0.70-1.30); EST Glomerular Filtration Rate 56 mL/min (>60); Est Glom Filt Rate - Afr Amer 67 mL/min (>60); Glucose 82 mg/dL (74-106); Potassium 4.2 mmol/L (3.5-5.1); Sodium Level 139 mmol/L (136-145)
== END | disposition home or self-care (01) ==
LOC: LAB 11:16
PROVIDERS: PCP Internal Medicine; Referring Provider Internal Medicine; Visit Provider Internal Medicine
DX: N20.0 Calculus of kidney (principal); N17.9 Acute kidney failure, unspecified
CPT/HCPCS: 36415; 80048

== ENCOUNTER 2023-06-19 15:54 | Emergency (ER) | payer MEDICARE, SELFPAY ==
[2023-06-19 15:55] VITALS: BP 169/102; PULSE 122; RESP 24; TEMP 36.3; O2SAT 98; BMI 36.4
[2023-06-19 15:58] VITALS: BMI 33.5
--- NOTE | 2023-06-19 16:00 | CT_ITS ---
STUDY: CT BRAIN WITHOUT CONTRAST REASON FOR EXAM: Male, 78 years old. headache RADIATION DOSAGE (If Supplied By Facility): CTDIvol = ( 44.99 ) mGy, DLP = ( 796.11 ) mGycm TECHNIQUE: Transaxial CT imaging of the brain was performed without administration of intravenous contrast material. Individualized dose optimization techniques were used for this CT. COMPARISON: No relevant priors. FINDINGS: Normal soft tissue structures. Normal calvarium. Normal size ventricles and extra-axial spaces for the patient''s age. Normal white matter tracts of the cerebral hemispheres. Normal basal ganglia and thalami. Normal brainstem. Normal cerebellum. There is no intracranial hemorrhage. There are no findings of an acute ischemic infarction. Normal visualized paranasal sinuses. CT/Brain/Head without Contrast IMPRESSION: Normal unenhanced CT scan of the brain. Electronically Signed: Bhupendra Kenney MD at 17:56 EST ,
--- NOTE | 2023-06-19 16:00 | EKG12_ITS ---
Test Reason : Blood Pressure : / mmHG Vent. Rate : 126 BPM Atrial Rate : 000 BPM P-R Int : 000 ms QRS Dur : 092 ms QT Int : 286 ms P-R-T Axes : 000 043 057 degrees QTc Int : 414 ms Atrial fibrillation with rapid ventricular response Incomplete right bundle branch block Nonspecific ST and T wave abnormality Abnormal ECG Confirmed by AUBREY NG, BERONICA ([id number]), editor news AMY PINEDA ([id number]) on 06/22/2023 6:19:54 AM Referred By: Confirmed By:STEPHANIE BURGOS MD
--- NOTE | 2023-06-19 16:02 | ED.RN ---
PER DR. COLE, NO STROKE TEAM.
[2023-06-19 16:15] VITALS: BP 142/85; PULSE 140; RESP 18; O2SAT 98
[2023-06-19] MEDS: Metoprolol Tartrate 5 MG/5 ML Vial IV (16:17)
--- NOTE | 2023-06-19 16:17 | EDS_ITS ---
HPI History of Present Illness Chief Complaint: Neuro S/Sx Informant: patient and family Narrative Narrative: Patient seen on arrival called into the room for evaluation potential stroke. He reported left lip droop being he was drinking water was coming out of left side of his mouth yesterday at 6 PM 22 hours prior to arrival. He also reports he is unable to fully close his left eye. He denies paresthesias. He is currently on antiviral and steroids with 2 days left for reported diagnosed shingles inside his oral mouth on the left side. Yesterday evening also intermittent sharp sensations in the left scalp. No fevers no cough. No vomiting or diarrhea. In addition on arrival tachycardic, he has a history of A-fib on diltiazem 240 mg daily, he is on Xarelto. History of coronary disease on Plavix. He has a pacemaker. Daughter present stating he has been cardioverted twice in the past he was previously Dr. Miramontes. He has been taking his medications. Denies asthma or COPD history. He denies feeling any palpitations racing heart or any lightheaded symptoms. [facility] Medical History Abnormal ankle brachial index Asthma Atherosclerotic heart disease of resighini coronary artery without angina pectoris Atrial fibrillation CAD in res[place] artery Cardiology follow-up encounter Colon polyp Diverticulosis Essential hypertension GERD (gastroesophageal reflux disease) History of cardioversion (~05/16/19) History of echocardiogram History of edema History of stress test Hyperlipidemia Non-smoker RADHA (obstructive sleep apnea) Osteoarthritis Presence of cardiac pacemaker (~2013) RLS (restless legs syndrome) Sick sinus syndrome Tubular adenoma of colon Ventral incisional hernia without obstruction or gangrene Wears glasses Wears partial dentures [place]kers diverticulum Home Medications pantoprazole 40 mg tablet,delayed release 40 mg PO DAILY acid reflux 03/23/17 [ History Last Taken Unknown] nitroglycerin 0.4 mg sublingual tablet 0.4 mg sublingual Q5-15M PRN chest pain #25 tabs 12/29/21 [Rx Last Taken Unknown] rivaroxaban 20 mg tablet 20 mg PO DAILY #90 tabs 06/03/22 [Rx Last Taken Unknown] albuterol sulfate 90 mcg/actuation aerosol inhaler (Ventolin HFA) 1 - 2 puff inhalation Q4H PRN PRN Wheezing #1 ea 06/04/22 [Rx Last Taken Unknown] furosemide 40 mg tablet See Rx Instructions .Route .COMPLEX #90 tabs 06/10/22 [Rx Last Taken Unknown] tamsulosin 0.4 mg capsule 0.4 mg PO DAILY prostate #90 caps 06/10/22 [Rx Last Taken Unknown] fenofibrate 160 mg tablet 160 mg PO DAILY #90 tabs 08/13/22 [Rx Last Taken Unknown] clopidogrel 75 mg tablet 75 mg PO DAILY blood thinner #90 tabs 04/07/23 [Rx Last Taken Unknown] diltiazem HCl 240 mg capsule,extended release 24 hr 240 mg PO DAILY #90 caps 05/10/23 [Rx Last Taken Unknown] oxycodone-acetaminophen 5 mg-325 mg tablet 1 tab PO Q6H PRN PRN Pain 3 days #12 TABLETS 05/19/23 [Rx Last Taken Unknown] famciclovir 500 mg tablet 500 mg PO Q8H 7 days #21 tabs 06/14/23 [Rx Last Taken Unknown] methylprednisolone 4 mg tablets in a dose pack (Medrol ([place])) See Rx Instructions PO PER PKG DIR #21 tabs 06/14/23 [Rx Last Taken Unknown] metoprolol succinate 25 mg tablet,extended release 24 hr 25 mg PO DAILY #30 tabs 06/19/23 [Rx Last Taken Unknown] Allergy/AdvReac Type Severity Reaction Status Date / Time atorvastatin [From Lipitor] AdvReac Severe elevated Verified 06/19/23 15:55 LFT's lisinopril AdvReac Severe cough Verified 06/19/23 15:55 gemfibrozil AdvReac Unknown Unknown Verified 06/19/23 15:55 simvastatin AdvReac Unknown Unknown Verified 06/19/23 15:55 bacitracin AdvReac Unknown Verified 06/19/23 15:55 [From Triple Antibiotic] colistimethate sodium AdvReac Unknown Verified 06/19/23 15:55 [From Triple Antibiotic] gramicidin D AdvReac Unknown Verified 06/19/23 15:55 [From Triple Antibiotic] neomycin sulfate AdvReac Unknown Verified 06/19/23 15:55 [From Triple Antibiotic] polymyxin B AdvReac Unknown Verified 06/19/23 15:55 [From Triple Antibiotic] pramoxine HCl AdvReac Unknown Verified 06/19/23 15:55 [From Triple Antibiotic] Family History Mother CVA (cerebral vascular accident) Father Heart disease Sister Heart disease Other Arthritis Hyperlipemia Hypertension Surgical History H/O umbilical hernia repair History of cataract surgery History of colonoscopy (~04/2021) History of inguinal hernia repair History of laparoscopic cholecystectomy Postsurgical percutaneous transluminal coronary angioplasty (PTCA) status (~06/17/12) Presence of stent in coronary artery (~06/17/12) Social History Smoking Status: Former smoker how long ago did patient quit smokin' alcohol intake: never substance use type: does not use caffeine: Yes Type: carbonated beverages Number of servings: 3 ROS ROS ED Constitutional Constitutional ED: Denies chills, fever(s) or sweats Eyes Eyes: Denies change in vision ENT ENT ED: Denies dysphagia or sore throat Cardiovascular Cardiovascular: Denies chest pain, leg edema, palpitations or racing heartbeat Respiratory/Chest Respiratory/Chest: Denies cough, dyspnea or dyspnea on exertion Gastrointestinal Gastrointestinal: Denies abdominal pain, diarrhea, nausea or vomiting Genitourinary Genitourinary ED: Denies dysuria, hematuria or urinary frequency Musculoskeletal Musculoskeletal: Denies back pain, extremity pain or neck pain Integumentary Denies rash or wounds Neurologic Neurologic: Reports headache(s); Denies paresthesias or weakness EXAM Physical Exam Const Vital Signs: 06/19/23 15:55 06/19/23 16:15 06/19/23 16:35 Temperature 97.4 F L Temperature Source Temporal Pulse Rate 122 H 140 H 98 Respiratory Rate 24 H 18 18 Blood Pressure 169/102 H 142/85 H Blood Pressure Mean 124 104 Pulse Ox 98 98 95 Oxygen Delivery Method Room Air 06/19/23 18:13 Temperature Temperature Source Pulse Rate 98 Respiratory Rate 16 Blood Pressure Blood Pressure Mean Pulse Ox 99 Oxygen Delivery Method Positive well nourished and well developed General Appearance ED: well developed and NAD HEENT HEENT Narrative: Scalp noted scattered erythema lesions on the left side frontal does not cross midline. Nontender palpation at this time. No lesions in his external canal on the left side there is left soft palate lesions noted. No buccal lesions. No tongue lesions. He had left lip droop there was slight sparing of the left frontal. normocephalic Eyes PERRL, EOMs intact bilaterally and conjunctivae normal General Eye ED: Yes normal appearance of both eyes Neck no lymphadenopathy and supple General: Negative for tenderness Chest Wall inspection of chest normal and palpation of chest normal Chest: Negative for tenderness Resp normal respiratory effort and normal air movement Effort and Inspection: symmetric chest movement; Negative for respiratory distress Cardio no murmurs Rate: tachycardic Rhythm: abnormal rhythm Peripheral Pulses: pulses 2+ throughout GI normal to inspection, nondistended, normoactive bowel sounds and non-tender Palpation: Negative for guarding or rebound tenderness present Back/Spine no CVA tenderness and no thoracic nor lumbar tenderness Extremity normal to inspection General Extremety ED: Negative for edema or tenderness General Extremity: Negative for edema Neuro oriented x3 and no sensory deficits noted Neuro Narrative: Sensation was intact facial region bilaterally. Sensorium / Orientation: awake and alert Skin Skin Narrative: See above MDM MDM MDM Narrative Medical decision making narrative: Interventions / MDM: Differential diagnosis: Shingles left C2 dermatome, Ramsey's palsy left side, atrial fibrillation Diagnosis considered but do not suspect: N/A My EKG interpretation: A-fib 126, no ST or T wave changes. Imaging independently reviewed and interpreted by myself: CT brain: No acute process also read by radiology. External documents reviewed: PCP office note with soft palate lesion treated for shingles. Test considered but not ordered:N/A ED course: Presentation consistent with Ramsey's palsy especially with current shingles. In addition he has sensation intact, not stroke symptoms without paresthesias. However he is in A-fib with RVR. Blood pressure stable. EKG confirms this. Will check EKG and labs, CT brain and start metoprolol IV to help with rate control. After 1 dose of IV Lopressor heart rate controlled 80s and 90s. CT brain negative. Labs are stable. He does have a pacemaker. Blood pressure stable. He started on metoprolol 25 mg succinate. He states he has appointment with cardiology in 5 days. He will keep this appointment. He will finish his steroids and viral medicines. Discussed possibility of extending his steroid medications as he has developed Ramsey's palsy. Re-evaluation: stable Disposition discussed with patient/family/significant other: Patient and family Case discussed with consulting clinician: N/A This note was generated with [employer]Doc dictation software. It may contain incorrect words, spelling, and punctuation that were not noted in checking the note before signing. Lab Data Attestation: I reviewed the patient's lab results. Labs: Laboratory Results - last 24 hr 06/19/23 16:04 WBC 13.4 H RBC 5.38 Hgb 16.5 Hct 49.6 MCV 92.2 MCH 30.7 MCHC 33.3 RDW Std Deviation 52.4 H RDW Coeff of Mimi 15.6 H Plt Count 244 MPV 12.6 H Immature Gran % (Auto) 1.200 H Neut % (Auto) 82.9 H Lymph % (Auto) 6.4 L [place] % (Auto) 9.1 Eos % (Auto) 0.1 Baso % (Auto) 0.3 Absolute Neuts (auto) 11.1 H Absolute Lymphs (auto) 0.86 Nucleated RBC % 0 Sodium 136 Potassium 3.9 Chloride 104 Carbon Dioxide 26.0 Anion Gap 6 BUN 28 H Creatinine 1.24 Estim Creat Clear Calc 50.69 Est GFR (MDRD) Af Amer 73 Est GFR (MDRD) Non-Af 60 BUN/Creatinine Ratio 22.6 H Glucose 147 H Calcium 8.8 Radiography Diagnostic Testing: Clinical Impression(s) from Imaging Studies Brain CT 06/19/23 16:00 IMPRESSION: Normal unenhanced CT scan of the brain. Electronically Signed: Bhupendra Kenney MD at 17:56 EST , Discharge Plan Triage Chief Complaint: Neuro S/Sx ED Provider: Avery Veras Dx/Rx/DC Orders Clinical Impression: Atrial fibrillation with controlled ventricular response, Shingles rash, Left- sided Ramsey's palsy Instructions: AFib Dc, ED Ramsey's Palsy, ED Shingles (Herpes Zoster) Prescriptions: New metoprolol succinate 25 mg tablet extended release 24 hr 25 mg PO DAILY Qty: 30 0RF No Action famciclovir 500 mg tablet 500 mg PO Q8H 7 Days Qty: 21 0RF methylprednisolone [Medrol (Galen)] 4 mg tablets,dose pack See Rx Instructions PO PER PKG DIR Qty: 21 0RF Rx Instructions: PO PER PKG DIR pantoprazole 40 MG tablet 40 mg PO DAILY albuterol sulfate [Ventolin HFA] 90 mcg/actuation HFA aerosol inhaler 1 - 2 puff inhalation Q4H PRN PRN (Reason: Wheezing) Qty: 1 0RF oxycodone-acetaminophen [oxycodone-acetaminophen] 5-325 mg tablet 1 tab PO Q6H PRN PRN (Reason: Pain) 3 Days Qty: 12 0RF nitroglycerin 0.4 mg tablet, sublingual 0.4 mg sublingual Q5-15M PRN (Reason: chest pain) Qty: 25 3RF rivaroxaban 20 mg tablet 20 mg PO DAILY Qty: 90 3RF furosemide 40 mg tablet See Rx Instructions .ROUTE .COMPLEX Qty: 90 3RF Dose Instruction: TAKE 1 TABLET BY MOUTH DAILY FOR THREE DAYS, THEN TAKE ONE TABLET NEEDED FOR EDEMA Rx Instructions: TAKE 1 TABLET BY MOUTH DAILY FOR THREE DAYS, THEN TAKE ONE TABLET NEEDED FOR EDEMA tamsulosin 0.4 mg capsule 0.4 mg PO DAILY Qty: 90 3RF fenofibrate 160 mg tablet 160 mg tablet 160 mg PO DAILY Qty: 90 3RF clopidogrel 75 mg tablet 75 mg PO DAILY Qty: 90 3RF Hold Instructions: Order Changed diltiazem HCl 240 mg capsule,extended release 24hr 240 mg PO DAILY Qty: 90 3RF Primary Care Provider: Ruma Terry Referrals: Ruma Terry MD [Primary Care Provider] - 3-5 Days Activity Restrictions/Additional Instructions: Your exam history consistent with Ramsey's palsy on the left side. You have a shingles rash on the left scalp consistent with a C2 dermatome. Finish your viral medicine and your steroids written by your PCP. You are in A-fib with RVR in the ED, your heart rate is controlled. Take metoprolol as prescribed. Keep your follow-up with your heart team in 5 days. Call for follow-up with your doctor on Wednesday to recheck your symptoms for potential extended treatment. CT brain was negative. Disposition Disposition: Home, Self Care Discharge Date/Time: 06/19/23 18:15
[2023-06-19 16:27] LABS: Absolute Lymphocyte Count 0.86 X10^3/uL (0.83-4.51); Absolute Neutrophil Count 11.1 X10^3/uL (2.0-7.7); Basophil# 0.04 X10^3/uL; Basophil% 0.3 % (0-1); Eosinophil# 0.02 X10^3/uL; Eosinophils% 0.1 % (0-5); Hematocrit 49.6 % (40-54); Hemoglobin 16.5 g/dL (13.0-16.5); Lymphocyte # 0.86 X10^3/ul (0.83-4.51); Lymphocyte % 6.4 % (19-41); Mean Corp Hgb Conc 33.3 g/dL (32-36); Mean Corpuscular Hgb 30.7 pg (27.0-32.0); Mean Corpuscular Volume 92.2 fL (80-94); Mean Platelet Vol. 12.6 fl (6.2-12.0); Monocyte# 1.22 X10^3/uL; Monocyte% 9.1 % (0-10); NRBC Flagged by Analyzer 0 % (0-5); Neutrophil % 82.9 % (47-70); Platelet Count 244 K/mm3 (150-450); RBC Distribution Width CV 15.6 % (11.6-14.6); RBC Distribution Width SD 52.4 fl (35.1-43.9); Red Blood Count 5.38 M/mm3 (4.6-6.2); White Blood Count 13.4 K/mm3 (4.4-11.0)
[2023-06-19 16:35] VITALS: PULSE 98; RESP 18; O2SAT 95
[2023-06-19 16:37] LABS: Anion Gap 6 (5-15); BUN 28 mg/dL (7-18); BUN/Creat Ratio 22.6 RATIO (10-20); Calcium,Total 8.8 mg/dL (8.5-10.1); Chloride 104 mmol/L (98-107); Creatinine, Serum 1.24 mg/dL (0.70-1.30); EST Glomerular Filtration Rate 60 mL/min (>60); Est Glom Filt Rate - Afr Amer 73 mL/min (>60); Estimated Creatinine Clearance 50.69 ml/min; Glucose 147 mg/dL (74-106); Potassium 3.9 mmol/L (3.5-5.1); Sodium Level 136 mmol/L (136-145)
[2023-06-19 18:13] VITALS: PULSE 98; RESP 16; O2SAT 99
== END 2023-06-19 18:15 | disposition home or self-care (01) ==
PROVIDERS: Emergency Provider Emergency Medicine; PCP Internal Medicine; Visit Provider Emergency Medicine
DX: I48.91 Unspecified atrial fibrillation (principal); Z87.891 Personal history of nicotine dependence; I25.10 Atherosclerotic heart disease of native coronary artery without angina pectoris; E78.5 Hyperlipidemia, unspecified; I10 Essential (primary) hypertension; Z95.0 Presence of cardiac pacemaker; B02.9 Zoster without complications; Z79.02 Long term (current) use of antithrombotics/antiplatelets; Z79.899 Other long term (current) drug therapy; R51.9 Headache, unspecified; G51.0 Bell's palsy
CPT/HCPCS: 70450; 80048; 85025; 93005; 99284; A4216

== ENCOUNTER → 2023-06-24 | Outpatient (CLI) | payer MEDICARE, SELFPAY ==
[2023-06-24 11:03] LABS: BNP,B-Type NATRIURETIC PEPTIDE 171.6 pg/mL (0-100)
== END | disposition home or self-care (01) ==
LOC: LAB 09:32
PROVIDERS: PCP Internal Medicine; Referring Provider Nurse Practitioner Family; Visit Provider Nurse Practitioner Family
DX: R06.00 Dyspnea, unspecified (principal)
CPT/HCPCS: 36415; 83880

== ENCOUNTER → 2023-06-28 | Outpatient (CLI) | payer MEDICARE, SELFPAY ==
[2023-06-28] VITALS (14 sets, daily range): BP systolic 110–158; BP diastolic 41–97; PULSE 84–109; RESP 15–18; TEMP 36.3; O2SAT 91–98; BMI 33.2
--- NOTE | 2023-06-28 | FLU_PTH ---
PATIENT: CONSTANTINO CORBETT LOC: CT U#:[id number] AGE/SX: 78/M ROOM: RE06/28/[address]: Dr. Ruma Terry MD : 1945 BED: DIS: 06/28/2023 SPEC #: [id number] RECD: 06/28/23 11:54 STATUS: NIR PHILLIPS #: [id number] ANDREA: 06/28/23 00:[address]: Ruma Terry DEPT: CYTOLOGY RECD BY: Daksha Egan Tissues: Kidney, NOS Procedures: Special Stain Group II Surgery Specimen Level IV Cytospin Fluid HEADER OPERATION: CT-guided left renal mass FNA PRE-OP DIAGNOSIS: Left renal mass TISSUE SUBMITTED: Left renal mass 18-gauge x4 DIAGNOSIS CYTOLOGY Left kidney mass fluid, FNA (cytospin and cell block): Consistent with hemorrhagic cyst contents. Negative for malignant cells. See comment. PRATIK:dot 06/29/2023 COMMENT Clinical correlation and appropriate follow up are necessary. CYTOLOGY STUDY Slides are reviewed. CYTOLOGY GROSS Received is 20 ml of brown cloudy fluid labeled with the patient's name and and designated per the requisition as left renal mass. Submitted for cytology preparation including cell block. / dot 06/28/2023 TC:5 CPT: 07980, 16905
[2023-06-28 09:15] LABS: International Normalized Ratio 1.5; Prothrombin Time (Protime)PT. 18.1 SECONDS (11.7-14.9)
[2023-06-28 09:17] LABS: Partial Thromboplast Time 30.3 Seconds (24.1-36.2)
[2023-06-28 09:26] LABS: Platelet Count 201 K/mm3 (150-450)
[2023-06-28] MEDS: 0.9% Saline Lock 10 ML Syringe IV (09:34)
[2023-06-28] MEDS: 0.9% Normal Saline (250mL Bag) 250 ML 15 ML IV (09:40)
[2023-06-28] MEDS: Midazolam 2 MG/2 ML Syringe IV (10:07)
[2023-06-28] MEDS: fentaNYL 100 MCG/2 ML Ampul IV (10:08)
[2023-06-28] MEDS: Lidocaine 2% (20 ml mdv) 20 ML Vial INFILT (10:24)
--- NOTE | 2023-06-28 11:45 | PRO.PCM_ITS ---
Procedure Report Date of Procedure: 06/28/23
--- NOTE | 2023-06-28 11:45 | PCM.OP.PRO ---
Procedure Report Date of Procedure: 06/28/23 Assessment & Plan Assessment/Plan (1) Left kidney mass: PLAN: PROCEDURE: CT GUIDED LEFT PERCUTANEOUS KIDNEY BIOPSY. ORDERING PROVIDER: Dr. Dennis INDICATION: Male, 78 years old. Left renal mass. PROVIDER: LACEY Oden CONSENT: Written informed consent was obtained having explained the risks, benefits and alternatives in detail with the patient. The specific risk of hemorrhage requiring further treatment or intervention was detailed and accepted. The patient accepted the risks and agreed to proceed. Laboratory review and clinical assessment was performed. PRE-PROCEDURE SEDATION ASSESSMENT: Current history and physical dictated by referring provider and reviewed. No clinical changes since date of exam. Patient has an ASA Class of 2. PROCEDURAL SEDATION PROTOCOL: The Drugs used were: 2 mg Versed, IV, and 50 mcg Fentanyl, IV. The sedation time was: 25 minutes, starting at 1007 and terminated at 1032. The procedural sedation protocol was independently monitored by the department nurse. RADIATION DOSAGE (If Supplied By Facility): CTDIvol = 24.54 mGy, DLP = 1266.29 mGycm Individualized dose optimization techniques were used for this CT. TECHNIQUE: The patient was placed on the CT table in the prone position. Multiple axial images were obtained from the lung base through the caudal extent of the kidneys. The mass was located. The skin overlying the left posterior flank was prepped and draped in sterile fashion. 2% lidocaine was administered subcutaneously for local anesthesia. Using CT guidance, an 18-gauge coaxial biopsy device was advanced to the medial portion of the left kidney mass. A total of 4 core specimens were obtained. The sample also included 20 mL of cloudy brown fluid that was able to be aspirated. Specimens were microscopically reviewed by pathology in the CT suite and placed in formalin solution for further analysis. Follow-up CT image demonstrated resolution where the mass was previously. The needle was withdrawn. Hemostasis was achieved with manual compression and a sterile dressing was applied. The patient tolerated the procedure well without immediate complications. The patient returned to the holding bay in stable condition for nursing monitoring, per protocol. IMPRESSION: 1. Successful CT guided percutaneous left kidney mass biopsy. Pathology results are pending. 2. Procedural Sedation protocol utilized with independent monitoring by the department nurse. Procedures Radiology Radiology CT Procedures: 04499 Biopsy Kidney
== END | disposition home or self-care (01) ==
PROVIDERS: Nurse Practitioner Acute Care; PCP Internal Medicine; Referring Provider Internal Medicine; Visit Provider Internal Medicine
DX: N28.89 Other specified disorders of kidney and ureter (principal)
CPT/HCPCS: 50200; 36415; 77012; 85049; 85610; 85730; 88108; 88305; 88313; 99156; J7050; A4216

== ENCOUNTER → 2023-07-23 | Outpatient (CLI) | payer MEDICARE, SELFPAY ==
--- OUTSIDE RECORDS SUMMARY | 2023-07-23 07:43 | XMS RPT_ITS | CCD ---
Author Name Unknown Address [address] [facility] [address] [place] [id number] Organization [facility] Care Team Providers Care Cdl Flatbed Truck Driver Name Role Phone KIRSTEN REED Unavailable Unavailable CEBUL III, NASIM A Unavailable Unavailable KIRSTEN REED Unavailable Unavailable CEBUL, NASIM Unavailable Unavailable KIRSTEN REED Unavailable Unavailable KIRSTEN REED Unavailable Unavailable Allergies Allergy Classification Reported Allergen(s) Allergy Type Date of Onset Reaction(s) Facility (2 sources) atorvastatin; Translations: [ATORVASTATIN CALCIUM] Drug Allergy 5 [facility] Repository (2 sources) gemfibrozil; Translations: [GEMFIBROZIL] Drug Allergy 5 [facility] Repository (2 sources) lisinopril; Translations: [LISINOPRIL] Drug Allergy 3 [facility] Repository (2 sources) simvastatin; Translations: [SIMVASTATIN] Drug Allergy 5 [facility] Repository (2 sources) OTHER; Translations: [OTHER] Propensity to adverse reactions (disorder) 8 [facility] Repository Problems Problem Classification Problem Date Documented Date Episodic/Chronic Coronary atherosclerosis and other heart disease (2 sources) Atherosclerotic heart disease of hoh coronary artery without angina pectoris; Translations: [Atherosclerotic heart disease of hoh coronary artery without angina pectoris] Onset: 06-17-2017 Chronic Essential hypertension (1 source) Essential (primary) hypertension; Translations: [Essential (primary) hypertension] Onset: 06-17-2017 Chronic Unclassified (1 source) Unknown / UNK(Unknown) Onset: 06-17-2017 Results Test Name Value Interpretation Reference Range Facil ity Encounters Encounter Date Encounter Type Care Provider Facility Start: 06-17-2018 Ambulatory KIRSTEN REED Facility :[facility] Start: 06-17-2017 End: 06-17-2017 Ambulatory KIRSTEN Rogers BRIANNA Kari Wu [facility] Payers Date Payer Category Payer Policy ID Medicare [id number] Clinical Note 05-09-2021 Note Date & Type Note Facility 05-09-2021 Note Patient Outreach (NICOLE TNAV) CONSTANTINO PEREZ ([id number]) 1945 M Date Time Provider Department 05/09/21 MEKA TOURE During your visit today, we recorded the following information about you: Meka Toure Population Health Navigator 05/09/2021 11:52 AM Signed POPULATION HEALTH NAVIGATION OUTREACH Action/FYI I left a voice message and a my chart message re: pcp No care everywhere Contact made with patient or family member? NO Pt identified by name and : NO Outreach Outcome/Action Unable to reach patient: Left message Observe Medicalhart message sent Reason for Outreach Attribution: Provider Off-boarding Payer: Payor: [employer] MEDICARE ADVANTAGE / Plan[place] / Product Type: HMO / Care Gap Reviewed:: Reminder: Reminder note to check Health Maintenance for items below Health Maintenance items due: SHINGRIX VACCINE(1 of 2) Never done BP CONTROLLED (<130/80) due on 02/04/2019 COVID-19 VACCINE(3 - Pfizer booster) due on 03/06/2021 INFLUENZA(1) due on 03/12/2021 LDL CHOLESTEROL due on 04/30/2021 Advanced Directives Completed: Have you ever planned for future healthcare decisions with a power of warehouse delivery manager, living will, or advance directives? No. Please bring a copy to your next appointment or email to Referrals: N/A Message Sent to Practice: NO Navigation Signature: Meka Toure Population Health Navigator May 09, 2021 11:52 AM Allergies As of Date: 05/09/2021 Noted Allergy Reaction LIPITOR (ATORVASTATIN CALCIUM) 06/07/2015 17 - Myalgia LISINOPRIL 02/15/2013 3 - Cough LOPID (GEMFIBROZIL) 03/12/2005 triple antibiotic ointment [Other]11/15/2007 ZOCOR (SIMVASTATIN) 03/12/2005 Date Reviewed: 02/26/2021 Reviewed by: Desiree Joseph LPN - Fully Assessed Reason for Visit: Population Health Navigation Outreach [3910] Cmt: Offboarding Prescriptions as of 05/09/2021 - clopidogrel (PLAVIX) 75 mg tablet Take 1 tablet by mouth once daily. - dilTIAZem CR (TIAZAC, TAZTIA XT) 120 mg 24 hr capsule dilTIAZem Diltiazem Hcl Active 120 MG DAILY August 15, 2019 3:03pm 08-15-[address] [facility] ([id number]) - Fenofibrate (LOFIBRA) 160 mg tablet Take 1 tablet by mouth once daily. - tamsulosin ER (FLOMAX) 0.4 mg Take 1 capsule by mouth daily at bedtime. - amiodarone (PACERONE) 200 mg tablet Take 1 tablet by mouth once daily. - metoprolol tartrate, short acting, (LOPRESSOR) 50 mg tablet TWICE A DAY - pantoprazole DR (PROTONIX) 40 mg tablet TAKE 1 TABLET BY MOUTH DAILY 30 MINUTES BEFORE A MEAL, TAKE ON AN EMPTY STOMACH - nitroglycerin sublingual (NITROQUICK) 0.4 mg SL tablet Dissolve 1 tablet under the tongue as needed. FOR CHEST PAIN. IF NO RELIEF CALL 911 - rivaroxaban (XARELTO) 20 mg tablet Take 1 tablet by mouth daily with dinner. 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 ESOPHAGEAL REFLUX [K21.9] CHRONIC RHINITIS [J31.0] 06/17/2005 Personal history of colonic polyps [Z86.010] 09/09/2011 Diarrhea [R19.7] 09/09/2011 08/28/2016 Common bile duct calculi [K80.50] 10/01/2011 08/28/2016 Cholelithiasis [K80.20] 10/01/2011 10/06/2018 ASHD (arteriosclerotic heart disease) [I25.10] 06/21/2012 HTN (hypertension) [I10] 09/12/2012 ED (erectile dysfunction) [N52.9] 09/15/2012 Osteoarthritis [M19.90] 09/15/2012 Paroxysmal atrial fibrillation (HCC) [I48.0] 12/06/2013 Nocturnal leg cramps [G47.62] 12/06/2013 History of cardiac pacemaker [Z95.0] 05/22/2014 Esophageal spasm [K22.4] 07/17/2014 Chronic anticoagulation [Z79.01] 10/02/2015 Traumatic partial tear of biceps tendon [S46.11*11/25/2015 10/06/2018 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] 03/12/2016 Statin intolerance [Z78.9] 03/12/2016 History of coronary artery stent placement [Z95*08/28/2016 Tubular adenoma of colon [D12.6] 09/29/2016 Disorder of left rotator cuff [M67.912] 03/09/2017 10/06/2018 Chest pain on exertion [R07.9] 02/04/2018 10/06/2018 Polyp of colon [K63.5] 02/04/2018 10/06/2018 Dyslipidemia [E78.5] 02/04/2018 retirement (current) use of antithrombotics/anti*03/29/2017 Old myocardial infarction [I25.2] 03/29/2017 Presence of cardiac pacemaker [Z95.0] 02/04/2018 Pure hypercholesterolemia, unspecified [E78.00] 03/29/2017 Encounter Status:Closed by [facility] MEKA DURAN on 05/09/21 [facility] Progress note 05-09-2021 Note Date & Type Note Facility 05-09-2021 Note HNO ID: [id number] Author: Meka [facility] Service: ? Author Type: ? Type: Progress Notes Filed: 05/09/2021 11:52 AM Note Text: POPULATION HEALTH NAVIGATION OUTREACH Action/FYI I left a voice message and a my chart message re: pcp No care everywhere Contact made with patient or family member? NO Pt identified by name and : NO Outreach Outcome/Action Unable to reach patient: Left message Observe Medicalhart message sent Reason for Outreach Attribution: Provider Off-boarding Payer: Payor: [employer] MEDICARE ADVANTAGE / [place] / Product Type: HMO / Care Gap Reviewed:: Reminder: Reminder note to check Health Maintenance for items below Health Maintenance items due: SHINGRIX VACCINE(1 of 2) Never done BP CONTROLLED (<130/80) due on 02/04/2019 COVID-19 VACCINE(3 - Pfizer booster) due on 03/06/2021 INFLUENZA(1) due on 03/12/2021 LDL CHOLESTEROL due on 04/30/2021 Advanced Directives Completed: Have you ever planned for future healthcare decisions with a power of warehouse delivery manager, living will, or advance directives? No. Please bring a copy to your next appointment or email to Referrals: N/A Message Sent to Practice: NO Navigation Signature: Meka Toure Population Health Navigator May 09, 2021 11:52 AM [facility] Progress note 02-26-2021 Note Date & Type Note Facility 02-26-2021 Note HNO ID: [id number] Author: Raul Ram APRN.MEDICAL RECORDS FIELD TECHNICIAN Service: ? Author Type: Nurse Practitioner Type: Progress Notes Filed: 02/26/2021 11:14 AM Note Text: Subjective HPI HPI Constantino Perez is a 75 year old male who presents today for CC of cough, sinus pressure, fever, fatigue. This started 1 week ago, getting worse. Has tried otc medication for relief. No known sick exposures. Did get covid vaccine. Denies loss taste/smell, diarrhea, cp/sob. Patient states he is in Afib currently. Heart rate elevated today, reports not new and not a concern. 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 - Esophageal reflux - Generalized osteoarthrosis, unspecified site - Hernia of other specified sites of abdominal cavity without mention of obstruction or gangrene - History of cardiovascular stress test 03/24/2019 Pharmacologic stress test - Hyperlipidemia, unspecified - Hypertension - Nocturnal leg cramps 12/06/2013 - Other and unspecified hyperlipidemia - Paroxysmal atrial fibrillation (HCC) 12/06/2013 - Presence of cardiac pacemaker 05/22/2014 - Presence of stent in coronary artery 08/28/2016 - Snoring - SSS (sick sinus syndrome) (HCC) - Tubular adenoma of colon 09/29/2016 09/04/16, transverse colon PAST SURGICAL HISTORY Procedure Laterality Date - COLONOS W/REM POLYP SNARE 01/10/07 - COLONOSCOP W/ OR W/O [facility] SPEC 09/09/2011 Colonoscopy repeat 5 years - COLONOSCOP W/ OR W/O [facility] SPEC 09/03/2016 Colonoscopy - COLONOSCOP W/ OR W/O [facility] SPEC 09/03/2016 Colonoscopy - EGD W/O OR W/BRUSH/WASH 01-13-13 EGD - EGD W/O OR W/BRUSH/WASH 01/23/16 EGD - EGD W/O OR W/BRUSH/WASH 01/26/2019 Dr. Quiles--dilatation 45-51 - HEART SURGERY HX - LAP CHOLECYSTECT/CHOLANGIOGRAPHY 10-15-11 - PACEMAKER (PM) - PAST SURGICAL HISTORY OF tendon in foot left repaired - REM LESIO TRUNK,ARM,LEG 1.1 -2.0CM 11/09/07 Exc. right upper back lisa cyst - REPAIR ING HERNIA,5+Y/O,REDUCIBL X 2 left ALLERGIES Lipitor [Atorvastatin Calcium], Lisinopril, Lopid [Gemfibrozil], Triple Antibiotic Ointment [Other], and Zocor [Simvastatin] -This section reviewed with patient, no changes MEDICATIONS clopidogrel (PLAVIX) 75 mg tablet Take 1 tablet by mouth once daily. dilTIAZem CR (TIAZAC, TAZTIA XT) 120 mg 24 hr capsule dilTIAZem Diltiazem Hcl Active 120 MG DAILY August 15, 2019 3:03pm 08-15-[address] [facility] ([id number]) Fenofibrate (LOFIBRA) 160 mg tablet Take 1 tablet by mouth once daily. tamsulosin ER (FLOMAX) 0.4 mg Take 1 capsule by mouth daily at bedtime. amiodarone (PACERONE) 200 mg tablet Take 1 tablet by mouth once daily. metoprolol tartrate, short acting, (LOPRESSOR) 50 mg tablet TWICE A DAY pantoprazole DR (PROTONIX) 40 mg tablet TAKE 1 TABLET BY MOUTH DAILY 30 MINUTES BEFORE A MEAL, TAKE ON AN EMPTY STOMACH nitroglycerin sublingual (NITROQUICK) 0.4 mg SL tablet Dissolve 1 tablet under the tongue as needed. FOR CHEST PAIN. IF NO RELIEF CALL 911 rivaroxaban (XARELTO) 20 mg tablet Take 1 tablet by mouth daily with dinner. doxycycline monohydrate 100 mg tablet Take 1 tablet by mouth twice daily for 10 days. reviewed FAMILY HISTORY Problem Relation Age of Onset - Stroke Mother - Heart Father at age 94 - Heart Sister - other (colon polyps) Sister - other (thyroid nodules) Sister - None Sister - None Sister - None Sister - None Sister - other (back injuries) Brother - Cancer Paternal Grandmother colon Social History Tobacco Use - Smoking status: Former Smoker - Smokeless tobacco: Never Used - Tobacco comment: Quit Vaping Use - Vaping Use: Never used Substance Use Topics - Alcohol use: No - Drug use: No ROS Objective Physical Exam Constitutional: General: He is not in acute distress. Appearance: He is not toxic-appearing or diaphoretic. HENT: Head: Normocephalic and atraumatic. Right Ear: Hearing, tympanic membrane, ear canal and external ear normal. Left Ear: Hearing, tympanic membrane, ear canal and external ear normal. Nose: Right Sinus: Frontal sinus tenderness present. Left Sinus: Frontal sinus tenderness present. Mouth/Throat: Pharynx: Uvula midline. Eyes: General: Lids are normal. No scleral icterus. Right eye: No discharge. Left eye: No discharge. Conjunctiva/sclera: Conjunctivae normal. Pupils: Pupils are equal, round, and reactive to light. Neck: Trachea: Trachea normal. Cardiovascular: Rate and R (more content not included)... [facility] Progress note 09-13-2020 Note Date & Type Note Facility 09-13-2020 Note HNO ID: [id number] Author: Nasim Sales III Service: ? Author Type: Physician Type: Progress Notes Filed: 09/13/2020 1:06 PM Note Text: SUBJECTIVE: This is a 75 year old male that is here today for 1. knot in abd x 1 mo. Occasionally tender--reducible. No trauma or change in BM 2. paroxysmal atrial fib--amidarone . Cardio recommends cardiac ablation. 3. RADHA on CPAP--used nightly with good benefit 4. [facility] 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 - Esophageal reflux - Generalized osteoarthrosis, unspecified site - Hernia of other specified sites of abdominal cavity without mention of obstruction or gangrene - History of cardiovascular stress test 03/24/2019 Pharmacologic stress test - Hyperlipidemia, unspecified - Hypertension - Nocturnal leg cramps 12/06/2013 - Other and unspecified hyperlipidemia - Paroxysmal atrial fibrillation (HCC) 12/06/2013 - Presence of cardiac pacemaker 05/22/2014 - Presence of stent in coronary artery 08/28/2016 - Snoring - SSS (sick sinus syndrome) (HCC) - Tubular adenoma of colon 09/29/2016 09/04/16, transverse colon Current Outpatient Medications on File Prior to Visit Medication Sig - dilTIAZem CR (TIAZAC, TAZTIA XT) 120 mg 24 hr capsule dilTIAZem Diltiazem Hcl Active 120 MG DAILY August 15, 2019 3:03pm 08-15-[address] [facility] ([id number]) - Fenofibrate (LOFIBRA) 160 mg tablet Take 1 tablet by mouth once daily. - tamsulosin ER (FLOMAX) 0.4 mg Take 1 capsule by mouth daily at bedtime. - clopidogrel (PLAVIX) 75 mg tablet Take 1 tablet by mouth once daily. - amiodarone (PACERONE) 200 mg tablet Take 1 tablet by mouth once daily. - metoprolol tartrate, short acting, (LOPRESSOR) 50 mg tablet TWICE A DAY - pantoprazole DR (PROTONIX) 40 mg tablet TAKE 1 TABLET BY MOUTH DAILY 30 MINUTES BEFORE A MEAL, TAKE ON AN EMPTY STOMACH - nitroglycerin sublingual (NITROQUICK) 0.4 mg SL tablet Dissolve 1 tablet under the tongue as needed. FOR CHEST PAIN. IF NO RELIEF CALL 911 - rivaroxaban (XARELTO) 20 mg tablet Take 1 tablet by mouth daily with dinner. No current facility-administered medications on file prior to visit. FAMILY HISTORY Problem Relation Age of Onset - Stroke Mother - Heart Father at age 94 - Heart Sister - other (colon polyps) Sister - other (thyroid nodules) Sister - None Sister - None Sister - None Sister - None Sister - other (back injuries) Brother - Cancer Paternal Grandmother colon Social History Tobacco Use - Smoking status: Former Smoker - Smokeless tobacco: Never Used - Tobacco comment: Quit Substance Use Topics - Alcohol use: No - Drug use: No BP 110/72 Pulse 84 Resp 16 Wt 108.9 kg (240 lb) BMI 33.47 kg/m? . OBJECTIVE: APPEARANCE Well appearing, alert, in no acute distress, well-hydrated, well nourished. and Obese ABDOMEN soft, non-distended, without organomegaly. reducible mildly tender umbilical hernia ASSESSMENT: reducible umbilical hernia PAF-on xarelto, rate controlled PLAN: surgery referral follow up with department chairperson as appointed same meds Nasim Sales III MD Medical Decision Making: Problems: Low: Acute, uncomplicated illness or injury and Stable chronic illness Risk: Low: Low risk from testing/treatment Medical Decision Making Level: 3 - Low Nasim Sales III MD [facility] Clinical Note 09-03-2020 Note Date & Type Note Facility 09-03-2020 Note Patient Outreach ([place] VAM[facility]) CONSTANTINO PEREZ ([id number]) 1945 M Date Time Provider Department 09/03/20 MARIANNE SANTANA During your visit today, we recorded the following information about you: Allergies As of Date: 09/03/2020 Noted Allergy Reaction LIPITOR (ATORVASTATIN CALCIUM) 06/07/2015 17 - Myalgia LISINOPRIL 02/15/2013 3 - Cough LOPID (GEMFIBROZIL) 03/12/2005 triple antibiotic ointment [Other]11/15/2007 ZOCOR (SIMVASTATIN) 03/12/2005 Date Reviewed: 08/29/2020 Reviewed by: Corazon Moyer LPN - Fully Assessed Order(s):SARS-COVID VACCINE 1ST DOSE APPT [[id number]] Order #: [id number] FUTURE Prescriptions as of 09/03/2020 Sig: FENOFIBRATE 160 MG TABLET Take 1 tablet by mouth once d* TAMSULOSIN 0.4 MG CAPSULE Take 1 capsule by mouth daily* CLOPIDOGREL 75 MG TABLET Take 1 tablet by mouth once d* AMIODARONE 200 MG TABLET Take 1 tablet by mouth once d* METOPROLOL TARTRATE 50 MG TAB* TWICE A DAY PANTOPRAZOLE 40 MG TABLET,DEL* TAKE 1 TABLET BY MOUTH DAILY * NITROGLYCERIN 0.4 MG SUBLINGU* Dissolve 1 tablet under the t* RIVAROXABAN 20 MG TABLET Take 1 tablet by mouth daily * Problem List As Of Date 09/03/2020 Noted Resolved Hyperlipidemia LDL goal <100 [E78.5] 03/12/2005 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 ESOPHAGEAL REFLUX [K21.9] CHRONIC RHINITIS [J31.0] 06/17/2005 Personal history of colonic polyps [Z86.010] 09/09/2011 Diarrhea [R19.7] 09/09/2011 08/28/2016 Common bile duct calculi [K80.50] 10/01/2011 08/28/2016 Cholelithiasis [K80.20] 10/01/2011 10/06/2018 ASHD (arteriosclerotic heart disease) [I25.10] 06/21/2012 HTN (hypertension) [I10] 09/12/2012 ED (erectile dysfunction) [N52.9] 09/15/2012 Osteoarthritis [M19.90] 09/15/2012 Paroxysmal atrial fibrillation (HCC) [I48.0] 12/06/2013 Nocturnal leg cramps [G47.62] 12/06/2013 History of cardiac pacemaker [Z95.0] 05/22/2014 Esophageal spasm [K22.4] 07/17/2014 Chronic anticoagulation [Z79.01] 10/02/2015 Traumatic partial tear of biceps tendon [S46.11*11/25/2015 10/06/2018 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 Disorder of left rotator cuff [M67.912] 03/09/2017 10/06/2018 Chest pain on exertion [R07.9] 02/04/2018 10/06/2018 Polyp of colon [K63.5] 02/04/2018 10/06/2018 Dyslipidemia [E78.5] 02/04/2018 technician terminal and repeater (current) use of antithrombotics/anti*03/29/2017 Old myocardial infarction [I25.2] 03/29/2017 Presence of cardiac pacemaker [Z95.0] 02/04/2018 Pure hypercholesterolemia, unspecified [E78.00] 03/29/2017 Encounter Status:Closed by [employer] on 09/06/20 [facility] Progress note 08-29-2020 Note Date & Type Note Facility 08-29-2020 Note HNO ID: [id number] Author: Nasim Sales III Service: ? Author Type: Physician Type: Progress Notes Filed: 08/29/2020 1:10 PM Note Text: SUBJECTIVE: This is a 75 year old male that is here today for 1. more freq urination x 6 mos sometimes with weak stream and small volume. Sometimes urgency with hesitancy. Drinks a lot of caffeine: pepsi 32 oz po TID. No FHx of prostate ca 2. paroxysmal atrial fib.--no palpitations. On Xarelto and tolerated well. He does have some shortness of breath when going up steps that she was carrying objects. This is a gradually progressive symptom over the past several years. No chest pain or angina. 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 - Esophageal reflux - Generalized osteoarthrosis, unspecified site - Hernia of other specified sites of abdominal cavity without mention of obstruction or gangrene - History of cardiovascular stress test 03/24/2019 Pharmacologic stress test - Hyperlipidemia, unspecified - Hypertension - Nocturnal leg cramps 12/06/2013 - Other and unspecified hyperlipidemia - Paroxysmal atrial fibrillation (HCC) 12/06/2013 - Presence of cardiac pacemaker 05/22/2014 - Presence of stent in coronary artery 08/28/2016 - Snoring - SSS (sick sinus syndrome) ([facility]) - Tubular adenoma of colon 09/29/2016 09/04/16, transverse colon Current Outpatient Medications on File Prior to Visit Medication Sig - Fenofibrate (LOFIBRA) 160 mg tablet Take 1 tablet by mouth once daily. - tamsulosin ER (FLOMAX) 0.4 mg Take 1 capsule by mouth daily at bedtime. - clopidogrel (PLAVIX) 75 mg tablet Take 1 tablet by mouth once daily. - furosemide (LASIX) 40 mg tablet Take 1 tablet by mouth once daily. - amiodarone (PACERONE) 200 mg tablet Take 1 tablet by mouth once daily. - losartan (COZAAR) 50 mg tablet Take 0.5 tablets by mouth once daily. - metoprolol tartrate, short acting, (LOPRESSOR) 50 mg tablet TWICE A DAY - pantoprazole DR (PROTONIX) 40 mg tablet TAKE 1 TABLET BY MOUTH DAILY 30 MINUTES BEFORE A MEAL, TAKE ON AN EMPTY STOMACH - nitroglycerin sublingual (NITROQUICK) 0.4 mg SL tablet Dissolve 1 tablet under the tongue as needed. FOR CHEST PAIN. IF NO RELIEF CALL 911 - rivaroxaban (XARELTO) 20 mg tablet Take 1 tablet by mouth daily with dinner. - ondansetron (ZOFRAN) 4 mg tablet Take 1 tablet by mouth every 8 hours as needed for Nausea/Vomiting. (Patient not taking: Reported on 06/30/2019 ) No current facility-administered medications on file prior to visit. FAMILY HISTORY Problem Relation Age of Onset - Stroke Mother - Heart Father at age 94 - Heart Sister - other (colon polyps) Sister - other (thyroid nodules) Sister - None Sister - None Sister - None Sister - None Sister - other (back injuries) Brother - Cancer Paternal Grandmother colon Social History Tobacco Use - Smoking status: Former Smoker - Smokeless tobacco: Never Used - Tobacco comment: Quit Substance Use Topics - Alcohol use: No - Drug use: No BP 112/62 Pulse 97 Temp 36.3 ?C (97.4 ?F) Resp 18 Wt 108.9 kg (240 lb) SpO2 99% BMI 33.47 kg/m? . OBJECTIVE: APPEARANCE Well appearing, alert, in no acute distress, well-hydrated, well nourished. NECK Supple, no adenopathy; thyroid symmetric, normal size, no bruits HEART RRR with normal S1 and S2, no murmurs, no gallops, no JVD appreciated LUNG clear to auscultation RECTAL Anus normal, no anorectal masses, Prostate normal size, consistency, no nodules, and no tenderness, spongy, smooth, 1/4 Lab Mg 2.2 TSH 3.4 HbA1c 6.2 ASSESSMENT: urinary frequency due to excessive soda pop atrial fib-rate controlled long-term anticoagulation atrial fib-stable on anti coagulatioin ASHD?stable PLAN: wean and discontinue soda pop give progress report regarding urination in 2 wks healthy diet and regular exercise--eat less sugar discontinue lasix same other medications Nasim Sales III Medical Decision Making: Problems: Moderate: 2+ stable chronic illnesses and 1+ chronic illnesses with change Data: Unique test result(s) reviewed: 3+ Risk: Moderate: Drug management Medical Decision Making Level: 4 - Moderate [facility] Summary Purpose Family History No Family History Records FoundNo Family History Records FoundNo Family History Records Found Advance Directives No Advanced Directives Records FoundNo Advanced Directives Records FoundNo Advanced Directives Records Found Additional Source Comments (unrecognized sect ion and content) No Status Records FoundNo Status Records FoundNo Status Records Found INFORMATION SOURCE (unrecogn ized section and content) DATE CREATED AUTHOR AUTHOR'S ORGANIZ ATION 01/04/2018 [facility] DATE CREATED AUTHOR AUTHOR'S ORGANIZ ATION 08/26/2021 [facility] FOR RECORDS PERTAINING TO PATIENTS WHO ARE OR HAVE BEEN ENROLLED IN A CHEMICAL DEPENDENCY/SUBSTANCEABUSE PROGRAM, SOME INFORMATION MAY BE OMITTED. This clinical summary was aggregated from multiple sources. Caution should be exercised in using it in the provision of clinical care. This summary normalizes information from multiple sources, and as a consequence, information in this document may materially change the coding, format and clinical context of patient data. In addition, data may be omitted in some cases. CLINICAL DECISIONS SHOULD BE BASED ON THE PRIMARY CLINICAL RECORDS. [facility]. provides no warranty or guarantee of the accuracy or completeness of information in this document.
--- NOTE | 2023-07-23 18:34 | STRESSREP ---
Stress Test Report Pharmacologic myocardial perfusion stress test. 78-year-old man with a history of atrial fibrillation Resting EKG demonstrates atrial fibrillation with a rate of 126 bpm. Resting blood pressure is 140/72 mmHg. 0.4 mg of regadenoson was infused per usual protocol followed by rapid intravenous saline flush injection. Continuous EKG monitoring was performed. The maximum heart rate was 157 bpm which was 110% of max impacted heart rate the maximum workload was 1 metabolic equivalent. At rest there were no ST or T wave changes noted to suggest ischemia and at peak infusion nonspecific ST changes were noted which did not meet the criteria for ischemia. No clinical angina is noted. The final blood pressure was 140/70 mmHg. Myocardial perfusion protocol. 14 point mCi of technetium 99m sestamibi was injected at rest. 0.4 mg of regadenoson was infused per usual protocol. At peak infusion 44.5 mCi of technetium 99m sestamibi was injected stress images were obtained stress and rest images were reconstructed and compared in the short axis vertical long and horizontal long axis. Gated images were also obtained. Perfusion SPECT analysis: Review of the stress images demonstrate normal uptake of tracer noted in all areas of the myocardium. The resting images similar demonstrated normal uptake of tracer noted in all areas of the myocardium. No areas of reversibility are noted to suggest ischemia and no previous infarct is noted. Gated SPECT analysis: The gated ejection fraction is 35%. Conclusion: Normal pharmacologic myocardial perfusion stress test. Reduced ejection fraction. Persistent atrial fibrillation
== END | disposition home or self-care (01) ==
LOC: CVS 07:32
PROVIDERS: PCP Internal Medicine; Referring Provider Nurse Practitioner Family; Visit Provider Nurse Practitioner Family
DX: R06.09 Other forms of dyspnea (principal); I25.10 Atherosclerotic heart disease of native coronary artery without angina pectoris
CPT/HCPCS: 78452; 93017; A9500; A4216; J2785

== ENCOUNTER 2023-08-19 22:05 | Emergency (ER) | payer MEDICARE, SELFPAY ==
[2023-08-19 22:06] VITALS: BP 159/97; PULSE 115; RESP 18; TEMP 36.3; O2SAT 98; BMI 33.3
--- OUTSIDE RECORDS SUMMARY | 2023-08-19 22:17 | XMS RPT_ITS | CCD ---
Author Name Unknown Address [address] [facility] [address] [place] [id number] Organization [facility] Care Team Providers Care Activities Volunteer Name Role Phone KIRSTEN REED Unavailable Unavailable CEBUL III, NASIM A Unavailable Unavailable KIRSTEN REED Unavailable Unavailable CEBUL, NASIM Unavailable Unavailable KIRSTEN REED Unavailable Unavailable KIRSTEN REED Unavailable Unavailable Allergies Allergy Classification Reported Allergen(s) Allergy Type Date of Onset Reaction(s) Facility (2 sources) atorvastatin; Translations: [ATORVASTATIN CALCIUM] Drug Allergy 5 [facility] Repository (2 sources) gemfibrozil; Translations: [GEMFIBROZIL] Drug Allergy 5 [facility] Repository (2 sources) lisinopril; Translations: [LISINOPRIL] Drug Allergy 3 [facility] Repository (2 sources) simvastatin; Translations: [SIMVASTATIN] Drug Allergy 5 [facility] Repository (2 sources) OTHER; Translations: [OTHER] Propensity to adverse reactions (disorder) 8 [facility] Repository Problems Problem Classification Problem Date Documented Date Episodic/Chronic Coronary atherosclerosis and other heart disease (2 sources) Atherosclerotic heart disease of [place] coronary artery without angina pectoris; Translations: [Atherosclerotic heart disease of [place] coronary artery without angina pectoris] Onset: 06-17-2017 Chronic Essential hypertension (1 source) Essential (primary) hypertension; Translations: [Essential (primary) hypertension] Onset: 06-17-2017 Chronic Unclassified (1 source) Unknown / UNK(Unknown) Onset: 06-17-2017 Results Test Name Value Interpretation Reference Range Facil ity Encounters Encounter Date Encounter Type Care Provider Facility Start: 06-17-2018 Ambulatory KIRSTEN REED Facility :[facility] Start: 06-17-2017 End: 06-17-2017 Ambulatory KIRSTEN Rogers BRIANNA Kari Wu [facility] Payers Date Payer Category Payer Policy ID Medicare [id number] Clinical Note 05-09-2021 Note Date & Type Note Facility 05-09-2021 Note Patient Outreach (NICOLE TNAV) CONSTANTINO PEREZ ([id number]) 1945 M Date Time Provider Department 05/09/21 MEKA TOURE During your visit today, we recorded the following information about you: Mkea Toure Population Health Navigator 05/09/2021 11:52 AM Signed POPULATION HEALTH NAVIGATION OUTREACH Action/FYI I left a voice message and a my chart message re: pcp No care everywhere Contact made with patient or family member? NO Pt identified by name and : NO Outreach Outcome/Action Unable to reach patient: Left message Aden & Anaishart message sent Reason for Outreach Attribution: Provider Off-boarding Payer: Payor: [employer]ARE [employer]VANTAGE / [place] / Product Type: HMO / Care [...] future healthcare decisions with a power of civil litigation attorney, living will, or advance directives? No. Please [...] MG DAILY August 15, 2019 3:03pm 08-15-2019 [facility] ([id number]) - Fenofibrate (LOFIBRA) 160 mg tablet Take [...] colon [K63.5] 02/04/2018 10/06/2018 Dyslipidemia [E78.5] 02/04/2018 alf (current) use of antithrombotics/anti*03/29/2017 Old myocardial infarction [I25.2] 03/29/2017 Presence of cardiac pacemaker [Z95.0] 02/04/2018 Pure hypercholesterolemia, unspecified [E78.00] 03/29/2017 Encounter Status:Closed by [facility] MEKA DURAN on 05/09/21 [facility] Progress note 05-09-2021 Note Date & Type Note Facility 05-09-2021 Note HNO ID: [id number] Author: [facility] Miki Service: ? Author Type: ? Type: Progress Notes Filed: 05/09/2021 11:52 AM Note Text: POPULATION HEALTH NAVIGATION OUTREACH Action/FYI I left a voice message and a my chart message re: pcp No care everywhere Contact made with patient or family member? NO Pt identified by name and : NO Outreach Outcome/Action Unable to reach patient: Left message Aden & Anaishart message sent Reason for Outreach Attribution: Provider Off-boarding Payer: Payor: [employer] MED[employer]ARE ADVANTAGE / [place] / Product Type: HMO / Care [...] future healthcare decisions with a power of civil litigation attorney, living will, or advance directives? No. Please bring a copy to your next appointment or email to Referrals: N/A Message Sent to Practice: NO Navigation Signature: Meka Toure Population Health Navigator May 09, 2021 11:52 AM [facility] Progress note 02-26-2021 Note Date & Type Note Facility 02-26-2021 Note HNO ID: [id number] Author: Raul Ram APRN.GROUND SERVICES INSTRUCTOR Service: ? Author Type: Nurse Practitioner Type: [...] s/p stents - Atherosclerotic heart disease of [place] coronary artery without angina pectoris - Benign [...] SNARE 01/10/07 - COLONOSCOP W/ OR W/O [facility] SPEC 09/09/2011 Colonoscopy repeat 5 years - COLONOSCOP W/ OR W/O [facility] SPEC 09/03/2016 Colonoscopy - COLONOSCOP W/ OR W/O [facility] SPEC 09/03/2016 Colonoscopy - EGD W/O OR [...] MG DAILY August 15, 2019 3:03pm 08-15-2019 [facility] ([id number]) Fenofibrate (LOFIBRA) 160 mg tablet Take 1 [...] Rate and R (more content not included)... [facility] Progress note 09-13-2020 Note Date & Type Note Facility 09-13-2020 Note HNO ID: [id number] Author: Nasim Sales III Service: ? Author [...] good benefit 4. REDDY[facility]x of ASHD and paroxysmal atrial fib under management by cardio PAST MEDICAL HISTORY Diagnosis Date - ASHD (arteriosclerotic heart disease) 06/21/2012 s/p stents - Atherosclerotic heart disease of [place] coronary artery without angina pectoris - Benign [...] MG DAILY August 15, 2019 3:03pm 08-15-2019 [facility] ([id number]) - Fenofibrate (LOFIBRA) 160 mg tablet Take [...] controlled PLAN: surgery referral follow up with headline writer as appointed same meds Nasim Sales III MD Medical Decision Making: Problems: Low: Acute, uncomplicated illness or injury and Stable chronic illness Risk: Low: Low risk from testing/treatment Medical Decision Making Level: 3 - Low Nasim Sales III MD [facility] Clinical Note 09-03-2020 Note Date & Type Note Facility 09-03-2020 Note Patient Outreach ([place] VAM[facility]) CONSTANTINO PEREZ ([id number]) 1945 M Date Time Provider Department 09/03/20 [...] Fully Assessed Order(s):SARS-COVID VACCINE 1ST DOSE APPT [[id number]] Order #: [id number] FUTURE Prescriptions as of 09/03/2020 Sig: FENOFIBRATE [...] colon [K63.5] 02/04/2018 10/06/2018 Dyslipidemia [E78.5] 02/04/2018 terminal operator (current) use of antithrombotics/anti*03/29/2017 Old myocardial infarction [I25.2] 03/29/2017 Presence of cardiac pacemaker [Z95.0] 02/04/2018 Pure hypercholesterolemia, unspecified [E78.00] 03/29/2017 Encounter Status:Closed by [employer] [place] on 09/06/20 [facility] Progress note 08-29-2020 Note Date & Type Note Facility 08-29-2020 Note HNO ID: [id number] Author: Nasim Sales III Service: ? Author [...] s/p stents - Atherosclerotic heart disease of [place] coronary artery without angina pectoris - Benign [...] - Snoring - SSS (sick sinus syndrome) ([facility]) - Tubular adenoma of colon 09/29/2016 09/04/16, [...] to excessive soda pop atrial fib-rate controlled detention anticoagulation atrial fib-stable on anti coagulatioin ASHD?stable [...] Medical Decision Making Level: 4 - Moderate [facility] Summary Purpose Family History No Family [...] DATE CREATED AUTHOR AUTHOR'S ORGANIZ ATION 01/04/2018 [facility] DATE CREATED AUTHOR AUTHOR'S ORGANIZ ATION 08/26/2021 [facility] FOR RECORDS PERTAINING TO PATIENTS WHO [...] BE BASED ON THE PRIMARY CLINICAL RECORDS. [facility]. provides no warranty or guarantee of the accuracy or completeness of information in this document.
--- NOTE | 2023-08-19 22:36 | CT_ITS ---
STUDY: CT ABDOMEN AND PELVIS WITHOUT CONTRAST REASON FOR EXAM: Male, 78 years old. flank pain RADIATION DOSAGE (If Supplied By Facility): CTDIvol = ( 19.67 ) mGy, DLP = ( 1130.28 ) mGycm TECHNIQUE: Transaxial images were obtained from the dome of the diaphragm to the symphysis pubis without oral contrast, and without intravenous contrast. Sagittal and coronal images were reconstructed. Individualized dose optimization techniques were used for this CT. COMPARISON: 05/19/2023. The report is unavailable. FINDINGS: Multifocal multilobar basilar atelectasis. Mild cardiomegaly with pacemaker leads in place. Normal liver. There are surgical clips in the gallbladder fossa consistent with a prior cholecystectomy. Normal spleen. Normal pancreas. Normal bilateral adrenal glands. Mild bilateral perinephric stranding. Small right upper no pole simple cyst measuring 6 7 mm with no further follow-up imaging recommended. Intrarenal calcifications suggestive of nonobstructive stones, largest on the right measuring 6 mm. Otherwise normal right kidney. Tiny stone in the upper pole of the left kidney measuring 3 mm. Left lower renal pole mass with heterogeneous high density currently measuring 6.2 cm, previously measuring 3.8 cm suggestive of neoplasm versus interval cystic hemorrhage Normal visualized stomach. Normal small intestine. There are multiple colonic diverticula consistent with diverticulosis. The appendix is visualized and appears normal. There is diffuse atherosclerotic calcification of the abdominal aorta, without a demonstrated aneurysm. Normal inferior vena cava. Normal retroperitoneum. Normal urinary bladder. There is mild stranding involving the soft tissues at the level of the inguinal region, left more than right with mild fullness of the lymph nodes most compatible with inflammatory response, the largest lymph node seen on the left measuring approximately 1.6 x 1.0 cm. There is a small right-sided fat-containing inguinal hernia. There are postoperative changes for left-sided inguinal hernia. There are diffuse degenerative changes of the visualized lumbar spine. CT/Abdomen/Pelvis without Cont IMPRESSION: Bilateral nonobstructive intrarenal stones as described. There is a cyst within the left kidney at the level of the lower pole, now measuring 6.2 cm from recent dimension of 2.8 cm suggestive of recent hemorrhage versus neoplasm. Recommend follow-up with ultrasound for further characterization. No acute appendicitis. Diverticulosis with no signs of diverticulitis. No bowel obstruction. Electronically Signed: Carlita Jimenez MD at 23:44 EST ,
[2023-08-19 22:43] LABS: Mucous, Urine 0 SEEN /hpf (<or=2+); Squamous Epithelial Cells - UA 0 SEEN /hpf (0-5); White Blood Cells 0 SEEN /hpf (0-5)
[2023-08-19] MEDS: 0.9% Normal Saline (1000mL) 1,000 ML 999 ML IV (22:44)
[2023-08-19] MEDS: Morphine 4 MG/ML Syringe IV (22:44)
[2023-08-19] MEDS: Ondansetron 4 MG/2 ML Vial IV (22:44)
[2023-08-19 22:51] LABS: Absolute Lymphocyte Count 0.53 X10^3/uL (0.83-4.51); Absolute Neutrophil Count 10.6 X10^3/uL (2.0-7.7); Basophil# 0.03 X10^3/uL; Basophil% 0.3 % (0-1); Eosinophil# 0.02 X10^3/uL; Eosinophils% 0.2 % (0-5); Hematocrit 49.5 % (40-54); Hemoglobin 16.2 g/dL (13.0-16.5); Lymphocyte # 0.53 X10^3/ul (0.83-4.51); Lymphocyte % 4.4 % (19-41); Mean Corp Hgb Conc 32.7 g/dL (32-36); Mean Corpuscular Hgb 31.3 pg (27.0-32.0); Mean Corpuscular Volume 95.7 fL (80-94); Mean Platelet Vol. 12.7 fl (6.2-12.0); Monocyte# 0.75 X10^3/uL; Monocyte% 6.3 % (0-10); NRBC Flagged by Analyzer 0 % (0-5); Neutrophil # 10.57 X10^3/uL (2.7-7.7); Neutrophil % 88.1 % (47-70); POSITIVE DIFFERENTIAL YES; Platelet Count 220 K/mm3 (150-450); RBC Distribution Width CV 15.3 % (11.6-14.6); RBC Distribution Width SD 54.4 fl (35.1-43.9); Red Blood Count 5.17 M/mm3 (4.6-6.2)
[2023-08-19 23:04] LABS: Anion Gap 7 (5-15); BUN 23 mg/dL (7-18); BUN/Creat Ratio 18.4 RATIO (10-20); Chloride 106 mmol/L (98-107); Creatinine, Serum 1.25 mg/dL (0.70-1.30); EST Glomerular Filtration Rate 59 mL/min (>60); Est Glom Filt Rate - Afr Amer 72 mL/min (>60); Estimated Creatinine Clearance 60.96 ml/min; Glucose 138 mg/dL (74-106); Potassium 4.2 mmol/L (3.5-5.1); Sodium Level 139 mmol/L (136-145)
[2023-08-19 23:09] LABS: Glucose, Dipstick Normal (Normal); Ketone-Dipstick 5 mg/dl (Negative); Leukocyte Esterase-Dipstick Negative /ul (Negative); Nitrite-Dipstick Negative (Negative); Occult Blood-Urine 250 /ul (Negative); Protein-Dipstick 500 mg/dl (Negative); Urine Bilirubin Dipstick Negative (Negative); Urine Urobilinogen Normal (Normal)
[2023-08-19 23:11] LABS: Differential Indicated SCAN CRITERIA MET
[2023-08-19 23:21] LABS: Color, Urine Red (Yellow); Urine Clarity Turbid (Clear)
[2023-08-19 23:27] LABS: Anisocytosis RARE; Macrocytosis RARE; Platelet Estimate ADEQUATE (ADEQ); Red Cell Morphology N CHROM NORMAL (NORM C&C)
[2023-08-19 23:29] LABS: Bacteria 3+ /hpf (None Seen); Red Blood Cells-Urine > 100 SEEN /hpf (0-5)
[2023-08-19 23:54] VITALS: BP 152/91; PULSE 112; RESP 18; O2SAT 97
[2023-08-20] MEDS: HYDROmorphone 0.5 MG/0.5 ML SYRINGE IV (00:02)
--- NOTE | 2023-08-20 00:18 | CT_ITS ---
INDICATION: Hemorrhagic renal cyst EXAMINATION: CTA abdomen and pelvis - TECHNIQUE: Routine abdominal CT angiogram protocol was performed with IV contrast. MIP images provided. A radiation dose optimization technique was used for this scan. IV Contrast dosage and agent: 100 cc of Isovue-370 Radiation dose DLP 1287.78 mGy / cm. CTDI vol: 32.53 COMPARISON: None. FINDINGS: Lung bases: Bilateral lower lobe and right middle lobe atelectasis. Mild to moderate cardiomegaly with pacemaker leads in place. Liver: Normal. No bile ductal dilatation. Gallbladder: Status post cholecystectomy. Spleen: Normal. Adrenal gland: Normal. Kidneys: Small right upper no pole simple cyst 1.0 cm. Left lower renal pole low attenuation structure with heterogeneous enhancement measuring 5.5 x 5.2 x 5.5 cm with area of high density revealing slight enhancement along the superolateral medial aspect of the cyst concerning for neoplasm, with hemorrhagic component not excluded. There is mild wall irregularity along the superolateral aspect of the spine. Pancreas:Normal. Bowel gas pattern: Nonobstructive. Appendix: Normal. Free air: None. Free fluid: None. Pelvis: Pelvic organs: No mass lesion noted. Bone survey: Osteopenia with mild spondylosis/degenerative disease of the spine, bilateral SI joints and hips. Adenopathy: No significant pathologic adenopathy detected. Other: None. Vascular: Normal vascular anatomy, CT/CTA Abd/Pelvis W/WO Contrast IMPRESSION: Left lower renal pole mass measuring 5.5 cm with concern for neoplasm although internal hemorrhage or hemorrhagic cystic component not excluded. Recommend follow-up with MRI of the upper abdomen in nonacute setting. Right-sided nonobstructive intrarenal stones with simple cyst in the right upper renal pole. This can be further evaluated with MRI for confirmation and confirm simple cyst. No acute appendicitis or bowel obstruction. Electronically Signed: Carlita Jimenez MD at 1:12 EST ,
--- NOTE | 2023-08-20 02:08 | EX.ED.DYSGE1 ---
HPI History of Present Illness Chief Complaint: Flank Pain Informant: patient and spouse/S.O. Narrative Narrative: Patient is a 78-year-old male with past medical history of atrial fibrillation currently on Eliquis as well as hypertension hyperlipidemia and previous kidney stone. Patient states his kidney stone was on the left side and it was roughly 2 months ago. He states he also was found to have a renal cyst that was drained by interventional radiology roughly 2 months ago. He states he has been doing well but that today he developed left-sided flank/back pain and then urinated and it was red/blood in color and with concern for repeat stone he comes in for evaluation. [facility] Medical History Abnormal ankle brachial index Asthma Atherosclerotic heart disease of [place] coronary artery without angina pectoris Atrial fibrillation CAD in [place] artery Cardiology follow-up encounter Colon polyp Diverticulosis Essential hypertension GERD (gastroesophageal reflux disease) History of cardioversion (~05/16/19) History of echocardiogram History of edema History of stress test Hyperlipidemia Non-smoker RADHA (obstructive sleep apnea) Osteoarthritis Presence of cardiac pacemaker (~2013) RLS (restless legs syndrome) Sick sinus syndrome Tubular adenoma of colon Ventral incisional hernia without obstruction or gangrene Wears glasses Wears partial dentures Zenkers diverticulum Home Medications pantoprazole 40 mg tablet,delayed release 40 mg PO DAILY acid reflux 03/23/17 [History Last Taken Unknown] nitroglycerin 0.4 mg sublingual tablet 0.4 mg sublingual Q5-15M PRN chest pain #25 tabs 12/29/21 [Rx Last Taken Unknown] fenofibrate 160 mg tablet 160 mg PO DAILY #90 tabs 08/13/22 [Rx Last Taken Unknown] diltiazem HCl 240 mg capsule,extended release 24 hr 240 mg PO DAILY #90 caps 05/10/23 [Rx Last Taken Unknown] rivaroxaban 20 mg tablet 20 mg PO DAILY #90 tabs 06/24/23 [Rx Last Taken 06/24/23] metoprolol succinate 25 mg tablet,extended release 24 hr 25 mg PO DAILY #90 tabs 07/21/23 [Rx Last Taken Unknown] tamsulosin 0.4 mg capsule 0.4 mg PO DAILY prostate #90 caps 07/21/23 [Rx Last Taken Unknown] duloxetine 20 mg capsule,delayed release (Cymbalta) 20 mg PO BID #60 caps 08/19/23 [Rx Last Taken Unknown] aspirin 81 mg tablet,delayed release (Adult Aspirin Regimen) 81 mg PO DAILY 08/20/23 [History Last Taken Unknown] furosemide 40 mg tablet 40 mg PO DAILY PRN edema 08/20/23 [History Last Taken Unknown] Allergy/AdvReac Type Severity Reaction Status Date / Time atorvastatin [From Lipitor] AdvReac Severe elevated Verified 08/19/23 22:06 LFT's lisinopril AdvReac Severe cough Verified 08/19/23 22:06 gemfibrozil AdvReac Unknown Unknown Verified 08/19/23 22:06 simvastatin AdvReac Unknown Unknown Verified 08/19/23 22:06 bacitracin AdvReac Unknown Verified 08/19/23 22:06 [From Triple Antibiotic] colistimethate sodium AdvReac Unknown Verified 08/19/23 22:06 [From Triple Antibiotic] gramicidin D AdvReac Unknown Verified 08/19/23 22:06 [From Triple Antibiotic] neomycin sulfate AdvReac Unknown Verified 08/19/23 22:06 [From Triple Antibiotic] polymyxin B AdvReac Unknown Verified 08/19/23 22:06 [From Triple Antibiotic] pramoxine HCl AdvReac Unknown Verified 08/19/23 22:06 [From Triple Antibiotic] Family History Mother CVA (cerebral vascular accident) Father Heart disease Sister Heart disease Other Arthritis Hyperlipemia Hypertension Surgical History H/O umbilical hernia repair History of cataract surgery History of colonoscopy (~04/2021) History of inguinal hernia repair History of laparoscopic cholecystectomy Postsurgical percutaneous transluminal coronary angioplasty (PTCA) status (~06/17/12) Presence of stent in coronary artery (~06/17/12) Social History Smoking Status: Former smoker how long ago did patient quit smokin's alcohol intake: never substance use type: does not use caffeine: Yes Type: carbonated beverages Number of servings: 3 ROS ROS ED Constitutional Constitutional ED: Denies chills or fever(s) Eyes Eyes: Denies change in vision ENT ENT ED: Denies sore throat Cardiovascular Cardiovascular: Denies chest pain Respiratory/Chest Respiratory/Chest: Denies cough or dyspnea Gastrointestinal Gastrointestinal: Denies abdominal pain, diarrhea, nausea or vomiting Genitourinary Genitourinary ED: Reports hematuria; Denies dysuria Musculoskeletal Musculoskeletal: Reports back pain Integumentary Denies rash Neurologic Neurologic: Denies headache(s) Hematologic/Lymphatic Hematologic/Lymphatic: Reports easy bleeding and easy bruising EXAM Physical Exam Const Vital Signs: 08/19/23 22:06 08/19/23 23:54 08/20/23 02:45 Temperature 97.3 F L Temperature Source Temporal Pulse Rate 115 H 112 H 90 Respiratory Rate 18 18 16 Blood Pressure 159/97 H 152/91 H 133/94 H Blood Pressure Mean 117 111 107 Pulse Ox 98 97 100 Oxygen Delivery Method Room Air Room Air Room Air 08/20/23 02:45 Temperature Temperature Source Pulse Rate 75 Respiratory Rate 16 Blood Pressure 133/94 H Blood Pressure Mean 107 Pulse Ox 100 Oxygen Delivery Method Positive well nourished and well developed General Appearance ED: well developed; Negative for pallor HEENT HEENT Narrative: Normocephalic atraumatic Eyes PERRL and EOMs intact bilaterally General Eye ED: Negative for pale conjunctiva Neck supple Resp normal respiratory effort and clear to auscultation bilaterally Cardio regular rate and regular rhythm Rate: other Other Details: Radial and carotid pulses are equal and symmetric GI normal to inspection, nondistended, normoactive bowel sounds, non-tender, non-distended and no masses GI Narrative: Soft nontender nondistended with normal active bowel sounds no voluntary guarding or rigidity or pulsatile mass Auscultation: normoactive bowel sounds Palpation: soft Back/Spine Back/Spine Narrative: Positive left CVA pain noted Extremity normal to inspection Neuro oriented x3, CN's II-XII intact bilaterally and no sensory deficits noted Sensorium / Orientation: alert Motor Exam: strength 5/5 throughout Psych mental status grossly normal Skin no rashes or lesions noted Skin Narrative: Capillary refills less than 3 seconds General Skin Exam: Negative for jaundice or pallor MDM MDM MDM Narrative Medical decision making narrative: Patient presented to the ER with stable vitals and reported sudden onset of left-sided flank pain with hematuria and has a history of recent kidney stone. Differential diagnosis is for kidney stone versus UTI/pyelonephritis versus prostatitis versus bleeding secondary to Eliquis. Basic labs were obtained and show a stable H&H as well as creatinine which is at baseline without changes to suggest acute kidney injury. Urine has lots of blood consistent with gross hematuria and there is +3 bacteria noted but there are no white blood cells and patient does not have dysuria therefore I will send the urine for culture and not start emergently on antibiotics. Noncontrast CT scan showed no obvious kidney stone but did document an enlarging cyst on the left kidney. As the cyst is larger in size and just a few months ago and he is having bleeding and is on Eliquis I did discuss the case with urology on-call. She recommends patient receive CT scan with contrast and also discuss placement of Marcus catheter secondary to the hematuria. The CT scan with IV contrast confirmed the cyst versus malignancy but otherwise there is no active extravasation or signs of internal bleeding. I discussed with patient the need for catheter placement as he is high risk for developing clots and urinary retention but he states he still been able to urinate the entire time he is been in the ER and did not want a Marcus catheter placed at this time. Therefore at this time the patient has a stable H&H blood pressure remained stable he is not lightheaded or dizzy with standing he does not have signs of acute kidney injury. Therefore it was felt that he could have this worked up on an outpatient basis and he will be referred to urology for follow-up. He agrees to return if he develops a fever or is unable to urinate or starts to feel lightheaded and dizzy indicating potential worsening blood loss. However at this time he is not having retention he is not anemic he is not hypotensive and does not have signs of acute kidney injury and therefore we discharged home with outpatient follow-up History & Record Review Discussion w/independent historian: Patient and Significant other Lab Data Attestation: I reviewed the patient's lab results. Labs: Laboratory Results - last 24 hr 08/19/23 08/19/23 22:20 22:30 WBC 12.0 H RBC 5.17 Hgb 16.2 Hct 49.5 MCV 95.7 H MCH 31.3 MCHC 32.7 RDW Std Deviation 54.4 H RDW Coeff of Mimi 15.3 H Plt Count 220 MPV 12.7 H Immature Gran % (Auto) 0.700 Neut % (Auto) 88.1 H Lymph % (Auto) 4.[address] [place] % (Auto) 6.3 Eos % (Auto) 0.2 Baso % (Auto) 0.3 Absolute Neuts (auto) 10.6 H Absolute Lymphs (auto) 0.53 L Nucleated RBC % 0 Differential Comment SEE COMMENT Platelet Estimate ADEQUATE RBC Morphology N CHROM Anisocytosis RARE Macrocytosis RARE Sodium 139 Potassium 4.2 Chloride 106 Carbon Dioxide 26.0 Anion Gap 7 BUN 23 H Creatinine 1.25 Estim Creat Clear Calc 60.96 Est GFR (MDRD) Af Amer 72 Est GFR (MDRD) Non-Af 59 L BUN/Creatinine Ratio 18.4 Glucose 138 H Calcium 9.0 Urine Color Red Urine Clarity Turbid Urine pH 7.0 Ur Specific [place] 1.020 Urine Protein 500 H Urine Glucose (UA) Normal Urine Ketones 5 H Urine Occult Blood 250 H Urine Nitrite Negative Urine Bilirubin Negative Urine Urobilinogen Normal Ur Leukocyte Esterase Negative Urine RBC > 100 SEEN Urine WBC 0 SEEN Ur Squamous Epith Cells 0 SEEN Urine Bacteria 3+ Urine Mucus 0 SEEN Radiography Diagnostic Testing: Clinical Impression(s) from Imaging Studies Abdomen/Pelvis CT 08/19/23 22:36 IMPRESSION: Bilateral nonobstructive intrarenal stones as described. There is a cyst within the left kidney at the level of the lower pole, now measuring 6.2 cm from recent dimension of 2.8 cm suggestive of recent hemorrhage versus neoplasm. Recommend follow-up with ultrasound for further characterization. No acute appendicitis. Diverticulosis with no signs of diverticulitis. No bowel obstruction. Electronically Signed: Carlita Jimenez MD at 23:44 EST , Abdomen/Pelvis CTA 08/20/23 00:18 IMPRESSION: Left lower renal pole mass measuring 5.5 cm with concern for neoplasm although internal hemorrhage or hemorrhagic cystic component not excluded. Recommend follow-up with MRI of the upper abdomen in nonacute setting. Right-sided nonobstructive intrarenal stones with simple cyst in the right upper renal pole. This can be further evaluated with MRI for confirmation and confirm simple cyst. No acute appendicitis or bowel obstruction. 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, Gross hematuria, Renal cyst, Atrial fibrillation, Essential hypertension Instructions: Simple Kidney Cysts, ED Hematuria Prescriptions: No Action rivaroxaban 20 mg tablet 20 mg PO DAILY Qty: 90 3RF pantoprazole 40 MG tablet 40 mg PO DAILY aspirin [Adult Aspirin Regimen] 81 mg tablet,delayed release (DR/EC) 81 mg PO DAILY furosemide 40 mg tablet 40 mg PO DAILY PRN nitroglycerin 0.4 mg tablet, sublingual 0.4 mg sublingual Q5-15M PRN (Reason: chest pain) Qty: 25 3RF fenofibrate 160 mg tablet 160 mg tablet 160 mg PO DAILY Qty: 90 3RF diltiazem HCl 240 mg capsule,extended release 24hr 240 mg PO DAILY Qty: 90 3RF metoprolol succinate 25 mg tablet extended release 24 hr 25 mg PO DAILY Qty: 90 3RF tamsulosin 0.4 mg capsule 0.4 mg PO DAILY Qty: 90 3RF duloxetine [Cymbalta] 20 mg capsule,delayed release(DR/EC) 20 mg PO BID Qty: 60 1RF Primary Care Provider: Ruma Terry Referrals: Abdullahi Younger MD [Med Staff - Active Staff] - Ruma Terry MD [Primary Care Provider] - Activity Restrictions/Additional Instructions: Please contact the urologist today August 20 to schedule a outpatient appointment. However if you can no longer urinate, you develop a fever over 100.4, or you become lightheaded or dizzy please return to the ER for repeat evaluation Disposition Disposition: Home, Self Care Discharge Date/Time: 08/20/23 02:49
[2023-08-20] MEDS: Ondansetron 4 MG/2 ML Vial IV (02:43)
[2023-08-20 02:45] VITALS: BP 133/94; PULSE 75; PULSE 90; RESP 16; O2SAT 100
== END 2023-08-20 02:49 | disposition home or self-care (01) ==
PROVIDERS: Emergency Provider Emergency Medicine; PCP Internal Medicine; Visit Provider Emergency Medicine
DX: N28.1 Cyst of kidney, acquired (principal); I48.91 Unspecified atrial fibrillation; Z79.01 Long term (current) use of anticoagulants; Z87.891 Personal history of nicotine dependence; R31.0 Gross hematuria; I10 Essential (primary) hypertension; E78.5 Hyperlipidemia, unspecified; Z87.442 Personal history of urinary calculi; I25.10 Atherosclerotic heart disease of native coronary artery without angina pectoris; K21.9 Gastro-esophageal reflux disease without esophagitis; J45.909 Unspecified asthma, uncomplicated; Z79.82 Long term (current) use of aspirin; R31.9 Hematuria, unspecified
CPT/HCPCS: 74174; 74176; 80048; 81001; 85025; 96361; 96374; 96375; 96376; 99283; Q9967; A4216; J2405

== ENCOUNTER 2023-09-10 08:22 | Day surgery (SDC) | payer MEDICARE, SELFPAY ==
[2023-09-10] VITALS (18 sets, daily range): BP systolic 106–131; BP diastolic 56–81; PULSE 77–108; RESP 14–18; TEMP 36.1–36.7; O2SAT 92–100; BMI 32.0
[2023-09-10] MEDS: Lactated Ringers 1,000 ML 15 ML IV (09:07)
--- NOTE | 2023-09-10 10:35 | MASS_PTH ---
PATHOLOGY RESULTS PATIENT: CONSTANTINO CORBETT LOC: [facility] [place] U#:[id number] AGE/SX: 78/M ROOM: RE09/10/[address]: Dr. Abdullahi Younger MD : 1945 BED: DIS: 09/12/2023 SPEC #: [id number] RECD: 09/13/23 08:15 STATUS: NIR PHILLIPS #: [id number] ANDREA: 09/10/23 10:[address]: Abdullahi Younger DEPT: SURGICAL PATHOLOGY RECD BY: Daksha Egan ENTERED: 09/13/23 08:16 SP TYPE: Mass OTHR DR: Dr. Ruma Terry MD Tissues: Kidney, NOS Procedures: Surgery Specimen Level V HEADER OPERATION: Lap robotic partial nephrectomy PRE-OP DIAGNOSIS: Neoplasm of left kidney, gross hematuria TISSUE SUBMITTED: Cystic renal mass left MICROSCOPIC DIAGNOSIS Left cystic renal mass, partial nephrectomy: Benign hemorrhagic epithelial cyst (4.5 cm in greatest dimension). One benign lymph node. See comment. SJ:dot 09/14/2023 COMMENT The adjacent renal parenchymal tissue shows interstitial chronic inflammation and glomerulosclerosis. Clinical correlation and appropriate follow up are necessary. Case has been reviewed in consultation with Dr. Ceja who concurs with the above diagnosis. IDC:SILVIA MICROSCOPIC DESCRIPTION Slides are reviewed. GROSS DESCRIPTION Received in fixative is one container labeled with the patient's name and designated cystic renal mass left. The specimen consists of a previously ruptured cystic mass with blood clots in the container. The entire specimen weighs 17 gm. The cystic mass measures 4.0 x 4.5 x 3.0 cm and the blood clots present in the container measure in aggregate 3.5 x 4.0 x 1.5 cm. The outer surface of the cyst is inked black. The inner cyst wall is smooth. The cyst wall measures 0.1 to 0.4 cm in thickness. Chief Enterprise Architect sections are submitted in seven cassettes as follows: 1-5 - cyst, 6 & 7 - hemorrhagic tissue/blood clots in the container. / PRATIK:dot 09/13/2023 TC:5 CPT: 44253
[2023-09-10] MEDS: Cefazolin 2 GM in 0.9% Normal Saline (100mL Bag) 100 ML IV (10:37)
--- NOTE | 2023-09-10 10:41 | HP.PCM_ITS ---
HPI - General General Date of Admission: 09/10/23 HPI Narrative CONSTANTINO CORBETT, is a 78 M who presents for a left robotic partial nephrectomy for a solid left renal mass [facility] Medical History Abnormal ankle brachial index Arthritis Asthma Atherosclerotic heart disease of [place] coronary artery without angina pectoris Atrial fibrillation CAD in [place] artery Cardiology follow-up encounter Colon polyp Diverticulosis Essential hypertension Former smoker Gastric reflux GERD (gastroesophageal reflux disease) High cholesterol History of atrial fibrillation History of cardioversion (~05/16/19) History of echocardiogram History of edema History of pacemaker History of renal disease History of stress test Hyperlipidemia Non-smoker RADHA (obstructive sleep apnea) Osteoarthritis Presence of cardiac pacemaker (~2013) Prostate disease RLS (restless legs syndrome) Sick sinus syndrome Tubular adenoma of colon Ventral incisional hernia without obstruction or gangrene Wears glasses Wears partial dentures Zenkers diverticulum Home Medications pantoprazole 40 mg tablet,delayed release 40 mg PO DAILY acid reflux 03/23/17 [History Last Taken 09/09/23] nitroglycerin 0.4 mg sublingual tablet 0.4 mg sublingual Q5-15M PRN chest pain #25 tabs 12/29/21 [Rx Last Taken Unknown] fenofibrate 160 mg tablet 160 mg PO DAILY #90 tabs 08/13/22 [Rx Last Taken 09/09/23] rivaroxaban 20 mg tablet 20 mg PO DAILY #90 tabs 06/24/23 [Rx Last Taken 08/23/23] tamsulosin 0.4 mg capsule 0.4 mg PO DAILY prostate #90 caps 07/21/23 [Rx Last Taken 09/09/23] duloxetine 20 mg capsule,delayed release (Cymbalta) 20 mg PO BID #60 caps 08/19/23 [Rx Last Taken 09/09/23] aspirin 81 mg tablet,delayed release (Adult Aspirin Regimen) 81 mg PO DAILY 08/20/23 [History Last Taken 09/07/23] furosemide 40 mg tablet 40 mg PO DAILY PRN edema 08/20/23 [History Last Taken Unknown] metoprolol tartrate 100 mg tablet 100 mg PO BID #180 tabs 09/07/23 [Rx Last Taken 09/10/23] vit C 250 mg-vit E 90 mg-zinc 40 mg-copper 1 [id number] capsule (PreserVision AREDS-2) 1 tab PO BID 09/08/23 [History Last Taken 09/09/23] docusate sodium 100 mg capsule (Colace) 100 mg PO BID #20 caps 09/10/23 [Rx Last Taken Unknown] oxycodone 5 mg tablet 5 mg PO Q6H PRN pain 7 days #14 tabs 09/10/23 [Rx Last Taken Unknown] Allergy/AdvReac Type Severity Reaction Status Date / Time atorvastatin [From Lipitor] AdvReac Severe elevated Verified 09/10/23 08:51 LFT's lisinopril AdvReac Severe cough Verified 09/10/23 08:51 gemfibrozil AdvReac Unknown Unknown Verified 09/10/23 08:51 simvastatin AdvReac Unknown Unknown Verified 09/10/23 08:51 bacitracin AdvReac Unknown Verified 09/10/23 08:51 [From Triple Antibiotic] colistimethate sodium AdvReac Unknown Verified 09/07/23 11:43 [From Triple Antibiotic] gramicidin D AdvReac Unknown Verified 09/10/23 08:51 [From Triple Antibiotic] neomycin sulfate AdvReac Unknown Verified 09/10/23 08:51 [From Triple Antibiotic] polymyxin B AdvReac Unknown Verified 09/10/23 08:51 [From Triple Antibiotic] pramoxine HCl AdvReac Unknown Verified 09/10/23 08:51 [From Triple Antibiotic] Family History Mother CVA (cerebral vascular accident) Father Heart disease Sister Heart disease Other Arthritis Hyperlipemia Hypertension Surgical History H/O umbilical hernia repair History of cataract surgery History of colonoscopy (~04/2021) History of inguinal hernia repair History of laparoscopic cholecystectomy Postsurgical percutaneous transluminal coronary angioplasty (PTCA) status (~06/17/12) Presence of stent in coronary artery (~06/17/12) Social History Smoking Status: Former smoker how long ago did patient quit smokin's alcohol intake: never substance use type: does not use caffeine: Yes Type: carbonated beverages Number of servings: 3 Vital Signs Vital Signs Vital Signs: 09/10/23 08:53 09/10/23 08:53 Temperature 97.0 F L Temperature Source Temporal Pulse Rate 82 Respiratory Rate 18 Respiratory Pattern Normal Blood Pressure 127/73 H Blood Pressure Mean 91 Blood Pressure Source Monitor Blood Pressure Position Sitting Blood Pressure Location Right Arm Pulse Ox 100 Oxygen Delivery Method Room Air Weight Weight: 104.2 kg Body Mass Index (BMI) 32.0
--- NOTE | 2023-09-10 10:41 | DCINST_ITS ---
Discharge Instructions Diet Discharge Diet: No restrictions Activity Discharge Activity: Return to Normal Activity and May Not Drive (while taking narcotic pain medications.) Dressing / Incision Call your doctor if you observe: Fever of 101 or Higher Follow Up Care Please Follow Up With: Abdullahi Younger MD When: Call [phone] for an appointment Test Results: Test results from this visit will be discussed in further detail at your follow- up appointment, if applicable. Discharge Plan Admission Primary Reason for Your Visit: Left partial nephrectomy Attending Provider: Abdullahi Younger Primary Care Provider: Ruma Terry Discharge Orders/Prescriptions Prescriptions: New oxycodone 5 mg tablet 5 mg PO Q6H PRN (Reason: pain) 7 Days Qty: 14 0RF docusate sodium [Colace] 100 mg capsule 100 mg PO BID Qty: 20 0RF Continued metoprolol tartrate 100 mg tablet 100 mg PO BID Qty: 180 3RF pantoprazole 40 MG tablet 40 mg PO DAILY furosemide 40 mg tablet 40 mg PO DAILY PRN PreserVision AREDS-2 250-90-40-1 mg capsule 1 tab PO BID nitroglycerin 0.4 mg tablet, sublingual 0.4 mg sublingual Q5-15M PRN (Reason: chest pain) Qty: 25 3RF fenofibrate 160 mg tablet 160 mg tablet 160 mg PO DAILY Qty: 90 3RF tamsulosin 0.4 mg capsule 0.4 mg PO DAILY Qty: 90 3RF duloxetine [Cymbalta] 20 mg capsule,delayed release(DR/EC) 20 mg PO BID Qty: 60 1RF Held rivaroxaban 20 mg tablet 20 mg PO DAILY Qty: 90 3RF Hold Instructions: Resume on 09/24/23. aspirin [Adult Aspirin Regimen] 81 mg tablet,delayed release (DR/EC) 81 mg PO DAILY Hold Instructions: Resume on 09/24/23. Referrals / Follow Up: Abdullahi Younger MD [Med Staff - Active Staff] - Ruma Terry MD [Primary Care Provider] - Disposition Disposition (needs filled in before D/C Order can be placed): Home, Self Care
--- NOTE | 2023-09-10 13:28 | OP.PCM_ITS ---
Report of Operation Date of Procedure: 09/10/23 Pre-Operative Diagnosis: Left renal mass Post-Operative Diagnosis: The same Surgery/Procedure Performed:: Laparoscopic robotic assisted left partial nephrectomy Description of Surgical Findings:: Patient was taken back to the operating room at a smooth induction of anesthesia he was placed in supine on the table then after induction of anesthesia was placed lateral side left side up the Marcus catheter was in place. He underwent endotracheal intubation we then secured him to the table with left side up for approach to the kidney from the left side up modified flank approach. His abdomen was shaved prepped and draped in usual sterile fashion made a small incision in the mid abdomen placement camera port left arm port right arm port and another right arm robotic port and 10 mm air seal port first we reflected the colon off the kidney identified the spleen and then reflected the colon off the kidney completely he had a very fatty kidney had to retract his fat off the kidney to get underneath the kidney and then worked my way down to the hilum took an extensive amount of dissection to get to the down to the hilum because of the amount of fat and adipose tissue and also the a lot of draping fat over the kidney then when I finally got to the hilum identified the gonadal vein going to the left renal vein gonadal vein was taken I then dissected behind the left renal vein to find the renal artery after searching for quite some time and was now not able to find the renal artery can see the pulsating so then went superior to the vein and then with this. Dissection then I was able to find a renal artery once the renal artery was dissected and secured this was just in case I needed to clamp the kidney for the resection I then flipped the kidney down we mobilized the kidney the tumor was lower pole posterior lower mobilized the kidney to get an exposure to the lower pole posterior of the kidney I written for cutting the Gerota's fascia and split in half and then got to the from the tumor it was a cystic mass I then dissected circumferentially around the edges between the cystic mass in the renal parenchyma I then found the pseudocapsule I then proceeded by an enucleation fraction to remove the tumor off the kidney following the pseudocapsule inferiorly there was a small tear in the pseudocapsule as is doing this but that we corrected course and then can continue with the resection and then then we able to elevate the tumor off the base of the the kidney and then the rest of the tumor peeled off completely we then cauterized the base extensively placed the tumor in Endo Catch bag and then we placed Floseal and Surgicel in the defect and then closed the defect with 0 Vicryl stitches using right free technique to slide the edges back together once this was done we lowered the pressure and there was no bleeding from the resection site pressure was then increased we then remove the tumor through the 1012 port port we closed the 1012 Hitesh Padilla port with a Hitesh Padilla stitch and then all the other ports were extracted all the air was released released on the abdomen blood loss was minimal 25 cc and at this point were closing up the incisions the patient anesthetic is currently being reversed successful resection of the lower pole renal mass patient is currently under anesthesia and were closing of the abdomen. Went and spoke to the family r egarding the findings and the successful resection of the tumor. Surgeon: Abdullahi Younger Type of Anesthesia: General Specimen's removed: left renal mass Admit VTE Documentation VTE Present on Admission: No VTE Mechan Device Prophylaxis: SCD's VTE Pharm Prophylaxis ordered?: No
[2023-09-10] MEDS: Bupivacaine Mpf 0.5% 30 ML VIAL (13:30)
[2023-09-10] MEDS: Ketorolac 15 MG/ML Vial IV (14:04)
[2023-09-10] MEDS: Lactated Ringers 1,000 ML 125 ML IV (16:53)
[2023-09-10] MEDS: Multivitamin (Healthy Eyes) Capsule 1 CAP PO (21:06)
[2023-09-10] MEDS: Metoprolol Tartrate 100 MG Tablet PO (21:06)
[2023-09-10] MEDS: DULoxetine Hcl 20 MG Capsule PO (21:06)
[2023-09-10] MEDS: Docusate Sodium 100 MG Capsule 200 MG PO (21:07)
[2023-09-11] VITALS (7 sets, daily range): BP systolic 107–116; BP diastolic 63–69; PULSE 84–124; RESP 15–18; TEMP 36.6–37; O2SAT 94–97
[2023-09-11] MEDS: Lactated Ringers 1,000 ML 125 ML IV (00:57)
--- NOTE | 2023-09-11 07:49 | PCM.PN.GU ---
Subjective Subjective Status post left partial nephrectomy, advanced regular diet DC Marcus catheter I would see if he is able to Tolerated tolerate breakfast and lunch and walk around and is stable on his feet he can go home later today after lunch. Objective Data Objective Data Vital Signs: Vital Signs Temp Pulse Resp BP Pulse Ox O2 Del Method O2 Flow Rate 98 F 84 18 116/68 96 Room Air 2 09/11/23 03:45 09/11/23 03:45 09/11/23 03:45 09/11/23 03:45 09/11/23 03:45 09/11/23 03:45 09/10/23 15:30 Oxygen Flow Rate (L/min) 2 Oxygen Delivery Method Room Air Weight: 104.2 kg Body Mass Index (BMI) 32.0 Intake & Output: Intake and Output for Last 24 Hours 09/09/23 09/10/23 09/11/23 23:59 23:59 23:59 Intake Total 1281.25 / 1281.25 1000 / 1000 Output Total 305 / 305 400 / 400 Balance 976.25 / 976.25 600 / 600
[2023-09-11] MEDS: Metoprolol Tartrate 100 MG Tablet PO ×2 (09:52→22:10)
[2023-09-11] MEDS: DULoxetine Hcl 20 MG Capsule PO ×2 (09:54→22:09)
[2023-09-11] MEDS: Pantoprazole Sodium 40 MG Tablet PO (09:55)
[2023-09-11] MEDS: Tamsulosin HCl 0.4 MG Capsule 0.400000000000000022 MG PO (09:55)
[2023-09-11] MEDS: Fenofibrate 145 MG Tablet PO (14:46)
[2023-09-11] MEDS: Multivitamin (Healthy Eyes) Capsule 1 CAP PO ×2 (14:46→22:09)
[2023-09-11] MEDS: Docusate Sodium 100 MG Capsule 200 MG PO ×2 (14:46→22:09)
[2023-09-11] MEDS: 0.9% Saline Lock 10 ML Syringe IV (17:23)
[2023-09-11] MEDS: 0.9% Normal Saline (500mL Bag) 500 ML 999 ML IV (17:23)
[2023-09-12 02:27] VITALS: BP 99/65; PULSE 79; RESP 16; TEMP 36.4; O2SAT 95
[2023-09-12 07:49] VITALS: BP 141/74; PULSE 112; RESP 14; TEMP 36.7; O2SAT 95
[2023-09-12 07:52] VITALS: PULSE 112
[2023-09-12] MEDS: Metoprolol Tartrate 100 MG Tablet PO (07:52)
[2023-09-12] MEDS: Pantoprazole Sodium 40 MG Tablet PO (07:52)
[2023-09-12] MEDS: Multivitamin (Healthy Eyes) Capsule 1 CAP PO (07:52)
[2023-09-12] MEDS: Docusate Sodium 100 MG Capsule 200 MG PO (07:52)
[2023-09-12] MEDS: Fenofibrate 145 MG Tablet PO (07:52)
[2023-09-12] MEDS: DULoxetine Hcl 20 MG Capsule PO (07:53)
[2023-09-12] MEDS: Tamsulosin HCl 0.4 MG Capsule 0.400000000000000022 MG PO (07:53)
== END 2023-09-12 10:14 | disposition home or self-care (01) ==
LOC: SDC 08:25 → AC 08:26 → MS3 16:23
PROVIDERS: PCP Internal Medicine; Referring Provider Urology; Visit Provider Urology
PROC: (CPT 50543; principal; 2023-09-10 10:15)
DX: L72.0 Epidermal cyst (principal); I48.91 Unspecified atrial fibrillation; I10 Essential (primary) hypertension; I25.10 Atherosclerotic heart disease of native coronary artery without angina pectoris; E78.00 Pure hypercholesterolemia, unspecified; G47.33 Obstructive sleep apnea (adult) (pediatric); Z79.82 Long term (current) use of aspirin; Z79.01 Long term (current) use of anticoagulants; Z79.899 Other long term (current) drug therapy; Z87.891 Personal history of nicotine dependence; Z95.0 Presence of cardiac pacemaker
CPT/HCPCS: 50543; S2900; 00862; 88305; 88307; 94668; 99252; J7040; J7120; A4216; G0463; J2405

== ENCOUNTER 2023-09-19 16:17 | Inpatient (IN) | payer MEDICARE, SELFPAY ==
[2023-09-19] VITALS (16 sets, daily range): BP systolic 117–166; BP diastolic 43–118; PULSE 91–135; RESP 16–26; TEMP 35.8–36.8; O2SAT 88–99; BMI 33.3; BMI 32.3
--- NOTE | 2023-09-19 16:36 | EKG12_ITS ---
Test Reason : ABD PAIN Blood Pressure : / mmHG Vent. Rate : 149 BPM Atrial Rate : 000 BPM P-R Int : 000 ms QRS Dur : 090 ms QT Int : 276 ms P-R-T Axes : 000 037 -46 degrees QTc Int : 434 ms Critical Test Result: High HR Atrial fibrillation with rapid ventricular response Nonspecific ST and T wave abnormality Abnormal ECG Confirmed by Franky Saunders ([id number]), editor managing director AMY PINEDA ([id number]) on 09/21/2023 7:15:13 AM Referred By: Confirmed By:Franky Saunders
--- NOTE | 2023-09-19 16:37 | CT_ITS ---
EXAM: CT ABDOMEN AND PELVIS WITH INTRAVENOUS CONTRAST CLINICAL INDICATION: Lower abdominal pain TECHNIQUE: Helically acquired images were obtained of the abdomen and pelvis with intravenous contrast. This CT exam was performed using one or more of the following dose reduction techniques: automated exposure control, adjustment of the mA and/or kV according to patient size, and/or use of iterative reconstruction technique. CONTRAST: IV 100mL Isovue-370 RADIATION DOSE: CTDIvol = 22.79 mGy, DLP = 1387.75 mGy-cm COMPARISON: 2.9.24 FINDINGS: LOWER THORAX: There are bilateral pleural effusions. There are calcifications of the coronary arteries. No cardiomegaly. ABDOMEN: LIVER: Unremarkable. Normal liver. GALLBLADDER AND BILE DUCTS: There is non-visualization of the gallbladder, which may be secondary to either contraction or a prior cholecystectomy. No intra- or extrahepatic biliary ductal dilation. PANCREAS: Unremarkable. No focal cystic or solid mass. Normal pancreas. SPLEEN: Unremarkable. Normal spleen. ADRENALS: Unremarkable. Normal bilateral adrenal glands. KIDNEYS AND URETERS: Postablative changes of the left kidney. Mild left perinephric inflammatory stranding. This likely related to recent postsurgical changes. Left flank subcutaneous air. There are small air locules along the left perinephric space consistent for recent procedure. There are hypodensities in the right kidney. These are consistent for cysts. No follow up required. Normal renal size and position. No hydronephrosis. STOMACH AND BOWEL: There is a duodenal diverticulum. This is near the pancreatic head. There are multiple colonic diverticula consistent with diverticulosis. No stomach or bowel distention. No focal inflammatory change. Normal visualized stomach. Normal small intestine. PELVIS: APPENDIX: There is non-visualization of the appendix. BLADDER: Air in the urinary bladder. This is likely iatrogenic. REPRODUCTIVE: Unremarkable as visualized. No mass. ABDOMEN and PELVIS: INTRAPERITONEAL SPACE: Unremarkable. No ascites or other fluid collection. No free air. BONES/JOINTS: There are multi-level degenerative changes of the thoracic spine. No suspicious lytic or blastic abnormality. Normal osseous structures. SOFT TISSUES: Subcutaneous edema. Evidence for prior left inguinal hernia repair. Presacral inflammatory changes. There is a right-sided inguinal hernia containing adipose tissue. VASCULATURE: There is atherosclerotic calcification of the aortic arch with tortuosity and elongation of the aortic arch and descending thoracic aorta. There are calcifications of the abdominal aorta. This is consistent for atherosclerotic disease. There is no abdominal aortic aneurysm. Normal pulmonary arteries. LYMPH NODES: Unremarkable. No enlarged lymph nodes. CT/Abdomen/Pelvis W IV Cont ONLY IMPRESSION: 1. There are bilateral pleural effusions. 2. There are calcifications of the coronary arteries. 3. Postablative changes of the left kidney. Electronically Signed: Terrell Alfaro MD at 18:00 EDT ,
--- NOTE | 2023-09-19 16:43 | EDS_ITS ---
HPI History of Present Illness Chief Complaint: Abd Pain Informant: patient Narrative Narrative: Patient presents secondary to lower abdominal pain, generalized fatigue, dizziness with exertion. He had surgery on September 09 to have a cyst removed from his left kidney. This was performed laparoscopically. Patient states he was in the hospital 2 nights and then discharged to home. He states he initially started feel better but then has been going downhill feeling more fatigued and weak. He complains of some lower abdominal pain. He feels as if he may be constipated but denies he is using any pain medication at home. He also reports lightheadedness and diz ziness with exertion. He states if he goes up stairs at home he will become significantly lightheaded and feeling things are spinning. He denies chest pain or palpitations. He does have a pacemaker that was interrogated shortly before his surgical procedure. [facility] Medical History Abnormal ankle brachial index Arthritis Asthma Atherosclerotic heart disease of [place] coronary artery without angina pectoris Atrial fibrillation CAD in [place] artery Cardiology follow-up encounter Colon polyp Diverticulosis Essential hypertension Former smoker Gastric reflux GERD (gastroesophageal reflux disease) High cholesterol History of atrial fibrillation History of cardioversion (~05/16/19) History of echocardiogram History of edema History of pacemaker History of renal disease History of stress test Hyperlipidemia Non-smoker RADHA (obstructive sleep apnea) Osteoarthritis Presence of cardiac pacemaker (~2013) Prostate disease RLS (restless legs syndrome) Sick sinus syndrome Tubular adenoma of colon Ventral incisional hernia without obstruction or gangrene Wears glasses Wears partial dentures [place] diverticulum Home Medications nitroglycerin 0.4 mg sublingual tablet 0.4 mg sublingual Q5-15M PRN chest pain # 25 tabs 12/29/21 [Rx Last Taken Unknown] rivaroxaban 20 mg tablet 20 mg PO DAILY #90 tabs 06/24/23 [Rx Last Taken 08/23/23] tamsulosin 0.4 mg capsule 0.4 mg PO DAILY prostate #90 caps 07/21/23 [Rx Last Taken 09/09/23] duloxetine 20 mg capsule,delayed release (Cymbalta) 20 mg PO BID #60 caps 08/19/23 [Rx Last Taken 09/09/23] aspirin 81 mg tablet,delayed release (Adult Aspirin Regimen) 81 mg PO DAILY 08/20/23 [History Last Taken 09/07/23] furosemide 40 mg tablet 40 mg PO DAILY PRN edema 08/20/23 [History Last Taken Unknown] metoprolol tartrate 100 mg tablet 100 mg PO BID #180 tabs 09/07/23 [Rx Last Taken 09/10/23] vit C 250 mg-vit E 90 mg-zinc 40 mg-copper 1 [id number] capsule (PreserVision AREDS-2) 1 tab PO BID 09/08/23 [History Last Taken 09/09/23] docusate sodium 100 mg capsule (Colace) 100 mg PO BID #20 caps 09/10/23 [Rx Last Taken Unknown] fenofibrate 160 mg tablet 160 mg PO DAILY #90 tabs 09/16/23 [Rx Last Taken Unknown] Allergy/AdvReac Type Severity Reaction Status Date / Time atorvastatin [From Lipitor] AdvReac Severe elevated Verified 09/19/23 16:19 LFT's lisinopril AdvReac Severe cough Verified 09/19/23 16:19 gemfibrozil AdvReac Unknown Unknown Verified 09/19/23 16:19 simvastatin AdvReac Unknown Unknown Verified 09/19/23 16:19 bacitracin AdvReac Unknown Verified 09/19/23 16:19 [From Triple Antibiotic] colistimethate sodium AdvReac Unknown Verified 09/19/23 16:19 [From Triple Antibiotic] gramicidin D AdvReac Unknown Verified 09/19/23 16:19 [From Triple Antibiotic] neomycin sulfate AdvReac Unknown Verified 09/19/23 16:19 [From Triple Antibiotic] polymyxin B AdvReac Unknown Verified 09/19/23 16:19 [From Triple Antibiotic] pramoxine HCl AdvReac Unknown Verified 09/19/23 16:19 [From Triple Antibiotic] Family History Mother CVA (cerebral vascular accident) Father Heart disease Sister Heart disease Other Arthritis Hyperlipemia Hypertension Surgical History H/O umbilical hernia repair History of cataract surgery History of colonoscopy (~04/2021) History of inguinal hernia repair History of laparoscopic cholecystectomy Postsurgical percutaneous transluminal coronary angioplasty (PTCA) status (~06/17/12) Presence of stent in coronary artery (~06/17/12) Social History Smoking Status: Former smoker how long ago did patient quit smokin's alcohol intake: never substance use type: does not use caffeine: Yes Type: carbonated beverages Number of servings: 3 ROS ROS ED Constitutional Constitutional ED: Denies chills or fever(s) Eyes Eyes: Denies discharge from eye(s) ENT ENT ED: Denies discharge from eye(s), rhinorrhea or sore throat Cardiovascular Cardiovascular: Denies chest pain or palpitations Respiratory/Chest Respiratory/Chest: Reports dyspnea; Denies cough Gastrointestinal Gastrointestinal: Reports abdominal pain; Denies diarrhea, nausea or vomiting Genitourinary Genitourinary ED: Denies difficulty urinating or dysuria Musculoskeletal Musculoskeletal: Denies back pain or extremity pain Integumentary Denies Abrasions or rash Neurologic Neurologic: Reports weakness; Denies headache(s) Psychiatric Psychiatric: Denies anxiety or depression Allergic/Immunologic Allergic/Immunologic ED: Denies lip swelling or urticaria EXAM Physical Exam Const Vital Signs: 09/19/23 16:19 09/19/23 17:08 09/19/23 18:31 Temperature 96.5 F L 98.3 F Temperature Source Temporal Oral Pulse Rate 94 120 H 118 H Respiratory Rate 20 H 20 H 20 H Blood Pressure 125/93 H 130/73 H 142/84 H Blood Pressure Mean 103 92 103 Pulse Ox 99 94 97 Oxygen Delivery Method Room Air Room Air Room Air Positive well nourished and well developed General Appearance ED: well developed HEENT Reports moist mucous membranes Eyes EOMs intact bilaterally Chest Wall inspection of chest normal and palpation of chest normal Resp normal respiratory effort and clear to auscultation bilaterally Cardio regular rate and regular rhythm GI GI Narrative: Abdomen soft and distended. Active bowel sounds noted. Mild tenderness in the lower abdomen. No guarding or rebound. Extremity normal to inspection Neuro oriented x3 and no sensory deficits noted Psych mental status grossly normal MDM MDM MDM Narrative Medical decision making narrative: Patient placed on surveillance system monitor. We will interrogate his pacemaker to ensure appropriate function. IV line established. Labwork obtained to evaluate for leukocytosis, anemia, and electrolyte derangement. EKG obtained to evaluate for cardiac arrhythmia/ischemia. Chest x-ray obtained to evaluate for acute lung pathology, cardiac size, or mediastinal abnormality. CT scan of the abdomen and pelvis will be obtained to evaluate for any postoperative changes causing his lower abdominal pain. History & Record Review Discussion w/independent historian: Patient Lab Data Attestation: I reviewed the patient's lab results. Labs: Laboratory Results - last 24 hr 09/19/23 09/19/23 16:52 18:40 WBC 9.7 RBC 4.51 L Hgb 13.8 Hct 43.8 MCV 97.1 H MCH 30.6 MCHC 31.5 L RDW Std Deviation 52.6 H RDW Coeff of Mimi 14.7 H Plt Count 279 MPV 13.0 H Immature Gran % (Auto) 0.600 Neut % (Auto) 84.2 H Lymph % (Auto) 7.4 L [place] % (Auto) 6.8 Eos % (Auto) 0.7 Baso % (Auto) 0.3 Absolute Neuts (auto) 8.2 H Absolute Lymphs (auto) 0.72 L Nucleated RBC % 0 Sodium 139 Potassium 4.3 Chloride 101 Carbon Dioxide 26.0 Anion Gap 12 BUN 22 H Creatinine 1.37 H Estim Creat Clear Calc 55.63 Est GFR (MDRD) Af Amer 65 Est GFR (MDRD) Non-Af 53 L BUN/Creatinine Ratio 16.1 Glucose 129 H Calcium 9.1 Total Bilirubin 2.30 H Direct Bilirubin 1.35 H AST 41 H ALT 43 Alkaline Phosphatase 62 Troponin I High Sens 9 B-Natriuretic Peptide 686.8 H Total Protein 7.2 Albumin 3.4 Globulin 3.8 Lipase 30 Urine Color Yellow Urine Clarity Clear Urine pH 5.0 Ur Specific [place] 1.015 Urine Protein 30 H Urine Glucose (UA) Normal Urine Ketones 5 H Urine Occult Blood 250 H Urine Nitrite Negative Urine Bilirubin Negative Urine Urobilinogen 4 H Ur Leukocyte Esterase 25 H Urine RBC 10-25 SEEN Urine WBC 0-5 SEEN Ur Squamous Epith Cells 0-5 SEEN Urine Bacteria RARE Urine Mucus 0 SEEN Radiography Diagnostic Testing: Clinical Impression(s) from Imaging Studies Abdomen/Pelvis CT 09/19/23 16:37 IMPRESSION: 1. There are bilateral pleural effusions. 2. There are calcifications of the coronary arteries. 3. Postablative changes of the left kidney. Electronically Signed: Terrell Alfaro MD at 18:00 EDT , Chest X-Ray 09/19/23 17:38 IMPRESSION: Question small bilateral pleural effusions. Electronically Signed: Terrell Alfaro MD at 18:09 EDT , Treatment and Re-Evaluation :: EKG obtained on arrival reveals A-fib RVR with ventricular rate of 149. He has mild ST depression in the anterior precordial leads. Patient is given a dose of Cardizem for rate control. CBC was normal white count 9.7 with a hemoglobin of 13.8. 84% neutrophils noted. Chemistry studies reveal a BUN of 22 and a creatinine 1.37. This is consistent with his prior lab values. LFTs significant for total bili of 2.3 and a direct bili of 1.35. AST is 41. Troponin is normal at 9 and BNP is 686. Urinalysis reveals no evidence of acute infection. CT scan of the abdomen pelvis reveals bilateral pleural effusions with calcification in the coronary arteries. Post ablative changes to the kidn ey are noted. Portable chest x-ray per my interpretation reveals chronic changes with borderline cardiomegaly and small pleural effusions. After 1 dose of Cardizem patient's heart rate is maintaining in the 120s. He is given a second dose of Cardizem along with a small dose of fentanyl for pain. Patient's pacemaker was interrogated. It appears that 20% the time his heart rate is between 80 and 100 and 20% the time his heart rate was between 140 and 160. He has very little time with heart rate under 80. Patient's last interrogation note from the cardiology office suggested decreasing EF with concern for CHF given his high heart rate. He does have evidence of pleural effusions and elevated BNP consistent with CHF. At this time patient's heart rate is around 105. I will give him a dose of Lasix and speak with hospitalist. I do think he needs a echocardiogram to determine his ejection fraction. He states he was told not to restart his anticoagulation until seen by Dr. Younger in the office on the . Discharge Plan Triage Chief Complaint: Abd Pain ED Provider: Kaci Rodríguez Dx/Rx/DC Orders Clinical Impression: Dizziness, CHF (congestive heart failure), Atrial fibrillation with RVR Prescriptions: No Action rivaroxaban 20 mg tablet 20 mg PO DAILY Qty: 90 3RF Hold Instructions: Resume on 09/24/23. metoprolol tartrate 100 mg tablet 100 mg PO BID Qty: 180 3RF aspirin [Adult Aspirin Regimen] 81 mg tablet,delayed release (DR/EC) 81 mg PO DAILY Hold Instructions: Resume on 09/24/23. furosemide 40 mg tablet 40 mg PO DAILY PRN PreserVision AREDS-2 250-90-40-1 mg capsule 1 tab PO BID docusate sodium [Colace] 100 mg capsule 100 mg PO BID Qty: 20 0RF nitroglycerin 0.4 mg tablet, sublingual 0.4 mg sublingual Q5-15M PRN (Reason: chest pain) Qty: 25 3RF tamsulosin 0.4 mg capsule 0.4 mg PO DAILY Qty: 90 3RF duloxetine [Cymbalta] 20 mg capsule,delayed release(DR/EC) 20 mg PO BID Qty: 60 1RF fenofibrate 160 mg tablet 160 mg tablet 160 mg PO DAILY Qty: 90 3RF Primary Care Provider: Ruma Terry Referrals: Ruma Terry MD [Primary Care Provider] - Disposition Disposition: Acute Care Hospital [facility]
--- OUTSIDE RECORDS SUMMARY | 2023-09-19 16:45 | XMS RPT_ITS | CCD ---
Author Name Unknown Address [address] [facility] [address] [place] [id number] Organization [facility] Care Team Providers Care Movie Star Name Role Phone KIRSTEN REED Unavailable Unavailable CEBUL III, NASIM A Unavailable Unavailable KIRSTEN REED Unavailable Unavailable CEBUL, NASIM Unavailable Unavailable KIRSTEN REED Unavailable Unavailable KIRSTEN REED Unavailable Unavailable Allergies Allergy Classification Reported Allergen(s) Allergy Type Date of Onset Reaction(s) Facility (2 sources) atorvastatin; Translations: [ATORVASTATIN CALCIUM] Drug Allergy 5 [facility] Repository (2 sources) gemfibrozil; Translations: [GEMFIBROZIL] Drug Allergy 5 [facility] Repository (2 sources) lisinopril; Translations: [LISINOPRIL] Drug Allergy 3 [facility] Repository (2 sources) simvastatin; Translations: [SIMVASTATIN] Drug Allergy 5 [facility] Repository (2 sources) OTHER; Translations: [OTHER] Propensity to adverse reactions (disorder) 8 [facility] Repository Problems Problem Classification Problem Date Documented Date Episodic/Chronic Coronary atherosclerosis and other heart disease (2 sources) Atherosclerotic heart disease of [place] coronary artery without angina pectoris; Translations: [Atherosclerotic heart disease of [place] coronary artery without angina pectoris] Onset: 06-17-2017 Chronic Essential hypertension (1 source) Essential (primary) hypertension; Translations: [Essential (primary) hypertension] Onset: 06-17-2017 Chronic Unclassified (1 source) Unknown / UNK(Unknown) Onset: 06-17-2017 Results Test Name Value Interpretation Reference Range Facil ity Encounters Encounter Date Encounter Type Care Provider Facility Start: 06-17-2018 Ambulatory KIRSTEN REED Facility :[facility] Start: 06-17-2017 End: 06-17-2017 Ambulatory KIRSTEN Rogers BRIANNA Kari Wu [facility] Payers Date Payer Category Payer Policy ID Medicare [id number] Clinical Note 05-09-2021 Note Date & Type Note Facility 05-09-2021 Note Patient Outreach (NICOLE TNAV) CONSTANTINO PEREZ ([id number]) 1945 M Date Time Provider Department 05/09/21 [...] Outcome/Action Unable to reach patient: Left message [email or web address] message sent Reason for Outreach Attribution: Provider Off-boarding Payer: Payor: [employer] MED[employer]ARE ADVANTAGE / Plan: ID MEDICARE / Product Type: HMO / Care [...] future healthcare decisions with a power of commercial real estate attorney, living will, or advance directives? No. 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 Author Type: ? Type: Progress Notes Filed: 05/09/2021 11:52 AM Note Text: POPULATION HEALTH NAVIGATION OUTREACH Action/FYI I left a voice message and a my chart message re: pcp No care everywhere Contact made with patient or family member? NO Pt identified by name and : NO Outreach Outcome/Action Unable to reach patient: Left message [email or web address] message sent Reason for Outreach Attribution: Provider Off-boarding Payer: Payor: [employer] MEDICARE ADVANTAGE / Plan: ID MEDICARE / Product Type: HMO / Care [...] future healthcare decisions with a power of commercial real estate attorney, living will, or advance directives? No. Please bring a copy to your next appointment or email to Referrals: N/A Message Sent to Practice: NO Navigation Signature: Meka Toure Population Health Navigator May 09, 2021 11:52 AM [facility] Progress note 02-26-2021 Note Date & Type Note Facility 02-26-2021 Note HNO ID: [id number] Author: Raul Ram APRN.CHOCOLATE MOLDER Service: ? Author Type: Nurse Practitioner Type: [...] s/p stents - Atherosclerotic heart disease of [place] coronary artery without angina pectoris - Benign [...] SNARE 01/10/07 - COLONOSCOP W/ OR W/O [facility] SPEC 09/09/2011 Colonoscopy repeat 5 years - COLONOSCOP W/ OR W/O [facility] SPEC 09/03/2016 Colonoscopy - COLONOSCOP W/ OR W/O [facility] SPEC 09/03/2016 Colonoscopy - EGD W/O [...] MG DAILY August 15, 2019 3:03pm 08-15-2019 [facility] ([id number]) Fenofibrate (LOFIBRA) 160 mg tablet Take 1 [...] Rate and R (more content not included)... [facility] Progress note 09-13-2020 Note Date & Type Note Facility 09-13-2020 Note HNO ID: [id number] Author: Nasim Sales III Service: ? Author [...] good benefit 4. REDDY[facility] of ASHD and paroxysmal atrial fib under management by cardio PAST MEDICAL HISTORY Diagnosis Date - ASHD (arteriosclerotic heart disease) 06/21/2012 s/p stents - Atherosclerotic heart disease of [place] coronary artery without angina pectoris - Benign [...] MG DAILY August 15, 2019 3:03pm 08-15-2019 [facility] ([id number]) - Fenofibrate (LOFIBRA) 160 mg tablet Take [...] controlled PLAN: surgery referral follow up with technical program manager as appointed same meds Nasim Sales III MD Medical Decision Making: Problems: Low: Acute, uncomplicated illness or injury and Stable chronic illness Risk: Low: Low risk from testing/treatment Medical Decision Making Level: 3 - Low Nasim Sales III MD [facility] Clinical Note 09-03-2020 Note Date & Type Note Facility 09-03-2020 Note Patient Outreach ([place] [facility]) CONSTANTINO PEREZ ([id number]) 1945 M Date Time Provider Department 09/03/20 [...] Fully Assessed Order(s):SARS-COVID VACCINE 1ST DOSE APPT [[id number]] Order #: [id number] FUTURE Prescriptions as of 09/03/2020 Sig: FENOFIBRATE [...] hypercholesterolemia, unspecified [E78.00] 03/29/2017 Encounter Status:Closed by [employer] on 09/06/20 [facility] Progress note 08-29-2020 Note Date & Type Note Facility 08-29-2020 Note HNO ID: [id number] Author: Nasim Sales III Service: ? Author [...] s/p stents - Atherosclerotic heart disease of [place] coronary artery without angina pectoris - Benign [...] - SSS (sick sinus syndrome) ([facility]) - Tubular adenoma of colon 09/29/2016 09/04/16, [...] to excessive soda pop atrial fib-rate controlled sustainability director anticoagulation atrial fib-stable on anti coagulatioin ASHD?stable [...] Medical Decision Making Level: 4 - Moderate [facility] Summary Purpose Family History No Family [...] CREATED AUTHOR AUTHOR'S ORGANIZ ATION 01/04/2018 [facility] DATE CREATED AUTHOR AUTHOR'S ORGANIZ ATION 08/26/2021 [facility] FOR RECORDS PERTAINING TO PATIENTS WHO [...] BE BASED ON THE PRIMARY CLINICAL RECORDS. [facility] provides no warranty or guarantee of the accuracy or completeness of information in this document.
[2023-09-19] MEDS: dilTIAZem 25 MG/5 ML Vial 10 MG IV BOLUS ×2 (17:02→18:26)
[2023-09-19 17:04] LABS: Absolute Lymphocyte Count 0.72 X10^3/uL (0.83-4.51); Absolute Neutrophil Count 8.2 X10^3/uL (2.0-7.7); Basophil# 0.03 X10^3/uL; Basophil% 0.3 % (0-1); Eosinophil# 0.07 X10^3/uL; Eosinophils% 0.7 % (0-5); Hematocrit 43.8 % (40-54); Hemoglobin 13.8 g/dL (13.0-16.5); Lymphocyte # 0.72 X10^3/ul (0.83-4.51); Lymphocyte % 7.4 % (19-41); Mean Corp Hgb Conc 31.5 g/dL (32-36); Mean Corpuscular Hgb 30.6 pg (27.0-32.0); Mean Corpuscular Volume 97.1 fL (80-94); Monocyte# 0.66 X10^3/uL; Monocyte% 6.8 % (0-10); NRBC Flagged by Analyzer 0 % (0-5); Neutrophil # 8.19 X10^3/uL (2.7-7.7); Neutrophil % 84.2 % (47-70); Platelet Count 279 K/mm3 (150-450); RBC Distribution Width CV 14.7 % (11.6-14.6); RBC Distribution Width SD 52.6 fl (35.1-43.9); Red Blood Count 4.51 M/mm3 (4.6-6.2); White Blood Count 9.7 K/mm3 (4.4-11.0)
[2023-09-19 17:20] LABS: AST(SGOT) 41 U/L (15-37); Alanine Aminotransfer ALT/SGPT 43 U/L (16-61); Albumin, Serum 3.4 g/dL (3.2-5.0); Alkaline Phosphatase 62 U/L (45-117); Anion Gap 12 (5-15); BUN 22 mg/dL (7-18); BUN/Creat Ratio 16.1 RATIO (10-20); Bilirubin, Direct 1.35 mg/dL (0.00-0.30); Calcium,Total 9.1 mg/dL (8.5-10.1); Chloride 101 mmol/L (98-107); Creatinine, Serum 1.37 mg/dL (0.70-1.30); EST Glomerular Filtration Rate 53 mL/min (>60); Est Glom Filt Rate - Afr Amer 65 mL/min (>60); Estimated Creatinine Clearance 55.63 ml/min; Globulin 3.8 g/dL (2.2-4.2); Glucose 129 mg/dL (74-106); Lipase 30 U/L (13-75); Potassium 4.3 mmol/L (3.5-5.1); Protein, Total 7.2 g/dL (6.4-8.2); Sodium Level 139 mmol/L (136-145); Troponin-I HS 9 pg/mL (3.0-78.0)
[2023-09-19 17:23] LABS: BNP,B-Type NATRIURETIC PEPTIDE 686.8 pg/mL (0-100)
--- NOTE | 2023-09-19 17:38 | RAD_ITS ---
EXAM: XR CHEST, 1 VIEW CLINICAL INDICATION: sob TECHNIQUE: Frontal view of the chest. COMPARISON: 06.04.22 FINDINGS: LUNGS AND PLEURAL SPACES: Question small bilateral pleural effusions. No pneumothorax. HEART: Enlarged heart. MEDIASTINUM: Central airways and mediastinal contour are unremarkable. BONES/JOINTS: Unremarkable. No acute fracture. SOFT TISSUES: Unremarkable. TUBES, LINES AND DEVICES: Left-sided pacemaker battery pack. RAD/Chest 1 View (Portable) IMPRESSION: Question small bilateral pleural effusions. Electronically Signed: Terrell Alfaro MD at 18:09 EDT ,
[2023-09-19] MEDS: fentaNYL 100 MCG/2 ML Ampul 12.5 MCG IV (18:25)
[2023-09-19 18:45] LABS: Mucous, Urine 0 SEEN /hpf (<or=2+)
[2023-09-19 18:52] LABS: Color, Urine Yellow (Yellow); Glucose, Dipstick Normal (Normal); Ketone-Dipstick 5 mg/dl (Negative); Leukocyte Esterase-Dipstick 25 /ul (Negative); Nitrite-Dipstick Negative (Negative); Occult Blood-Urine 250 /ul (Negative); Protein-Dipstick 30 mg/dl (Negative); Specific Gravity, Urine 1.015 (1.002-1.030); Urine Bilirubin Dipstick Negative (Negative); Urine Clarity Clear (Clear); Urine Urobilinogen 4 mg/dl (Normal)
[2023-09-19 18:59] LABS: Red Blood Cells-Urine 10-25 SEEN /hpf (0-5); Squamous Epithelial Cells - UA 0-5 SEEN /hpf (0-5); White Blood Cells 0-5 SEEN /hpf (0-5)
[2023-09-19 19:00] LABS: Bacteria RARE /hpf (None Seen)
[2023-09-19] MEDS: Furosemide 40 MG/4 ML Vial IV (19:49)
--- NOTE | 2023-09-19 19:58 | PCM.HP.STD ---
HPI - General General Date of Admission: 09/19/23 Date of Service: 09/19/23 Chief Complaint: Dyspnea, fatigue, vague abdominal discomfort. HPI Narrative The patient is a 78 y/o M w/ PMHx: Anxiety and Depression, CKD stage III unclear subtype, Obesity, CAD s/p PCI, PAF, HTN, HLD, Asthma, GERD, Former tobacco use, RADHA, RLS, BPH, Hx Sick sinus syndrome s/p pacemaker status, recent 09/10/23 laparoscopic robotic assisted left partial nephrectomy secondary to left renal mass with continue to hold on both aspirin and NOAC therapy per urology direction until upcoming visit with ongoing vague generalized abdominal comfort as well as occasional pain in the left flank with no specific dysuria, retention or increased frequency above baseline who presents to the [facility] ED on 09/19/23 with history of worsening generalized fatigue, malaise, dyspnea which is more marked with exertion and improves when he rests slowly with onset now lightheadedness and dizziness with no chest pain or palpitations but given ongoing prompted family bring him in for evaluation. Workup in the ED included T96.5, heart rate ranging 94-1 40s, BP 125/93 initially with most recent repeat 158/85, respiratory rate 20, 94% on room air, EKG with atrial fibrillation with RVR, CBC with WC 9.7, normal 13.8, platelet 279 with left shift and lymphopenia, CMP with BUN/creatinine 22/1.37, glucose 129, T. bili 2.0, D bili 1.34, AST/LT 41/43, troponin 9, BNP 686.8, lipase 30, urinalysis with specific gravity 1.015, protein 30, glucose normal, ketone 5, occult blood 250, negative nitrite, bilirubin negative, urobilinogen 4, leukocyte esterase 25 with urine RBCs 10-25 with no bacteria, chest x-ray with small bilateral pleural effusions, CT abdomen and pelvis with bilateral pleural effusions, calcifications of the coronary arteries and post ablative changes of the left kidney with mild left perinephric inflammatory stranding, left flank subcutaneous air, small air locules along the left perinephric space all consistent with recent procedure per radiology report. In the ED patient administered Lasix 40 mg IV x 1, fentanyl 12.5 mcg IV x 1, diltiazem 10 mg IV bolus x 2 and eventually placed on diltiazem drip. PFSH Medical History Abnormal ankle brachial index Arthritis Asthma Atherosclerotic heart disease of [place] coronary artery without angina pectoris Atrial fibrillation CAD in [place] artery Cardiology follow-up encounter Colon polyp Diverticulosis Essential hypertension Former smoker Gastric reflux GERD (gastroesophageal reflux disease) High cholesterol History of atrial fibrillation History of cardioversion (~05/16/19) History of echocardiogram History of edema History of pacemaker History of renal disease History of stress test Hyperlipidemia Non-smoker RADHA (obstructive sleep apnea) Osteoarthritis Presence of cardiac pacemaker (~2013) Prostate disease RLS (restless legs syndrome) Sick sinus syndrome Tubular adenoma of colon Ventral incisional hernia without obstruction or gangrene Wears glasses Wears partial dentures [place] diverticulum Home Medications nitroglycerin 0.4 mg sublingual tablet 0.4 mg sublingual Q5-15M PRN chest pain #25 tabs 12/29/21 [Rx Last Taken Unknown] rivaroxaban 20 mg tablet 20 mg PO DAILY #90 tabs 06/24/23 [Rx Last Taken 08/23/23] tamsulosin 0.4 mg capsule 0.4 mg PO DAILY prostate #90 caps 07/21/23 [Rx Last Taken 09/09/23] duloxetine 20 mg capsule,delayed release (Cymbalta) 20 mg PO BID #60 caps 08/19/23 [Rx Last Taken 09/09/23] aspirin 81 mg tablet,delayed release (Adult Aspirin Regimen) 81 mg PO DAILY 08/20/23 [History Last Taken 09/07/23] furosemide 40 mg tablet 40 mg PO DAILY PRN edema 08/20/23 [History Last Taken Unknown] metoprolol tartrate 100 mg tablet 100 mg PO BID #180 tabs 09/07/23 [Rx Last Taken 09/10/23] vit C 250 mg-vit E 90 mg-zinc 40 mg-copper 1 [id number] capsule (PreserVision AREDS-2) 1 tab PO BID 09/08/23 [History Last Taken 09/09/23] docusate sodium 100 mg capsule (Colace) 100 mg PO BID #20 caps 09/10/23 [Rx Last Taken Unknown] fenofibrate 160 mg tablet 160 mg PO DAILY #90 tabs 09/16/23 [Rx Last Taken Unknown] Allergy/AdvReac Type Severity Reaction Status Date / Time atorvastatin [From Lipitor] AdvReac Severe elevated Verified 09/19/23 16:19 LFT's lisinopril AdvReac Severe cough Verified 09/19/23 16:19 gemfibrozil AdvReac Unknown Unknown Verified 09/19/23 16:19 simvastatin AdvReac Unknown Unknown Verified 09/19/23 16:19 bacitracin AdvReac Unknown Verified 09/19/23 16:19 [From Triple Antibiotic] colistimethate sodium AdvReac Unknown Verified 09/19/23 16:19 [From Triple Antibiotic] gramicidin D AdvReac Unknown Verified 09/19/23 16:19 [From Triple Antibiotic] neomycin sulfate AdvReac Unknown Verified 09/19/23 16:19 [From Triple Antibiotic] polymyxin B AdvReac Unknown Verified 09/19/23 16:19 [From Triple Antibiotic] pramoxine HCl AdvReac Unknown Verified 09/19/23 16:19 [From Triple Antibiotic] Family History Mother CVA (cerebral vascular accident) Father Heart disease Sister Heart disease Other Arthritis Hyperlipemia Hypertension Surgical History H/O umbilical hernia repair History of cataract surgery History of colonoscopy (~04/2021) History of inguinal hernia repair History of laparoscopic cholecystectomy Postsurgical percutaneous transluminal coronary angioplasty (PTCA) status (~06/17/12) Presence of stent in coronary artery (~06/17/12) Social History household members: spouse Smoking Status: Former smoker how long ago did patient quit smokin' alcohol intake: never substance use type: does not use caffeine: Yes Type: carbonated beverages Number of servings: 3 ROS ROS Narrative Admission Review of Systems: CONSTITUTIONAL: No weight loss, fever, chills, + weakness or fatigue. HEENT: Eyes: No visual loss, blurred vision, double vision or yellow sclerae. Ears, Nose, Throat: No hearing loss, sneezing, congestion, runny nose or sore throat. SKIN: No rash or itching, lesions, wounds. CARDIOVASCULAR: No chest pain, chest pressure or chest discomfort, palpitations, edema, orthopnea, syncopal events. RESPIRATORY: + Dyspnea, worse with exertion. No marked cough or sputum, wheezing, hemoptysis. GASTROINTESTINAL: + Vague abdominal discomfort, occasional left flank discomfort with stabbing, nausea. No anorexia, vomiting or diarrhea, melena, BRBPR. GENITOURINARY: No dysuria, frequency, urgency or retention. NEUROLOGICAL: No headache, dizziness, syncope, paralysis, ataxia, numbness or tingling in the extremities, focal weakness, change in bowel or bladder control, seizure. MUSCULOSKELETAL: + muscle, back pain, joint pain or stiffness. HEMATOLOGIC: No anemia. + Easy bleeding/bruising. LYMPHATICS: No enlarged nodes. No history of splenectomy. PSYCHIATRIC: + History of anxiety and depression. ENDOCRINOLOGIC: No reports of sweating, cold or heat intolerance. No polyuria or polydipsia. ALLERGIES: + History of asthma. Vital Signs Vital Signs Vital Signs: 09/19/23 16:19 09/19/23 17:08 09/19/23 18:31 Temperature 96.5 F L 98.3 F Temperature Source Temporal Oral Pulse Rate 94 120 H 118 H Respiratory Rate 20 H 20 H 20 H Blood Pressure 125/93 H 130/73 H 142/84 H Blood Pressure Mean 103 92 103 Pulse Ox 99 94 97 Oxygen Delivery Method Room Air Room Air Room Air 09/19/23 19:38 09/19/23 19:53 Temperature 97.9 F 97.9 F Temperature Source Oral Pulse Rate 107 H 126 H Respiratory Rate 20 H 16 Blood Pressure 158/85 H 158/85 H Blood Pressure Mean 109 109 Pulse Ox 95 96 Oxygen Delivery Method Room Air Weight Weight: 238 lb 12.8 oz Body Mass Index (BMI) 33.3 Physical Exam Narrative Physical Examination: General: Awake, alert, oriented x 3 and cooperative, seated upright in the ED bed, fatigued appearing, no acute distress, notes dyspnea is improved at rest. Skin: Normal color, normal turgor, no icterus, no cyanosis except occasional staged ecchymoses. HEENT: AT/NC, EOMI, PERRLA, MMM, no carotid bruits, mildly + JVD noted. Lungs: Mildly diminished, greater bases, mild rales at the bases, rhonchi or wheezing, no evidence of distress. Heart: Irregular irregular; no gallop, rub audible. Abdomen: Soft, NTTP despite complaints of generalized vague discomfort with no rebound or guarding, no marked distention, mildly hyperactive BS, no marked appreciated HSM, no marked tenderness with palpation of the flanks. Extremities: No cyanosis, clubbing, or edema. Neurological: Patient awake, alert, oriented as noted, cognitive function intact; pupils equally reactive to light and accommodation, cranial nerves II-XII grossly normal, moving all 4 extremities, no focal deficits, strength moderately globally decreased secondary to acute presentation complaints Psychiatric: Affect appears fatigued, no acute evidence of depressive or anxiety feelings but does have underlying history. Results Lab / Micro Data 09/19/23 16:52 09/19/23 16:52 Labs: Laboratory Results - last 24 hr 09/19/23 16:52: WBC 9.7, RBC 4.51 L, Hgb 13.8, Hct 43.8, MCV 97.1 H, MCH 30.6, MCHC 31.5 L, RDW Std Deviation 52.6 H, RDW Coeff of Mimi 14.7 H, Plt Count 279, MPV 13.0 H, Immature Gran % (Auto) 0.600, Neut % (Auto) 84.2 H, Lymph % (Auto) 7.4 L, [place] % (Auto) 6.8, Eos % (Auto) 0.7, Baso % (Auto) 0.3, Absolute Neuts (auto) 8.2 H, Absolute Lymphs (auto) 0.72 L, Nucleated RBC % 0, Sodium 139, Potassium 4.3, Chloride 101, Carbon Dioxide 26.0, Anion Gap 12, BUN 22 H, Creatinine 1.37 H, Estim Creat Clear Calc 55.63, Est GFR (MDRD) Af Amer 65, Est GFR (MDRD) Non-Af 53 L, BUN/Creatinine Ratio 16.1, Glucose 129 H, Calcium 9.1, Total Bilirubin 2.30 H, Direct Bilirubin 1.35 H, AST 41 H, ALT 43, Alkaline Phosphatase 62, Troponin I High Sens 9, B-Natriuretic Peptide 686.8 H, Total Protein 7.2, Albumin 3.4, Globulin 3.8, Lipase 30 09/19/23 18:40: Urine Color Yellow, Urine Clarity Clear, Urine pH 5.0, Ur Specific [place] 1.015, Urine Protein 30 H, Urine Glucose (UA) Normal, Urine Ketones 5 H, Urine Occult Blood 250 H, Urine Nitrite Negative, Urine Bilirubin Negative, Urine Urobilinogen 4 H, Ur Leukocyte Esterase 25 H, Urine RBC 10-25 SEEN, Urine WBC 0-5 SEEN, Ur Squamous Epith Cells 0-5 SEEN, Urine Bacteria RARE, Urine Mucus 0 SEEN Imaging Radiology Impression Abdomen/Pelvis CT 09/19/23 16:37 IMPRESSION: 1. There are bilateral pleural effusions. 2. There are calcifications of the coronary arteries. 3. Postablative changes of the left kidney. Electronically Signed: Terrell Alfaro MD at 18:00 EDT , Chest X-Ray 09/19/23 17:38 IMPRESSION: Question small bilateral pleural effusions. Electronically Signed: Terrell Alfaro MD at 18:09 EDT , Assessment & Plan Assessment/Plan (1) Atrial fibrillation with RVR: PLAN: Plan The patient is a 78 y/o M w/ PMHx: Anxiety and Depression, CKD stage III unclear subtype, Obesity, CAD s/p PCI, PAF, HTN, HLD, Asthma, GERD, Former tobacco use, RADHA, RLS, BPH, Hx Sick sinus syndrome s/p pacemaker status, recent 09/10/23 laparoscopic robotic assisted left partial nephrectomy secondary to left renal mass with continue to hold on both aspirin and NOAC therapy per urology direction until upcoming visit with ongoing vague generalized abdominal comfort as well as occasional pain in the left flank with no specific dysuria, retention or increased frequency above baseline who presents to the [facility] ED on 09/19/23 with history of worsening generalized fatigue, malaise, dyspnea which is more marked with exertion and improves when he rests slowly with onset now lightheadedness and dizziness with no chest pain or palpitations but given ongoing prompted family bring him in for evaluation. #1. Paroxsymal atrial fibrillation w/ RVR with resulting acute HF, unclear specific type with bilateral small pleural effusions: EKG in ED w/ atrial fibrillation w/ RVR. Patient administered Cardizem 10 mg IV x 2 bolus without marked improvement eventually patient on Cardizem drip in ED. Will admit to PCU, maintain on telemetry, obtain cardiac enzyme serial set, obtain magnesium level, obtain ECHO, obtain TSH level, will continue IV diuresis. Patient is on NOAC however this was held for recent surgery as well as his aspirin therapy thus we will await urology input for potential resumption. Will continue Cardizem drip. If concerns arise or not improving low threshold to involve cardiology. #2. Hyperbilirubinemia, mild: Admission CMP with total bilirubin 2.30, D bilirubin 1.35, AST/LT 41/43, unclear etiology, will continue treatment as noted #1 repeat CMP in AM. If ongoing or worsens we will need to investigate further #3. Recent left renal mass status postresection: Patient with 09/10/2023 laparoscopic robotic assisted left partial nephrectomy per Dr. Younger, urinalysis with specific gravity 1.015, protein 30, glucose normal, ketone 5, occult blood 250, negative nitrite, bilirubin negative, urobilinogen 4, leukocyte esterase 25 with urine RBCs 10-25 with no bacteria, chest x-ray with small bilateral pleural effusions, CT abdomen and pelvis with bilateral pleural effusions, calcifications of the coronary arteries and post ablative changes of the left kidney with mild left perinephric inflammatory stranding, left flank subcutaneous air, small air locules along the left perinephric space all consistent with recent procedure per radiology report. Urology consulted to be cautious given ongoing pain, L flank discomfort. Will also need input from urology regarding start of aspirin and NOAC. #4. Chronic asthma: Encourage I-S, head of bed, not on chronic inhaler, will have as needed albuterol but use only absolutely necessary given PAF with RVR presentation. #5. History sick sinus syndrome: Status post pacemaker placement, interrogation requested. #6. Chronic Kidney Disease Stage III, unclear subtype: Admission BUN/Cr 22/1.37, baseline renal function 1.0-1.3, repeat CMP in AM. #7. Hypertension: Continue home regimen including metoprolol, PRN hydralazine. #8. Hyperlipidemia: Noted statin allergy, temporally hold fenofibrate, FLP in AM. #9. Obesity: Weight loss and lifestyle changes encouraged. #10. Anxiety and depression: We will continue patient home duloxetine regimen. #11. Restless leg syndrome: Per current list does not appear to be on chronic regimen, may add if necessary. #12. RADHA: CPAP q HS. #13. BPH: Looking patient on Flomax regimen. #14. Former tobacco use: Encourage continued tobacco cessation. #15. CAD: Status post PCI, awaiting urology input to ascertain if able to resume aspirin and NOAC therapy, noted statin allergy, will continue metoprolol regimen. Not on DONIS inhibitor/ARB with noted allergy listed. #16. Anxiety depression: We will continue patient on duloxetine regimen. #17. DVT prophylaxis: SCDs, will hold off on chemoprophylaxis or resumption of NOAC pending urology input as this is still been held until his upcoming visit. #18. CODE status: Patient does not have healthcare power of assistant county attorney nor living will in place but notes his who is present would be his decision maker if this was necessary. Discussed CODE status at length including difference between FULL code, DNR-CCA and DNR-CC status. Following discussions about the differences in these status, requested Full Code status. Advanced Care Planning Face to Face Time: 16 minutes. Charges/Coding Visit Charges Inpatient E&M: 15748 Init Hosp L3 Procedures Hospitalists Procedures: 80021 Advncd Care Plan 30 Min
--- OUTSIDE RECORDS SUMMARY | 2023-09-19 20:16 | XMS RPT_ITS | CCD ---
Author Name Unknown Address [address] [facility] [address] [place] [id number] Organization [facility] Care Team Providers Care Cae Engineer Name Role Phone KIRSTEN REED Unavailable Unavailable CEBUL III, NASIM A Unavailable Unavailable KIRSTEN REED Unavailable Unavailable CEBUL, NASIM Unavailable Unavailable KIRSTEN REED Unavailable Unavailable KIRSTEN REED Unavailable Unavailable Allergies Allergy Classification Reported Allergen(s) Allergy Type Date of Onset Reaction(s) Facility (2 sources) atorvastatin; Translations: [ATORVASTATIN CALCIUM] Drug Allergy 5 [facility] Repository (2 sources) gemfibrozil; Translations: [GEMFIBROZIL] Drug Allergy 5 [facility] Repository (2 sources) lisinopril; Translations: [LISINOPRIL] Drug Allergy 3 [facility] Repository (2 sources) simvastatin; Translations: [SIMVASTATIN] Drug Allergy 5 [facility] Repository (2 sources) OTHER; Translations: [OTHER] Propensity to adverse reactions (disorder) 8 [facility] Repository Problems Problem Classification Problem Date Documented Date Episodic/Chronic Coronary atherosclerosis and other heart disease (2 sources) Atherosclerotic heart disease of [place] coronary artery without angina pectoris; Translations: [Atherosclerotic heart disease of [place] coronary artery without angina pectoris] Onset: 06-17-2017 [...] 06-17-2017 Ambulatory KIRSTEN Rogers BRIANNA Kari Wu [facility] Payers Date Payer Category Payer Policy ID Medicare [id number] Clinical Note 05-09-2021 Note Date & Type Note Facility 05-09-2021 Note Patient Outreach (NICOLE TNAV) CONSTANTINO PEREZ ([id number]) 1945 M Date Time Provider Department 05/09/21 [...] Outcome/Action Unable to reach patient: Left message [employer]hart message sent Reason for Outreach Attribution: Provider Off-boarding Payer: Payor: [employer]ARE [employer]VANTAGE / Plan[place] / Product Type: HMO / Care [...] future healthcare decisions with a power of privacy attorney, living will, or advance directives? No. [...] August 15, 2019 3:03pm 08-15-2019 [facility] ([id number]) - Fenofibrate (LOFIBRA) 160 mg tablet Take [...] colon [K63.5] 02/04/2018 10/06/2018 Dyslipidemia [E78.5] 02/04/2018 intermediate frame tender (current) use of antithrombotics/anti*03/29/2017 Old myocardial infarction [I25.2] 03/29/2017 Presence of cardiac pacemaker [Z95.0] 02/04/2018 Pure hypercholesterolemia, unspecified [E78.00] 03/29/2017 Encounter Status:Closed by [facility]KA DURAN on 05/09/21 [facility] Progress note 05-09-2021 Note Date & Type Note Facility 05-09-2021 Note HNO ID: [id number] Author: [facility] Miki Service: ? Author Type: ? Type: Progress Notes Filed: 05/09/2021 11:52 AM Note Text: POPULATION HEALTH NAVIGATION OUTREACH Action/FYI I left a voice message and a my chart message re: pcp No care everywhere Contact made with patient or family member? NO Pt identified by name and : NO Outreach Outcome/Action Unable to reach patient: Left message [employer]hart message sent Reason for Outreach Attribution: Provider Off-boarding Payer: Payor: [employer]ARE [employer]VANTAGE / [place] / Product Type: HMO / Care [...] future healthcare decisions with a power of privacy attorney, living will, or advance directives? No. Please bring a copy to your next appointment or email to Referrals: N/A Message Sent to Practice: NO Navigation Signature: Meka Toure Population Health Navigator May 09, 2021 11:52 AM [facility] Progress note 02-26-2021 Note Date & Type Note Facility 02-26-2021 Note HNO ID: [id number] Author: Raul Ram APRN.[employer]ANCE MODEL Service: ? Author Type: Nurse Practitioner Type: [...] s/p stents - Atherosclerotic heart disease of [place] coronary artery without angina pectoris - Benign [...] SNARE 01/10/07 - COLONOSCOP W/ OR W/O [facility] SPEC 09/09/2011 Colonoscopy repeat 5 years - COLONOSCOP W/ OR W/O [facility] SPEC 09/03/2016 Colonoscopy - COLONOSCOP W/ OR W/O [facility] SPEC 09/03/2016 Colonoscopy - EGD W/O [...] August 15, 2019 3:03pm 08-15-2019 [facility] ([id number]) Fenofibrate (LOFIBRA) 160 mg tablet Take 1 [...] Rate and R (more content not included)... [facility] Progress note 09-13-2020 Note Date & Type Note Facility 09-13-2020 Note HNO ID: [id number] Author: Nasim Sales III Service: ? Author [...] good benefit 4. REDDY[facility] ASH[facility] and paroxysmal atrial fib under management by cardio PAST MEDICAL HISTORY Diagnosis Date - ASHD (arteriosclerotic heart disease) 06/21/2012 s/p stents - Atherosclerotic heart disease of [place] coronary artery without angina pectoris - Benign [...] August 15, 2019 3:03pm 08-15-2019 [facility] ([id number]) - Fenofibrate (LOFIBRA) 160 mg tablet Take [...] controlled PLAN: surgery referral follow up with industrial gas fitter as appointed same meds Nasim Sales III MD Medical Decision Making: Problems: Low: Acute, uncomplicated illness or injury and Stable chronic illness Risk: Low: Low risk from testing/treatment Medical Decision Making Level: 3 - Low Nasim Sales III MD [facility] Clinical Note 09-03-2020 Note Date & Type Note Facility 09-03-2020 Note Patient Outreach ([place] VAMN) CONSTANTINO PEREZ ([id number]) 1945 M Date Time Provider Department 09/03/20 [...] Fully Assessed Order(s):SARS-COVID VACCINE 1ST DOSE APPT [[id number]] Order #: [id number] FUTURE Prescriptions as of 09/03/2020 Sig: FENOFIBRATE [...] colon [K63.5] 02/04/2018 10/06/2018 Dyslipidemia [E78.5] 02/04/2018 correction (current) use of antithrombotics/anti*03/29/2017 Old myocardial infarction [I25.2] 03/29/2017 Presence of cardiac pacemaker [Z95.0] 02/04/2018 Pure hypercholesterolemia, unspecified [E78.00] 03/29/2017 Encounter Status:Closed by Delivered, [email or web address] on 09/06/20 [facility] Progress note 08-29-2020 Note Date & Type Note Facility 08-29-2020 Note HNO ID: [id number] Author: Nasim Sales III Service: ? Author [...] s/p stents - Atherosclerotic heart disease of [place] coronary artery without angina pectoris - Benign [...] - Snoring - SSS (sick sinus syndrome) ([facility]) - Tubular adenoma of colon 09/29/2016 [...] to excessive soda pop atrial fib-rate controlled terminal operator anticoagulation atrial fib-stable on anti coagulatioin ASHD?stable [...] Medical Decision Making Level: 4 - Moderate [facility] Summary Purpose Family History No Family History [...] DATE CREATED AUTHOR AUTHOR'S ORGANIZ ATION 01/04/2018 [facility] DATE CREATED AUTHOR AUTHOR'S ORGANIZ ATION 08/26/2021 [facility] FOR RECORDS PERTAINING TO PATIENTS WHO ARE [...] BE BASED ON THE PRIMARY CLINICAL RECORDS. [facility]. provides no warranty or guarantee of the accuracy or completeness of information in this document.
[2023-09-19] MEDS: Diltiazem 125 MG in Dextrose 5%-Water (100mL Bag) 100 ML CONT INF (20:18)
--- NOTE | 2023-09-19 21:07 | ECHOD_ITS ---
Reason For Study: CHF Procedure This was a 2D Doppler, Color Flow transthoracic echocardiogram. Exam performed portable in patient room. Left Ventricle Normal LV size. The estimated ejection fraction is 55 %. Unable to assess diastolic dysfunction. No regional wall motion abnormalities noted. Right Ventricle Normal RV size. Normal systolic function. Atria The left atrium is mildly enlarged. Normal right atrium. No doppler evidence for ASD. Mitral Valve There is mild mitral annular calcification. There is no mitral valve stenosis. Trivial mitral valve insufficiency. Tricuspid Valve There is no tricuspid stenosis. Trivial tricuspid valve insufficiency. Pulmonary artery systolic pressure is 25 mmHg. Aortic Valve Trisinus/trileaflet aortic valve. There is no aortic stenosis. Mild (1+) aortic valve insufficiency. Pulmonic Valve There is no pulmonic valvular stenosis. No pulmonic valve insufficiency. Great Vessels Normal aortic root. Pericardium/Pleural No pericardial effusion. Medication Unable to utilize Definity due to partial Nephrectomy. MMode/2D Measurements & Calculations LVIDd: 5.4 cm IVSd: 1.1 cm Ao root diam: 3.6 cm LVIDs: 3.7 cm LVPWd: 0.96 cm LA dimension: 5.1 cm RVDd: 3.7 cm FS: 31.3 % LAV(MOD-bp): 95.4 ml LA A4 area: 29.1 cm2 RA A4 area: 24.3 cm2 LAV(MOD-bp) Indexed: 43.0 ml/m2 LAV(MOD-sp2): 82.8 ml LAV(MOD-sp4): 105.0 ml TAPSE: 2.0 cm Doppler Measurements & Calculations MV E max lisandro: 64.4 cm/sec MV V2 max: 90.3 cm/sec Ao V2 max: 131.2 cm/sec MV max P.3 mmHg Ao max P.9 mmHg MV V2 mean: 43.7 cm/sec Ao V2 mean: 89.7 cm/sec MV mean P.99 mmHg Ao mean P.7 mmHg MV V2 VTI: 13.1 cm Ao V2 VTI: 24.8 cm AV (velocity ratio): 0.60 AI max lisandro: 361.1 cm/sec LV V1 max: 72.3 cm/sec MR max lisandro: 477.5 cm/sec AI max P.2 mmHg LV V1 max P.1 mmHg MR max P.2 mmHg LV V1 mean P.3 mmHg AI dec slope: 167.3 cm/sec2 LV V1 mean: 53.9 cm/sec AI P1/2t: 632.0 msec LV V1 VTI: 15.0 cm PA V2 max: 62.9 cm/sec TR max lisandro: 246.9 cm/sec TR max P.4 mmHg ECHO/Echo Complete Interpretation Summary The estimated ejection fraction is 55 %. Unable to assess diastolic dysfunction. The left atrium is mildly enlarged. Trivial mitral valve insufficiency. Mild (1+) aortic valve insufficiency. Ordering Physician: Eneida Lopez Referring Physician: Ruma Terry M.D. Performed By: Trent Vo RCS
[2023-09-19] MEDS: Docusate Sodium 100 MG Capsule PO (22:21)
[2023-09-19] MEDS: Metoprolol Tartrate 100 MG Tablet PO (22:22)
[2023-09-19] MEDS: DULoxetine Hcl 20 MG Capsule PO (22:23)
[2023-09-19 23:03] LABS: Troponin-I HS 10 pg/mL (3.0-78.0)
[2023-09-20] VITALS (18 sets, daily range): BP systolic 98–147; BP diastolic 51–95; PULSE 77–90; RESP 12–21; TEMP 36.4–36.6; O2SAT 88–97; BMI 31.6
[2023-09-20 00:39] LABS: Troponin-I HS 9 pg/mL (3.0-78.0)
[2023-09-20 05:09] LABS: Absolute Lymphocyte Count 0.71 X10^3/uL (0.83-4.51); Absolute Neutrophil Count 6.9 X10^3/uL (2.0-7.7); Basophil# 0.04 X10^3/uL; Basophil% 0.5 % (0-1); Eosinophil# 0.12 X10^3/uL; Eosinophils% 1.4 % (0-5); Hematocrit 39.8 % (40-54); Lymphocyte # 0.71 X10^3/ul (0.83-4.51); Lymphocyte % 8.3 % (19-41); Mean Corp Hgb Conc 32.7 g/dL (32-36); Mean Corpuscular Hgb 30.9 pg (27.0-32.0); Mean Corpuscular Volume 94.5 fL (80-94); Monocyte# 0.78 X10^3/uL; Monocyte% 9.1 % (0-10); NRBC Flagged by Analyzer 0 % (0-5); Neutrophil # 6.88 X10^3/uL (2.7-7.7); Neutrophil % 79.9 % (47-70); Platelet Count 255 K/mm3 (150-450); RBC Distribution Width CV 14.7 % (11.6-14.6); RBC Distribution Width SD 50.8 fl (35.1-43.9); Red Blood Count 4.21 M/mm3 (4.6-6.2); White Blood Count 8.6 K/mm3 (4.4-11.0)
[2023-09-20 05:38] LABS: AST(SGOT) 37 U/L (15-37); Alanine Aminotransfer ALT/SGPT 35 U/L (16-61); Albumin, Serum 3.1 g/dL (3.2-5.0); Alkaline Phosphatase 52 U/L (45-117); Anion Gap 10 (5-15); BUN 22 mg/dL (7-18); BUN/Creat Ratio 20.4 RATIO (10-20); Calcium,Total 8.7 mg/dL (8.5-10.1); Chloride 100 mmol/L (98-107); Cholesterol 114 mg/dL (200); Creatinine, Serum 1.08 mg/dL (0.70-1.30); EST Glomerular Filtration Rate 70 mL/min (>60); Est Glom Filt Rate - Afr Amer 85 mL/min (>60); Estimated Creatinine Clearance 69.51 ml/min; Globulin 3.2 g/dL (2.2-4.2); Glucose 99 mg/dL (74-106); High Density Lipoprotein 20 mg/dL; Potassium 3.5 mmol/L (3.5-5.1); Protein, Total 6.3 g/dL (6.4-8.2); Sodium Level 138 mmol/L (136-145); Thyroid Stim Hormone (TSH) 3.53 uIU/mL (0.358-3.74); Triglycerides 156 mg/dL; Troponin-I HS 11 pg/mL (3.0-78.0); Very Low Density Lipoprotein 31 mg/dL (5-40)
--- NOTE | 2023-09-20 07:49 | PCM.CONS.B ---
Consult Date of Consult: 09/20/23 Reason for Consult 78-year-old male status post left partial nephrectomy for renal mass, he has been admitted to the hospital for cardiac issues from my standpoint okay to restart anticoagulation from surgery given he questions can you call
[2023-09-20] MEDS: Diltiazem 125 MG in Dextrose 5%-Water (100mL Bag) 100 ML 10 MG CONT INF (08:11)
[2023-09-20] MEDS: Metoprolol Tartrate 100 MG Tablet PO (09:16)
[2023-09-20] MEDS: Docusate Sodium 100 MG Capsule PO (09:16)
[2023-09-20] MEDS: DULoxetine Hcl 20 MG Capsule PO (09:17)
[2023-09-20] MEDS: Tamsulosin HCl 0.4 MG Capsule 0.400000000000000022 MG PO (09:17)
[2023-09-20] MEDS: Furosemide 40 MG/4 ML Vial IV (09:17)
[2023-09-20] MEDS: 0.9% Saline Lock 10 ML Syringe IV ×2 (09:17→14:16)
--- NOTE | 2023-09-20 10:55 | CASEMGMT ---
RN CM Face to Face with patient for initial transition planning/care coordination assessment. RN CM introduced self and role at [facility]. Patient lying in bed, alert and oriented, family at bedside. Patient willing to participate in assessment and is able to answer all questions appropriately. Care providers, pharmacy, and demographics verified. PCP: [facility] Specialists: Chip, casino controller; Aren, urologist Preferred Pharmacy: [facility] Insurance: [place] Prescription Benefit: yes Living Will/HPOA: none LNOK: , son Living Arrangements: Patient lives with in a 2 story home. Patient is independent and able to ambulate stairs. Transportation: self, DME/HHC: Patient denies DME in the home. No previous HHC or SNF. Patient wishes to discharge home, denies need for home health at this time. Patient states he has no further needs or concerns at this time. CM to follow for discharge planning needs that may arise. Disposition Plan: Patient to discharge home with family suppor and follow-up plans in place. Rossy WHYTE, RN, CM
[2023-09-20] MEDS: dilTIAZem CD 120 MG Capsule PO (14:16)
--- NOTE | 2023-09-20 16:17 | PCM.DC.SUM ---
Providers Date of Admission: 09/19/23 Date of Discharge: 09/20/23 Primary Care Physician: Dr. Ruma Terry MD Consultations 09/19/23 21:07 Consult: Urology Routine Consulting Provider: Abdullahi Younger Reason for Consult: recent partial nephrectomy, abd pain, ? restart noac/asa EMERGENT Consult: No MD Notified: Yes Date Notified: 09/19/23 Time Notified: 20:14 Method of Notification: Verbal Reason For Visit: PAF RVR Diagnosis Discharge Diagnosis (1) Atrial fibrillation with RVR: Status: Acute Code(s): I48.91 - Unspecified atrial fibrillation Medications at Discharge Home Medications nitroglycerin 0.4 mg sublingual tablet 0.4 mg sublingual Q5-15M PRN chest pain #25 tabs 12/29/21 rivaroxaban 20 mg tablet 20 mg PO DAILY #90 tabs 06/24/23 tamsulosin 0.4 mg capsule 0.4 mg PO DAILY prostate #90 caps 07/21/23 duloxetine 20 mg capsule,delayed release (Cymbalta) 20 mg PO BID #60 caps 08/19/23 aspirin 81 mg tablet,delayed release (Adult Aspirin Regimen) 81 mg PO DAILY 08/20/23 furosemide 40 mg tablet 40 mg PO DAILY PRN edema 08/20/23 metoprolol tartrate 100 mg tablet 100 mg PO BID #180 tabs 09/07/23 vit C 250 mg-vit E 90 mg-zinc 40 mg-copper 1 [id number] capsule (PreserVision AREDS-2) 1 tab PO BID 09/08/23 docusate sodium 100 mg capsule (Colace) 100 mg PO BID #20 caps 09/10/23 fenofibrate 160 mg tablet 160 mg PO DAILY #90 tabs 09/16/23 diltiazem HCl 120 mg capsule,extended release 24 hr 120 mg PO Q12 #60 caps 09/20/23 Hospital Course Procedures 2-D Echocardiogram, EKG and - (CT abdomen and pelvis) Summary of Care Provided Minutes Spent on Discharge: 38 Hospital Course: Mr. Perez is a 78-year-old white male who presented to the emergency department [facility] on 09/19/2023 with shortness of breath and fatigue along with vague abdominal discomfort. The patient was recently admitted here on 09/10/2023 for a laparoscopic robotic assisted left partial nephrectomy secondary to renal mass. He had previously been on aspirin and NOAC therapy for his cardiac history and per urology they had both been held. Upon presentation the emergency department he was complaining of worsening generalized fatigue, malaise, and shortness of breath that was more marked on exertion and improved with rest. He also had some intermittent lightheadedness and dizziness. Vital signs on presentation showed a temperature of 96.5, heart rate was 94 to 140 bpm, blood pressure was 125/93, respiratory rate was 20 and oxygen saturations were 94% on room air. His EKG showed atrial fibrillation with RVR. His CBC was unremarkable. His CMP showed a serum BUN and creatinine of 22 and 1.37 respectively. Bilirubin was 2 with a direct bili of 1.3 and his transaminases were unremarkable. His troponin was normal however his BNP was found to be elevated at 686.8. His lipase was 30. UA was unremarkable for any signs of acute infection. Chest x-ray and abdominal CT both showed small bilateral pleural effusions that were trace upon my review. CT of the abdomen pelvis showed no significant abnormalities other than some mild left perinephritic inflammatory stranding and left flank subcutaneous air consistent with previous surgery. In the emergency department he did receive Lasix IV x 1 dose, fentanyl, diltiazem IV bolus and was placed on a diltiazem drip. He was admitted to PCU and an echocardiogram was obtained. Echocardiogram showed an EF of 55% with undiscernible diastolic function, mildly enlarged left atrium, trivial mitral valve insufficiency and mild aortic valve insufficiency all stable when compared to previous. Upon review of records he recently did see cardiology and his A-fib has intermittently been difficult to control. He does have a pacemaker and ranges of his heart rates on there had intermittently been 120-140. His beta-azul was changed from metoprolol to tartrate 100 mg twice daily and his oral anticoagulation was recommended to be started as soon as possible. Urology did see the patient in consultation for reinitiating his anticoagulation and they felt from his standpoint postoperatively restarting anticoagulation would be appropriate and his Xarelto was reinstituted. We will continue to hold his aspirin until 09/24/2023. On the Cardizem drip his heart rate improved considerably. We discontinue the Cardizem drip and placed him on Cardizem 120 mg p.o. twice daily. 2 hours after the administration of oral Cardizem his heart rates remained stable with stable blood pressures. His did indicate his oral appetite has been problematic since he suffered from herpes zoster infection that affected his tongue. The patient states he does not have any abdominal pain, nausea, or vomiting and states his appetite is just not as good because things do not taste well. We did discuss initiating some oral supplements if his oral intake was not adequate at dinners and family indicated that they would follow-up with his primary care physician with regards to his oral intake if it continued to be problematic. I have asked follow-up with cardiology to be obtained and we were able to schedule an appointment for him to be seen on 10/05/2023 at 1:30 PM to review his heart rates and to ensure that the addition of the Cardizem has been adequate in controlling his A-fib. I have also asked him to periodically check his heart rates and blood pressure at home which he indicated he would do. His Xarelto was reinstituted at discharge however we will continue to hold his aspirin and reinitiate that on 09/24/2023. New prescription for Cardizem was sent to local pharmacy and the patient was able to be discharged in stable condition. With regards to his heart failure on presentation I suspect it was exacerbated by his rapid rates and he diuresed well and was almost 3 L negative at the time of discharge. He is to continue his home Lasix as needed for now if any swelling develops. The patient was discharged home in stable condition on 09/20/2023. I have also asked him to follow-up with his primary care physician within the next 1 to 2 weeks. Discharge diagnoses: Atrial fibrillation with rapid ventricular rate-resolved Acute HFpEF-resolved Hyperbilirubinemia-recommend outpatient follow-up to ensure correction but currently stable without worsening and normal LFTs Renal mass status post resection Asthma History of A-fib with sick sinus syndrome status post pacemaker Hypertension Hyperlipidemia Obesity Restless leg syndrome RADHA BPH with obstruction CAD Obesity Anxiety/depression Physical Exam Narrative Patient states he is feeling well at this time. Heart rates are well-controlled and his A-fib is chronic. He is anxious to go home if appropriate which it seems like he is at this point now that his heart rates are improved. His is concerned that his p.o. appetite has been problematic however he had zoster which affected his tongue and he states his appetite is just not the same. We did discuss using Glucerna shakes to supplement his diet if he does not eat well at meals and to continue outpatient follow-up with his primary care physician. Const alert, oriented x3, no apparent distress, no limitations and well nourished; Negative for average body habitus Constitutional Narrative: Obese, elderly, white male, sitting up in a chair at the bedside, family at the bedside, appears comfortable and nontoxic General Appearance: cooperative, comfortable, well kempt and well developed Orientation / Consciousness: awake, oriented to person, oriented to place and oriented to time Exam Limitations: no limitations Nutritional Appearance: obese HEENT normocephalic, head/scalp atraumatic, hearing grossly normal bilaterally, moist oral mucous membranes and oropharynx normal HEENT Narrative: Mallampati is 3, no thrush Eyes PERRL, EOMs intact bilaterally and conjunctivae normal Eyes Narrative: No scleral icterus Neck no lymphadenopathy and supple Neck Narrative: Trachea midline, neck is short and thick, no thyroid enlargement noted Resp normal respiratory effort, no retractions, no use of accessory muscles and clear to auscultation bilaterally Auscultation: Negative for rales, rhonchi or wheezes Cardio regular rate, S1 normal heart sound, S2 normal heart sound, no murmurs, no rub, no gallops and no clicks; Negative for regular rhythm Cardio Narrative: Irregular irregular rhythm with well-controlled rate GI normal to inspection, nondistended, normoactive bowel sounds, soft to palpation and non-tender Extremity no clubbing, cyanosis or edema Extremity Narrative: Pedal pulses are 2+ Skin no rashes or lesions noted, no wounds, skin turgor normal and no jaundice Neuro oriented x3, moves all extremities and no focal motor deficits Speech: speech normal Psych affect normal Psych Narrative: Eye contact is good, patient interacts appropriately Weight / BMI Weight Weight: 102.7 kg Body Mass Index (BMI) 31.6 ABG / Lab / Microbiology Data 09/20/23 04:15 09/20/23 04:15 Laboratory: Laboratory Results - last 24 hr 09/19/23 16:52: WBC 9.7, RBC 4.51 L, Hgb 13.8, Hct 43.8, MCV 97.1 H, MCH 30.6, MCHC 31.5 L, RDW Std Deviation 52.6 H, RDW Coeff of Mimi 14.7 H, Plt Count 279, MPV 13.0 H, Immature Gran % (Auto) 0.600, Neut % (Auto) 84.2 H, Lymph % (Auto) 7.4 L, [place] % (Auto) 6.8, Eos % (Auto) 0.7, Baso % (Auto) 0.3, Absolute Neuts (auto) 8.2 H, Absolute Lymphs (auto) 0.72 L, Nucleated RBC % 0, Sodium 139, Potassium 4.3, Chloride 101, Carbon Dioxide 26.0, Anion Gap 12, BUN 22 H, Creatinine 1.37 H, Estim Creat Clear Calc 55.63, Est GFR (MDRD) Af Amer 65, Est GFR (MDRD) Non-Af 53 L, BUN/Creatinine Ratio 16.1, Glucose 129 H, Calcium 9.1, Magnesium 2.0, Total Bilirubin 2.30 H, Direct Bilirubin 1.35 H, AST 41 H, ALT 43, Alkaline Phosphatase 62, Troponin I High Sens 9, B-Natriuretic Peptide 686.8 H, Total Protein 7.2, Albumin 3.4, Globulin 3.8, Lipase 30 09/19/23 18:40: Urine Color Yellow, Urine Clarity Clear, Urine pH 5.0, Ur Specific [place] 1.015, Urine Protein 30 H, Urine Glucose (UA) Normal, Urine Ketones 5 H, Urine Occult Blood 250 H, Urine Nitrite Negative, Urine Bilirubin Negative, Urine Urobilinogen 4 H, Ur Leukocyte Esterase 25 H, Urine RBC 10-25 SEEN, Urine WBC 0-5 SEEN, Ur Squamous Epith Cells 0-5 SEEN, Urine Bacteria RARE, Urine Mucus 0 SEEN 09/19/23 22:31: Troponin I High Sens 10 09/20/23 00:15: Troponin I High Sens 9 09/20/23 04:15: WBC 8.6, RBC 4.21 L, Hgb 13.0, Hct 39.8 L, MCV 94.5 H, MCH 30.9, MCHC 32.7, RDW Std Deviation 50.8 H, RDW Coeff of Mimi 14.7 H, Plt Count 255, MPV 13.0 H, Immature Gran % (Auto) 0.800, Neut % (Auto) 79.9 H, Lymph % (Auto) 8.3 L, [place] % (Auto) 9.1, Eos % (Auto) 1.4, Baso % (Auto) 0.5, Absolute Neuts (auto) 6.9, Absolute Lymphs (auto) 0.71 L, Nucleated RBC % 0, Sodium 138, Potassium 3.5, Chloride 100, Carbon Dioxide 28.0, Anion Gap 10, BUN 22 H, Creatinine 1.08, Estim Creat Clear Calc 69.51, Est GFR (MDRD) Af Amer 85, Est GFR (MDRD) Non-Af 70, BUN/Creatinine Ratio 20.4 H, Glucose 99, Calcium 8.7, Total Bilirubin 2.30 H, AST 37, ALT 35, Alkaline Phosphatase 52, Troponin I High Sens 11, Total Protein 6.3 L, Albumin 3.1 L, Globulin 3.2, Albumin/Globulin Ratio 1.0, Triglycerides 156, Cholesterol 114, LDL Cholesterol 63, VLDL Cholesterol 31, HDL Cholesterol 20 L, TSH 3.53 Radiography Diagnostic Testing: Radiology Impression Abdomen/Pelvis CT 09/19/23 16:37 IMPRESSION: 1. There are bilateral pleural effusions. 2. There are calcifications of the coronary arteries. 3. Postablative changes of the left kidney. Electronically Signed: Terrell Alfaro MD at 18:00 EDT , Chest X-Ray 09/19/23 17:38 IMPRESSION: Question small bilateral pleural effusions. Electronically Signed: Terrell Alfaro MD at 18:09 EDT , Echocardiogram 09/19/23 21:07 Interpretation Summary The estimated ejection fraction is 55 %. Unable to assess diastolic dysfunction. The left atrium is mildly enlarged. Trivial mitral valve insufficiency. Mild (1+) aortic valve insufficiency. Ordering Physician: Eneida Lopez Referring Physician: Ruma Terry M.D. Performed By: Trent Vo RCS D/C Instructions Discharge Diet: Low fat / Low cholesterol Discharge Activity: Return to Normal Activity Meaningful Use Info Meaningful Use Diagnoses (Choose all that apply): None applicable Discharge Plan Admission Admit Date/Time: 09/19/23 20:14 Primary Reason for Your Visit: Fatigue/shortness of breath Attending Provider: Christi Lee Primary Care Provider: Ruma Terry Consulting Providers: Eneida Lopez; Abdullahi Younger Discharge Orders/Prescriptions Prescriptions: New diltiazem HCl 120 mg Capsule,Extended Release 24hr 120 mg PO Q12 Qty: 60 1RF Continued rivaroxaban 20 mg tablet 20 mg PO DAILY Qty: 90 3RF Hold Instructions: Resume on 09/24/23. metoprolol tartrate 100 mg tablet 100 mg PO BID Qty: 180 3RF furosemide 40 mg tablet 40 mg PO DAILY PRN PreserVision AREDS-2 250-90-40-1 mg capsule 1 tab PO BID docusate sodium [Colace] 100 mg capsule 100 mg PO BID Qty: 20 0RF nitroglycerin 0.4 mg tablet, sublingual 0.4 mg sublingual Q5-15M PRN (Reason: chest pain) Qty: 25 3RF tamsulosin 0.4 mg capsule 0.4 mg PO DAILY Qty: 90 3RF duloxetine [Cymbalta] 20 mg capsule,delayed release(DR/EC) 20 mg PO BID Qty: 60 1RF fenofibrate 160 mg tablet 160 mg tablet 160 mg PO DAILY Qty: 90 3RF Held aspirin [Adult Aspirin Regimen] 81 mg tablet,delayed release (DR/EC) 81 mg PO DAILY Hold Instructions: Resume on 09/24/23. Referrals / Follow Up: Ruma Terry MD [Primary Care Provider] - Within 1 Week Franky Saunders MD [Med Staff - Active Staff] - 10/05/23 1:30 pm Disposition Disposition (needs filled in before D/C Order can be placed): Home, Self Care Charges/Coding Visit Charges Inpatient E&M: 01758 Disch Hosp >30min
--- NOTE | 2023-09-20 16:40 | CASEMGMT ---
Patient has order for discharge. RN CM in to discuss needs at discharge. Patient denies needs or help at discharge. Patient had no further questions or concerns.
== END 2023-09-20 17:37 | disposition home or self-care (01) | DRG 308 ==
LOC: ED 19:43 → PCU 20:14
PROVIDERS: Admitting Provider Family Medicine; Emergency Provider Emergency Medicine; PCP Internal Medicine; Visit Provider Internal Medicine
DX: I48.0 Paroxysmal atrial fibrillation (principal); I50.31 Acute diastolic (congestive) heart failure; I13.0 Hypertensive heart and chronic kidney disease with heart failure and stage 1 through stage 4 chronic kidney disease, or unspecified chronic kidney disease; N13.8 Other obstructive and reflux uropathy; N18.30 Chronic kidney disease, stage 3 unspecified; G25.81 Restless legs syndrome; J45.909 Unspecified asthma, uncomplicated; F32.A Depression, unspecified; I35.1 Nonrheumatic aortic (valve) insufficiency; E78.00 Pure hypercholesterolemia, unspecified; I25.10 Atherosclerotic heart disease of native coronary artery without angina pectoris; G47.33 Obstructive sleep apnea (adult) (pediatric); F41.9 Anxiety disorder, unspecified; E80.7 Disorder of bilirubin metabolism, unspecified; E66.9 Obesity, unspecified; Z79.01 Long term (current) use of anticoagulants; R42 Dizziness and giddiness; N40.1 Benign prostatic hyperplasia with lower urinary tract symptoms; Z87.891 Personal history of nicotine dependence; Z79.82 Long term (current) use of aspirin; Z79.899 Other long term (current) drug therapy; Z95.0 Presence of cardiac pacemaker; Z95.5 Presence of coronary angioplasty implant and graft; Z68.33 Body mass index [BMI] 33.0-33.9, adult
CPT/HCPCS: 36415; 71045; 74177; 80048; 80053; 80061; 80076; 81001; 83690; 83735; 83880; 84443; 84484; 85025; 93005; 93306; 94640; 97162; 97166; 97802; 99284; Q9967; A4216; J1940

== ENCOUNTER → 2023-10-11 | Outpatient (CLI) | payer MEDICARE, SELFPAY ==
[2023-10-11 10:21] LABS: Hematocrit 45.8 % (40-54); Hemoglobin 14.8 g/dL (13.0-16.5); Mean Corp Hgb Conc 32.3 g/dL (32-36); Mean Corpuscular Hgb 31.1 pg (27.0-32.0); Mean Corpuscular Volume 96.2 fL (80-94); Mean Platelet Vol. 12.7 fl (6.2-12.0); Platelet Count 197 K/mm3 (150-450); RBC Distribution Width CV 14.9 % (11.6-14.6); RBC Distribution Width SD 53.6 fl (35.1-43.9); Red Blood Count 4.76 M/mm3 (4.6-6.2)
[2023-10-11 10:57] LABS: Anion Gap 3 (5-15); BUN 18 mg/dL (7-18); Calcium,Total 9.1 mg/dL (8.5-10.1); Chloride 107 mmol/L (98-107); Creatinine, Serum 1.06 mg/dL (0.70-1.30); EST Glomerular Filtration Rate 72 mL/min (>60); Est Glom Filt Rate - Afr Amer 87 mL/min (>60); Glucose 98 mg/dL (74-106); Potassium 4.2 mmol/L (3.5-5.1); Sodium Level 138 mmol/L (136-145)
[2023-10-11 11:07] LABS: Digoxin Level 0.73 ng/mL (0.80-2.00)
== END | disposition home or self-care (01) ==
LOC: LAB 09:49
PROVIDERS: PCP Internal Medicine; Referring Provider Internal Medicine Cardiovascular Disease; Visit Provider Internal Medicine Cardiovascular Disease
DX: I48.91 Unspecified atrial fibrillation (principal); Z79.01 Long term (current) use of anticoagulants
CPT/HCPCS: 36415; 80048; 80162; 85027

== ENCOUNTER 2023-10-15 10:21 | Emergency (ER) | payer MEDICARE, SELFPAY ==
[2023-10-15 10:22] VITALS: BP 124/85; PULSE 99; RESP 16; TEMP 36.2; O2SAT 99; BMI 31.0
--- NOTE | 2023-10-15 10:47 | CT_ITS ---
STUDY: CT ABDOMEN AND PELVIS WITH CONTRAST REASON FOR EXAM: Male, 78 years old. Hematuria, partial nephrectomy 09/10/23 RADIATION DOSAGE (If Supplied By Facility): CTDIvol = ( 21.79 ) mGy, DLP = ( 2066.58 ) mGycm TECHNIQUE: Transaxial images were obtained from the dome of the diaphragm to the symphysis pubis without oral contrast. IV 100mL Isovue-300 was administered. Sagittal and coronal images were reconstructed. Individualized dose optimization techniques were used for this CT. COMPARISON: September 19, 2023 FINDINGS: There is small left pleural effusion. There are pacemaker wires in the heart. Normal liver. Gallbladder is not seen consistent with cholecystectomy. There is a benign calcified granuloma of the spleen. Normal pancreas. Normal bilateral adrenal glands. There are 1.6 and 0.5 cm cysts of the left kidney. There is 0.4 cm stone at the lower pole of the left kidney. There is postoperative change of the left kidney. There is 3.5 cm fluid collection in the surgical bed with new region of focal enhancement and potential active hemorrhage, series 2 image 50. There is left perinephric stranding. Normal visualized stomach. Normal small intestine. There are multiple colonic diverticula consistent with diverticulosis. The appendix is visualized and appears normal. There is diffuse atherosclerotic calcification of the abdominal aorta, without a demonstrated aneurysm. Normal inferior vena cava. Normal retroperitoneum. There is 7.8 cm increased density consistent with hematoma in the urinary bladder. There is no free fluid in the abdomen or pelvis. There is postoperative change of the left inguinal region. There is mild degenerative change of the spine and hips. CT/Abdomen/Pelvis W IV Cont ONLY IMPRESSION: Postoperative change of the left kidney. Mild increased size of fluid collection in the surgical bed with enhancing region and potential active hemorrhage. Probable hematoma in the urinary bladder. Right renal stone. No hydronephrosis. Colonic diverticulosis. No obstruction. N.B. : The above Results were Read Back by Jeremiah Major MD to Kaci Rodríguez MD, and understanding confirmed on 10/15/2023 12:47:55 (ET). Electronically Signed: Jeremiah Major MD at 12:49 EDT ,
--- NOTE | 2023-10-15 10:49 | EX.ED.DYSGE1 ---
HPI History of Present Illness Chief Complaint: Complaint Detail of Chief Complaint: Hematuria Informant: patient Narrative Narrative: Patient presents secondary hematuria. He had a left partial nephrectomy to have a cyst removed on September [address] Younger. He returned to the emergency room 9 days later with A-fib RVR. He was admitted to the hospital for evaluation and restarted on his anticoagulants. Patient states his symptoms been well-controlled. This morning he woke up with hematuria and frequency. He does report passing some clots when he urinated. He reports very mild left flank pain. No recent fever or chills. [facility] Medical History Abnormal ankle brachial index Arthritis Asthma Atherosclerotic heart disease of [place] coronary artery without angina pectoris Atrial fibrillation CAD in [place] artery Cardiology follow-up encounter Colon polyp Current use of long-term anticoagulation Diverticulosis Essential hypertension Former smoker Gastric reflux GERD (gastroesophageal reflux disease) High cholesterol History of atrial fibrillation History of cardioversion (~05/16/19) History of echocardiogram History of edema History of pacemaker History of renal disease History of stress test Hyperlipidemia Non-smoker RADHA (obstructive sleep apnea) Osteoarthritis Presence of cardiac pacemaker (~2013) Prostate disease RLS (restless legs syndrome) Sick sinus syndrome Tubular adenoma of colon Ventral incisional hernia without obstruction or gangrene Wears glasses Wears partial dentures Zenkers diverticulum Home Medications nitroglycerin 0.4 mg sublingual tablet 0.4 mg sublingual Q5-15M PRN chest pain #25 tabs 12/29/21 [Rx Last Taken Unknown] rivaroxaban 20 mg tablet 20 mg PO DAILY #90 tabs 06/24/23 [Rx Last Taken 08/23/23] tamsulosin 0.4 mg capsule 0.4 mg PO DAILY prostate #90 caps 07/21/23 [Rx Last Taken 09/09/23] aspirin 81 mg tablet,delayed release (Adult Aspirin Regimen) 81 mg PO DAILY 08/20/23 [History Last Taken 09/07/23] furosemide 40 mg tablet 40 mg PO DAILY edema 08/20/23 [History Last Taken Unknown] vit C 250 mg-vit E 90 mg-zinc 40 mg-copper 1 [id number]-ybvqsy capsule (PreserVision AREDS-2) 1 tab PO BID 09/08/23 [History Last Taken 09/09/23] docusate sodium 100 mg capsule (Colace) 100 mg PO BID #20 caps 09/10/23 [Rx Last Taken Unknown] fenofibrate 160 mg tablet 160 mg PO DAILY #90 tabs 09/16/23 [Rx Last Taken Unknown] digoxin 125 mcg (0.125 mg) tablet (Lanoxin) 125 mcg PO DAILY HR #60 tabs 09/30/23 [Rx Last Taken Unknown] duloxetine 20 mg capsule,delayed release (Cymbalta) 20 mg PO BID #60 caps 10/06/23 [Rx Last Taken Unknown] diltiazem HCl 240 mg capsule,extended release 24 hr (Cartia XT) 240 mg PO DAILY 10/15/23 [History Last Taken Unknown] metoprolol tartrate 100 mg tablet 25 mg PO DAILY 10/15/23 [History Last Taken Unknown] pantoprazole 40 mg tablet,delayed release 40 mg PO DAILY 10/15/23 [History Last Taken Unknown] Allergy/AdvReac Type Severity Reaction Status Date / Time atorvastatin [From Lipitor] AdvReac Severe elevated Verified 10/15/23 10:23 LFT's lisinopril AdvReac Severe cough Verified 10/15/23 10:23 gemfibrozil AdvReac Unknown Unknown Verified 10/15/23 10:23 simvastatin AdvReac Unknown Unknown Verified 10/15/23 10:23 bacitracin AdvReac Unknown Verified 10/15/23 10:23 [From Triple Antibiotic] colistimethate sodium AdvReac Unknown Verified 10/15/23 10:23 [From Triple Antibiotic] gramicidin D AdvReac Unknown Verified 10/15/23 10:23 [From Triple Antibiotic] neomycin sulfate AdvReac Unknown Verified 10/15/23 10:23 [From Triple Antibiotic] polymyxin B AdvReac Unknown Verified 10/15/23 10:23 [From Triple Antibiotic] pramoxine HCl AdvReac Unknown Verified 10/15/23 10:23 [From Triple Antibiotic] Family History Mother CVA (cerebral vascular accident) Father Heart disease Sister Heart disease Other Arthritis Hyperlipemia Hypertension Surgical History H/O umbilical hernia repair History of cataract surgery History of colonoscopy (~04/2021) History of inguinal hernia repair History of laparoscopic cholecystectomy Postsurgical percutaneous transluminal coronary angioplasty (PTCA) status (~06/17/12) Presence of stent in coronary artery (~06/17/12) Social History household members: spouse Smoking Status: Former smoker how long ago did patient quit smokin's alcohol intake: never substance use type: does not use caffeine: Yes Type: carbonated beverages Number of servings: 3 ROS ROS ED Constitutional Constitutional ED: Denies chills or fever(s) Eyes Eyes: Denies discharge from eye(s) ENT ENT ED: Denies discharge from eye(s), rhinorrhea or sore throat Cardiovascular Cardiovascular: Denies chest pain or palpitations Respiratory/Chest Respiratory/Chest: Denies cough or dyspnea Gastrointestinal Gastrointestinal: Reports abdominal pain; Denies diarrhea, nausea or vomiting Genitourinary Genitourinary ED: Reports hematuria Musculoskeletal Musculoskeletal: Reports back pain; Denies extremity pain Integumentary Denies Abrasions or rash Neurologic Neurologic: Denies headache(s) or weakness Psychiatric Psychiatric: Denies anxiety or depression Allergic/Immunologic Allergic/Immunologic ED: Denies lip swelling or urticaria EXAM Physical Exam Const Vital Signs: 10/15/23 10:22 10/15/23 12:36 10/15/23 14:00 Temperature 97.1 F L 97.8 F Temperature Source Temporal Temporal Pulse Rate 99 97 Respiratory Rate 16 18 18 Blood Pressure 124/85 H 142/82 H 134/91 H Blood Pressure Mean 98 102 105 Pulse Ox 99 99 98 Oxygen Delivery Method Room Air Room Air Room Air 10/15/23 16:00 Temperature Temperature Source Pulse Rate 93 Respiratory Rate 18 Blood Pressure 154/84 H Blood Pressure Mean 107 Pulse Ox Oxygen Delivery Method Positive well nourished and well developed General Appearance ED: well developed HEENT Reports moist mucous membranes Eyes EOMs intact bilaterally Chest Wall inspection of chest normal and palpation of chest normal Resp normal respiratory effort and clear to auscultation bilaterally Cardio regular rate and regular rhythm GI non-tender Palpation: soft Back/Spine no CVA tenderness Extremity normal to inspection Neuro oriented x3 and no sensory deficits noted Motor Exam: strength 5/5 throughout Psych mental status grossly normal Skin no rashes or lesions noted MDM MDM MDM Narrative Medical decision making narrative: Patient placed on monitoring analyst. IV line initiated. Labwork obtained to evaluate for leukocytosis, anemia, and electrolyte derangement. Urinalysis obtained to evaluate for infection/hematuria. CT abdomen and pelvis with IV contrast obtained to evaluate for clot or perinephric hematoma given his recent surgery. History & Record Review Discussion w/independent historian: Patient and Significant other Additional record(s) reviewed:: Prior ED visit and Prior labs Lab Data Attestation: I reviewed the patient's lab results. Labs: Laboratory Results - last 24 hr 10/15/23 10/15/23 10/15/23 11:00 12:02 15:40 WBC 5.4 RBC 4.67 Hgb 14.2 13.2 Hct 44.9 40.9 MCV 96.1 H MCH 30.4 MCHC 31.6 L RDW Std Deviation 53.4 H RDW Coeff of Mimi 15.1 H Plt Count 211 MPV 12.6 H Immature Gran % (Auto) 0.600 Neut % (Auto) 80.9 H Lymph % (Auto) 8.8 L [place] % (Auto) 7.6 Eos % (Auto) 1.5 Baso % (Auto) 0.6 Absolute Neuts (auto) 4.4 Absolute Lymphs (auto) 0.48 L Nucleated RBC % 0 PT 24.9 H INR 2.3 APTT 44.1 H Sodium 137 Potassium 3.8 Chloride 105 Carbon Dioxide 27.0 Anion Gap 5 BUN 18 Creatinine 1.13 Estim Creat Clear Calc 65.22 Est GFR (MDRD) Af Amer 81 Est GFR (MDRD) Non-Af 67 BUN/Creatinine Ratio 15.9 Glucose 153 H Calcium 9.0 Urine Color Red Urine Clarity Turbid Urine pH 7.0 Ur Specific [place] 1.010 Urine Protein 500 H Urine Glucose (UA) Normal Urine Ketones 15 H Urine Occult Blood 150 H Urine Nitrite Negative Urine Bilirubin Negative Urine Urobilinogen Normal Ur Leukocyte Esterase Negative Urine RBC 10-25 SEEN Urine WBC 0 SEEN Ur Squamous Epith Cells 0 SEEN Urine Bacteria 0 SEEN Urine Mucus 0 SEEN Radiography Diagnostic Testing: Clinical Impression(s) from Imaging Studies Abdomen/Pelvis CT 10/15/23 10:47 IMPRESSION: Postoperative change of the left kidney. Mild increased size of fluid collection in the surgical bed with enhancing region and potential active hemorrhage. Probable hematoma in the urinary bladder. Right renal stone. No hydronephrosis. Colonic diverticulosis. No obstruction. N.B. : The above Results were Read Back by Jeremiah Major MD to Kaci Rodríguez MD, and understanding confirmed on 10/15/2023 12:47:55 (ET). Electronically Signed: Jeremiah Major MD at 12:49 EDT , ADDENDUM: 10/15/23 1256 IMPRESSION: Postoperative change of the left kidney. Mild increased size of fluid collection in the surgical bed with enhancing region and potential active hemorrhage. Probable hematoma in the urinary bladder. Right renal stone. No hydronephrosis. Colonic diverticulosis. No obstruction. N.B. : The above Results were Read Back by Jeremiah Major MD to Kaci Rodríguez MD, and understanding confirmed on 10/15/2023 12:47:55 (ET). Electronically Signed: Jeremiah Major MD at 12:49 EDT , Treatment and Re-Evaluation :: CBC reveals normal white count 5.4 with a hemoglobin of 14.2. This is consistent with his prior values. Chemistry studies reveal a BUN of 18 and a creatinine of 1.13, again consistent with his prior values. Urinalysis reveals RBCs with no evidence of infection. CT scan of the abdomen pelvis with IV contrast was obtained. I did receive a phone call from the radiologist. Postoperative changes are noted to the left kidney with mild increased size of fluid collection in the surgical bed and an enhancing region with potential active hemorrhage. There is also a probable hematoma in the urinary bladder. Patient has a three-way catheter in place with irrigation. Nursing staff notes bright red irrigation with no obvious clots at this time. I spoke with Dr. Younger. He reviewed the patient's imaging. After reviewing the images he does feel patient should be transferred to a facility with interventional radiology available to embolize the bleeding vessel. Patient has been accepted by Dr. De La Torre at [facility]. This will be an ER to ER transfer for evaluation to determine whether he needs to go straight to IR. At this time I will obtain a repeat H&H. Squad transport will be arranged. Repeat H&H indicates hemoglobin has dropped from 14.2-13.2. Labs were drawn approximately 5-1/2 hours apart. Patient is having some bladder spasms with clot blocking off his three-way catheter intermittently. We will need to stop his continuous irrigation during transport. In anticipation of this, patient be given a dose of Detrol to try to help prevent bladder spasms. Discharge Plan Triage Chief Complaint: Complaint ED Provider: Kaci Rodríguez Dx/Rx/DC Orders Clinical Impression: Hematuria, Post-operative hemorrhage Prescriptions: No Action rivaroxaban 20 mg tablet 20 mg PO DAILY Qty: 90 3RF Hold Instructions: Resume on 09/24/23. duloxetine [Cymbalta] 20 mg capsule,delayed release(DR/EC) 20 mg PO BID Qty: 60 1RF digoxin [Lanoxin] 125 mcg (0.125 mg) tablet 125 mcg PO DAILY Qty: 60 3RF Rx Instructions: Take twice daily for 3 days then once each AM aspirin [Adult Aspirin Regimen] 81 mg tablet,delayed release (DR/EC) 81 mg PO DAILY Hold Instructions: Resume on 09/24/23. furosemide 40 mg tablet 40 mg PO DAILY PreserVision AREDS-2 250-90-40-1 mg capsule 1 tab PO BID docusate sodium [Colace] 100 mg capsule 100 mg PO BID Qty: 20 0RF pantoprazole 40 mg tablet,delayed release (DR/EC) 40 mg PO DAILY diltiazem HCl [Cartia XT] 240 mg capsule,extended release 24hr 240 mg PO DAILY metoprolol tartrate 100 mg tablet 25 mg PO DAILY nitroglycerin 0.4 mg tablet, sublingual 0.4 mg sublingual Q5-15M PRN (Reason: chest pain) Qty: 25 3RF tamsulosin 0.4 mg capsule 0.4 mg PO DAILY Qty: 90 3RF fenofibrate 160 mg tablet 160 mg tablet 160 mg PO DAILY Qty: 90 3RF Primary Care Provider: Ruma Terry Referrals: Ruma Terry MD [Primary Care Provider] - Disposition Disposition: Acute Care Hospital Discharge Location: [facility]
[2023-10-15 11:07] LABS: Absolute Lymphocyte Count 0.48 X10^3/uL (0.83-4.51); Absolute Neutrophil Count 4.4 X10^3/uL (2.0-7.7); Basophil# 0.03 X10^3/uL; Basophil% 0.6 % (0-1); Eosinophil# 0.08 X10^3/uL; Eosinophils% 1.5 % (0-5); Hematocrit 44.9 % (40-54); Hemoglobin 14.2 g/dL (13.0-16.5); Lymphocyte # 0.48 X10^3/ul (0.83-4.51); Lymphocyte % 8.8 % (19-41); Mean Corp Hgb Conc 31.6 g/dL (32-36); Mean Corpuscular Hgb 30.4 pg (27.0-32.0); Mean Corpuscular Volume 96.1 fL (80-94); Mean Platelet Vol. 12.6 fl (6.2-12.0); Monocyte# 0.41 X10^3/uL; Monocyte% 7.6 % (0-10); NRBC Flagged by Analyzer 0 % (0-5); Neutrophil % 80.9 % (47-70); POSITIVE DIFFERENTIAL YES; Platelet Count 211 K/mm3 (150-450); RBC Distribution Width CV 15.1 % (11.6-14.6); RBC Distribution Width SD 53.4 fl (35.1-43.9); Red Blood Count 4.67 M/mm3 (4.6-6.2); White Blood Count 5.4 K/mm3 (4.4-11.0)
[2023-10-15 11:24] LABS: Anion Gap 5 (5-15); BUN 18 mg/dL (7-18); BUN/Creat Ratio 15.9 RATIO (10-20); Chloride 105 mmol/L (98-107); Creatinine, Serum 1.13 mg/dL (0.70-1.30); EST Glomerular Filtration Rate 67 mL/min (>60); Est Glom Filt Rate - Afr Amer 81 mL/min (>60); Estimated Creatinine Clearance 65.22 ml/min; Glucose 153 mg/dL (74-106); Potassium 3.8 mmol/L (3.5-5.1); Sodium Level 137 mmol/L (136-145)
[2023-10-15 11:59] LABS: International Normalized Ratio 2.3; Prothrombin Time (Protime)PT. 24.9 SECONDS (11.7-14.9)
[2023-10-15 12:00] LABS: Partial Thromboplast Time 44.1 Seconds (24.1-36.2)
[2023-10-15 12:16] LABS: Bacteria 0 SEEN /hpf (None Seen); Mucous, Urine 0 SEEN /hpf (<or=2+); Squamous Epithelial Cells - UA 0 SEEN /hpf (0-5); White Blood Cells 0 SEEN /hpf (0-5)
[2023-10-15 12:36] VITALS: BP 142/82; PULSE 97; RESP 18; TEMP 36.6; O2SAT 99
[2023-10-15 12:37] LABS: Color, Urine Red (Yellow); Glucose, Dipstick Normal (Normal); Ketone-Dipstick 15 mg/dl (Negative); Leukocyte Esterase-Dipstick Negative /ul (Negative); Nitrite-Dipstick Negative (Negative); Occult Blood-Urine 150 /ul (Negative); Protein-Dipstick 500 mg/dl (Negative); Urine Bilirubin Dipstick Negative (Negative); Urine Clarity Turbid (Clear); Urine Urobilinogen Normal (Normal)
[2023-10-15 12:47] LABS: Red Blood Cells-Urine 10-25 SEEN /hpf (0-5)
[2023-10-15 14:00] VITALS: BP 134/91; RESP 18; O2SAT 98
--- NOTE | 2023-10-15 15:57 | ED.RN ---
[facility] CALLED, ETA 2 HOURS (1800)
[2023-10-15 16:00] VITALS: BP 154/84; PULSE 93; RESP 18
[2023-10-15 16:01] LABS: Hematocrit 40.9 % (40-54); Hemoglobin 13.2 g/dL (13.0-16.5)
[2023-10-15] MEDS: Oxybutynin 5 MG Tablet PO (17:16)
[2023-10-15 18:00] VITALS: BP 140/77; PULSE 72; RESP 16; TEMP 36.2; O2SAT 97
--- NOTE | 2023-10-15 18:39 | ED.RN ---
chana arrived, [facility], to transport pt to [facility], pt stood up to quickly and passed out on bed, pt quickly opened eyes and c/o nausea, cool compress applied to forehead, order for zofran obtained. blood pressure 162/95.
[2023-10-15] MEDS: Ondansetron 4 MG/2 ML Vial IV (18:44)
[2023-10-15 18:54] VITALS: BP 140/77; PULSE 72; RESP 16; TEMP 36.2; O2SAT 97
== END 2023-10-15 18:59 | disposition short-term general hospital (02) ==
PROVIDERS: Emergency Provider Emergency Medicine; PCP Internal Medicine; Visit Provider Emergency Medicine
DX: N99.820 Postprocedural hemorrhage of a genitourinary system organ or structure following a genitourinary system procedure (principal); I48.91 Unspecified atrial fibrillation; Z87.891 Personal history of nicotine dependence; Z90.5 Acquired absence of kidney; R31.9 Hematuria, unspecified; Z79.01 Long term (current) use of anticoagulants; J45.909 Unspecified asthma, uncomplicated; I25.10 Atherosclerotic heart disease of native coronary artery without angina pectoris; I10 Essential (primary) hypertension; K21.9 Gastro-esophageal reflux disease without esophagitis; E78.00 Pure hypercholesterolemia, unspecified; Z79.899 Other long term (current) drug therapy; N20.0 Calculus of kidney; K57.90 Diverticulosis of intestine, part unspecified, without perforation or abscess without bleeding; N50.9 Disorder of male genital organs, unspecified
CPT/HCPCS: 51702; 74177; 80048; 81001; 85014; 85018; 85025; 85610; 85730; 96374; 99285; Q9967; A4216; J2405

== ENCOUNTER 2023-10-22 20:20 | Inpatient (IN) | payer MEDICARE, SELFPAY ==
[2023-10-22 21:20] VITALS: BMI 30.9
[2023-10-22 21:52] VITALS: BP 122/64; PULSE 88; RESP 20; TEMP 36.5; BMI 30.8; BMI 30.9
--- NOTE | 2023-10-22 22:12 | HP.PCM_ITS ---
[facility] - General General Date of Admission: 10/22/23 Date of Service: 10/25/23 Chief Complaint: Here for rehabilitation. [facility] Narrative CONSTANTINO CORBETT, is a 78 Male who presents with followin09/10/2023 Dr. Younger performed laparoscopic robot assisted left partial nephrectomy of left renal cyst. 10/15/2023 Admit to [facility]. Hematuria, concern for active bleed nephrectomy bed. On Xarelto for atrial fibrillation. Hemoglobin 12.9, 3 way catheter for CBI. CT abdomen/pelvis showed left nephrectomy bed active hemorrhage, left perinephric stranding. Urinary bladder hematoma. 10/16/2023 IR performed left renal angiogram, no active bleeding, no embolization performed, not necessary. Hematuria resolved, s/p Marcus with CBI, urinating okay. Resume Xarelto 10/29/2023, if no further hematuria. Atrial fibrillation with RVR, Amiodarone stopped, rate control with Metoprolol, Digoxin. 10/20/2023 Klebsiella bacteremia 2/2 complicated UTI. Ceftriaxone IV. Cipro 500mg bid x 7 days, then Bactrim DS bid x 3 weeks. 10/22/2023 Admit to TCU with debility, here for rehabilitation, strengthening, prior to discharge home with . [facility] Medical History (Updated 10/23/23 @ 00:38 by Background Daemon) Abnormal ankle brachial index Arthritis Asthma Atherosclerotic heart disease of [place] coronary artery without angina pectoris Atrial fibrillation CAD in [place] artery Cardiology follow-up encounter Colon polyp Current use of usp anticoagulation Diverticulosis Essential hypertension Former smoker Gastric reflux GERD (gastroesophageal reflux disease) High cholesterol History of atrial fibrillation History of cardioversion (~05/16/19) History of echocardiogram History of edema History of pacemaker History of renal disease History of stress test Hyperlipidemia Non-smoker RADHA (obstructive sleep apnea) Osteoarthritis Presence of cardiac pacemaker (~2013) Prostate disease RLS (restless legs syndrome) Sick sinus syndrome Tubular adenoma of colon Ventral incisional hernia without obstruction or gangrene Wears glasses Wears partial dentures Zenkers diverticulum Home Medications nitroglycerin 0.4 mg sublingual tablet 0.4 mg sublingual Q5-15M PRN chest pain #25 tabs 12/29/21 [Rx Last Taken Unknown] rivaroxaban 20 mg tablet 20 mg PO DAILY blood thinner #90 tabs 06/24/23 [Rx Last Taken 08/23/23] tamsulosin 0.4 mg capsule 0.4 mg PO DAILY prostate #90 caps 07/21/23 [Rx Last Taken 10/22/23] aspirin 81 mg tablet,delayed release (Adult Aspirin Regimen) 81 mg PO DAILY heart health 08/20/23 [History Last Taken 10/22/23] furosemide 40 mg tablet 40 mg PO DAILY edema 08/20/23 [History Last Taken Unknown] vit C 250 mg-vit E 90 mg-zinc 40 mg-copper 1 [id number]-aoljrw-ausxyl capsule (PreserVision AREDS-2) 1 tab PO BID vitamin 09/08/23 [History Last Taken 09/09/23] docusate sodium 100 mg capsule (Colace) 100 mg PO BID constipation #20 caps 09/10/23 [Rx Last Taken Unknown] fenofibrate 160 mg tablet 160 mg PO DAILY heart health #90 tabs 09/16/23 [Rx Last Taken 10/22/23] diltiazem HCl 240 mg capsule,extended release 24 hr (Cartia XT) 240 mg PO DAILY A Fib 10/15/23 [History Last Taken Unknown] metoprolol tartrate 100 mg tablet 50 mg PO Q12H heart 10/15/23 [History Last Taken 10/22/23] pantoprazole 40 mg tablet,delayed release 40 mg PO DAILY stomach acid 10/15/23 [History Last Taken 10/22/23] digoxin 125 mcg (0.125 mg) tablet (Lanoxin) 125 mcg PO DAILY HR 10/22/23 [History Last Taken 10/22/23] duloxetine 20 mg capsule,delayed release (Cymbalta) 20 mg PO DAILY.TCU depression 10/22/23 [History Last Taken 10/22/23] Allergy/AdvReac Type Severity Reaction Status Date / Time atorvastatin [From Lipitor] AdvReac Severe elevated Verified 10/15/23 10:23 LFT's lisinopril AdvReac Severe cough Verified 10/15/23 10:23 gemfibrozil AdvReac Unknown Unknown Verified 10/15/23 10:23 simvastatin AdvReac Unknown Unknown Verified 10/15/23 10:23 bacitracin AdvReac Unknown Verified 10/15/23 10:23 [From Triple Antibiotic] colistimethate sodium AdvReac Unknown Verified 10/15/23 10:23 [From Triple Antibiotic] gramicidin D AdvReac Unknown Verified 10/15/23 10:23 [From Triple Antibiotic] neomycin sulfate AdvReac Unknown Verified 10/15/23 10:23 [From Triple Antibiotic] polymyxin B AdvReac Unknown Verified 10/15/23 10:23 [From Triple Antibiotic] pramoxine HCl AdvReac Unknown Verified 10/15/23 10:23 [From Triple Antibiotic] Family History Mother CVA (cerebral vascular accident) Father Heart disease Sister Heart disease Other Arthritis Hyperlipemia Hypertension Surgical History H/O umbilical hernia repair History of cataract surgery History of colonoscopy (~04/2021) History of inguinal hernia repair History of laparoscopic cholecystectomy Postsurgical percutaneous transluminal coronary angioplasty (PTCA) status (~06/17/12) Presence of stent in coronary artery (~06/17/12) Social History household members: spouse Smoking Status: Former smoker how long ago did patient quit smokin's alcohol intake: never substance use type: does not use caffeine: Yes Type: carbonated beverages Number of servings: 3 ROS Constitutional Constitutional: Denies chills, fever(s) or weight gain ENT HEENT: Denies headache(s), nasal congestion or nasal discharge Cardiovascular Cardiovascular: Denies chest pain or palpitations Respiratory/Chest Respiratory/Chest: Denies cough, excessive phlegm production or shortness of breath with exertion Gastrointestinal Gastrointestinal: Denies abdominal pain, nausea or vomiting Genitourinary Genitourinary: Denies dysuria Musculoskeletal Musculoskeletal: Denies joint pain or joint swelling Integumentary Integumentary: Denies rash or wounds Neurologic Neurologic: Denies focal weakness, numbness or tingling Psychiatric Psychiatric: Denies anxiety, auditory hallucinations, depression, homicidal ideation or suicidal ideation Physical Exam Const alert General Appearance: cooperative HEENT normocephalic Eyes PERRL and EOMs intact bilaterally Neck supple, no JVD and no carotid bruits Resp normal respiratory effort, normal air movement and clear to auscultation bilaterally Cardio Cardio Narrative: Irregularly irregular. GI normal to inspection, nondistended, normoactive bowel sounds, non-tender and non-distended Extremity normal capillary refill General Extremity: Negative for edema Skin no rashes or lesions noted General Skin Exam: no breakdown Psych affect normal Appearance: appropriate Results Lab / Micro Data 10/25/23 05:27 10/23/23 06:21 Assessment & Plan Assessment/Plan (1) Debility: (2) Hematuria: (3) Post-operative hemorrhage: (4) Bacteremia due to Klebsiella pneumoniae: (5) Complicated urinary tract infection: (6) Atrial fibrillation with rapid ventricular response: (7) Coronary artery disease: (8) BPH (benign prostatic hyperplasia): (9) Hyperlipidemia: QUALIFIERS: Hyperlipidemia type: unspecified Qualified Code(s): E78.5 - Hyperlipidemia, unspecified (10) Depression: (11) GERD (gastroesophageal reflux disease): (12) Hypertension: (13) History of pacemaker: PLAN: Plan 78 year old male with below past medical history significant for recent left partial nephrectomy hospitalized for hematuria, embolization not needed, resolved with CBI, complicated by Klebsiella bacteremia 2/2 complicated UTI, admitted to TCU with debility, here for rehabilitation, strengthening, prior to discharge home with . * Debility - PT/OT. * Pain - Tylenol 1000mg q6 prn pain (1-5), Oxycodone 5mg q4 prn pain (6-10). * Bowel - Miralax 17gm daily, senna/colace 2 tablets bid, Dulcolax 10mg pr daily prn. * Adult immunization - Administer pneumonia vaccine, covid vaccine, flu vaccine as appropriate. * DVT prophylaxis - Xarelto 20mg starting 10/29/2023. * Klebsiella bacteremia 2/2 complicated UTI - Cipro 500mg bid thru 10/29/2023, Bactrim DS bidcm thru 11/19/2023. * Atrial fibrillation - Metoprolol 50mg bid, Digoxin 125mcg daily, Xarelto 20mg daily starting 10/29/2023. * Depression - Duloxetine 20mg daily, stable chronic salvage determiner use, GDR not recommended. * Hyperlipidemia - Fenofibrate 145mg daily. * Coronary artery disease - Metoprolol 50mg bid, NTG 0.4mg sl q5m prn, Xarelto 20mg daily starting 10/29/2023. * GERD - Pantoprazole 40mg daily. * BPH - Tamsulosin 0.4mg daily.
[2023-10-23] MEDS: Senna/Docusate Sodium 1 Tablet 2 TABLET PO ×3 (00:11→22:51)
[2023-10-23 00:12] VITALS: BP 125/64; PULSE 91
[2023-10-23] MEDS: Metoprolol Tartrate 50 MG Tablet PO ×3 (00:12→22:51)
[2023-10-23] MEDS: Ciprofloxacin 500 MG Tablet PO ×3 (00:12→22:51)
[2023-10-23 06:57] LABS: Absolute Lymphocyte Count 0.44 X10^3/uL (0.83-4.51); Absolute Neutrophil Count 3.9 X10^3/uL (2.0-7.7); Basophil# 0.01 X10^3/uL; Basophil% 0.2 % (0-1); Eosinophil# 0.11 X10^3/uL; Eosinophils% 2.1 % (0-5); Hematocrit 25.4 % (40-54); Hemoglobin 8.2 g/dL (13.0-16.5); Lymphocyte # 0.44 X10^3/ul (0.83-4.51); Lymphocyte % 8.3 % (19-41); Mean Corp Hgb Conc 32.3 g/dL (32-36); Mean Corpuscular Hgb 30.7 pg (27.0-32.0); Mean Corpuscular Volume 95.1 fL (80-94); Mean Platelet Vol. 12.3 fl (6.2-12.0); Monocyte# 0.71 X10^3/uL; Monocyte% 13.4 % (0-10); NRBC Flagged by Analyzer 0.4 % (0-5); Neutrophil # 3.91 X10^3/uL (2.7-7.7); Neutrophil % 73.7 % (47-70); POSITIVE DIFFERENTIAL YES; Platelet Count 268 K/mm3 (150-450); RBC Distribution Width CV 15.1 % (11.6-14.6); RBC Distribution Width SD 52.9 fl (35.1-43.9); Red Blood Count 2.67 M/mm3 (4.6-6.2); White Blood Count 5.3 K/mm3 (4.4-11.0)
[2023-10-23 07:07] LABS: Anion Gap 3 (5-15); BUN 13 mg/dL (7-18); BUN/Creat Ratio 15.4 RATIO (10-20); Calcium,Total 8.3 mg/dL (8.5-10.1); Chloride 102 mmol/L (98-107); Creatinine, Serum 0.84 mg/dL (0.70-1.30); EST Glomerular Filtration Rate 93 mL/min (>60); Est Glom Filt Rate - Afr Amer 113 mL/min (>60); Estimated Creatinine Clearance 87.42 ml/min; Glucose 95 mg/dL (74-106); Potassium 3.8 mmol/L (3.5-5.1); Sodium Level 134 mmol/L (136-145)
[2023-10-23 09:16] VITALS: BP 126/61; PULSE 70; RESP 16; TEMP 36.3; O2SAT 94
[2023-10-23] MEDS: Pantoprazole Sodium 40 MG Tablet PO (09:21)
[2023-10-23 09:22] VITALS: PULSE 70
[2023-10-23] MEDS: DULoxetine Hcl 20 MG Capsule PO (09:22)
[2023-10-23] MEDS: Polyethylene Glycol 3350 17 GM PACKET PO (09:22)
[2023-10-23] MEDS: Digoxin 125 MCG Tablet PO (09:22)
[2023-10-23] MEDS: Fenofibrate 145 MG Tablet PO (09:23)
[2023-10-23] MEDS: Tuberculin,Purif.prot.deriv. 50 TU/ML Vial 0.1 ML ID (11:08)
[2023-10-23] MEDS: Iron Polysaccharide Complex 150 MG CAPSULE PO (11:08)
[2023-10-23] MEDS: Ascorbic Acid 500 MG Tablet PO (11:08)
[2023-10-23] MEDS: Tamsulosin HCl 0.4 MG Capsule PO (16:44)
[2023-10-23 22:00] VITALS: PULSE 84; RESP 16; O2SAT 91
[2023-10-23 22:51] VITALS: BP 125/78; PULSE 84
[2023-10-24 08:11] VITALS: PULSE 77
[2023-10-24] MEDS: Fenofibrate 145 MG Tablet PO (08:11)
[2023-10-24] MEDS: Senna/Docusate Sodium 1 Tablet 2 TABLET PO ×2 (08:11→20:45)
[2023-10-24] MEDS: DULoxetine Hcl 20 MG Capsule PO (08:11)
[2023-10-24] MEDS: Metoprolol Tartrate 50 MG Tablet PO ×2 (08:11→20:45)
[2023-10-24] MEDS: Pantoprazole Sodium 40 MG Tablet PO (08:11)
[2023-10-24 08:12] VITALS: PULSE 77
[2023-10-24] MEDS: Ascorbic Acid 500 MG Tablet PO (08:12)
[2023-10-24] MEDS: Polyethylene Glycol 3350 17 GM PACKET PO (08:12)
[2023-10-24] MEDS: Ciprofloxacin 500 MG Tablet PO ×2 (08:12→20:45)
[2023-10-24] MEDS: Digoxin 125 MCG Tablet PO (08:12)
[2023-10-24] MEDS: Iron Polysaccharide Complex 150 MG CAPSULE PO (08:12)
[2023-10-24 08:16] VITALS: BP 124/55; PULSE 77; RESP 16; TEMP 36.4
[2023-10-24] MEDS: Tamsulosin HCl 0.4 MG Capsule PO (17:13)
[2023-10-24 17:21] VITALS: PULSE 82; RESP 16
[2023-10-24 20:45] VITALS: BP 135/74; PULSE 71
[2023-10-25 05:55] LABS: Hematocrit 25.2 % (40-54)
--- NOTE | 2023-10-25 08:14 | PHA.CONS_ITS ---
Documented by User: Gina Goldberg 10/25/23 08:41 TCU RX Drug Regimen Review Subjective/Objective Subjective/Objective: Subjective: TCU Admission. 78 YOM presented to the ER with hematuria. Hospitalized for hematuria (recent left partial nephrectomy), embolization not needed, resolved with CBI, complicated by Klebsiella bacteremia 2/2 complicated UTI. Admitted to TCU with debility for strengthening and rehabilitation. Objective: Allergies atorvastatin [From Lipitor] Adverse Reaction (Severe, Verified 10/15/23 10:23) elevated LFT's lisinopril Adverse Reaction (Severe, Verified 10/15/23 10:23) cough gemfibrozil Adverse Reaction (Unknown, Verified 10/15/23 10:23) Unknown simvastatin Adverse Reaction (Unknown, Verified 10/15/23 10:23) Unknown bacitracin [From Triple Antibiotic] Adverse Reaction (Verified 10/15/23 10:23) Unknown colistimethate sodium [From Triple Antibiotic] Adverse Reaction (Verified 10/15/23 10:23) Unknown gramicidin D [From Triple Antibiotic] Adverse Reaction (Verified 10/15/23 10:23) Unknown neomycin sulfate [From Triple Antibiotic] Adverse Reaction (Verified 10/15/23 10:23) Unknown polymyxin B [From Triple Antibiotic] Adverse Reaction (Verified 10/15/23 10:23) Unknown pramoxine HCl [From Triple Antibiotic] Adverse Reaction (Verified 10/15/23 10:23) Unknown Current Medications Generic Name Dose Route Start Last Admin Trade Name Freq PRN Reason Stop Dose Admin Acetaminophen 1,000 mg 10/22/23 22:33 Acetaminophen 500 Mg Tablet PO Q6H PRN PRN Pain Score 1-5 Ascorbic Acid 500 mg 10/23/23 10:00 10/24/23 08:12 Ascorbic Acid 500 Mg Tablet PO 500 mg 1000 JOSH Administration Bisacodyl 10 mg 10/22/23 21:43 Bisacodyl 10 Mg Suppository RC DAILY PRN CONSTIPATION Ciprofloxacin HCl 500 mg 10/22/23 22:00 10/24/23 20:45 Ciprofloxacin 500 Mg Tablet PO 10/29/23 22:01 500 mg BID JOSH Administration Digoxin 125 mcg 10/23/23 10:00 10/24/23 08:12 Digoxin 125 Mcg Tablet PO 125 mcg 1000 JOSH Administration Duloxetine HCl 20 mg 10/23/23 10:00 10/24/23 08:11 Duloxetine Hcl 20 Mg Capsule PO 20 mg 1000 [facility] Administration Fenofibrate 145 mg 10/23/23 10:00 10/24/23 08:11 Fenofibrate 145 Mg Tablet PO 145 mg 1000 [facility] Administration Metoprolol Tartrate 50 mg 10/23/23 10:00 10/24/23 20:45 Metoprolol Tartrate 50 Mg Tablet PO 50 mg BID [facility] Administration Protocol Nitroglycerin 0.4 mg 10/22/23 21:39 Nitroglycerin (Inpatient Use) 0.4 Mg Tab.Subl SL Q5M PRN chest pain Oxycodone HCl 5 mg 10/22/23 22:34 Oxycodone 5 Mg Tablet PO Q4H PRN PRN Pain Score 6-10 Pantoprazole Sodium 40 mg 10/23/23 10:00 10/24/23 08:11 Pantoprazole Sodium 40 Mg Tablet PO 40 mg 1000 [facility] Administration Polyethylene Glycol 17 gm 10/23/23 10:00 10/24/23 08:12 Polyethylene Glycol 3350 17 Gm Packet PO 17 gm 1000 [facility] Administration Polysaccharide Iron Complex 150 mg 10/23/23 10:00 10/24/23 08:12 Iron Polysaccharide Complex 150 Mg Capsule PO 150 mg DAILY [facility] Administration Rivaroxaban 20 mg 10/29/23 17:00 Rivaroxaban 20 Mg Tablet PO DINNER [facility] Senna/Docusate Sodium 2 tablet 10/22/23 23:30 10/24/23 20:45 Senna/Docusate Sodium 1 Tablet PO 2 tablet BID [facility] Administration Tamsulosin HCl 0.4 mg 10/23/23 17:30 10/24/23 17:13 Tamsulosin Hcl 0.4 Mg Capsule PO 0.4 mg 1730 [facility] Administration Trimethoprim/Sulfamethoxazole 1 tablet 10/30/23 08:00 Smz/Tmp Ds Tablet PO 11/19/23 17:01 BIDCM [facility] Tuberculin PPD 0.1 ml 10/30/23 10:00 Tuberculin,Purif.Prot.Deriv. 50 Tu/Ml Vial ID 10/30/23 10:01 X1 ONE Problem List (Updated 10/23/23 @ 00:38 by Background Daemon) History of pacemaker (Acute) Hypertension (Chronic) GERD (gastroesophageal reflux disease) (Acute) Depression (Acute) BPH (benign prostatic hyperplasia) (Acute) Coronary artery disease (Acute) Complicated urinary tract infection (Acute) Bacteremia due to Klebsiella pneumoniae (Acute) Debility (Acute) Hyperlipidemia (Chronic) Vital Signs Temp Pulse Resp BP Pulse Ox O2 Del Method 97.5 F L 71 16 135/74 H 91 Room Air 10/24/23 08:16 10/24/23 20:45 10/24/23 17:21 10/24/23 20:45 10/23/23 22:00 10/24/23 17:21 Oxygen Delivery Method Room Air Weight: 100.244 kg Body Mass Index (BMI) 30.8 Sodium 134 mmol/L (136-145) L 10/23/23 06:21 Potassium 3.8 mmol/L (3.5-5.1) 10/23/23 06:21 Chloride 102 mmol/L (98-107) 10/23/23 06:21 Carbon Dioxide 29.0 mmol/L (21.0-32.0) 10/23/23 06:21 Anion Gap 3 (5-15) L 10/23/23 06:21 BUN 13 mg/dL (7-18) 10/23/23 06:21 Creatinine 0.84 mg/dL (0.70-1.30) 10/23/23 06:21 Est GFR (MDRD) Af Amer 113 mL/min (>60) 10/23/23 06:21 Est GFR (MDRD) Non-Af 93 mL/min (>60) 10/23/23 06:21 BUN/Creatinine Ratio 15.4 RATIO (10-20) 10/23/23 06:21 Glucose 95 mg/dL (74-106) 10/23/23 06:21 Assessment/Plan: 1. Pain: acetaminophen 1000mg PO Q6H PRN pain 1-5 and oxycodone 5mg PO Q4H PRN pain 6-10. Resident has not used any PRN doses. Please continue to monitor for S/S of pain and PRN usage. 2. Bowel: Miralax 17gm PO daily, senna/docusate 2T PO BID and bisacodyl 10mg RX daily PRN constipation. Resident has not had any PRN doses nor any documented bowel movements at this time. Please continue to monitor for S/S of constipation and PRN usage. 3. Klebsiella bacteremia 2/2 complicated UTI: ciprofloxacin 500mg PO BID thru 10/29/23 and Bactrim DS BIDCM 10/30/23 thru 11/19/23. Please continue to monitor for S/S of infection, renal function, diarrhea, joint pain, potassium (last 3.8mmol/L) and rash. 4. Atrial fibrillation/CAD/DVT prophylaxis: metoprolol tartrate 50mg PO BID, digoxin 125mcg PO daily, nitroglycerin 0.4mg SL Q5M PRN chest pain and rivaroxaban 20mg PO dinner starting 10/29/23. Please continue to monitor BP (last 135/74), HR (last 71), vomiting, headache, PRN usage, chest pain, S/S of bleeding, hemoglobin (last 8mg/dL), potassium, renal function and digoxin level (last 0.73 ng/mL 10/11/23). 5. Hyperlipidemia: fenofibrate 145 PO daily. Please continue to monitor lipid panel (last 09/20/23) and renal function. 6. GERD: pantoprazole 40mg PO daily. Please continue to monitor for S/S of GERD and diarrhea (BEERs medication). 7. BPH: tamsulosin 0.4mg PO daily. Please continue to monitor for S/S of BPH and BP. 8. Iron deficiency (based on hemoglobin of 8g/dL): Ferrex 150mg PO DAILYCM. Please continue to monitor hemoglobin (last 8g/dL), dark stools and constipation. Please consider an iron study if clinically appropriate. Thanks. Assessment/Plan for indications treated with psychotropic medications: 1. Depression: duloxetine 20mg PO daily. Please see physician note regarding GDR. Please continue to monitor for suicidal ideation (black box warning), falls/fratures (BEERs medication), renal function and sodium (last 134mmol/L). Medical chart and medication regimen reviewed. The following medication irregularities or issues were identified: 1. Ferrex 150mg PO DAILYCM. Please consider an iron study if clinically appropriate. Thanks. Date Date of Note:: 10/25/23 Documented by User: Dr. Dany Pierre MD 10/25/23 08:38 TCU RX Drug Regimen Review Provider Comments Provider responsibility Provider Comments to Recommendations by Pharmacy: Agree
--- NOTE | 2023-10-25 08:49 | NS ---
MST score = 7 - UBW documented in Adm Ht/Wt nutrition screen as 230 kg/ 507.1# instead of 230#/ 104.5 kg which may falsely elevate MST score
[2023-10-25] MEDS: DULoxetine Hcl 20 MG Capsule PO (09:44)
[2023-10-25] MEDS: Ascorbic Acid 500 MG Tablet PO (09:44)
[2023-10-25] MEDS: Iron Polysaccharide Complex 150 MG CAPSULE PO (09:44)
[2023-10-25] MEDS: Fenofibrate 145 MG Tablet PO (09:44)
[2023-10-25] MEDS: Ciprofloxacin 500 MG Tablet PO ×2 (09:45→20:44)
[2023-10-25] MEDS: Pantoprazole Sodium 40 MG Tablet PO (09:45)
[2023-10-25 11:02] VITALS: BP 134/59; PULSE 84
[2023-10-25] MEDS: Metoprolol Tartrate 50 MG Tablet PO ×2 (11:02→20:44)
[2023-10-25] MEDS: Digoxin 125 MCG Tablet PO (11:02)
--- NOTE | 2023-10-25 11:32 | NURSING ---
Addendum entered by Kaitlynn Moraes 10/27/23 14:37: Auth for CT received #[id number]. Original Note: Called for auth for CT, clinical info requested. Clinicals faxed to [phone]. Case #[id number].
--- NOTE | 2023-10-25 13:20 | NURSING ---
Family not wanting to travel to [place] app[place], called office and they are going to do virtual visit instead. Office will send a link to the TCU phone. Labs to be drawn on 11/04/23 and faxed to [facility] at #[phone].
--- NOTE | 2023-10-25 13:36 | NURSING ---
Energy Manager Note; Activity Asset: Darell Fagan is independent in his choice of daily activities. His and family will visits daily and bring items he may need or want. He has is own word puzzle book, will read and watch tv when not in therapy or resting. Rylan welcomes visits from therapy dog and freight representative when available. Staff will remind him of weekly activities and respect his right to say no.
[2023-10-25 13:52] VITALS: BP 110/53; PULSE 77; RESP 14; TEMP 36.4; O2SAT 97
--- NOTE | 2023-10-25 14:53 | NURSING ---
Offered covid vaccine, VIS provided. Patient refuses at this time.
[2023-10-25] MEDS: Tamsulosin HCl 0.4 MG Capsule PO (16:36)
[2023-10-25 20:44] VITALS: PULSE 76
[2023-10-26 05:51] LABS: Hematocrit 24.3 % (40-54); Hemoglobin 7.6 g/dL (13.0-16.5)
--- NOTE | 2023-10-26 08:09 | NURSING ---
PAPERWORK FAXED TO OUTPT FOR BLOOD TRANSFUSION. SPOKE WITH DENNY, PLAN TO TRANSFUSE TOMORROW AT 0800.
[2023-10-26 08:59] VITALS: BP 131/57; PULSE 88
[2023-10-26] MEDS: Iron Polysaccharide Complex 150 MG CAPSULE PO (09:00)
[2023-10-26] MEDS: Ciprofloxacin 500 MG Tablet PO ×2 (09:00→21:29)
[2023-10-26 09:01] VITALS: PULSE 88
[2023-10-26] MEDS: Metoprolol Tartrate 50 MG Tablet PO ×2 (09:01→21:29)
[2023-10-26] MEDS: DULoxetine Hcl 20 MG Capsule PO (09:01)
[2023-10-26] MEDS: Digoxin 125 MCG Tablet PO (09:01)
[2023-10-26] MEDS: Ascorbic Acid 500 MG Tablet PO (09:02)
[2023-10-26] MEDS: Pantoprazole Sodium 40 MG Tablet PO (09:02)
[2023-10-26] MEDS: Fenofibrate 145 MG Tablet PO (09:02)
[2023-10-26 09:04] VITALS: PULSE 88
--- NOTE | 2023-10-26 09:15 | NURSING ---
R' NOTIFIED OF SCHEDULED BLOOD TRANSFUSION TOMORROW. HE STATES HE WILL LET KNOW.
[2023-10-26 13:32] VITALS: BP 111/56; PULSE 94; RESP 20; TEMP 36.6; O2SAT 100
[2023-10-26 13:56] VITALS: BMI 30.4
[2023-10-26] MEDS: Tamsulosin HCl 0.4 MG Capsule PO (17:00)
--- NOTE | 2023-10-26 17:17 | CASEMGMT ---
Social Work SW met with pt to complete initial assessment. Introduced self and role. was present in room and pt gave OK to proceed with assessment with present. Verified/updated contacts. Pt confirmed code status as full code. Pt does not have Living Will or DPOAHC and declined offer to assist with advance directives. Educated to [facility] benefits and NRD of today 10/26/23 and continued stay is not guarenteed with each review. Pt's goal is to return home with spouse. SW will continue to follow for DC planning. Haydee SALEH
[2023-10-26 21:29] VITALS: BP 144/60; PULSE 109
[2023-10-26 21:31] VITALS: BP 144/60; PULSE 109
[2023-10-27 07:45] VITALS: BP 117/50; PULSE 77
[2023-10-27] MEDS: Metoprolol Tartrate 50 MG Tablet PO ×2 (07:45→21:18)
[2023-10-27] MEDS: Pantoprazole Sodium 40 MG Tablet PO (07:45)
[2023-10-27] MEDS: Ascorbic Acid 500 MG Tablet PO (07:45)
[2023-10-27 07:46] VITALS: PULSE 77
[2023-10-27] MEDS: Fenofibrate 145 MG Tablet PO (07:46)
[2023-10-27] MEDS: DULoxetine Hcl 20 MG Capsule PO (07:46)
[2023-10-27] MEDS: Digoxin 125 MCG Tablet PO (07:46)
[2023-10-27] MEDS: Ciprofloxacin 500 MG Tablet PO ×2 (07:46→21:17)
[2023-10-27] MEDS: Iron Polysaccharide Complex 150 MG CAPSULE PO (07:46)
--- NOTE | 2023-10-27 08:00 | NURSING ---
Pt off unit for Blood Transfusion.
--- NOTE | 2023-10-27 16:55 | CASEMGMT ---
Social Work IDT met with patient, and multiple other family members for care plan meeting. Discussed patient's progress in PT/OT. Pt is making good progress and working on doing steps. Educated to [facility] insurance and NRD 10/29/23. Goal is to return home with . Discussed home health care vs. outpatient. Pt will let SW know which he would like. Pt family does have a cane and a walker if recommended at DC. SW will continue to follow and assist with DC planning. Haydee SALEH
[2023-10-27] MEDS: Tamsulosin HCl 0.4 MG Capsule PO (17:15)
[2023-10-27 17:17] VITALS: BP 137/69; PULSE 69; RESP 18; TEMP 36.2; O2SAT 99
[2023-10-27 21:15] VITALS: RESP 15
[2023-10-27 21:18] VITALS: BP 140/71; PULSE 91
[2023-10-27 21:24] VITALS: BP 140/71; PULSE 91
[2023-10-28 08:23] LABS: Hematocrit 34.1 % (40-54); Hemoglobin 10.7 g/dL (13.0-16.5)
[2023-10-28 08:44] VITALS: BP 110/51; PULSE 70; RESP 16; TEMP 36.2; O2SAT 98
[2023-10-28 08:47] VITALS: PULSE 70
[2023-10-28] MEDS: Metoprolol Tartrate 50 MG Tablet PO ×2 (08:47→22:02)
[2023-10-28] MEDS: Pantoprazole Sodium 40 MG Tablet PO (08:47)
[2023-10-28] MEDS: Digoxin 125 MCG Tablet PO (08:47)
[2023-10-28] MEDS: Fenofibrate 145 MG Tablet PO (08:47)
[2023-10-28] MEDS: DULoxetine Hcl 20 MG Capsule PO (08:47)
[2023-10-28] MEDS: Ciprofloxacin 500 MG Tablet PO ×2 (08:47→22:02)
[2023-10-28] MEDS: Iron Polysaccharide Complex 150 MG CAPSULE PO (08:47)
[2023-10-28] MEDS: Ascorbic Acid 500 MG Tablet PO (08:48)
[2023-10-28] MEDS: 0.9% Saline Lock 10 ML Syringe IV (11:18)
[2023-10-28 11:22] VITALS: RESP 16; O2SAT 96
--- NOTE | 2023-10-28 11:42 | NURSING ---
pt with 1+ pitting in both feet and legs this AM. applied brianna hose, pt states he wears them at home if he can get them on. pt denies calf pain, no redness noted. will continue to monitor.
[2023-10-28] MEDS: Tamsulosin HCl 0.4 MG Capsule PO (16:25)
[2023-10-28 22:02] VITALS: BP 134/75; PULSE 94
[2023-10-29 05:54] LABS: Absolute Lymphocyte Count 0.62 X10^3/uL (0.83-4.51); Absolute Neutrophil Count 6.8 X10^3/uL (2.0-7.7); Basophil# 0.07 X10^3/uL; Basophil% 0.8 % (0-1); Eosinophils% 1.2 % (0-5); Hematocrit 36.2 % (40-54); Hemoglobin 11.4 g/dL (13.0-16.5); Lymphocyte # 0.62 X10^3/ul (0.83-4.51); Lymphocyte % 7.5 % (19-41); Mean Corp Hgb Conc 31.5 g/dL (32-36); Mean Corpuscular Hgb 29.9 pg (27.0-32.0); Mean Platelet Vol. 11.7 fl (6.2-12.0); Monocyte# 0.53 X10^3/uL; Monocyte% 6.4 % (0-10); NRBC Flagged by Analyzer 0 % (0-5); Neutrophil # 6.76 X10^3/uL (2.7-7.7); Neutrophil % 81.9 % (47-70); Platelet Count 427 K/mm3 (150-450); RBC Distribution Width CV 15.8 % (11.6-14.6); RBC Distribution Width SD 54.2 fl (35.1-43.9); Red Blood Count 3.81 M/mm3 (4.6-6.2); White Blood Count 8.3 K/mm3 (4.4-11.0)
[2023-10-29 06:13] LABS: Anion Gap 6 (5-15); BUN 13 mg/dL (7-18); BUN/Creat Ratio 14.6 RATIO (10-20); Calcium,Total 9.1 mg/dL (8.5-10.1); Chloride 106 mmol/L (98-107); Creatinine, Serum 0.89 mg/dL (0.70-1.30); EST Glomerular Filtration Rate 88 mL/min (>60); Est Glom Filt Rate - Afr Amer 106 mL/min (>60); Estimated Creatinine Clearance 82.08 ml/min; Glucose 97 mg/dL (74-106); Potassium 3.4 mmol/L (3.5-5.1); Sodium Level 137 mmol/L (136-145)
[2023-10-29 08:20] VITALS: BP 132/58; PULSE 84; RESP 16; TEMP 36.4; O2SAT 99
[2023-10-29] MEDS: Potassium Chloride Oral Tablet 20 MEQ PO (08:22)
[2023-10-29 08:23] VITALS: PULSE 84
[2023-10-29] MEDS: Iron Polysaccharide Complex 150 MG CAPSULE PO (08:23)
[2023-10-29] MEDS: Digoxin 125 MCG Tablet PO (08:23)
[2023-10-29] MEDS: Metoprolol Tartrate 50 MG Tablet PO ×2 (08:23→22:40)
[2023-10-29] MEDS: DULoxetine Hcl 20 MG Capsule PO (08:23)
[2023-10-29] MEDS: Ciprofloxacin 500 MG Tablet PO ×2 (08:23→22:39)
[2023-10-29] MEDS: Pantoprazole Sodium 40 MG Tablet PO (08:24)
[2023-10-29] MEDS: Ascorbic Acid 500 MG Tablet PO (08:24)
[2023-10-29] MEDS: Fenofibrate 145 MG Tablet PO (08:24)
--- NOTE | 2023-10-29 08:57 | NURSING ---
Cell Attendant Helper Note, MDS for 10/29/2023 Complete
--- NOTE | 2023-10-29 10:11 | MDS.RN ---
MDS pain interview complete.
--- NOTE | 2023-10-29 12:31 | CASEMGMT ---
Social Work SW met with patient and completed MDS interviews. BIMS PHQ2 2/2 Pt stated he does feel down at times and not little interest at times since hospitalization but feels this will improve when he returns home. SW provided support. Haydee SALEH
--- NOTE | 2023-10-29 15:37 | CASEMGMT ---
Social Work Pt's insurance issued Notice of Medicare NonCoverage Letter with last covered day of 10/31/23. SW presented letter to patient and explained appeal rights. Pt stated he feels ready to DC home. Pt denied wanting to try outpatient therapy and stated he plans on joining [facility]. Pt will DC home 11/01/23. SW discussed therapy recommendation of extended tub bench and grab bars and explained insurance does not cover these items and patient can purchase at local supply store. Haydee SALEH
[2023-10-29] MEDS: Tamsulosin HCl 0.4 MG Capsule PO (17:03)
[2023-10-29] MEDS: Rivaroxaban 20 MG Tablet PO (17:04)
[2023-10-29 22:40] VITALS: BP 107/52; PULSE 70
[2023-10-30 09:04] VITALS: BP 100/53; PULSE 75
[2023-10-30] MEDS: Metoprolol Tartrate 50 MG Tablet PO ×2 (09:04→20:42)
[2023-10-30] MEDS: Iron Polysaccharide Complex 150 MG CAPSULE PO (09:05)
[2023-10-30] MEDS: Potassium Chloride Oral Tablet 20 MEQ PO (09:05)
[2023-10-30] MEDS: Fenofibrate 145 MG Tablet PO (09:05)
[2023-10-30] MEDS: Pantoprazole Sodium 40 MG Tablet PO (09:05)
[2023-10-30] MEDS: Ascorbic Acid 500 MG Tablet PO (09:05)
[2023-10-30] MEDS: DULoxetine Hcl 20 MG Capsule PO (09:05)
[2023-10-30] MEDS: Smz/Tmp Ds Tablet 1 TABLET PO ×2 (09:05→17:24)
[2023-10-30 10:37] VITALS: BP 111/66; PULSE 93
[2023-10-30] MEDS: Tuberculin,Purif.prot.deriv. 50 TU/ML Vial 0.1 ML ID (10:37)
[2023-10-30] MEDS: Digoxin 125 MCG Tablet PO (10:37)
--- NOTE | 2023-10-30 13:21 | NURSING ---
Dr. Pierre updated on pt's BLE edema pt was taking Lasix 40mg as needed at home. N.O. received for 40mg Lasix start now and recheck BMP tomorrow. Order read back.
[2023-10-30] MEDS: Furosemide 40 MG Tablet PO (13:43)
[2023-10-30 13:44] VITALS: BP 107/61; PULSE 73; RESP 16; TEMP 36.2; O2SAT 95
[2023-10-30] MEDS: Tamsulosin HCl 0.4 MG Capsule PO (17:24)
[2023-10-30] MEDS: Rivaroxaban 20 MG Tablet PO (17:24)
[2023-10-30 20:42] VITALS: BP 110/60; PULSE 86
[2023-10-31 07:07] LABS: Anion Gap 5 (5-15); BUN 13 mg/dL (7-18); BUN/Creat Ratio 10.7 RATIO (10-20); Calcium,Total 8.5 mg/dL (8.5-10.1); Chloride 105 mmol/L (98-107); Creatinine, Serum 1.22 mg/dL (0.70-1.30); EST Glomerular Filtration Rate 61 mL/min (>60); Est Glom Filt Rate - Afr Amer 74 mL/min (>60); Estimated Creatinine Clearance 59.88 ml/min; Glucose 93 mg/dL (74-106); Potassium 3.6 mmol/L (3.5-5.1); Sodium Level 137 mmol/L (136-145)
[2023-10-31] MEDS: Ascorbic Acid 500 MG Tablet PO (09:10)
[2023-10-31 09:11] VITALS: BP 110/62; PULSE 86
[2023-10-31] MEDS: Fenofibrate 145 MG Tablet PO (09:11)
[2023-10-31] MEDS: Furosemide 40 MG Tablet PO (09:11)
[2023-10-31] MEDS: Metoprolol Tartrate 50 MG Tablet PO ×2 (09:11→21:39)
[2023-10-31] MEDS: Pantoprazole Sodium 40 MG Tablet PO (09:11)
[2023-10-31] MEDS: Digoxin 125 MCG Tablet PO (09:11)
[2023-10-31] MEDS: DULoxetine Hcl 20 MG Capsule PO (09:12)
[2023-10-31] MEDS: Smz/Tmp Ds Tablet 1 TABLET PO ×2 (09:12→17:01)
[2023-10-31] MEDS: Iron Polysaccharide Complex 150 MG CAPSULE PO (09:12)
[2023-10-31] MEDS: Potassium Chloride Oral Tablet 20 MEQ PO (09:12)
[2023-10-31 14:48] VITALS: BP 115/71; PULSE 94; RESP 14; TEMP 36.1; O2SAT 98
[2023-10-31] MEDS: Rivaroxaban 20 MG Tablet PO (17:01)
[2023-10-31] MEDS: Tamsulosin HCl 0.4 MG Capsule PO (17:01)
[2023-10-31] MEDS: Senna/Docusate Sodium 1 Tablet 2 TABLET PO (21:37)
[2023-10-31 21:39] VITALS: BP 112/63; PULSE 82
[2023-10-31 21:45] VITALS: BP 112/63; PULSE 82
[2023-11-01 06:09] VITALS: O2SAT 96
--- NOTE | 2023-11-01 07:28 | DS.PCM_ITS ---
Providers Date of Admission: 10/22/23 Primary Care Physician: Dr. Ruma Terry MD Reason For Visit: HEMATURIA AND AFIB WITH RVR Diagnosis Discharge Diagnosis (1) Debility: Status: Acute Code(s): R53.81 - Other malaise (2) Hematuria: Status: Inactive Code(s): R31.9 - Hematuria, unspecified (3) Post-operative hemorrhage: Status: Inactive (4) Bacteremia due to Klebsiella pneumoniae: Status: Acute Code(s): R78.81 - Bacteremia; B96.1 - Klebsiella pneumoniae [K. pneumoniae] as the cause of diseases classified elsewhere (5) Complicated urinary tract infection: Status: Acute Code(s): N39.0 - Urinary tract infection, site not specified (6) Atrial fibrillation with rapid ventricular response: Status: Inactive Code(s): I48.91 - Unspecified atrial fibrillation (7) Coronary artery disease: Status: Acute Code(s): I25.10 - Atherosclerotic heart disease of [place] coronary artery without angina pectoris (8) BPH (benign prostatic hyperplasia): Status: Acute Code(s): N40.0 - Benign prostatic hyperplasia without lower urinary tract symptoms (9) Hyperlipidemia: Status: Chronic Code(s): E78.5 - Hyperlipidemia, unspecified Qualifiers: Hyperlipidemia type: unspecified Qualified Code(s): E78.5 - Hyperlipidemia, unspecified (10) Depression: Status: Acute Code(s): F32.A - Depression, unspecified (11) GERD (gastroesophageal reflux disease): Status: Acute Code(s): K21.9 - Gastro-esophageal reflux disease without esophagitis (12) Hypertension: Status: Chronic Code(s): I10 - Essential (primary) hypertension (13) History of pacemaker: Status: Acute Code(s): Z95.0 - Presence of cardiac pacemaker Plan 78 year old male with below past medical history significant for recent left partial nephrectomy hospitalized for hematuria, embolization not needed, resolved with CBI, complicated by Klebsiella bacteremia 2/2 complicated UTI, admitted to TCU with debility, here for rehabilitation, strengthening, prior to discharge home with . * Debility - PT/OT. * Pain - Tylenol 1000mg q6 prn pain (1-5), Oxycodone 5mg q4 prn pain (6-10). * Bowel - Miralax 17gm daily, senna/colace 2 tablets bid, Dulcolax 10mg pr daily prn. * Adult immunization - Administer pneumonia vaccine, covid vaccine, flu vaccine as appropriate. * DVT prophylaxis - Xarelto 20mg starting 10/29/2023. * Klebsiella bacteremia 2/2 complicated UTI - Cipro 500mg bid thru 10/29/2023, Bactrim DS bidcm thru 11/19/2023. * Atrial fibrillation - Metoprolol 50mg bid, Digoxin 125mcg daily, Xarelto 20mg daily starting 10/29/2023. * Depression - Duloxetine 20mg daily, stable chronic mcfp use, GDR not recommended. * Hyperlipidemia - Fenofibrate 145mg daily. * Coronary artery disease - Metoprolol 50mg bid, NTG 0.4mg sl q5m prn, Xarelto 20mg daily starting 10/29/2023. * GERD - Pantoprazole 40mg daily. * BPH - Tamsulosin 0.4mg daily. Medications at Discharge Home Medications nitroglycerin 0.4 mg sublingual tablet 0.4 mg sublingual Q5-15M PRN chest pain #25 tabs 12/29/21 rivaroxaban 20 mg tablet 20 mg PO DAILY blood thinner #90 tabs 06/24/23 tamsulosin 0.4 mg capsule 0.4 mg PO DAILY prostate #90 caps 07/21/23 aspirin 81 mg tablet,delayed release (Adult Aspirin Regimen) 81 mg PO DAILY heart health 08/20/23 furosemide 40 mg tablet 40 mg PO DAILY edema 08/20/23 vit C 250 mg-vit E 90 mg-zinc 40 mg-copper 1 [id number] capsule (PreserVision AREDS-2) 1 tab PO BID vitamin 09/08/23 docusate sodium 100 mg capsule (Colace) 100 mg PO BID constipation #20 caps 09/10/23 fenofibrate 160 mg tablet 160 mg PO DAILY heart health #90 tabs 09/16/23 diltiazem HCl 240 mg capsule,extended release 24 hr (Cartia XT) 240 mg PO DAILY A Fib 10/15/23 metoprolol tartrate 100 mg tablet 50 mg PO Q12H heart 10/15/23 pantoprazole 40 mg tablet,delayed release 40 mg PO DAILY stomach acid 10/15/23 digoxin 125 mcg (0.125 mg) tablet (Lanoxin) 125 mcg PO DAILY HR 10/22/23 duloxetine 20 mg capsule,delayed release (Cymbalta) 20 mg PO DAILY.TCU depression 10/22/23 ascorbic acid (vitamin C) 500 mg tablet 500 mg PO 1000 30 days #30 tabs 11/01/23 furosemide 40 mg tablet 40 mg PO DAILY #0 tabs 11/01/23 metoprolol tartrate 50 mg tablet 50 mg PO BID #0 tabs 11/01/23 polysaccharide iron complex 150 mg iron capsule (Ferrex) 150 mg PO DAILY 30 days #30 caps 11/01/23 potassium chloride 20 mEq tablet,extended release(part/cryst) 20 meq PO DAILYCM 30 days #30 tabs 11/01/23 rivaroxaban 20 mg tablet (Xarelto) 20 mg PO DINNER #0 tabs 11/01/23 sulfamethoxazole 800 mg-trimethoprim 160 mg tablet 1 tab PO BIDCM 18 days #36 tabs 11/01/23 Hospital Course Operations None Procedures None Summary of Care Provided Minutes Spent on Discharge: 35 Hospital Course: 78 year old male with below past medical history significant for recent left partial nephrectomy hospitalized for hematuria, embolization not needed, resolved with CBI, complicated by Klebsiella bacteremia 2/2 complicated UTI, admitted to TCU with debility, here for rehabilitation, strengthening, prior to discharge home with . Discharge home with 11/01/2023, Ham Clarke. Physical Exam Const alert General Appearance: cooperative HEENT normocephalic Eyes PERRL and EOMs intact bilaterally Neck supple, no JVD and no carotid bruits Resp normal respiratory effort, normal air movement and clear to auscultation bilaterally Cardio regular rate and regular rhythm GI normal to inspection, nondistended, normoactive bowel sounds, non-tender and n on-distended Extremity normal capillary refill General Extremity: Negative for edema Skin no rashes or lesions noted General Skin Exam: no breakdown Psych affect normal Appearance: appropriate Weight / BMI Weight Weight: 99.138 kg Body Mass Index (BMI) 30.4 ABG / Lab / Microbiology Data 10/29/23 05:12 10/31/23 06:34 D/C Instructions Discharge Diet: No restrictions Discharge Activity: Return to Normal Activity, May Shower and Use Walker Weight Bearing Status: Weight bearing as tolerated Call your doctor if you observe: Fever of 101 or Higher, Inability to urinate, Inability to have a bowel movement, Shortness of breath, Dizziness, Fainting spells, Swelling in the ankles, Chest pain and Uncontrolled pain Additional Instructions: Discharge home with 11/01/2023, Ham Clarke. Meaningful Use Info Meaningful Use Meaningful Use Diagnoses (Choose all that apply): None applicable Ischemic Stroke Statin Dosing Therapy Reference: STATIN DOSE THERAPY REFERENCE: * Patients > 75 years receive moderate or high dose statin therapy. * Patients 75 years or YOUNGER should receive HIGH intensity statin dose unless contraindicated. You will be required to document reason for non-treatment if statin daily dose does not meet guidelines. HIGH DOSE STATIN THERAPY DAILY Atorvastatin > than or = to 40 mg Rosuvastatin > than or = to 20 mg Amlodipine + Atorvastatin > than or = to 2.5/40 mg Ezetimibe + Simvastatin 10/80 mg Simvastatin 80mg Discharge Plan Admission Admit Date/Time: 10/22/23 20:20 Primary Reason for Your Visit: Debility. Attending Provider: Dany Pierre Chi Primary Care Provider: Ruma Terry Instructions Additional Instructions / Restrictions: Discharge home with 11/01/2023, Ham Clarke. Discharge Orders/Prescriptions Prescriptions: New ascorbic acid (vitamin C) 500 mg Tablet 500 mg PO 1000 30 Days Qty: 30 0RF furosemide 40 mg Tablet 40 mg PO DAILY Qty: 0 0RF polysaccharide iron complex [Ferrex 150] 150 mg iron Capsule 150 mg PO DAILY 30 Days Qty: 30 0RF metoprolol tartrate 50 mg Tablet 50 mg PO BID Qty: 0 0RF Xarelto 20 mg Tablet 20 mg PO DINNER Qty: 0 0RF potassium chloride 20 mEq Tablet,Er Particles/Crystals 20 meq PO DAILYCM 30 Days Qty: 30 0RF sulfamethoxazole-trimethoprim 800-160 mg Tablet 1 tab PO BIDCM 18 Days Qty: 36 0RF Continued furosemide 40 mg tablet 40 mg PO DAILY pantoprazole 40 mg tablet,delayed release (DR/EC) 40 mg PO DAILY digoxin [Lanoxin] 125 mcg (0.125 mg) tablet 125 mcg PO DAILY duloxetine [Cymbalta] 20 mg capsule,delayed release(DR/EC) 20 mg PO DAILY.TCU nitroglycerin 0.4 mg tablet, sublingual 0.4 mg sublingual Q5-15M PRN (Reason: chest pain) Qty: 25 3RF tamsulosin 0.4 mg capsule 0.4 mg PO DAILY Qty: 90 3RF fenofibrate 160 mg tablet 160 mg tablet 160 mg PO DAILY Qty: 90 3RF No Action rivaroxaban 20 mg tablet 20 mg PO DAILY Qty: 90 3RF Hold Instructions: bleeding aspirin [Adult Aspirin Regimen] 81 mg tablet,delayed release (DR/EC) 81 mg PO DAILY Hold Instructions: Resume on 09/24/23. PreserVision AREDS-2 250-90-40-1 mg capsule 1 tab PO BID docusate sodium [Colace] 100 mg capsule 100 mg PO BID Qty: 20 0RF diltiazem HCl [Cartia XT] 240 mg capsule,extended release 24hr 240 mg PO DAILY Hold Instructions: unknown metoprolol tartrate 100 mg tablet 50 mg PO Q12H Referrals / Follow Up: Ruma Terry MD [Primary Care Provider] - Disposition Disposition (needs filled in before D/C Order can be placed): Home, Self Care
[2023-11-01 08:33] VITALS: BP 117/61; PULSE 90; RESP 16; TEMP 36.2; O2SAT 100
[2023-11-01] MEDS: Smz/Tmp Ds Tablet 1 TABLET PO (08:37)
[2023-11-01] MEDS: Potassium Chloride Oral Tablet 20 MEQ PO (08:37)
[2023-11-01 08:38] VITALS: PULSE 90
[2023-11-01] MEDS: Furosemide 40 MG Tablet PO (08:38)
[2023-11-01] MEDS: DULoxetine Hcl 20 MG Capsule PO (08:38)
[2023-11-01] MEDS: Metoprolol Tartrate 50 MG Tablet PO (08:38)
[2023-11-01] MEDS: Iron Polysaccharide Complex 150 MG CAPSULE PO (08:38)
[2023-11-01] MEDS: Digoxin 125 MCG Tablet PO (08:38)
[2023-11-01] MEDS: Ascorbic Acid 500 MG Tablet PO (08:39)
[2023-11-01] MEDS: Pantoprazole Sodium 40 MG Tablet PO (08:39)
[2023-11-01] MEDS: Fenofibrate 145 MG Tablet PO (08:39)
--- NOTE | 2023-11-01 09:45 | NURSING ---
Spoke with office staff for Dr. Chavarria, asked about them wanting labs. They requested most recent be faxed to them at #[phone]. Labs faxed.
--- NOTE | 2023-11-01 11:32 | NURSING ---
spoke with outpt scheduling for CT scan. able to do at 4p on 11/05/23. and pt updated. aware to f/u with Dr Younger after CT scan following week.
--- NOTE | 2023-11-04 09:16 | MDS.RN ---
Information for the MDS was obtained from review of the clinical record, interview of resident, staff, and direct observation of resident?s care.
== END 2023-11-01 11:35 | disposition home or self-care (01) | DRG 690 ==
PROVIDERS: Admitting Provider Family Medicine Geriatric Medicine; PCP Internal Medicine; Visit Provider Family Medicine Geriatric Medicine
DX: N39.0 Urinary tract infection, site not specified (principal); R78.81 Bacteremia; I48.91 Unspecified atrial fibrillation; I10 Essential (primary) hypertension; F32.A Depression, unspecified; K21.9 Gastro-esophageal reflux disease without esophagitis; I25.10 Atherosclerotic heart disease of native coronary artery without angina pectoris; E78.00 Pure hypercholesterolemia, unspecified; Z90.5 Acquired absence of kidney; Z79.82 Long term (current) use of aspirin; Z95.5 Presence of coronary angioplasty implant and graft; R31.9 Hematuria, unspecified; N40.1 Benign prostatic hyperplasia with lower urinary tract symptoms; B96.1 Klebsiella pneumoniae [K. pneumoniae] as the cause of diseases classified elsewhere; Z87.891 Personal history of nicotine dependence; Z79.899 Other long term (current) drug therapy; Z95.0 Presence of cardiac pacemaker; N40.0 Benign prostatic hyperplasia without lower urinary tract symptoms
CPT/HCPCS: 36415; 80048; 85014; 85018; 85025; 86850; 86900; 86901; 86920; 86922; 92523; 97110; 97116; 97162; 97166; 97530; 97535; A4216

== ENCOUNTER 2023-10-27 08:05 | Outpatient (CLI) | payer MEDICARE, SELFPAY ==
[2023-10-27] VITALS (7 sets, daily range): BP systolic 96–113; BP diastolic 47–68; PULSE 64–99; RESP 16; TEMP 35.6–36.1; O2SAT 99–100
[2023-10-27] MEDS: 0.9% Normal Saline (500mL Bag) 500 ML 15 ML IV (08:22)
[2023-10-27] MEDS: 0.9% NaCl Peripheral Flush Adult/Peds IV ×2 (08:22→13:26)
[2023-10-27] MEDS: Furosemide 20 MG/2 ML VIAL IV (10:25)
== END 2023-10-27 08:06 | disposition home or self-care (01) ==
LOC: MEDOUTP 08:05
PROVIDERS: PCP Internal Medicine; Referring Provider Family Medicine Geriatric Medicine; Visit Provider Family Medicine Geriatric Medicine
DX: D62 Acute posthemorrhagic anemia (principal)
CPT/HCPCS: 36415; 36430; 86850; 86900; 86901; 86920; 86922; J7040; P9016; A4216; J1940

== ENCOUNTER 2023-11-03 16:49 | Emergency (ER) | payer MEDICARE, SELFPAY ==
[2023-11-03 16:50] VITALS: BP 124/67; PULSE 87; RESP 16; TEMP 36.2; O2SAT 100; BMI 27.8
--- NOTE | 2023-11-03 17:45 | EDS_ITS ---
HPI History of Present Illness Chief Complaint: Complaint [facility] Medical History (Updated 11/03/23 @ 21:[address] Leonard Reyes, DO) Abnormal ankle brachial index Arthritis Asthma Atherosclerotic heart disease of [place] coronary artery without angina pectoris Atrial fibrillation CAD in [place] artery Cardiology follow-up encounter Colon polyp Current use of detention anticoagulation Diverticulosis Essential hypertension Former smoker Gastric reflux GERD (gastroesophageal reflux disease) High cholesterol History of atrial fibrillation History of cardioversion (~05/16/19) History of echocardiogram History of edema History of pacemaker History of renal disease History of stress test Hyperlipidemia Non-smoker RADHA (obstructive sleep apnea) Osteoarthritis Presence of cardiac pacemaker (~2013) Prostate disease RLS (restless legs syndrome) Sick sinus syndrome Tubular adenoma of colon Ventral incisional hernia without obstruction or gangrene Wears glasses Wears partial dentures [place] diverticulum Home Medications nitroglycerin 0.4 mg sublingual tablet 0.4 mg sublingual Q5-15M PRN chest pain #25 tabs 12/29/21 [Rx Last Taken Unknown] rivaroxaban 20 mg tablet 20 mg PO DAILY blood thinner #90 tabs 06/24/23 [Rx Last Taken 08/23/23] tamsulosin 0.4 mg capsule 0.4 mg PO DAILY prostate #90 caps 07/21/23 [Rx Last Taken 10/22/23] aspirin 81 mg tablet,delayed release (Adult Aspirin Regimen) 81 mg PO DAILY heart health 08/20/23 [History Last Taken 10/22/23] furosemide 40 mg tablet 40 mg PO DAILY edema 08/20/23 [History Last Taken Unknown] vit C 250 mg-vit E 90 mg-zinc 40 mg-copper 1 [id number]-qtbund capsule (PreserVision AREDS-2) 1 tab PO BID vitamin 09/08/23 [History Last Taken 09/09/23] docusate sodium 100 mg capsule (Colace) 100 mg PO BID constipation #20 caps 09/10/23 [Rx Last Taken Unknown] fenofibrate 160 mg tablet 160 mg PO DAILY heart health #90 tabs 09/16/23 [Rx Last Taken 10/22/23] diltiazem HCl 240 mg capsule,extended release 24 hr (Cartia XT) 240 mg PO DAILY A Fib 10/15/23 [History Last Taken Unknown] metoprolol tartrate 100 mg tablet 50 mg PO Q12H heart 10/15/23 [History Last Taken 10/22/23] pantoprazole 40 mg tablet,delayed release 40 mg PO DAILY stomach acid 10/15/23 [History Last Taken 10/22/23] digoxin 125 mcg (0.125 mg) tablet (Lanoxin) 125 mcg PO DAILY HR 10/22/23 [History Last Taken 10/22/23] duloxetine 20 mg capsule,delayed release (Cymbalta) 20 mg PO DAILY.TCU depression 10/22/23 [History Last Taken 10/22/23] ascorbic acid (vitamin C) 500 mg tablet 500 mg PO 1000 30 days #30 tabs 11/01/23 [Rx Last Taken Unknown] furosemide 40 mg tablet 40 mg PO DAILY #0 tabs 11/01/23 [Rx Last Taken Unknown] metoprolol tartrate 50 mg tablet 50 mg PO BID #0 tabs 11/01/23 [Rx Last Taken Unknown] polysaccharide iron complex 150 mg iron capsule (Ferrex) 150 mg PO DAILY 30 days #30 caps 11/01/23 [Rx Last Taken Unknown] potassium chloride 20 mEq tablet,extended release(part/cryst) 20 meq PO DAILYCM 30 days #30 tabs 11/01/23 [Rx Last Taken Unknown] rivaroxaban 20 mg tablet (Xarelto) 20 mg PO DINNER #0 tabs 11/01/23 [Rx Last Taken Unknown] sulfamethoxazole 800 mg-trimethoprim 160 mg tablet 1 tab PO BIDCM 18 days #36 tabs 11/01/23 [Rx Last Taken Unknown] Allergy/AdvReac Type Severity Reaction Status Date / Time atorvastatin [From Lipitor] AdvReac Severe elevated Verified 11/03/23 16:52 LFT's lisinopril AdvReac Severe cough Verified 11/03/23 16:52 gemfibrozil AdvReac Unknown Unknown Verified 11/03/23 16:52 simvastatin AdvReac Unknown Unknown Verified 11/03/23 16:52 bacitracin AdvReac Unknown Verified 11/03/23 16:52 [From Triple Antibiotic] colistimethate sodium AdvReac Unknown Verified 11/03/23 16:52 [From Triple Antibiotic] gramicidin D AdvReac Unknown Verified 11/03/23 16:52 [From Triple Antibiotic] neomycin sulfate AdvReac Unknown Verified 11/03/23 16:52 [From Triple Antibiotic] polymyxin B AdvReac Unknown Verified 11/03/23 16:52 [From Triple Antibiotic] pramoxine HCl AdvReac Unknown Verified 11/03/23 16:52 [From Triple Antibiotic] Family History Mother CVA (cerebral vascular accident) Father Heart disease Sister Heart disease Other Arthritis Hyperlipemia Hypertension Surgical History H/O umbilical hernia repair History of cataract surgery History of colonoscopy (~04/2021) History of inguinal hernia repair History of laparoscopic cholecystectomy Postsurgical percutaneous transluminal coronary angioplasty (PTCA) status (~06/17/12) Presence of stent in coronary artery (~06/17/12) Social History household members: spouse Smoking Status: Former smoker how long ago did patient quit smokin's alcohol intake: never substance use type: does not use caffeine: Yes Type: carbonated beverages Number of servings: 3 EXAM Physical Exam Const Vital Signs: 11/03/23 16:50 11/03/23 19:20 Temperature 97.2 F L Temperature Source Temporal Pulse Rate 87 86 Respiratory Rate 16 18 Blood Pressure 124/67 H 118/72 Blood Pressure Mean 86 87 Pulse Ox 100 97 Oxygen Delivery Method Room Air Room Air MDM MDM MDM Narrative Medical decision making narrative: HISTORY OF PRESENT ILLNESS: 78-year-old male presents hematuria. This began today. Notes compliance with Xarelto. Last dose was last night. Denies any lightheadedness, syncope, chest pain, palpitations, shortness of breath. Notes he is urinating freely. Denies any urinary retention. REVIEW OF SYSTEMS: Pertinent positives: Hematuria Pertinent negatives: Chest pain, palpitation, shortness of breath, lightheadedness, syncope, urinary retention PHYSICAL EXAM: Nursing triage notes reviewed, Vital signs reviewed Constitutional: please see mdm HENT: MMM Eyes: Pupils equal round and reactive to light, Extraocular muscles intact Neck: No stridor, no JVD, full neck ROM Lungs: Clear to auscultation, No wheezing or rales. No increased work of breathing, no conversational dyspnea, no accessory muscle use, no nasal flaring. No respiratory distress noted Heart: Regular rate and rhythm, No murmurs, No rubs and No gallops, 2+ distal pulses (radial, femoral, posterior tibial) in all extremities Abdomen: Soft, there is no tenderness, rigidity, rebound or guarding, no obvious peritoneal signs, no palpable pulsatile abdominal masses, no auscultated abdominal bruit : No CVAT Extremities: No edema Neuro: No focal neurological deficits, cranial nerves II through XII intact, 5/5 strength in all extremities. Intact sensation to light touch in all extremities, 2+ reflexes bilateral patella tendons. Normal gait. No ataxia. Skin: No rash or lesions noted MEDICAL DECISION MAKING: Chief Complaint: Hematuria External records reviewed: Inpatient notes reviewed: Recent mission on 10/22/2023 for hematuria with A-fib with RVR patient was noted to have bacteremia secondary to Klebsiella pneumonia at that time, Factors affecting care: Left partial nephrectomy, A-fib on Xarelto Social determinants of health: none History obtained from others: Patient's family Consults: Urology (Dr. Younger) discussed patient history, physical exam, labs. Dr. Hartley recommended against admission. Recommended discharge with increased fluid intake and follow-up with him tomorrow morning. MDM Narrative: Patient was hemodynamically stable, afebrile and nontoxic-appearing. Exam unremarkable I considered the following differential diagnosis: Hematuria, anemia, urinary retention Patient was urinating freely. No signs of urinary retention ALL IMAGES (IF OBTAINED) HAVE BEEN PERSONALLY REVIEWED AND INTERPRETED BY MYSELF. CBC with no leukocytosis, noted improved anemia, no thrombocytopenia BMP without evidence of significant electrolyte abnormalities, no anion gap, no acute kidney injury. Urine with gross hematuria, no evidence of UTI The synthesis of the patient's history, physical exam, lab suggests no acute life or limb threat etiology. Specifically no emergency surgical hematuria such as significant anemia or urinary retention. I did discuss the case with the patient's urologist who recommended against admission and recommended discharge. I consider escalating patient's care to admission observation however thought this was unnecessary given specialist recommendation. Strict return precautions were discussed. Close follow-up was arranged. The patient and/or family, caregivers express understanding. The patient and/or family, caregivers agrees with the plan. Shared decision making: I will have a discussion with the patient and or visitors regarding risk/benefits of further testing or admission. They will be made aware of of the risk/benefits inherent in this decision they will be given the opportunity to voice understanding. Total critical care time today provided was at least 0 minutes. This excludes separately billable procedures. Critical care time (if documented) is secondary to the patient having high probability of clinically significant/life threatening deterioration in the patient's condition which required my urgent intervention. Impression: 1. Hematuria 2. History of atrial fibrillation 3. History of anticoagulation use Dispo: Discharge home This note was generated with [employer] dictation software. It may contain incorrect words, spelling, and punctuation that were not noted in review of the chart prior to signing. Lab Data Labs: Laboratory Results - last 24 hr 11/03/23 11/03/23 17:55 19:30 WBC 7.7 RBC 3.86 L Hgb 11.6 L Hct 36.7 L MCV 95.1 H MCH 30.1 MCHC 31.6 L RDW Std Deviation 54.3 H RDW Coeff of Mimi 15.6 H Plt Count 337 MPV 11.9 Immature Gran % (Auto) 0.400 Neut % (Auto) 84.7 H Lymph % (Auto) 5.7 L [place] % (Auto) 8.4 Eos % (Auto) 0.4 Baso % (Auto) 0.4 Absolute Neuts (auto) 6.5 Absolute Lymphs (auto) 0.44 L Nucleated RBC % 0 Differential Comment SEE COMMENT Platelet Estimate ADEQUATE RBC Morphology N CHROM Anisocytosis RARE Macrocytosis RARE Sodium 137 Potassium 4.4 Chloride 107 Carbon Dioxide 27.0 Anion Gap 3 L BUN 19 H Creatinine 1.22 Estim Creat Clear Calc 57.50 Est GFR (MDRD) Af Amer 74 Est GFR (MDRD) Non-Af 61 BUN/Creatinine Ratio 15.6 Glucose 89 Calcium 9.1 Urine Color Red Urine Clarity Cloudy Urine pH 6.5 Ur Specific [place] 1.015 Urine Protein 100 H Urine Glucose (UA) Normal Urine Ketones 5 H Urine Occult Blood 250 H Urine Nitrite Negative Urine Bilirubin Negative Urine Urobilinogen Normal Ur Leukocyte Esterase 100 H Urine RBC > 100 SEEN Urine WBC 25-50 SEEN Ur Squamous Epith Cells 0 SEEN Urine Bacteria RARE Urine Mucus 0 SEEN Discharge Plan Triage Chief Complaint: Complaint ED Provider: Leonard Reyes Dx/Rx/DC Orders Clinical Impression: Hematuria Instructions: ED Hematuria Prescriptions: No Action rivaroxaban 20 mg tablet 20 mg PO DAILY Qty: 90 3RF Hold Instructions: bleeding aspirin [Adult Aspirin Regimen] 81 mg tablet,delayed release (DR/EC) 81 mg PO DAILY Hold Instructions: Resume on 09/24/23. furosemide 40 mg tablet 40 mg PO DAILY PreserVision AREDS-2 250-90-40-1 mg capsule 1 tab PO BID docusate sodium [Colace] 100 mg capsule 100 mg PO BID Qty: 20 0RF pantoprazole 40 mg tablet,delayed release (DR/EC) 40 mg PO DAILY diltiazem HCl [Cartia XT] 240 mg capsule,extended release 24hr 240 mg PO DAILY Hold Instructions: unknown metoprolol tartrate 100 mg tablet 50 mg PO Q12H digoxin [Lanoxin] 125 mcg (0.125 mg) tablet 125 mcg PO DAILY duloxetine [Cymbalta] 20 mg capsule,delayed release(DR/EC) 20 mg PO DAILY.TCU ascorbic acid (vitamin C) 500 mg Tablet 500 mg PO 1000 30 Days Qty: 30 0RF furosemide 40 mg Tablet 40 mg PO DAILY Qty: 0 0RF polysaccharide iron complex [Ferrex 150] 150 mg iron Capsule 150 mg PO DAILY 30 Days Qty: 30 0RF metoprolol tartrate 50 mg Tablet 50 mg PO BID Qty: 0 0RF Xarelto 20 mg Tablet 20 mg PO DINNER Qty: 0 0RF potassium chloride 20 mEq Tablet,Er Particles/Crystals 20 meq PO DAILYCM 30 Days Qty: 30 0RF sulfamethoxazole-trimethoprim 800-160 mg Tablet 1 tab PO BIDCM 18 Days Qty: 36 0RF nitroglycerin 0.4 mg tablet, sublingual 0.4 mg sublingual Q5-15M PRN (Reason: chest pain) Qty: 25 3RF tamsulosin 0.4 mg capsule 0.4 mg PO DAILY Qty: 90 3RF fenofibrate 160 mg tablet 160 mg tablet 160 mg PO DAILY Qty: 90 3RF Primary Care Provider: Ruma Terry Referrals: Ruma Terry MD [Primary Care Provider] - Activity Restrictions/Additional Instructions: Thank you for trusting us with your care today! Please hold your blood thinner (Xarelto) until you follow up with Dr. Younger. Please take Tylenol (2 pills, 650 mg), ibuprofen (2 pills, 400 mg) every 6 hours as needed for pain and fever control. Please return to the emergency department if your symptoms change or worsen. Specifically develop inability urinate. Specifically develop heart racing, shortness of breath, if you lose consciousness, if you develop excessive fatigue, chest pain. Please follow with your Urologist (Dr. Younger) for further outpatient evaluation and management. I spoke to on the phone tonight. He states he can see you tomorrow in his office. Please give his office a call approximately 8 or 9 AM to ascertain the most appropriate time to present to his office Disposition Disposition: Home, Self Care
--- NOTE | 2023-11-03 17:49 | EKG12_ITS ---
Test Reason : Blood Pressure : / mmHG Vent. Rate : 083 BPM Atrial Rate : 000 BPM P-R Int : 000 ms QRS Dur : 092 ms QT Int : 326 ms P-R-T Axes : 000 010 -11 degrees QTc Int : 383 ms Atrial fibrillation with occasional ventricular-paced complexes Low voltage QRS Incomplete right bundle branch block Nonspecific ST and T wave abnormality Abnormal ECG When compared with ECG of 19-SEP-2023 16:42, Electronic ventricular pacemaker has replaced Atrial fibrillation Vent. rate has decreased BY 66 BPM Confirmed by RALPH VERGARA MD ([id number]), editor magazine SG MATSON ([id number]) on 11/11/2023 11:45:50 AM Referred By: Confirmed By:RALPH VERGARA MD
[2023-11-03 18:09] LABS: Absolute Lymphocyte Count 0.44 X10^3/uL (0.83-4.51); Absolute Neutrophil Count 6.5 X10^3/uL (2.0-7.7); Basophil# 0.03 X10^3/uL; Basophil% 0.4 % (0-1); Eosinophil# 0.03 X10^3/uL; Eosinophils% 0.4 % (0-5); Hematocrit 36.7 % (40-54); Hemoglobin 11.6 g/dL (13.0-16.5); Lymphocyte # 0.44 X10^3/ul (0.83-4.51); Lymphocyte % 5.7 % (19-41); Mean Corp Hgb Conc 31.6 g/dL (32-36); Mean Corpuscular Hgb 30.1 pg (27.0-32.0); Mean Corpuscular Volume 95.1 fL (80-94); Mean Platelet Vol. 11.9 fl (6.2-12.0); Monocyte# 0.65 X10^3/uL; Monocyte% 8.4 % (0-10); NRBC Flagged by Analyzer 0 % (0-5); Neutrophil # 6.54 X10^3/uL (2.7-7.7); Neutrophil % 84.7 % (47-70); POSITIVE DIFFERENTIAL YES; Platelet Count 337 K/mm3 (150-450); RBC Distribution Width CV 15.6 % (11.6-14.6); RBC Distribution Width SD 54.3 fl (35.1-43.9); Red Blood Count 3.86 M/mm3 (4.6-6.2); White Blood Count 7.7 K/mm3 (4.4-11.0)
[2023-11-03 18:22] LABS: Anion Gap 3 (5-15); BUN 19 mg/dL (7-18); BUN/Creat Ratio 15.6 RATIO (10-20); Calcium,Total 9.1 mg/dL (8.5-10.1); Chloride 107 mmol/L (98-107); Creatinine, Serum 1.22 mg/dL (0.70-1.30); EST Glomerular Filtration Rate 61 mL/min (>60); Est Glom Filt Rate - Afr Amer 74 mL/min (>60); Glucose 89 mg/dL (74-106); Potassium 4.4 mmol/L (3.5-5.1); Sodium Level 137 mmol/L (136-145)
[2023-11-03 18:43] LABS: Differential Indicated SCAN CRITERIA MET
[2023-11-03 18:44] LABS: Anisocytosis RARE; Platelet Estimate ADEQUATE (ADEQ); Red Cell Morphology N CHROM NORMAL (NORM C&C)
[2023-11-03 18:45] LABS: Macrocytosis RARE
[2023-11-03 19:20] VITALS: BP 118/72; PULSE 86; RESP 18; O2SAT 97
[2023-11-03 19:36] LABS: Mucous, Urine 0 SEEN /hpf (<or=2+); Squamous Epithelial Cells - UA 0 SEEN /hpf (0-5)
[2023-11-03 19:40] LABS: Color, Urine Red (Yellow); Glucose, Dipstick Normal (Normal); Ketone-Dipstick 5 mg/dl (Negative); Leukocyte Esterase-Dipstick 100 /ul (Negative); Nitrite-Dipstick Negative (Negative); Occult Blood-Urine 250 /ul (Negative); Protein-Dipstick 100 mg/dl (Negative); Specific Gravity, Urine 1.015 (1.002-1.030); Urine Bilirubin Dipstick Negative (Negative); Urine Clarity Cloudy (Clear); Urine Urobilinogen Normal (Normal); Urine pH 6.5 (5.0 - 8.0)
[2023-11-03 19:52] LABS: Red Blood Cells-Urine > 100 SEEN /hpf (0-5); White Blood Cells 25-50 SEEN /hpf (0-5)
[2023-11-03 19:53] LABS: Bacteria RARE /hpf (None Seen)
[2023-11-03 21:00] VITALS: BP 102/58; PULSE 80; RESP 18; TEMP 36.6; O2SAT 98
== END 2023-11-03 21:37 | disposition home or self-care (01) ==
PROVIDERS: Emergency Provider Emergency Medicine; PCP Internal Medicine; Visit Provider Emergency Medicine
DX: R31.9 Hematuria, unspecified (principal); I48.91 Unspecified atrial fibrillation; Z90.5 Acquired absence of kidney; Z87.891 Personal history of nicotine dependence; J45.909 Unspecified asthma, uncomplicated; I25.10 Atherosclerotic heart disease of native coronary artery without angina pectoris; K21.9 Gastro-esophageal reflux disease without esophagitis; E78.00 Pure hypercholesterolemia, unspecified; I10 Essential (primary) hypertension; Z79.899 Other long term (current) drug therapy; Z79.01 Long term (current) use of anticoagulants
CPT/HCPCS: 80048; 81001; 85025; 93005; 99282; J7050; A4216

== ENCOUNTER → 2023-11-05 | Outpatient (CLI) | payer MEDICARE, SELFPAY ==
--- NOTE | 2023-11-05 15:56 | CT_ITS ---
STUDY: CT ABDOMEN AND PELVIS WITHOUT CONTRAST REASON FOR EXAM: Male, 78 years old. post left partial nephrectomy bleed, cyst removed 09/09. RADIATION DOSAGE (If Supplied By Facility): CTDIvol = ( 13.12 ) mGy, DLP = ( 763.82 ) mGycm TECHNIQUE: Transaxial images were obtained from the dome of the diaphragm to the symphysis pubis without oral contrast, and without intravenous contrast. Sagittal and coronal images were reconstructed. Individualized dose optimization techniques were used for this CT. COMPARISON: 10/15/2023 FINDINGS: The visualized lung bases are unremarkable. Cardiomegaly. Normal liver. There is non-visualization of the gallbladder, which may be secondary to either contraction or a prior cholecystectomy. Normal spleen. Normal pancreas. Normal bilateral adrenal glands. Multiple bilateral small nonobstructing renal stones. No hydronephrosis, ureteral stone, ureteral dilatation. There is no change in a 3 cm round area of slightly increased attenuation within the midsection of the left kidney consistent with a hematoma related to recent partial nephrectomy. Also no change in the stranding of surrounding fat. Normal visualized stomach. Diverticula of the second and third portions of the duodenum. There are multiple colonic diverticula consistent with diverticulosis. The appendix is visualized and appears normal. There is diffuse atherosclerotic calcification of the abdominal aorta, without a demonstrated aneurysm. Normal inferior vena cava. Normal retroperitoneum. Normal urinary bladder. Normal abdominal wall. Normal osseous structures. CT/Abdomen/Pelvis without Cont IMPRESSION: No change in postoperative changes and hematoma of the left kidney after partial nephrectomy. Electronically Signed: Bhupendra Kenney MD at 21:06 EDT ,
== END | disposition home or self-care (01) ==
LOC: CT 15:54
PROVIDERS: PCP Internal Medicine; Referring Provider Family Medicine Geriatric Medicine; Visit Provider Family Medicine Geriatric Medicine
DX: N99.820 Postprocedural hemorrhage of a genitourinary system organ or structure following a genitourinary system procedure (principal); Z90.5 Acquired absence of kidney
CPT/HCPCS: 74176

== ENCOUNTER → 2023-12-17 | Outpatient (CLI) | payer MEDICARE, SELFPAY ==
[2023-12-17 11:01] LABS: Hematocrit 41.6 % (40-54); Hemoglobin 13.2 g/dL (13.0-16.5); Mean Corp Hgb Conc 31.7 g/dL (32-36); Mean Corpuscular Hgb 29.7 pg (27.0-32.0); Mean Corpuscular Volume 93.5 fL (80-94); Mean Platelet Vol. 12.2 fl (6.2-12.0); Platelet Count 270 K/mm3 (150-450); RBC Distribution Width CV 16.3 % (11.6-14.6); RBC Distribution Width SD 55.6 fl (35.1-43.9); Red Blood Count 4.45 M/mm3 (4.6-6.2)
== END | disposition home or self-care (01) ==
LOC: LAB 10:19
PROVIDERS: PCP Internal Medicine; Referring Provider Internal Medicine Cardiovascular Disease; Visit Provider Internal Medicine Cardiovascular Disease
DX: I48.91 Unspecified atrial fibrillation (principal)
CPT/HCPCS: 36415; 85027

== ENCOUNTER → 2023-12-20 | Outpatient (CLI) | payer MEDICARE, SELFPAY ==
--- NOTE | 2023-12-20 12:47 | CT_ITS ---
STUDY: CT ABDOMEN AND PELVIS WITH AND WITHOUT CONTRAST REASON FOR EXAM: Male, 78 years old. CYST OF KIDNEY. 35 pound weight loss. RADIATION DOSAGE (If Supplied By Facility): CTDIvol = ( 21.54 ) mGy, DLP = ( 3227.26 ) mGycm TECHNIQUE: Transaxial images were obtained from the dome of the diaphragm to the symphysis pubis without oral contrast. IV 100mL [id number]-300 was administered. Sagittal and coronal images were reconstructed. Individualized dose optimization techniques were used for this CT. COMPARISON: Comparison is made with prior study dated November 05, 2023. FINDINGS: The visualized lung bases are unremarkable. A dual-chamber pacemaker is seen. There is decreased attenuation of the liver consistent with steatosis. The patient is status post cholecystectomy. Normal spleen. There is diffuse atrophy of the pancreas. Normal bilateral adrenal glands. There is a 5.6 mm calculus in the lower pole calyx of the right kidney. A tiny calculus is also seen along the lateral aspect of the lower pole and upper pole of the right kidney. 1 m cyst in the upper pole of the right kidney. Nonspecific left perinephric stranding. Tiny nonobstructive calculus in the lower pole calyx of the left kidney. There is a 3 cm x 1.9 cm complex cystic lesion in the inferior lateral aspect of the left kidney. Normal visualized stomach. Stable diverticula in the second portion of the duodenum. Normal small intestine. There are multiple colonic diverticula consistent with diverticulosis. The appendix is visualized and appears normal. There is diffuse atherosclerotic calcification of the abdominal aorta and its major visceral branches, without a demonstrated aneurysm. Normal inferior vena cava. Normal retroperitoneum. Normal urinary bladder. Prior left inguinal hernia repair with a mesh. Postoperative changes are seen. There are degenerative changes of the visualized lumbar spine. CT/CT Abd/Pelvis W/WO Contrast IMPRESSION: Stable appearance of the left perinephric space with evidence of stranding. Complex changes seen in the inferior lateral aspect of the left kidney as described. The patient has a history of prior partial nephrectomy. Small cyst right kidney. Nonobstructive right intrarenal calculus. Electronically Signed: Mumtaz Geiger MD at 14:02 EDT ,
[2023-12-20 13:15] LABS: CREATININE FINGERSTICK < 1.0 mg/dL (0.70-1.30); EGFR FINGERSTICK > 60.0000 mL/min (>60)
== END | disposition home or self-care (01) ==
LOC: CT 12:44
PROVIDERS: PCP Internal Medicine; Visit Provider Urology
DX: R31.0 Gross hematuria (principal); N28.1 Cyst of kidney, acquired
CPT/HCPCS: 74178; Q9967; A4216

== ENCOUNTER 2023-12-29 11:28 | Day surgery (SDC) | payer MEDICARE, SELFPAY ==
[2023-12-29] VITALS (11 sets, daily range): BP systolic 118–154; BP diastolic 69–86; PULSE 66–93; RESP 16; TEMP 36–36.4; O2SAT 94–100; BMI 28.3
[2023-12-29] MEDS: Lactated Ringers 1,000 ML 15 ML IV (12:21)
--- NOTE | 2023-12-29 12:31 | PCM.PRE.AN2 ---
ASA Classification* ASA Classification ASA Classification: 3 Assessment & Plan Anesthesia* Anesthesia Assessment Anesthesia Assessment: Discussed sedation and/or anesthesia options, risks, benefits, and alternatives with patient/parents/legal guardian/POA. Questions invited. The patient/parents/legal guardian/POA seems to understand and agrees to proceed with anesthesia plan. Reviewed the physical assessment, medical history, allergy history and patient home medications list prior to surgery/procedure/anesthetic and documented any changes. Performed airway and anesthesia risk assessments. 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 When Was Last Pacemaker Check QUESTION #4 FULL TEXT: You/Your Family Experience fever (hyperthermia) with Anesthesia Last Oral Intake Last Oral intake: Last Oral Intake NPO since 08:50 12/29/23 12:08 Meds taken in AM with sips of Yes 12/29/23 12:08 water? Meds patient instructed to take am of surgery PONV PONV - train operations manager: PONV - train operations manager Female No 12/15/23 14:07 HX of Motion Sickness No 12/15/23 14:07 HX of N/V After Surgery No 12/15/23 14:07 Non-Smoker Yes 12/15/23 14:07 Duration of Surgery greater Yes 12/15/23 14:07 than 60 minutes Number of Risk Factors 2 12/15/23 14:07 PONV Score Moderate Risk 12/15/23 14:07 Height & Weight Height & Weight: Anesthesia: Height & Weight Height 5 ft 11 in 12/29/23 12:08 Weight: 92 kg 12/29/23 12:08 Body Mass Index (BMI) 28.3 12/29/23 12:08 Respiratory Assessment Respiratory Assessment - train operations manager: Respiratory Tract Infection Hx - train operations manager Hx Respiratory Tract Infection No 12/15/23 14:07 STOP Sleep Apnea STOP Sleep Apnea - train operations manager: STOP Sleep Apnea - train operations manager Hx Hypertension Yes: CONTROLLED ON MED 12/15/23 14:07 Hx Sleep Apnea No 12/15/23 14:07 CPAP Yes: encouraged to bring to 12/15/23 14:07 hospital BIPAP No 12/15/23 14:07 Do you snore loudly (louder No 12/15/23 14:07 than talking or can be heard Do you often feel tired/ No 12/15/23 14:07 fatigued/ sleepy during daytime? Has anyone observed you stop No 12/15/23 14:07 breathing during sleep? STOP Results Negative 12/15/23 14:07 QUESTION #5 FULL TEXT : Do you snore loudly (louder than talking or can be heard through closed doors)? 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 Specify any problems Hx of Preganancy in last 3 N/A 12/15/23 14:07 Months Nurse Filling Out Transfusion VCHRISTIN 12/15/23 14:07 & Questions: Date: 12/15/23 12/15/23 14:07 Time: 14:08 12/15/23 14:07 Patient unable to answer at this time (ie. confused, unrespo /Reproduction History /Reproductive History - train operations manager: /Reproductive Hx- train operations manager Hx Now Gestational Age (in weeks): EDC: Hx Hx Para Hx Section SAB No 12/15/23 14:07 Active Medications Active Medications: Current Medications Generic Name Dose Route Start Last Admin Trade Name Zuleyma PRN Reason Stop Dose Admin Cefazolin Sodium 2 gm/ Sodium 110 mls @ 150 mls/hr 12/29/23 13:45 Chloride IV 12/29/23 14:28 PREOP ONE Lactated Ringer's 1,000 mls @ 15 mls/hr 12/29/23 11:45 12/29/23 12:21 IV 15 mls/hr .Q48H JOSH Administration Anesthesia Focused Assessment* Temperature: 97.6 F Pulse Rate: 66 Blood Pressure: 118/69 Respiratory Rate: 16 Pulse Ox: 100 Airway Assessment Mouth opens: >3 cm Mallampati Score: II Focused Labs Anesthesia Preop lab: CBC WBC 8.0 K/mm3 (4.4-11.0) 12/17/23 10:22 RBC 4.45 M/mm3 (4.6-6.2) L 12/17/23 10:22 Hgb 13.2 g/dL (13.0-16.5) 12/17/23 10:22 Hct 41.6 % (40-54) 12/17/23 10:22 Plt Count 270 K/mm3 (150-450) 12/17/23 10:22 CHEMISTRY Potassium 4.4 mmol/L (3.5-5.1) 11/03/23 17:55 Sodium 137 mmol/L (136-145) 11/03/23 17:55 Magnesium 2.0 mg/dL (1.6-2.6) 09/19/23 16:52 BUN 19 mg/dL (7-18) H 11/03/23 17:55 Creatinine 1.22 mg/dL (0.70-1.30) 11/03/23 17:55 Glucose 89 mg/dL (74-106) 11/03/23 17:55 TSH 3.53 uIU/mL (0.358-3.74) 09/20/23 04:15 COAG PT 24.9 SECONDS (11.7-14.9) H 10/15/23 11:00 Review of Systems (Anesthesia) ROS Narrative System reviewed and no additional complaints, except as documented. REPLACED BY [facility] Medical History Hematuria Arthritis History of renal disease Prostate disease High cholesterol Gastric reflux Former smoker History of atrial fibrillation History of pacemaker Current use of chcf anticoagulation Abnormal ankle brachial index Essential hypertension Wears glasses Wears partial dentures Non-smoker History of edema History of echocardiogram History of stress test Cardiology follow-up encounter Asthma Ventral incisional hernia without obstruction or gangrene History of cardioversion (~05/16/19) CAD in [place] artery Atrial fibrillation Zenkers diverticulum Tubular adenoma of colon Diverticulosis RADHA (obstructive sleep apnea) Hyperlipidemia RLS (restless legs syndrome) Osteoarthritis GERD (gastroesophageal reflux disease) Atherosclerotic heart disease of [place] coronary artery without angina pectoris Sick sinus syndrome Presence of cardiac pacemaker (~2013) Colon polyp Home Medications ?Medication ?Instructions ?Recorded ?Last Taken ?Type nitroglycerin 0.4 mg sublingual 0.4 mg sublingual Q5-15M PRN chest 12/29/21 Unknown Rx tablet pain #25 tabs rivaroxaban 20 mg tablet 20 mg PO DAILY blood thinner #90 06/24/23 08/23/23 Rx tabs tamsulosin 0.4 mg capsule 0.4 mg PO DAILY prostate #90 caps 07/21/23 10/22/23 Rx aspirin 81 mg tablet,delayed 162 mg PO DAILY heart health 08/20/23 12/28/23 History release (Adult Aspirin Regimen) vit C 250 mg-vit E 90 mg-zinc 40 1 tab PO BID vitamin 09/08/23 09/09/23 History mg-copper 1 jo-viptgq-jkafic capsule (PreserVision AREDS-2) fenofibrate 160 mg tablet 160 mg PO DAILY heart health #90 09/16/23 10/22/23 Rx tabs diltiazem HCl 240 mg 240 mg PO DAILY A Fib 10/15/23 12/29/23 09:50 History capsule,extended release 24 hr (Cartia XT) metoprolol tartrate 100 mg tablet 100 mg PO Q12H heart 10/15/23 12/29/23 09:50 History digoxin 125 mcg (0.125 mg) tablet 125 mcg PO DAILY HR 10/22/23 10/22/23 History (Lanoxin) duloxetine 20 mg capsule,delayed 20 mg PO DAILY.TCU depression 10/22/23 10/22/23 History release (Cymbalta) sulfamethoxazole 800 1 tab PO BIDCM 18 days #36 tabs 11/01/23 Unknown Rx mg-trimethoprim 160 mg tablet finasteride 5 mg tablet 5 mg PO DAILY 12/15/23 Unknown History furosemide 40 mg tablet 40 mg PO DAILY 12/15/23 Unknown History Allergy/AdvReac Type Severity Reaction Status Date / Time atorvastatin (From Lipitor) AdvReac Severe elevated Verified 12/23/23 09:54 LFT's lisinopril AdvReac Severe cough Verified 12/23/23 09:54 gemfibrozil AdvReac Unknown Unknown Verified 12/23/23 09:54 simvastatin AdvReac Unknown Unknown Verified 12/23/23 09:54 bacitracin (From Triple AdvReac Unknown Verified 12/23/23 09:54 Antibiotic) colistimethate sodium (From AdvReac Unknown Verified 12/23/23 09:54 Triple Antibiotic) gramicidin D (From Triple AdvReac Unknown Verified 12/23/23 09:54 Antibiotic) neomycin sulfate (From AdvReac Unknown Verified 12/23/23 09:54 Triple Antibiotic) polymyxin B (From Triple AdvReac Unknown Verified 12/23/23 09:54 Antibiotic) pramoxine HCl (From Triple AdvReac Unknown Verified 12/23/23 09:54 Antibiotic) Family History Mother CVA (cerebral vascular accident) Father Heart disease Sister Heart disease Other Arthritis Hyperlipemia Hypertension Surgical History History of partial nephrectomy History of colonoscopy (~04/2021) H/O umbilical hernia repair History of cataract surgery History of inguinal hernia repair History of laparoscopic cholecystectomy Presence of stent in coronary artery (~06/17/12) Postsurgical percutaneous transluminal coronary angioplasty (PTCA) status (~06/17/12) Social History household members: spouse Smoking Status: Former smoker how long ago did patient quit smokin's alcohol intake: never substance use type: does not use caffeine: Yes Type: carbonated beverages Number of servings: 3
--- NOTE | 2023-12-29 13:14 | PCM.HP.STD ---
[facility] - [facility] Date of Service: 12/29/23 Chief Complaint: Intermittent bleeding HPI Narrative CONSTANTINO CORBETT, is a 78 M who presents for left ureteroscopy diagnostic has been having intermittent bleeding and we not been able to find the source of the bleeding he had several CAT scans also had an angiogram in [facility] that did not show any source of bleeding from the left kidney so today we will proceed with a diagnostic left ureteroscopy it is possible we may not find the source of the bleeding. [facility] Medical History Hematuria Arthritis History of renal disease Prostate disease High cholesterol Gastric reflux Former smoker History of atrial fibrillation History of pacemaker Current use of [facility] anticoagulation Abnormal ankle brachial index Essential hypertension Wears glasses Wears partial dentures Non-smoker History of edema History of echocardiogram History of stress test Cardiology follow-up encounter Asthma Ventral incisional hernia without obstruction or gangrene History of cardioversion (~05/16/19) CAD in [place] artery Atrial fibrillation Zenkers diverticulum Tubular adenoma of colon Diverticulosis RADHA (obstructive sleep apnea) Hyperlipidemia RLS (restless legs syndrome) Osteoarthritis GERD (gastroesophageal reflux disease) Atherosclerotic heart disease of [place] coronary artery without angina pectoris Sick sinus syndrome Presence of cardiac pacemaker (~2013) Colon polyp Home Medications ?Medication ?Instructions ?Recorded ?Last Taken ?Type nitroglycerin 0.4 mg sublingual 0.4 mg sublingual Q5-15M PRN chest 12/29/21 Unknown Rx tablet pain #25 tabs rivaroxaban 20 mg tablet 20 mg PO DAILY blood thinner #90 06/24/23 08/23/23 Rx tabs tamsulosin 0.4 mg capsule 0.4 mg PO DAILY prostate #90 caps 07/21/23 10/22/23 Rx aspirin 81 mg tablet,delayed 162 mg PO DAILY heart health 08/20/23 12/28/23 History release (Adult Aspirin Regimen) vit C 250 mg-vit E 90 mg-zinc 40 1 tab PO BID vitamin 09/08/23 09/09/23 History mg-copper 1 sq-cowwvc-gyenov capsule (PreserVision AREDS-2) fenofibrate 160 mg tablet 160 mg PO DAILY heart health #90 09/16/23 10/22/23 Rx tabs diltiazem HCl 240 mg 240 mg PO DAILY A Fib 10/15/23 12/29/23 09:50 History capsule,extended release 24 hr (Cartia XT) metoprolol tartrate 100 mg tablet 100 mg PO Q12H heart 10/15/23 12/29/23 09:50 History digoxin 125 mcg (0.125 mg) tablet 125 mcg PO DAILY HR 10/22/23 10/22/23 History (Lanoxin) duloxetine 20 mg capsule,delayed 20 mg PO DAILY.TCU depression 10/22/23 10/22/23 History release (Cymbalta) sulfamethoxazole 800 1 tab PO BIDCM 18 days #36 tabs 11/01/23 Unknown Rx mg-trimethoprim 160 mg tablet finasteride 5 mg tablet 5 mg PO DAILY 12/15/23 Unknown History furosemide 40 mg tablet 40 mg PO DAILY 12/15/23 Unknown History Allergy/AdvReac Type Severity Reaction Status Date / Time atorvastatin (From Lipitor) AdvReac Severe elevated Verified 12/23/23 09:54 LFT's lisinopril AdvReac Severe cough Verified 12/23/23 09:54 gemfibrozil AdvReac Unknown Unknown Verified 12/23/23 09:54 simvastatin AdvReac Unknown Unknown Verified 12/23/23 09:54 bacitracin (From Triple AdvReac Unknown Verified 12/23/23 09:54 Antibiotic) colistimethate sodium (From AdvReac Unknown Verified 12/23/23 09:54 Triple Antibiotic) gramicidin D (From Triple AdvReac Unknown Verified 12/23/23 09:54 Antibiotic) neomycin sulfate (From AdvReac Unknown Verified 12/23/23 09:54 Triple Antibiotic) polymyxin B (From Triple AdvReac Unknown Verified 12/23/23 09:54 Antibiotic) pramoxine HCl (From Triple AdvReac Unknown Verified 12/23/23 09:54 Antibiotic) Family History Mother CVA (cerebral vascular accident) Father Heart disease Sister Heart disease Other Arthritis Hyperlipemia Hypertension Surgical History History of partial nephrectomy History of colonoscopy (~04/2021) H/O umbilical hernia repair History of cataract surgery History of inguinal hernia repair History of laparoscopic cholecystectomy Presence of stent in coronary artery (~12/07/12) Postsurgical percutaneous transluminal coronary angioplasty (PTCA) status (~06/17/12) Social History household members: spouse Smoking Status: Former smoker how long ago did patient quit smokin's alcohol intake: never substance use type: does not use caffeine: Yes Type: carbonated beverages Number of servings: 3 Vital Signs Vital Signs Vital Signs: 12/29/23 12:08 12/29/23 12:08 12/29/23 12:31 Temperature 97.6 F L 97.6 F L Temperature Source Temporal Pulse Rate 66 66 Respiratory Rate 16 16 Respiratory Pattern Normal Blood Pressure 118/69 118/69 Blood Pressure Mean 85 Blood Pressure Source Monitor Blood Pressure Position Semi-Fowlers Blood Pressure Location Left Arm Pulse Ox 100 100 Oxygen Delivery Method Room Air Weight Weight: 92 kg Body Mass Index (BMI) 28.3
[2023-12-29] MEDS: Cefazolin 2 GM in 0.9% Normal Saline (100mL Bag) 100 ML IV (13:40)
--- NOTE | 2023-12-29 13:45 | FLU_PTH ---
PATIENT: CONSTANTINO CORBETT [place] [facility] [place][id number] AGE/SX: 78/M ROOM: RE12/29/[address]: Dr. Abdullahi Younger MD : 1945 BED: DIS: 12/29/2023 SPEC #: [id number] RECD: 12/29/23 17:13 STATUS: NIR PHILLIPS #: [id number] ANDREA: 12/29/23 13:[address]: Abdullahi Younger DEPT: CYTOLOGY RECD BY: Carol Ann Valladares ENTERED: 12/30/23 09:38 SP TYPE: Fluid OTHR DR: Dr. Ruma Terry MD Tissues: Urine Procedures: Special Stain Group II Surgery Specimen Level IV Cytospin Fluid HEADER OPERATION: Ureteroscopy with biopsy and ablation of renal pelvis PRE-OP DIAGNOSIS: Intermittent bleeding TISSUE SUBMITTED: Urine for cytology- collected in OR DIAGNOSIS CYTOLOGY Urine for cytology (cytospin): Negative for high grade urothelial carcinoma (Clare Category System II). See comment. AM/mr 12/31/2023 COMMENT The Clare System for urine cytology diagnostic categorization was used in the evaluation of this case. CYTOLOGY STUDY Slides are reviewed. CYTOLOGY GROSS Received is 10 ml of hazy-light pink fluid labeled with the patient's name and and designated per the requisition as urine. Submitted for cytology preparation. Mr 12/30/2023 TC:5 CPT: 73002
--- NOTE | 2023-12-29 13:45 | MASS_PTH ---
PATIENT: CONSTANTINO CORBETT [place] [facility][id number] AGE/SX: 78/M ROOM: RE12/29/[address]: Dr. Abdullahi Younger MD : 1945 BED: DIS: 12/29/2023 SPEC #: [id number] RECD: 12/29/23 17:13 STATUS: NIR PHILLIPS #: [id number] ANDREA: 12/29/23 13:[address]: Abdullahi Younger DEPT: SURGICAL PATHOLOGY RECD BY: Carol Ann Valladares ENTERED: 12/30/23 09:39 SP TYPE: Mass OTHR DR: Dr. Ruma Terry MD Tissues: Kidney, NOS Procedures: Surgery Specimen Level V HEADER OPERATION: Ureteroscopy with biopsy and ablation of renal pelvis PRE-OP DIAGNOSIS: Intermittent bleeding TISSUE SUBMITTED: Left renal pelvis mass biopsy MICROSCOPIC DIAGNOSIS Left renal pelvic mass, biopsy: Fibrinoid material with acute and chronic inflammation and blood clots. No evidence of malignancy. / 12/31/2023 MICROSCOPIC DESCRIPTION Slides are reviewed. GROSS DESCRIPTION Received in fixative is one container labeled with the patient's name and designated Renal pelvic mass biopsy. The specimen consists of multiple minute fragments of dobson tissue measuring in aggregate 0.2 x <0.1 x <0.1cm. The specimen is submitted in its entirety in one cassette. / 12/30/2023 TC:2 CPT:94573
--- NOTE | 2023-12-29 14:46 | PCM.DC ---
Discharge Instructions Diet Discharge Diet: No restrictions Activity Discharge Activity: Return to Normal Activity and May Not Drive (while taking narcotic pain medications.) Dressing / Incision Call your doctor if you observe: Fever of 101 or Higher Follow Up Care Please Follow Up With: Abdullahi Younger MD When: Call [phone] for an appointment, 2 weeks to review biopsies Test Results: Test results from this visit will be discussed in further detail at your follow-up appointment, if applicable. Discharge Plan Admission Primary Reason for Your Visit: biopsy and laser ablation of tumor in kidney Attending Provider: Abdullahi Younger Primary Care Provider: Ruma Terry Instructions Print Language: Nauruan Discharge Orders/Prescriptions Prescriptions: New ciprofloxacin HCl [Cipro] 500 mg tablet 500 mg PO BID Qty: 10 0RF Continued aspirin [Adult Aspirin Regimen] 81 mg tablet,delayed release (DR/EC) 162 mg PO DAILY PreserVision AREDS-2 250-90-40-1 mg capsule 1 tab PO BID diltiazem HCl [Cartia XT] 240 mg capsule,extended release 24hr 240 mg PO DAILY metoprolol tartrate 100 mg tablet 100 mg PO Q12H digoxin [Lanoxin] 125 mcg (0.125 mg) tablet 125 mcg PO DAILY duloxetine [Cymbalta] 20 mg capsule,delayed release(DR/EC) 20 mg PO DAILY.TCU sulfamethoxazole-trimethoprim 800-160 mg Tablet 1 tab PO BIDCM 18 Days Qty: 36 0RF furosemide 40 mg tablet 40 mg PO DAILY finasteride 5 mg tablet 5 mg PO DAILY nitroglycerin 0.4 mg tablet, sublingual 0.4 mg sublingual Q5-15M PRN (Reason: chest pain) Qty: 25 3RF tamsulosin 0.4 mg capsule 0.4 mg PO DAILY Qty: 90 3RF fenofibrate 160 mg tablet 160 mg PO DAILY Qty: 90 3RF Held rivaroxaban 20 mg tablet 20 mg PO DAILY Qty: 90 3RF Hold Instructions: Resume on 01/12/24. hold, okay to take baby aspirin Patient Comments: HASN'T REALLY TAKEN SINCE LAST SURGERY Referrals / Follow Up: Abdullahi Younger MD [Med Staff - Active Staff] - Ruma Terry MD [Primary Care Provider] - Disposition Disposition (needs filled in before D/C Order can be placed): Home, Self Care
--- NOTE | 2023-12-29 14:47 | OP.PCM_ITS ---
Report of Operation Date of Procedure: 12/29/23 Pre-Operative Diagnosis: Intermittent gross hematuria from left kidney Post-Operative Diagnosis: The same Surgery/Procedure Performed:: Cystoscopy left retrograde pyelogram, left ureteroscopy, biopsy of renal pelvic mass, fulguration of mass with a laser. And left stent placement Description of Surgical Findings:: Indication is a 78-year-old male who was found to have a renal mass in his left kidney he is also having gross hematuria at the time is felt that the mass was bleeding was coming from his kidneys so he underwent a partial nephrectomy which was successfully removed but turned out to be a benign cystic mass noncancerous. Postoperatively the patient continued to bleed so he had an angiogram that was negative. And he is also taking blood thinner for atrial fibrillation and he had continuous intermittent bleeding he has stopped his blood thinner the bleeding is stopped but we wanted to ureteroscopy to examine the kidney to see with causing his bleeding. Patient taken back to the operating room after smooth induction of anesthesia he was placed supine on the table and then in dorsolithotomy position. The penis and testicles were prepped and draped in usual sterile fashion wire went into the bladder with a 21 [place] rigid cystourethroscope I cannulated the left ureteral orifice with a Glidewire and a Pollick catheter I then advanced the wire up into the kidney and then over the wire I went in with the flexible ureteroscope I got into the ureter and going up I pulled out the wire try to go up to the UPJ area but the UPJ was extremely angulated so I could not get myself through the area safely so I put a wire through the UPJ area and then over the wire went in with a flexible ureteroscope and then pulled the wire and immediately encountered like a fluffy tissue like material that it was in the mid calyx of the left kidney I inspected the upper pole calyx this was completely normal lower pole capsules are completely normal he had a slight sloughy material coming from the left midpole calyx. 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 I then used a 270 laser fiber and we used the thulium laser to ablate the tumor and after we had done ablating the tumor it looks like a complete ablation then we also did site cytology wash and was sent off the cytology from the left renal pelvis for cytology. 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 I then placed a stent on the left side we drained the patient's bladder and bladder was drained anesthetic was reversed and I will see him back in 2 weeks to review the cytology report and the biopsies from the left renal calyceal biopsies if it is positive I think we can try to do endoscopic management will set the patient up for periodic ureteroscopy and laser to inspect his kidney for the time being to hold his blood thinners of your very high risk of significant bleeding if he starts his blood thinners again tell him it is okay to take a double baby aspirin. Surgeon: Abdullahi Younger Type of Anesthesia: General Drains: stent left Estimated Blood Loss (mL): 0 Admit VTE Documentation VTE Present on Admission: No VTE Mechan Device Prophylaxis: SCD's VTE Pharm Prophylaxis ordered?: No
--- NOTE | 2023-12-29 15:04 | PCM.POST.ANE ---
Anesthesia: Postop Eval I Current Vital Signs Temperature: 96.8 F Pulse Rate: 93 Blood Pressure: 145/84 Respiratory Rate: 16 Pulse Ox: 97 Oxygen Delivery Method: Room Air Assessment Airway patent: Yes Spontaneous unlabored respirations: Yes Mental status: Awake and Calm nausea: No Vomiting: No Anesthesia Complication: No Fluid Hydration Crystalloid volume administer (ml): 800 Total IV fluid infused: 800 Progress Note Anesthesia document: Postop Eval 1 completed: Yes
[2023-12-29] MEDS: Lactated Ringers 1,000 ML 100 ML IV (15:17)
--- NOTE | 2023-12-29 16:01 | POSTOPAN2_ITS ---
Anesthesia Postop Eval I Sum Postop Eval Completion status Anesthesia document: Postop Eval 1 completed: Yes Anesthesia Postop Eval I Summary Anesthesia Postop Eval I Summary: Anesthesia Postop Eval I: Assessment Summary Airway patent Yes 12/29/23 15:05 ENERGY CROP [email or web address] Spontaneous unlabored Yes 12/29/23 15:05 ENERGY CROP [email or web address] respirations Mental status Awake,Calm 12/29/23 15:05 ENERGY CROP [email or web address] nausea No 12/29/23 15:05 ENERGY CROP [email or web address] Vomiting No 12/29/23 15:05 ENERGY CROP [email or web address] Anesthesia Postop Eval I: Fluid Summary Crystalloid volume administer 800 12/29/23 15:05 ENERGY CROP [email or web address] (ml) Colloids volume administered ( ml) Blood Product volume administered (ml) Total IV fluid infused 800 12/29/23 15:05 ENERGY CROP [email or web address] Anesthesia Postop Eval I: Summary Notes Anesthesia Complication No 12/29/23 15:05 ENERGY CROP [email or web address] Anesthesia Complication Comment: Post-operative progress note Anesthesia: Postop Eval II Evaluation Mental status: Awake and Calm Pain Level: 0 nausea: No Vomiting: No Complications Anesthesia Complication: No
--- NOTE | 2023-12-29 16:01 | PCM.POSTANE2 ---
Anesthesia Postop Eval I Sum Postop Eval Completion status Anesthesia document: Postop Eval 1 completed: Yes Anesthesia Postop Eval I Summary Anesthesia Postop Eval I Summary: Anesthesia Postop Eval I: Assessment Summary Airway patent Yes 12/29/23 15:05 DIGITAL CARTOGRAPHIC [email or web address] Spontaneous unlabored Yes 12/29/23 15:05 DIGITAL CARTOGRAPHIC [email or web address] respirations Mental status Awake,Calm 12/29/23 15:05 DIGITAL CARTOGRAPHIC [email or web address] nausea No 12/29/23 15:05 DIGITAL CARTOGRAPHIC [email or web address] Vomiting No 12/29/23 15:05 DIGITAL CARTOGRAPHIC [email or web address] Anesthesia Postop Eval I: Fluid Summary Crystalloid volume administer 800 12/29/23 15:05 DIGITAL CARTOGRAPHIC [email or web address] (ml) Colloids volume administered ( ml) Blood Product volume administered (ml) Total IV fluid infused 800 12/29/23 15:05 DIGITAL CARTOGRAPHIC [email or web address] Anesthesia Postop Eval I: Summary Notes Anesthesia Complication No 12/29/23 15:05 DIGITAL CARTOGRAPHIC [email or web address] Anesthesia Complication Comment: Post-operative progress note Anesthesia: Postop Eval II Evaluation Mental status: Awake and Calm Pain Level: 0 nausea: No Vomiting: No Complications Anesthesia Complication: No
[2023-12-29 17:16] LABS: Cytology, Body Fluid / CSF SEE PATHOLOGY REPORT
== END 2023-12-29 16:48 | disposition home or self-care (01) ==
LOC: SDC 11:30 → AC 11:31
PROVIDERS: PCP Internal Medicine; Referring Provider Urology; Visit Provider Urology
PROC: 0TBB8ZX Excision of Bladder, Via Natural or Artificial Opening Endoscopic, Diagnostic (ICD-10-PCS; CPT 52332; principal; 2023-12-29 13:35)
DX: R31.0 Gross hematuria (principal); Z87.891 Personal history of nicotine dependence; E78.00 Pure hypercholesterolemia, unspecified; I10 Essential (primary) hypertension; I25.10 Atherosclerotic heart disease of native coronary artery without angina pectoris; N28.89 Other specified disorders of kidney and ureter; K21.9 Gastro-esophageal reflux disease without esophagitis; I48.91 Unspecified atrial fibrillation; Z90.49 Acquired absence of other specified parts of digestive tract; Z95.5 Presence of coronary angioplasty implant and graft
CPT/HCPCS: 52332; 52354; 00918; 76000; 88108; 88305; 88307; 88313; J7120; C1769; C2617; J2405

== ENCOUNTER → 2024-03-07 | Outpatient (CLI) | payer MEDICARE, SELFPAY ==
--- NOTE | 2024-03-07 14:00 | SP.MBSS_ITS ---
Modified Barium Swallow Patient Information Study Date: 03/07/24 Study Time: 13:00 Direct Billable Minutes: 77 Total Minutes procedure & reportin Diagnosis: Dysphagia R13.10 Referring Physician: Ruma Terry Reason for Referral: Objectively assess swallow function, assess risk for aspiration, and determine recommendations for least restrictive diet textures and compensatory strategies to improve safety of swallow. Medical History: PMH: Swallowing dysfunction, Hematuria, Arthritis, History of renal disease, Prostate disease, High cholesterol, GERD, Former smoker, hx of Afib, Hx of pacemaker, HTN, Asthma, CAD, Zenkers diverticulum, Tubular adenoma of colon, Diverticulosis, RADHA, HLD, Atherosclerotic heart disease of [place] coronary artery without angina pectoris (See EMR for full PMH). Patient reports increased difficulty swallowing in the past 1-2 months. He reports ~1X/week he feels food or drinks become stuck. He has had 40lb weight loss since September of this year, which he attributed to kidney surgery and hospitalizations related to kidney issues. He reports occ vomiting associated with coughing on food/drink. His PCP referred him for MBSS. Current Diet Ordered: Regular textures / Thin liquids Mental Status: WNL Respiratory Status: Oxygenating on Room Air Penetration-Aspiration Scale Penetration-Aspiration Scale: OBJECTIVE ASSESSMENT OF SWALLOW FUNCTION (QUANTITATIVE ? PER TRIAL): PENETRATION / ASPIRATION SCALE (TORRES): 1 = does not enter airway 2 = enters airway/above vocal folds/ejected 3 = enters airway/above vocal folds/not ejected 4 = enters airway/contacts vocal folds/ejected 5 = enters airway/contacts vocal folds/not ejected 6 = enters airway/below vocal folds/ejected 7 = enters airway/below vocal folds/not ejected despite effort 8 = enters airway/below vocal folds/no effort VIDEOFLOROSCOPIC SCALE SCORE (TORRES): Grade I = aspiration of material that has penetrated into the laryngeal vestibule, intact cough reflex Grade II = aspiration < 10 % of the bolus, intact cough reflex Grade III = aspiration of < 10 % of the bolus, reduced cough reflex or aspiration of > 10 % of the bolus, intact cough reflex Grade IV = aspiration of > 10 % of the bolus, reduced cough reflex Penetration-Aspiration Scale Score Thin Liquid via teaspoon: Result: 1= does not enter airway Thin Liquid via teaspoon Trial 2: Result: 1= does not enter airway Thin Liquid via sequential sips: cup: Result: 1= does not enter airway Comment: Esophageal screen - Narrow distal esophagus. Very little esophageal emptying of liquid barium through the lower esophageal sphincter. Retention of barium throughout the esophagus with retrograde flow. Pudding via teaspoon: Result: 1= does not enter airway Comment: Esophageal screen - Retention throughout the esophagus, as well, with very little emptying through the LES. Food particles appeared to be suspended in the barium. Oral Phase Labial Seal: No Labial Escape Tongue Control During Bolus Hold: Cohesive bolus between tongue to palatal seal Bolus Transport/Lingual Motion: Brisk tongue motion Oral Residue: Residue collection on oral structures Pharyngeal Phase Initiation of Pharyngeal Swallow: Bolus head in valleculae Soft Palate Elevation: Trace column of contrast/air between soft palate and pharyngeal wall Laryngeal Elevation: Comp. Superior move thyroid cart w/comp. apprx arytenoid cart-epig pet Anterior Hyoid Excursion: Partial anterior movement Epiglottic Movement: Complete inversion Laryngeal Vestibule Closure at Height of Swallow: Complete; no air/contrast in laryngeal vestibule Pharyngeal Stripping Wave: Present - complete Pharyngoesophageal Segment Opening: Parital distension and partial duration; parital obstruction of flow Tongue Base Retraction: Narrow column of contrast between tongue base & post. pharyngeal wall Pharyngeal Residue: Trace residue within or on pharyngeal structures Esophageal Phase Esophageal Clearance: Esophageal retention w/ retrograde flow below pharyngoesophageal seg. Diagnosis/Impression Diagnosis: Esophageal dysphagia R13.14 Impression: Oropharyngeal swallow function is grossly WNL. Timely swallow onset. Good airway closure during the swallow. No laryngeal penetration or aspiration observed. Trace pharyngeal residues. Did not trial cookie due to poor esophageal clearance of liquids and pudding. The esophageal phase is primarily marked by... -BAR GAUGER AND LUBRICATOR TENDER reviewed esophageal screens with radiologist, Dr. Geiger, who noted the patient has a narrow distal esophagus. There is little esophageal emptying of liquid barium through the lower esophageal sphincter (LES) and retention of liquid barium throughout the esophagus with retrograde flow. -Pudding retention throughout the esophagus, as well, with very little emptying through the LES. Food particles appeared to be suspended in the barium. Image 1. Esophageal screen of sequential sips of thin liquids. Recommendations Diet: Thin Liquids (Full liquid diet) Compensatory Strategies: Small Sips, Slow Rate and Sitting upright (During oral intake and 60min after oral intake) Recommend Repeat Modified Barium Swallow: No Need for Skilled Speech Therapy Services: No Recommended Referrals: GI Consult and Dietitian Consult (40lb weight loss, BAR GAUGER AND LUBRICATOR TENDER is recommending full liquids prior to GI consult) Education Completed: 1. Described result of evaluation. Comment: BAR GAUGER AND LUBRICATOR TENDER left a w/ Dr. Terry's office to inform him of restrictive diet recommendations and consults recommended as soon as able (GI consult, Senior Applications Developer consult). Status Active ST Patient: Active Contact Information [facility] Speech Therapy:: Marie Perla M.A. [facility]-BAR GAUGER AND LUBRICATOR TENDER? Speech-Language Pathologist?? [facility] [address] [place] [address]? [email or web address]?? [phone]
== END | disposition home or self-care (01) ==
PROVIDERS: PCP Internal Medicine; Referring Provider Internal Medicine; Visit Provider Internal Medicine
DX: B02.21 Postherpetic geniculate ganglionitis (principal); R13.10 Dysphagia, unspecified
CPT/HCPCS: 74230; 92611

== ENCOUNTER 2024-03-24 08:00 | Day surgery (SDC) | payer MEDICARE, SELFPAY ==
[2024-03-24] VITALS (7 sets, daily range): BP systolic 86–124; BP diastolic 57–76; PULSE 67–70; RESP 16; TEMP 36.3–36.5; O2SAT 96–98; BMI 28.6
[2024-03-24] MEDS: Lactated Ringers 1,000 ML 15 ML IV (08:32)
--- NOTE | 2024-03-24 08:45 | PCM.HP.BLA ---
History and Physical Date of Admission: 03/24/24 Intake Vital Signs 02/02/2409:57 03/16/2414:16 Height 5 ft 11 in 5 ft 11 in Weight: 202 lb 8 oz 208 lb BMI 28.2 29.0 BP 126/80 H 104/61 Blood Pressure Location Lt brachial Rt brachial Position Sitting Sitting Respiration 16 17 Pulse 80 82 Pulse Source Monitor Monitor Temp 97.6 F L 97.4 F L Temp Source Temporal Temporal Pulse Oximetry (%) 95 99 Oxygen Delivery Method room air room air Intake Visit Reasons: DYSPHASIA /ABNORMAL SWALLOW STUDY Chief Complaint: dysphasia/abnormal swallow study Is patient in pain?: No Allergies atorvastatin (From Lipitor) Adverse Reaction (Severe, Verified 03/16/24 14:18) elevated LFT'slisinopril Adverse Reaction (Severe, Verified 03/16/24 14:18) coughgemfibrozil Adverse Reaction (Unknown, Verified 03/16/24 14:18) Unknownsimvastatin Adverse Reaction (Unknown, Verified 03/16/24 14:18) Unknownbacitracin (From Triple Antibiotic) Adverse Reaction (Verified 03/16/24 14:18) Unknowncolistimethate sodium (From Triple Antibiotic) Adverse Reaction (Verified 03/16/24 14:18) Unknowngramicidin D (From Triple Antibiotic) Adverse Reaction (Verified 03/16/24 14:18) Unknownneomycin sulfate (From Triple Antibiotic) Adverse Reaction (Verified 03/16/24 14:18) Unknownpolymyxin B (From Triple Antibiotic) Adverse Reaction (Verified 03/16/24 14:18) Unknownpramoxine HCl (From Triple Antibiotic) Adverse Reaction (Verified 03/16/24 14:18) Unknown Medications ?Medication ?Instructions ?Recorded ?Confirmed ?Type nitroglycerin 0.4 mg sublingual 0.4 mg sublingual Q5-15M PRN chest 12/29/21 03/16/24 Rx tablet pain #25 tabs rivaroxaban 20 mg tablet 20 mg PO DAILY blood thinner #90 06/24/23 02/03/24 Rx tabs tamsulosin 0.4 mg capsule 0.4 mg PO DAILY prostate #90 caps 07/21/23 03/16/24 Rx aspirin 81 mg tablet,delayed 162 mg PO DAILY heart health 08/20/23 03/16/24 History release (Adult Aspirin Regimen) vit C 250 mg-vit E 90 mg-zinc 40 1 tab PO BID vitamin 09/08/23 03/16/24 History mg-copper 1 [id number] capsule (PreserVision AREDS-2) fenofibrate 160 mg tablet 160 mg PO DAILY heart health #90 09/16/23 03/16/24 Rx tabs diltiazem HCl 240 mg 240 mg PO DAILY A Fib 10/15/23 03/16/24 History capsule,extended release 24 hr (Cartia XT) metoprolol tartrate 100 mg tablet 100 mg PO Q12H heart 10/15/23 03/16/24 History digoxin 125 mcg (0.125 mg) tablet 125 mcg PO DAILY HR 10/22/23 03/16/24 History (Lanoxin) sulfamethoxazole 800 1 tab PO BIDCM 18 days #36 tabs 11/01/23 03/16/24 Rx mg-trimethoprim 160 mg tablet finasteride 5 mg tablet 5 mg PO DAILY 12/15/23 03/16/24 History furosemide 40 mg tablet 40 mg PO DAILY 12/15/23 03/16/24 History amoxicillin 875 mg-potassium 1 tab PO BID #20 tabs 01/14/24 03/16/24 Rx clavulanate 125 mg tablet divalproex 250 mg tablet,delayed 250 mg PO BID #14 tabs 02/03/24 03/16/24 Rx release Have you fallen in the past year?: No PFSH Medical History Esophageal dysphagia Swallowing dysfunction Hematuria Arthritis History of renal disease Prostate disease High cholesterol Gastric reflux Former smoker History of atrial fibrillation History of pacemaker Current use of long lines operator anticoagulation Abnormal ankle brachial index Essential hypertension Wears glasses Wears partial dentures Non-smoker History of edema History of echocardiogram History of stress test Cardiology follow-up encounter Asthma Ventral incisional hernia without obstruction or gangrene History of cardioversion (~05/16/19) CAD in [place] artery Atrial fibrillation Zenkers diverticulum Tubular adenoma of colon Diverticulosis RADHA (obstructive sleep apnea) Hyperlipidemia RLS (restless legs syndrome) Osteoarthritis GERD (gastroesophageal reflux disease) Atherosclerotic heart disease of [place] coronary artery without angina pectoris Sick sinus syndrome Presence of cardiac pacemaker (~2013) Colon polyp Surgical History History of partial nephrectomy History of colonoscopy (~04/2021) H/O umbilical hernia repair History of cataract surgery History of inguinal hernia repair History of laparoscopic cholecystectomy Presence of stent in coronary artery (~06/17/12) Postsurgical percutaneous transluminal coronary angioplasty (PTCA) status (~06/17/12) Family History (Updated 03/16/24 @ 14:16 by Vesna Wing) Mother CVA (cerebral vascular accident)Father Heart diseaseSister Heart diseaseGrandmother Colon cancer Social History household members: spouse Smoking Status: Former smoker how long ago did patient quit smokin's alcohol intake: never substance use type: does not use caffeine: Yes Type: carbonated beverages Number of servings: 3 HPI HPI HPI: Patient is a 79-year-old male here with dysphagia. He says this started a few months ago and has been progressively getting worse. He says it happens during liquids and solids. He denies long-term acid reflux. ROS General General: Yes weight change and fatigue; No appetite, colon cancer, breast cancer or weakness HEENT HEENT: Yes difficulty swallowing; No eye injury, eye surgery, swollen glands or hoarseness Endo Endocrine: No thyroid disease, diabetes mellitus, thyroid cancer, Hair loss, heat intolerance or cold intolerance Skin Skin: No rash or changing moles Musc Musculoskeletal: Yes arthritis; No back problems, rheumatoid arthritis, gout or joint pain Cardio Cardiovascular: Yes pacemaker, heart disease, atrial fibrillation, high blood pressure and heart stent; No murmur, heart attack, palpitations, shortness of breat with exertion or chest pain Psych Psychiatric: No depression, anxiety or hearing voices Resp Respiratory: No shortness of breath, Yes sleep apnea, No cough, No COPD, No asthma, No emphysema and No wheezing Gastro Gastrointestinal: No abdominal pain, Yes nausea or vomiting, No diarrhea, No constipation, No blood in stool, Yes acid reflux, Yes hemorrhoids, No ulcers, No gallbladder problem and No black,tarry stools [place] Hematologic: No blood thinners, No blood disorders, No bleeding, No anemia and No blood clots Neuro Neurologic: No system reviewed and no additional complaints, except as documented, No as per HPI, No abnormal gait, No abnormal hearing, No abnormal movements, No abnormal speech, No behavioral changes, No burning sensations, No confusion, No convulsions, No disequilibrium, No dizziness, No localized weakness, No frequent falls, No headache(s), No lack of coordination, No loss of vision, No memory loss, No numbness, No other visual disturbances, No radicular pain, No restless legs, No sensory deficit, No syncope, No tingling, No tremor(s), No weakness and No other Exam Const General: cooperative Orientation: alert and oriented x3 HENMT Head: normal to inspection Neck Neck: normal visual inspection and full ROM Chest Chest palpation & inspection: normal inspection of the chest Resp Effort & Inspection: normal respiratory effort Auscultation: clear to auscultation bilaterally Cardio Rate: regular rate Rhythm: regular rhythm GI Inspection: non-distended Palpation: soft and nontender Skin General: no rashes or lesions noted Neuro General: patient alert and patient oriented x3 Extrem General: full ROM Psych Appearance: grossly normal Mental Status: mental status grossly normal Assessment and Plan Assessment and Plan (1) Esophageal dysphagia: Status: Acute Plan: Patient had a recent study that showed dysfunction and food bolus not passing the LES with reflux. I discussed performing EGD with possible dilation or possible biopsies. I discussed the possibility of fibrosis or malignancy. I also discussed possibly dilating if it is intrinsic stenosis. Patient understands all the risks and is willing to proceed. Patient will hold his aspirin for 5 days. I have him on the schedule for next week. If anything worsens with his dysphagia he should present to the emergency room. I explained endoscopy in detail to the patient. I explained the risks including but not limited to stroke or heart attack with anesthesia, perforation of the GI tract, bleeding, infection. I explained that any of these could necessitate further emergency surgery. The patient understands and all questions were answered sufficiently. The patient wishes to proceed with procedure. Neno Neely MD Pager: [facility] [address] [place] [address], [address] [place] [address] Office: I have examined the patient and the H&P has been reviewed. There are no clinical changes since date of exam.
--- NOTE | 2024-03-24 09:11 | PCM.POST.ANE ---
Anesthesia: Postop Eval I Current Vital Signs Temperature: 97.3 F Pulse Rate: 67 Blood Pressure: 99/61 Respiratory Rate: 16 Pulse Ox: 96 Oxygen Delivery Method: Room Air Assessment Airway patent: Yes Spontaneous unlabored respirations: Yes Mental status: Asleep nausea: No Vomiting: No Anesthesia Complication: No Fluid Hydration Crystalloid volume administer (ml): 400 Total IV fluid infused: 400 Progress Note Anesthesia document: Postop Eval 1 completed: Yes
--- NOTE | 2024-03-24 09:35 | OP.EGD_ITS ---
Patient Name: Rylan Perez Procedure Date: 03/24/2024 8:49 AM Date of : 1945 Age: 79 Procedure: Upper GI endoscopy Indications: Dysphagia Providers: Neno Neely MD Referring MD: Ruma Terry Medicines: Propofol per Anesthesia Patient Profile: This is a 79 year old male. Refer to note in patient chart for documentation of history and physical. Complications: No immediate complications. Estimated blood loss: Minimal. Procedure: Pre-Anesthesia Assessment: - Prior to the procedure, a History and Physical was performed, and patient medications and allergies were reviewed. The patient's tolerance of previous anesthesia was also reviewed. The risks and benefits of the procedure and the sedation options and risks were discussed with the patient. All questions were answered, and informed consent was obtained. Prior Anticoagulants: The patient has taken no anticoagulant or antiplatelet agents. After reviewing the risks and benefits, the patient was deemed in satisfactory condition to undergo the procedure. After obtaining informed consent, the endoscope was passed under direct vision. Throughout the procedure, the patient's blood pressure, pulse, and oxygen saturations were monitored continuously. The Endoscope was introduced through the mouth, and advanced to the fourth part of duodenum. The upper GI endoscopy was accomplished without difficulty. The patient tolerated the procedure well. Scope In: 8:57:04 AM Scope Out: 9:00:41 AM Total Procedure Duration Time 0 hours 3 minutes 37 seconds Findings: A non-bleeding diverticulum with a large opening and no stigmata of recent bleeding was found in the middle third of the esophagus. The stomach was normal. The examined duodenum was normal. 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 - Normal stomach. - Normal examined duodenum. - No specimens collected. Recommendation: - Discharge patient to home. - Resume previous diet. - Continue present medications. - Refer to a surgeon at the next available appointment. - Do an upper GI series at appointment to be scheduled. 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 All rights reserved. The codes documented in this report are preliminary and upon law librarian review may be revised to meet current compliance requirements. Neno Neely MD 03/24/2024 9:34:36 AM This report has been signed electronically. Number of Addenda: 0 Note Initiated On: 03/24/2024 8:49 AM
--- NOTE | 2024-03-24 09:35 | OP.CCLET_ITS ---
03/24/2024 Ruma Terry [facility] [address] [place] [address] Re : Upper GI endoscopy procedure for Rylan Perez Dear Dr. Terry This procedure was performed on Sunday, March 24, 2024. 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 - Normal stomach. - Normal examined duodenum. - No specimens collected. Recommendations : - Discharge patient to home. - Resume previous diet. - Continue present medications. - Refer to a surgeon at the next available appointment. - Do an upper GI series at appointment to be scheduled. My findings are described in the full procedure note, which is enclosed. If I can be of further assistance, please feel free to contact me at Doctor phone number(s): , Work: . Sincerely, Neno Neely MD 03/24/2024 9:34:36 AM This report has been signed electronically.
--- NOTE | 2024-03-24 15:44 | PCM.POSTANE2 ---
Anesthesia Postop Eval I Sum Postop Eval Completion status Anesthesia document: Postop Eval 1 completed: Yes Anesthesia Postop Eval I Summary Anesthesia Postop Eval I Summary: Anesthesia Postop Eval I: Assessment Summary Airway patent Yes 03/24/24 09:12 [email or web address] Spontaneous unlabored Yes 03/24/24 09:12 [email or web address] respirations Mental status Asleep 03/24/24 09:12 [email or web address] nausea No 03/24/24 09:12 [email or web address] Vomiting No 03/24/24 09:12 [email or web address] Anesthesia Postop Eval I: Fluid Summary Crystalloid volume administer 400 03/24/24 09:12 [email or web address] (ml) Colloids volume administered ( ml) Blood Product volume administered (ml) Total IV fluid infused 400 03/24/24 09:12 [email or web address] Anesthesia Postop Eval I: Summary Notes Anesthesia Complication No 03/24/24 09:12 [email or web address] Anesthesia Complication Comment: Post-operative progress note Anesthesia: Postop Eval II Evaluation Mental status: Awake Pain Level: 0 nausea: No Vomiting: No
== END 2024-03-24 10:17 | disposition home or self-care (01) ==
LOC: EN 08:00 → AC 08:01
PROVIDERS: PCP Internal Medicine; Referring Provider Internal Medicine; Visit Provider Surgery
PROC: 0DJ08ZZ Inspection of Upper Intestinal Tract, Via Natural or Artificial Opening Endoscopic (ICD-10-PCS; CPT 43235; principal; 2024-03-24 08:55)
DX: Q39.6 Congenital diverticulum of esophagus (principal); I48.91 Unspecified atrial fibrillation; R13.10 Dysphagia, unspecified; Z87.891 Personal history of nicotine dependence; E78.00 Pure hypercholesterolemia, unspecified; I10 Essential (primary) hypertension; R47.02 Dysphasia; I25.10 Atherosclerotic heart disease of native coronary artery without angina pectoris; Z79.82 Long term (current) use of aspirin; Z79.899 Other long term (current) drug therapy; K21.9 Gastro-esophageal reflux disease without esophagitis; Z95.0 Presence of cardiac pacemaker
CPT/HCPCS: 43235; J7120; J2405

== ENCOUNTER → 2025-02-06 | Outpatient (CLI) | payer MEDICARE, SELFPAY ==
--- NOTE | 2025-02-06 08:48 | US_ITS ---
PROCEDURE: BREAST LIMITED UNILATERAL N/A REASON FOR EXAM: M, Age 79 y/o , GYNECOMASTIA. Palpable lump. COMPARISON: Prior mammogram done earlier in the day.. TECHNIQUE: BREAST LIMITED UNILATERAL FINDINGS: There is evidence of retroglandular tissue in the left breast. No sonographic abnormality is seen. US/Breast Limited Unilateral IMPRESSION: No sonographic abnormality is seen in the retroareolar region of the left breas t. This is suggestive of gynecomastia. BI-RADS 1: NEGATIVE RECOMMENDATION: Routine annual follow-up in 1 Year Reading Location: [id number]
--- NOTE | 2025-02-06 08:48 | US_ITS ---
PROCEDURE: BREAST LIMITED UNILATERAL N/A REASON FOR EXAM: M, Age 79 y/o , GYNECOMASTIA COMPARISON: Prior mammogram done earlier in the day.. TECHNIQUE: BREAST LIMITED UNILATERAL FINDINGS: Targeted sonogram of the lateral inferior aspect of the right breast corresponding to the area of tenderness. There is evidence of fibroglandular tissue. Incidental note is made of a 1.3 cm x 0.9 cm x 0.6 cm lymph node corresponding to the area of tenderness. US/Breast Limited Unilateral IMPRESSION: Gynecomastia. Incidental finding of a 1.3 cm x 0.9 cm x 0.6 cm benign-appearing lymph node. BI-RADS 2: BENIGN RECOMMENDATION: OTHER Reading Location: [facility]
--- NOTE | 2025-02-06 08:48 | BI_ITS ---
EXAM: DIAG MAMM W/CAD, BILAT 02/06/2025 CLINICAL HISTORY: M, Age 79 y/o , GYNECOMASTIA. Palpable lump in the retroareolar region of the left breast. TECHNIQUE: DIAG MAMM W/CAD, BILAT. COMPARISON: This is a baseline examination. FINDINGS: TISSUE DENSITY: There are scattered areas of fibroglandular density. Bilateral Breast Mammographic Findings: No significant masses, calcifications or other abnormalities are identified. Findings suggestive of gynecomastia more pronounced in the left retroareolar region. Targeted sonographic correlation recommended. BI/DIAG MAMM W/CAD, BILAT IMPRESSION: Findings suggestive of gynecomastia more pronounced in the left retroareolar re gion. OVERALL FINAL ASSESSMENT BI-RADS 0: INCOMPLETE - NEED ADDITIONAL IMAGING EVALUATION. RECOMMENDATION: Ultrasound Recommended A letter with findings and recommendations will be mailed to the patient. Reading Location: [id number]
== END | disposition home or self-care (01) ==
PROVIDERS: PCP Internal Medicine; Referring Provider Internal Medicine; Visit Provider Internal Medicine
DX: N62 Hypertrophy of breast (principal)
CPT/HCPCS: 76642; 77062; 77066; G0279

== ENCOUNTER → 2025-03-01 | Outpatient (CLI) | payer MEDICARE, SELFPAY ==
[2025-03-01 12:29] LABS: PSA,Total - Annual Screen 0.08 ng/mL (0.02-4.00)
== END | disposition home or self-care (01) ==
PROVIDERS: PCP Internal Medicine; Referring Provider Nurse Practitioner; Visit Provider Nurse Practitioner
DX: Z12.5 Encounter for screening for malignant neoplasm of prostate (principal)
CPT/HCPCS: 36415; 84153; G0103

== ENCOUNTER 2025-05-01 09:14 | Inpatient (IN) | payer MEDICARE, SELFPAY ==
[2025-05-01] VITALS (13 sets, daily range): BP systolic 117–176; BP diastolic 73–138; PULSE 70–159; RESP 15–25; TEMP 36.3–37.2; O2SAT 94–98; BMI 32.5; BMI 31.5
--- NOTE | 2025-05-01 09:30 | RAD_ITS ---
PROCEDURE: CHEST PA AND LATERAL 05/01/2025 REASON FOR EXAM: DYSPNEA TECHNIQUE: Procedure Code: RADCXR Modality: DX Procedure: CHEST PA AND LATERAL COMPARISON: None relevant FINDINGS: The heart is enlarged. Atherosclerosis of the aorta is present. A dual lead pacemaker is seen with leads in the right atrium and right ventricle. There are bilateral pleural effusions and diffuse interstitial edema throughout the lung. No pneumothorax present. Osseous structures are within normal limits. RAD/Chest PA and Lateral IMPRESSION: Mild pulmonary venous congestion and bilateral pleural effusions concerning for mild congestive heart failure. Reading Location: [id number]
--- NOTE | 2025-05-01 09:30 | EKG12_ITS ---
Test Reason : SOB/JAW PAIN Blood Pressure : */* mmHG Vent. Rate : 150 BPM Atrial Rate : * BPM P-R Int : * ms QRS Dur : 84 ms QT Int : 296 ms P-R-T Axes : * 29 8 degrees QTcB Int : 467 ms Critical Test Result: High HR Atrial fibrillation with rapid ventricular response Abnormal ECG Confirmed by Franky Saunders ([id number]), newspaper managing editor AMY PINEDA ([id number]) on 05/02/2025 1:42:01 PM Referred By: CESAR/HAN Confirmed By: Franky Saunders
--- NOTE | 2025-05-01 09:41 | ED.VIS.DYS ---
HPI History of Present Illness Chief Complaint: Shortness of Breath Detail of Chief Complaint: Shortness of breath that started approximately 3 to 4 days ago Informant: patient and spouse/S.O. Onset/Context/Timing Onset: Days Context: sudden Timing: Continuous and Waxes and wanes Quality: Positive for Dyspnea on exertion and Orthopnea; Negative for PND or Wheezing Current Severity: Mild Maximum Severity: Severe Worsened by: Exertion and Lying flat Relieved by: Nothing Associated Symptoms Negative for cough, rhinorrhea, post nasal drip, ear pain, fever, sore throat, subjective, chills, sweats, clear sputum, white sputum, yellow sputum or green sputum Chest Pain: Positive for Intermittent and Pressure Narrative Narrative: Patient is an 80-year-old male. He appears in slight distress. Patient presents because of shortness of breath that started 3 to 4 days ago. The shortness of breath is worse with activity and supine position. He and his recently went to [place] to attend a wedding. He returned yesterday. He states he did miss some of his Xarelto doses. He is on Xarelto for paroxysmal intermittent atrial fibrillation. He denies history of PE or DVT. He does report swelling of both legs. He denies discoloration or pain in his legs. He denies pain with breathing. He denies fever, chills night sweats. He denies headache, visual, ocular auditory symptoms. He denies rhinorrhea, congestion postnasal drainage sore throat. Patient denies cough. Presently patient has no chest discomfort. Patient denies abdominal pain, nausea, vomiting or diarrhea. Patient denies urologic symptoms. Patient denies paresthesia or anesthesia upper or lower extremity. PE Risk Factors: Positive for Recent immobilization and Recent travel (12-hour flight and total 1 leg was greater than 4 hours in duration. 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 Esophageal dysphagia Swallowing dysfunction Hematuria Arthritis History of renal disease Prostate disease High cholesterol Gastric reflux Former smoker History of atrial fibrillation History of pacemaker Current use of senior care anticoagulation Abnormal ankle brachial index Essential hypertension Wears glasses Wears partial dentures Non-smoker History of edema History of echocardiogram History of stress test Cardiology follow-up encounter Asthma Ventral incisional hernia without obstruction or gangrene History of cardioversion (~05/16/19) CAD in [place] artery Atrial fibrillation [place] diverticulum Tubular adenoma of colon Diverticulosis RADHA (obstructive sleep apnea) Hyperlipidemia RLS (restless legs syndrome) Osteoarthritis GERD (gastroesophageal reflux disease) Atherosclerotic heart disease of [place] coronary artery without angina pectoris Sick sinus syndrome Presence of cardiac pacemaker (~2013) Colon polyp Home Medications Medication Instructions Recorded Last Taken Type nitroglycerin 0.4 mg sublingual 0.4 mg sublingual Q5-15M PRN chest 12/29/21 Unknown Rx tablet pain #25 tabs fenofibrate 160 mg tablet 160 mg PO DAILY heart health #90 09/16/23 10/22/23 Rx tabs aspirin 81 mg tablet,delayed 81 mg PO QDAY 03/17/24 03/21/24 History release (Adult Aspirin Regimen) digoxin 125 mcg (0.125 mg) tablet 125 mcg PO DAILY HR #90 tabs 06/12/24 Unknown Rx (Lanoxin) tamsulosin 0.4 mg capsule 0.4 mg PO DAILY prostate #90 caps 07/31/24 Unknown Rx furosemide 40 mg tablet 40 mg PO DAILY #90 tabs 08/23/24 Unknown Rx rivaroxaban 20 mg tablet (Xarelto) 20 mg PO DAILY #90 tabs 09/25/24 Unknown Rx duloxetine 20 mg capsule,delayed 20 mg PO QDAY #90 caps 01/22/25 Unknown Rx release Allergy/AdvReac Type Severity Reaction Status Date / Time atorvastatin (From Lipitor) AdvReac Severe elevated Verified 05/01/25 09:15 LFT's lisinopril AdvReac Severe cough Verified 05/01/25 09:15 gemfibrozil AdvReac Unknown Unknown Verified 05/01/25 09:15 simvastatin AdvReac Unknown Unknown Verified 05/01/25 09:15 bacitracin (From Triple AdvReac Unknown Verified 05/01/25 09:15 Antibiotic) colistimethate sodium (From AdvReac Unknown Verified 05/01/25 09:15 Triple Antibiotic) gramicidin D (From Triple AdvReac Unknown Verified 05/01/25 09:15 Antibiotic) neomycin sulfate (From AdvReac Unknown Verified 05/01/25 09:15 Triple Antibiotic) polymyxin B (From Triple AdvReac Unknown Verified 05/01/25 09:15 Antibiotic) pramoxine HCl (From Triple AdvReac Unknown Verified 05/01/25 09:15 Antibiotic) Family History Mother CVA (cerebral vascular accident) Father Heart disease Sister Heart disease Grandmother Colon cancer Surgical History History of cholecystectomy History of coronary artery stent placement History of cystoscopy History of partial nephrectomy History of colonoscopy (~04/2021) H/O umbilical hernia repair History of cataract surgery History of inguinal hernia repair History of laparoscopic cholecystectomy Presence of stent in coronary artery (~06/17/12) Postsurgical percutaneous transluminal coronary angioplasty (PTCA) status (~06/17/12) Social History household members: spouse Smoking Status: Former smoker how long ago did patient quit smokin's alcohol intake: never substance use type: does not use caffeine: Yes Type: carbonated beverages Number of servings: 3 ROS ROS ED Constitutional Constitutional ED: Denies chills, fever(s), sweats or weight loss Eyes Eyes: Denies change in vision ENT ENT ED: Denies ear pain, rhinorrhea or sore throat Cardiovascular Cardiovascular: Reports chest pain, orthopnea, palpitations and racing heartbeat; Denies paroxysmal nocturnal dyspnea Respiratory/Chest Respiratory/Chest: Reports dyspnea, dyspnea on exertion and orthopnea; Denies cough, paroxysmal nocturnal dyspnea or sputum Gastrointestinal Gastrointestinal: Denies abdominal pain, diarrhea, melena, nausea or vomiting Genitourinary Genitourinary ED: Denies dysuria, hematuria or urinary frequency Musculoskeletal Musculoskeletal: Denies arthralgias, back pain, myalgias or neck pain Integumentary Denies rash Neurologic Neurologic: Denies headache(s) or paresthesias Hematologic/Lymphatic Hematologic/Lymphatic: Denies easy bleeding or easy bruising EXAM Physical Exam Const Vital Signs: 05/01/25 09:16 05/01/25 09:33 05/01/25 09:34 Temperature 98.9 F 97.5 F L Temperature Source Oral Oral Pulse Rate 159 H 132 H Respiratory Rate 18 23 H Respiratory Effort Short of Breath Respiratory Pattern Tachypnea Blood Pressure 176/117 H 167/138 H Blood Pressure Mean 136 147 Pulse Ox 98 96 Oxygen Delivery Method Room Air Room Air Room Air 05/01/25 10:17 05/01/25 11:22 Temperature 98.0 F Temperature Source Oral Pulse Rate 113 H 82 Respiratory Rate 23 H Respiratory Effort Respiratory Pattern Blood Pressure 144/80 H 143/80 H Blood Pressure Mean 101 101 Pulse Ox 94 Oxygen Delivery Method Room Air Positive well nourished and well developed Constitutional Narrative: Patient is tachypneic and breathing more rapidly than the 18 is documented at 0916. Monitor reveals irregular heartbeat with a rate greater than 140. General Appearance ED: well developed HEENT Reports moist mucous membranes HEENT Narrative: Head is atraumatic normocephalic. Ears are normal. Nares are patent. Posterior pharynx is normal. Eyes PERRL and EOMs intact bilaterally General Eye ED: Negative for pale conjunctiva or scleral icterus Neck no lymphadenopathy, supple, no meningeal signs and no JVD Resp normal respiratory effort and clear to auscultation bilaterally Cardio S1 normal heart sound, S2 normal heart sound and no murmurs Rate: tachycardic Rhythm: abnormal rhythm irregularly irregular GI non-tender, non-distended and no masses Auscultation: hypoactive bowel sounds Palpation: soft Back/Spine no CVA tenderness Extremity Negative for normal to inspection Extremity Narrative: There is no asymmetry, discoloration, leg vein distention, palpable cord sounds on the distribution of the deep venous system. General Extremety ED: Yes edema; Negative for tenderness or other findings General Extremity: edema; Negative for other findings Neuro oriented x3 and CN's II-XII intact bilaterally Neuro Narrative: Patient does have a tension tremor on the left. I also believe he has 1 on the right. Sensorium / Orientation: alert Psych mental status grossly normal Skin no wounds and skin turgor normal MDM MDM MDM Narrative Medical decision making narrative: Differential diagnosis would include congestive heart failure, pneumothorax, pulmonary embolus, pneumonia, since he has orthopnea, bilateral symmetric pedal edema, A-fib with RVR suspect CHF is most likely diagnosis. If there is no evidence of CHF with the recent trip and not taking his Xarelto for total of 3-4 doses need to entertain possibility of pulmonary embolus. Also need to consider cardiac ischemia since he has had intermittent chest discomfort. History & Record Review Additional record(s) reviewed:: Prior outpatient record (Last cardiac visit was with Dr. Franky Saunders on December 29, 2024. He was seen for atrial fibrillation. Prior visit was July 2024 and seen by Loida Hart their nurse practitioner.), Prior ED visit, Prior labs and No prior records (Patient's primary care physician is Dr. Ruma Terry. He was most recently seen April 03, 2025 for herpetic infection. He also was seen recently by Dr. Neno Neely for dysphagia and underwent EGD.) Lab Data Attestation: I reviewed the patient's lab results. (CBC is unremarkable. There is slight shift however white count is normal. Electrolyte panel is unremarkable. Glucose is 122 with a normal CO2 and a gap. First troponin is elevated 28 which I suspect is due to his heart failure. BNP is elevated 2404.) Labs: Laboratory Results - last 24 hr 05/01/25 09:25 WBC 6.9 RBC 5.22 Hgb 16.1 Hct 47.7 MCV 91.4 MCH 30.8 MCHC 33.8 RDW Std Deviation 52.8 H RDW Coeff of Mimi 15.8 H Plt Count 187 MPV 12.8 H Immature Gran % (Auto) 0.300 Neut % (Auto) 75.1 H Lymph % (Auto) 12.4 L [place] % (Auto) 10.8 H Eos % (Auto) 1.3 Baso % (Auto) 0.1 Absolute Neuts (auto) 5.2 Absolute Lymphs (auto) 0.86 Nucleated RBC % 0 Sodium 138 Potassium 4.2 Chloride 104 Carbon Dioxide 21.3 Anion Gap 13 BUN 15 Creatinine 1.08 Estim Creat Clear Calc 67.58 Est GFR (MDRD) Non-Af 69 BUN/Creatinine Ratio 13.6 Glucose 122 H Lactic Acid 1.8 Calcium 9.3 Troponin T High Sens 28 H NT pro BNP II 2404 H Radiography Chest X-Ray - ED: 2 View (Reviewed interpreted by me at 1000. Patient has evidence of bilateral pleural effusion left greater than right. There is mild venous congestion with cephalization. There is no obvious curly B-lines. Left heart per is mildly obscured due to the effusion. [place] is slightly congested. [place] struc) Diagnostic Testing: Clinical Impression(s) from Imaging Studies Chest X-Ray 05/01/25 09:30 IMPRESSION: Mild pulmonary venous congestion and bilateral pleural effusions concerning for mild congestive heart failure. Reading Location: [facility] EKG Initial EKG: Attestation: I personally reviewed and interpreted this EKG as follows: Interpretation: Atrial Fibrillation (Rate is 150. QRS duration 184. QT duration 296 ms. [place] is normal. There is slight irregularity which would be consistent with atrial fibrillation versus atrial flutter.) Management Discussion w/another healthcare provider: Hospitalist (Case was discussed with Dr. Haney. Full admission PCU.) Treatment and Re-Evaluation :: Since there is an explanation for his dyspnea we will treat his heart rate with diltiazem and his fluid overload state with loop diuretic and nitroglycerin for preload reduction. Comments:: Patient was reassessed at 1141. His breathing has improved markedly. His blood pressure is decreased. Will contact hospitalist for admission to PCU for new onset CHF. His ecological modeler is Dr. Franky Saunders. 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, Discussing w/Consultants (Call to hospitalist for admission.) and Performing Direct Patient Care at Bedside (Treatment for new onset CHF with Lasix, nitroglycerin drip for preload reduction and elevated blood pressure.) Discharge Plan Dx/Rx/DC Orders Clinical Impression: New onset of congestive heart failure, Bilateral pleural effusion, Atrial fibrillation with RVR, Hypertension, Atherosclerotic heart disease of [place] coronary artery without angina pectoris, Presence of stent in coronary artery, BPH (benign prostatic hyperplasia), Anticoagulant long-term use Disposition Disposition: Acute Care [facility]
[2025-05-01 09:42] LABS: Hematocrit 47.7 % (40-54); Hemoglobin 16.1 g/dL (13.0-16.5); Immature Granulocytes Count 0.020 X10^3/uL (0.0-0.0); Mean Corp Hgb Conc 33.8 g/dL (32-36); Mean Corpuscular Volume 91.4 fL (80-94); Mean Platelet Vol. 12.8 fl (6.2-12.0); NRBC Flagged by Analyzer 0 % (0-5); Platelet Count 187 K/mm3 (150-450); RBC Distribution Width CV 15.8 % (11.6-14.6); RBC Distribution Width SD 52.8 fl (35.1-43.9); Red Blood Count 5.22 M/mm3 (4.6-6.2); White Blood Count 6.9 K/mm3 (4.4-11.0)
[2025-05-01 09:59] LABS: Troponin T High Sensitivity 28 ng/L (<=22)
[2025-05-01 10:02] LABS: Anion Gap 13 (5-15); BUN 15 mg/dL (4-19); BUN/Creat Ratio 13.6 RATIO (10-20); Calcium,Total 9.3 mg/dL (7.6-11.0); Carbon Dioxide 21.3 mmol/L (21.0-32.0); Chloride 104 mmol/L (98-108); Estimated Creatinine Clearance 67.58 ml/min (50-250); Glucose 122 mg/dL (70-99); Potassium 4.2 mmol/L (3.3-5.1); Pro- Brain NATRIURETIC PEPTIDE 2404 pg/mL (<=1800)
[2025-05-01] MEDS: Nitroglycerin Infusion 250 ML 3 MG CONT INF (11:22)
[2025-05-01 12:21] LABS: Troponin T High Sens 2 HR 26 ng/L (<=22)
--- NOTE | 2025-05-01 12:40 | PCM.HP.STD ---
HPI - General General Date of Admission: 05/01/25 Date of Service: 05/01/25 Chief Complaint: Shortness of breath for last couple days along with increased swelling. HPI Narrative CONSTANTINO CORBETT, is a 80 M who presents came to ED with increased shortness of breath and leg swelling for 3 to 4 days. Patient went for short trip to [place], long flight duration. Increased leg swelling and shortness of breath. He also missed 3-4 doses of Xarelto. He felt mild chest tightness intermittently, not related with exertion, sometimes with radiation to right jaw. No fever chills cough or URI symptoms. No near-syncope or syncope. In ED, patient was found to have A-fib RVR with history of PAF on Xarelto. Chest x-ray is more suggestive of pulmonary congestion/edema. Heart rate was 159/min, BP 176/117 in triage and was given Lasix 60 mg IV, nitro drip and diltiazem 20 mg IV bolus. 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 Esophageal dysphagia Swallowing dysfunction Hematuria Arthritis History of renal disease Prostate disease High cholesterol Gastric reflux Former smoker History of atrial fibrillation History of pacemaker Current use of intermediate frame tender anticoagulation Abnormal ankle brachial index Essential hypertension Wears glasses Wears partial dentures Non-smoker History of edema History of echocardiogram History of stress test Cardiology follow-up encounter Asthma Ventral incisional hernia without obstruction or gangrene History of cardioversion (~05/16/19) CAD in [place] artery Atrial fibrillation Zen[place] diverticulum Tubular adenoma of colon Diverticulosis RADHA (obstructive sleep apnea) Hyperlipidemia RLS (restless legs syndrome) Osteoarthritis GERD (gastroesophageal reflux disease) Atherosclerotic heart disease of [place] coronary artery without angina pectoris Sick sinus syndrome Presence of cardiac pacemaker (~2013) Colon polyp Home Medications Medication Instructions Recorded Last Taken Type nitroglycerin 0.4 mg sublingual 0.4 mg sublingual Q5-15M PRN chest 12/29/21 Unknown Rx tablet pain #25 tabs aspirin 81 mg tablet,delayed 81 mg PO QDAY 03/17/24 03/21/24 History release (Adult Aspirin Regimen) tamsulosin 0.4 mg capsule 0.4 mg PO DAILY prostate #90 caps 07/31/24 Unknown Rx furosemide 40 mg tablet 40 mg PO DAILY #90 tabs 08/23/24 Unknown Rx rivaroxaban 20 mg tablet (Xarelto) 20 mg PO DAILY #90 tabs 09/25/24 Unknown Rx vitamins A,C,R-vjac-tblomd 2,148 1 tab PO BID 05/01/25 Unknown History mcg-113 mg-45 mg-17.4 mg tablet (Eye Multivitamin) Allergy/AdvReac Type Severity Reaction Status Date / Time atorvastatin (From Lipitor) AdvReac Severe elevated Verified 05/01/25 09:15 LFT's lisinopril AdvReac Severe cough Verified 05/01/25 09:15 gemfibrozil AdvReac Unknown Unknown Verified 05/01/25 09:15 simvastatin AdvReac Unknown Unknown Verified 05/01/25 09:15 bacitracin (From Triple AdvReac Unknown Verified 05/01/25 09:15 Antibiotic) colistimethate sodium (From AdvReac Unknown Verified 05/01/25 09:15 Triple Antibiotic) gramicidin D (From Triple AdvReac Unknown Verified 05/01/25 09:15 Antibiotic) neomycin sulfate (From AdvReac Unknown Verified 05/01/25 09:15 Triple Antibiotic) polymyxin B (From Triple AdvReac Unknown Verified 05/01/25 09:15 Antibiotic) pramoxine HCl (From Triple AdvReac Unknown Verified 05/01/25 09:15 Antibiotic) Family History Mother CVA (cerebral vascular accident) Father Heart disease Sister Heart disease Grandmother Colon cancer Surgical History History of cholecystectomy History of coronary artery stent placement History of cystoscopy History of partial nephrectomy History of colonoscopy (~04/2021) H/O umbilical hernia repair History of cataract surgery History of inguinal hernia repair History of laparoscopic cholecystectomy Presence of stent in coronary artery (~06/17/12) Postsurgical percutaneous transluminal coronary angioplasty (PTCA) status (~06/17/12) Social History household members: spouse Smoking Status: Former smoker how long ago did patient quit smokin's alcohol intake: never substance use type: does not use caffeine: Yes Type: carbonated beverages Number of servings: 3 ROS ROS Narrative Constitutional: Reports fatigue and weakness. No fever. HEENT: Reports systems reviewed and no addt'l complaints, except as documented Respiratory/Chest: As described in HPI. Quit smoking in . CVS: As described in HPI Gastrointestinal: Denies coffee ground emesis, hematemesis or vomiting Genitourinary: Denies burning urination or new urinary tract symptoms Musculoskeletal: Denies acute joint pain or limited range of motion. No acute injury Neurologic: Denies seizure-like symptoms. skin: Bilateral increased leg swelling for last 3 to 4 days Endocrinology: Reports systems reviewed and no addt'l complaints, except as documented Hematologic/Lymphatic: Reports systems reviewed and no addt'l complaints, except as documented Rest 14 ROS are negative except as mentioned in HPI Vital Signs Vital Signs Vital Signs: 05/01/25 09:16 05/01/25 09:33 05/01/25 09:34 Temperature 98.9 F 97.5 F L Temperature Source Oral Oral Pulse Rate 159 H 132 H Respiratory Rate 18 23 H Respiratory Effort Short of Breath Respiratory Pattern Tachypnea Blood Pressure 176/117 H 167/138 H Blood Pressure Mean 136 147 Pulse Ox 98 96 Oxygen Delivery Method Room Air Room Air Room Air 05/01/25 10:17 05/01/25 11:22 05/01/25 11:46 Temperature 98.0 F Temperature Source Oral Pulse Rate 113 H 82 70 Respiratory Rate 23 H 18 Respiratory Effort Respiratory Pattern Blood Pressure 144/80 H 143/80 H 123/90 H Blood Pressure Mean 101 101 101 Pulse Ox 94 97 Oxygen Delivery Method Room Air Room Air 05/01/25 12:01 Temperature Temperature Source Pulse Rate 101 H Respiratory Rate Respiratory Effort Respiratory Pattern Blood Pressure 136/80 H Blood Pressure Mean 98 Pulse Ox Oxygen Delivery Method Weight Weight: 233 lb 11.04 oz Body Mass Index (BMI) 32.5 Physical Exam Narrative General: Alert, Oriented x3, Cooperative. BMI 31.5 kg/m² HEENT: Atraumatic, PERRLA, EOMI, Normocephalic. Oral: No Gingival or Mucosal Lesions/ Ulcerations Neck: Supple, No JVD, Negative Carotid Bruits Chest wall/Lungs: Air entry diminished in bilateral lung bases. No crepitation/rhonchi Cardiovascular: A-fib with RVR, mild systolic murmur faint, heart rate is in 100s Abdomen: Bowel Sounds Present, Soft, Non Tender, Non-Distended : No dysuria. No renal angle tenderness. No suprapubic tenderness. Extremities: 2+ bilateral symmetric leg edema below knee, Capillary Refill Less than 3 Seconds Skin: No rashes, No breakdown Musculoskeletal: No Tenderness to Palpation of Joints or Extremities Neurological: Cranial nerves II-XII grossly intact, DTR 2+/4. No acute focal neurological deficit. Psych/Mental Status: Normal Affect, Appropriate. Results Lab / Micro Data 05/01/25 09:25 05/01/25 09:25 Labs: Laboratory Results - last 24 hr 05/01/25 09:25: WBC 6.9, RBC 5.22, Hgb 16.1, Hct 47.7, MCV 91.4, MCH 30.8, MCHC 33.8, RDW Std Deviation 52.8 H, RDW Coeff of Mimi 15.8 H, Plt Count 187, MPV 12.8 H, Immature Gran % (Auto) 0.300, Neut % (Auto) 75.1 H, Lymph % (Auto) 12.4 L, Morrow % (Auto) 10.8 H, Eos % (Auto) 1.3, Baso % (Auto) 0.1, Absolute Neuts (auto) 5.2, Absolute Lymphs (auto) 0.86, Nucleated RBC % 0, Sodium 138, Potassium 4.2, Chloride 104, Carbon Dioxide 21.3, Anion Gap 13, BUN 15, Creatinine 1.08, Estim Creat Clear Calc 67.58, Est GFR (MDRD) Non-Af 69, BUN/Creatinine Ratio 13.6, Glucose 122 H, Lactic Acid 1.8, Calcium 9.3, Troponin T High Sens 28 H, NT pro BNP II 2404 H Imaging Radiology Impression Chest X-Ray 05/01/25 09:30 IMPRESSION: Mild pulmonary venous congestion and bilateral pleural effusions concerning for mild congestive heart failure. Reading Location: [facility] Assessment & Plan Assessment/Plan (1) Atrial fibrillation with RVR: (2) Acute on chronic heart failure with preserved ejection fraction (HFpEF): PLAN: Plan This 80-year-old gentleman being admitted for A-fib RVR and acute on chronic heart failure exacerbation 1. A-fib RVR with history of PAF: Patient is being admitted to PCU. Heart rate controlled compared to triage. Chest x-ray shows mild pulmonary venous congestion and bilateral pleural effusion. Twelve-lead EKG A-fib RVR 150 bpm. QTc 467 ms. Started on metoprolol succinate 25 mg daily and low-dose metoprolol succinate. On Xarelto 20 mg daily. 2. Acute on chronic HFpEF: Chest x-ray as described above. NT proBNP 2400. Lactic acid normal. Electrolytes in normal limit. Started on furosemide 40 mL IV twice daily. Heart failure core measures including intake and output, fluid restriction less than 1800 mL, daily weight monitoring, kidney and electrolytes monitoring. Last echo September 2023 shows EF 55%, LA mildly enlarged with mild AI repeat echo ordered. Patient follows [facility], Dr. Franky Saunders and Loida Hartman. 3. Mild troponin elevation with history of CAD status post stent: First troponin 28, second 26 downtrending. Patient does not have convincing evidence of chest pressure or tightness related to MT. Last cardiac stent was in 2011. Mild troponin elevation nonischemic in nature, due to acute myocardial injury from increased cardiac demand from A-fib RVR 4. Sick sinus syndrome status post pacemaker: No acute issues. 5. Uncontrolled essential hypertension: Blood pressure was high in the ED. Most recent 123/90, 136/80 controlled. Monitor BP. 6. Other comorbidities include dyslipidemia, restless leg syndrome, obstructive sleep apnea: Home medication reconciliation done. 7. Mild hyperglycemia: Glucose 122. A1c tomorrow a.m. 8. DVT prophylaxis: On Xarelto 20 mg daily. Discontinue if platelet count drops less than 50,000 or hemoglobin less than 8 g% Living will/advanced directive/end of life care: Patient does not have living will or advanced directive. His , next of kin and son present in the room. After discussion of benefits/risks procedures involved with full code, DNR CC arrest and DNR CC, the patient opted for full code. Patient does want artificial life support including intubation, tube feed, ventilator and/chest compression, central venous catheter, vasopressor and DC shock if needed Total time spent in [id number] encounter in discussion of advanced directive 17 minutes. Laboratory Results 05/01/25 09:25: WBC 6.9, RBC 5.22, Hgb 16.1, Hct 47.7, MCV 91.4, MCH 30.8, MCHC 33.8, RDW Std Deviation 52.8 H, RDW Coeff of Mimi 15.8 H, Plt Count 187, MPV 12.8 H, Immature Gran % (Auto) 0.300, Neut % (Auto) 75.1 H, Lymph % (Auto) 12.4 L, Morrow % (Auto) 10.8 H, Eos % (Auto) 1.3, Baso % (Auto) 0.1, Absolute Neuts (auto) 5.2, Absolute Lymphs (auto) 0.86, Nucleated RBC % 0, Sodium 138, Potassium 4.2, Chloride 104, Carbon Dioxide 21.3, Anion Gap 13, BUN 15, Creatinine 1.08, Estim Creat Clear Calc 67.58, Est GFR (MDRD) Non-Af 69, BUN/Creatinine Ratio 13.6, Glucose 122 H, Lactic Acid 1.8, Calcium 9.3, Troponin T High Sens 28 H, NT pro BNP II 2404 H 05/01/25 11:28: Troponin T Hi Sens 2 Hr 26 H Clinical Impression(s) from Imaging Studies Chest X-Ray 05/01/25 09:30 IMPRESSION: Mild pulmonary venous congestion and bilateral pleural effusions concerning for mild congestive heart failure. Reading Location: [facility] Interpretation Summary The estimated ejection fraction is 55 %. Unable to assess diastolic dysfunction. The left atrium is mildly enlarged. Trivial mitral valve insufficiency. Mild (1+) aortic valve insufficiency. Charges/Coding Visit Charges Inpatient E&M: 00448 Init Hosp L3 Procedures Hospitalists Procedures: 34890 Advncd Care Plan 30 Min
--- NOTE | 2025-05-01 14:04 | ECHOD_ITS ---
Reason For Study Reason For Study: Afib rvr, CHF Procedure This was a 2D Doppler, Color Flow transthoracic echocardiogram. Exam performed portable in patient room. Left Ventricle Normal size and thickness. Mild LV systolic dysfunction. Estimated LVEF 45%. Stage I diastolic dysfunction. Right Ventricle Normal right ventricle. ICD or pacer leads identified within the right ventricle. Atria There is severe biatrial dilatation. ICD or pacer leads identified within the right atrium. Mitral Valve Moderate (2+) mitral valve insufficiency. Tricuspid Valve Moderate-Severe (3+) tricuspid valve insufficiency. Right ventricular systolic pressure estimated to be 37 mmHg. Aortic Valve Trisinus/trileaflet aortic valve. Aortic sclerosis, no stenosis. Mild (1+) aortic valve insufficiency. Pulmonic Valve Mild (1+) pulmonic valve insufficiency. Great Vessels Normal sized aortic root. Pericardium/Pleural No pericardial effusion. MMode/2D Measurements & Calculations LVIDd: 5.0 cm IVSd: 0.99 cm LVOT diam: 2.3 cm LVIDs: 3.5 cm LVPWd: 0.88 cm LVOT area: 4.1 cm2 RVDd: 3.9 cm FS: 28.6 % Ao root diam: 3.5 cm LAV(MOD-bp): 98.2 ml LVAd ap4: 29.5 cm2 LAV(MOD-bp) Indexed: 44.2 ml/m2 LVLd ap4: 8.5 cm LAV(MOD-sp2): 83.3 ml EDV(MOD-sp4): 85.1 ml LAV(MOD-sp4): 104.4 ml EDV(sp4-el): 87.0 ml LVAs ap4: 19.5 cm2 LVLs ap4: 7.6 cm ESV(MOD-sp4): 45.8 ml ESV(sp4-el): 42.7 ml EF(MOD-sp4): 46.1 % EF(sp4-el): 50.9 % LVAd ap2: 27.1 cm2 SV(MOD-sp4): 39.2 ml SV(MOD-sp2): 42.7 ml LVLd ap2: 8.2 cm SI(MOD-sp4): 17.7 ml/m2 SI(MOD-sp2): 19.2 ml/m2 EDV(MOD-sp2): 77.3 ml EDV(sp2-el): 75.6 ml LVAs ap2: 17.1 cm2 LVLs ap2: 7.7 cm ESV(MOD-sp2): 34.6 ml ESV(sp2-el): 32.5 ml EF(MOD-sp2): 55.2 % SV(sp4-el): 44.3 ml LA dimension(2D): 4.8 cm LA A4 area: 29.3 cm2 RA A4 area: 20.5 cm2 TAPSE: 1.7 cm Doppler Measurements & Calculations MV E max lisandro: 66.9 cm/sec MV V2 max: 83.5 cm/sec MV P1/2t max lisandro: 79.6 cm/sec MV max P.8 mmHg MV P1/2t: 48.0 msec MV V2 mean: 46.3 cm/sec MV mean P.1 mmHg MV dec slope: 485.3 cm/sec2 MV V2 VTI: 10.8 cm MVA(P1/2t): 4.6 cm2 MVA(VTI): 7.6 cm2 Ao V2 max: 109.7 cm/sec LV V1 max: 86.6 cm/sec SV(LVOT): 82.2 ml Ao max P.9 mmHg LV V1 max P.0 mmHg LV V1 mean P.8 mmHg ROSINA(V,D): 3.3 cm2 LV V1 mean: 62.4 cm/sec LV V1 VTI: 19.8 cm PA V2 max: 64.6 cm/sec TR max lisandro: 233.7 cm/sec TR max P.4 mmHg ECHO/Echo Complete Interpretation Summary Mild LV systolic dysfunction. Estimated LVEF 45%. Stage I diastolic dysfunction . There is severe biatrial dilatation. Moderate (2+) mitral valve insufficiency. Moderate-Severe (3+) tricuspid valve insufficiency. Right ventricular systolic pressure estimated to be 37 mmHg. Aortic sclerosis, no stenosis. Mild (1+) aortic valve insufficiency. Mild (1+) pulmonic valve insufficiency. Ordering Physician: Vitaly Haney Referring Physician: Ruma Terry Performed By: Trent Vo RCS
[2025-05-01 15:41] LABS: Troponin T High Sens 4 HR 28 ng/L (<=22)
[2025-05-01 16:32] LABS: Magnesium 2.0 mg/dL (1.5-2.2)
[2025-05-01] MEDS: Metoprolol(XL)Succ 25 MG Tablet PO (16:33)
[2025-05-01] MEDS: Aspirin E.C. 81 MG Tablet PO (16:33)
[2025-05-01] MEDS: Multivitamin (Healthy Eyes) Capsule 1 CAP PO (17:34)
[2025-05-02] MEDS: 0.9% Saline Lock 10 ML Syringe IV ×2 (00:09→09:32)
[2025-05-02 00:13] VITALS: BP 110/64
[2025-05-02 03:00] VITALS: BP 112/64; PULSE 73; RESP 16; TEMP 36.6; O2SAT 94
[2025-05-02 05:57] LABS: Hematocrit 42.9 % (40-54); Hemoglobin 14.5 g/dL (13.0-16.5); Immature Granulocytes Count 0.020 X10^3/uL (0.0-0.0); Mean Corp Hgb Conc 33.8 g/dL (32-36); Mean Corpuscular Volume 90.9 fL (80-94); Mean Platelet Vol. 12.4 fl (6.2-12.0); NRBC Flagged by Analyzer 0 % (0-5); Platelet Count 165 K/mm3 (150-450); RBC Distribution Width CV 15.6 % (11.6-14.6); RBC Distribution Width SD 51.7 fl (35.1-43.9); Red Blood Count 4.72 M/mm3 (4.6-6.2); White Blood Count 5.8 K/mm3 (4.4-11.0)
[2025-05-02 07:13] LABS: Anion Gap 11 (5-15); BUN 22 mg/dL (4-19); BUN/Creat Ratio 19.4 RATIO (10-20); Calcium,Total 8.6 mg/dL (7.6-11.0); Carbon Dioxide 25.7 mmol/L (21.0-32.0); Chloride 101 mmol/L (98-108); Cholesterol 160 mg/dL (<=200); Estimated Creatinine Clearance 64.15 ml/min (50-250); Glucose 99 mg/dL (70-99); Low Density Lipoprotein Calc. 110 mg/dL; Potassium 3.6 mmol/L (3.3-5.1); Triglycerides 97 mg/dL; Very Low Density Lipoprotein 19 mg/dL (5-40); cholesterol:hdl ratio screen 4.95
--- NOTE | 2025-05-02 08:47 | VDLE_ITS ---
Reason For Study Reason For Study: BLE Swelling RIGHT LEFT GSV is normal. GSV is normal. CFV is compressible, spontaneous, phasic, competent CFV is compressible, spontaneous, phasic, competent, and demonstrates normal augmentation. and demonstrates normal augmentation. FV is compressible, spontaneous, phasic, competent FV is compressible, spontaneous, phasic, competent and demonstrates normal augmentation. and demonstrates normal augmentation. POP V is compressible, spontaneous, phasic, competent POP V is compressible, spontaneous, phasic, competent and demonstrates normal augmentation. and demonstrates normal augmentation. T/P Trunk is compressible. T/P Trunk is compressible. PTV is compressible. PTV is compressible. RT PerV is compressible. LT PerV is compressible. Procedure This is a venous duplex using B-mode, color flow and spectral Doppler. Exam performed in department. The exam was diagnostic. A preliminary report was called and/or faxed to Vicki BALDWIN RN. VL/Venous Duplex US - [place] Extrem Interpretation Summary Deep veins of the lower extremities are bilaterally patent and compressible seg mentally. There is no evidence of deep vein thrombosis on either side. Valvular competence appears intact within the p roximal deep venous systems bilaterally. The great saphenous veins appear bilaterally patent and compressible segmentall y. Ordering Physician: Vitaly Haney Referring Physician: Ruma Terry Performed By: Roland Santana RVT
[2025-05-02] MEDS: Aspirin E.C. 81 MG Tablet PO (09:29)
[2025-05-02] MEDS: Multivitamin (Healthy Eyes) Capsule 1 CAP PO (09:29)
[2025-05-02 09:32] VITALS: BP 108/58; PULSE 64
[2025-05-02] MEDS: Metoprolol(XL)Succ 25 MG Tablet PO (09:32)
[2025-05-02 10:00] VITALS: BP 108/58; PULSE 64; RESP 16; TEMP 36.4; O2SAT 96
--- NOTE | 2025-05-02 10:32 | PCM.DC ---
Discharge Instructions DC O2, CPAP, BIPAP needs Home O2 Discharge instructions: No Dressing / Incision Discharge Activity: Return to Normal Activity Weight Bearing Status: Weight bearing as tolerated Dressing / Incision Call your doctor if you observe: Fever of 101 or Higher, Coldness, Increased Pain, Numbness or Tingling, Change in Color, Inability to urinate, Inability to have a bowel movement, Shortness of breath, Dizziness, Fainting spells, Swelling in the ankles, Chest pain, Prolonged hiccupping, Increased palpitations (irregular heartbeat) and Calf discomfort Follow Up Care When: IN 2 WEEKS Test Results: Test results from this visit will be discussed in further detail at your follow-up appointment, if applicable. Discharge Plan Admission Admit Date/Time: 05/01/25 12:14 Primary Reason for Your Visit: Heart failure exacerbation, A-fib RVR Attending Provider: Vitaly Haney Primary Care Provider: Ruma Terry Discharge Orders/Prescriptions Prescriptions: New metoprolol succinate 25 mg Tablet Extended Release 24 Hr 25 mg PO DAILY 30 Days Qty: 30 2RF Continued aspirin [Adult Aspirin Regimen] 81 mg tablet,delayed release (DR/EC) 81 mg PO QDAY Eye Multivitamin 2,148 mcg-113 mg-45 mg-17.4mg tablet 1 tab PO BID Rx Instructions: administer with AM and PM meals nitroglycerin 0.4 mg tablet, sublingual 0.4 mg sublingual Q5-15M PRN (Reason: chest pain) Qty: 25 3RF tamsulosin 0.4 mg capsule 0.4 mg PO DAILY Qty: 90 3RF Xarelto 20 mg tablet 20 mg PO DAILY Qty: 90 3RF Rx Instructions: must administer with evening meal Changed furosemide 40 mg tablet 40 mg PO BID 90 Days Qty: 180 0RF Referrals / Follow Up: Ruma Terry MD [Primary Care Provider, Internal Medicine - [facility]] Loida Hartman PA [Med Staff - Adv Practice Prof, Cardiology] - Within 1 Week Franky Saunders MD [Med Staff - Active Staff, Cardiology] - Within 1 Month Disposition Disposition (needs filled in before D/C Order can be placed): Home, Self Care
--- NOTE | 2025-05-02 11:39 | PCM.DC.SUM ---
Providers Date of Admission: 05/01/25 Date of Discharge: 05/02/25 Primary Care Physician: Dr. Ruma Terry MD Reason For Visit: CHR EXACERBATION Diagnosis Discharge Diagnosis (1) Atrial fibrillation with RVR: Status: Acute Code(s): I48.91 - Unspecified atrial fibrillation (2) Acute on chronic heart failure with preserved ejection fraction (HFpEF): Status: Acute Code(s): I50.33 - Acute on chronic diastolic (congestive) heart failure Plan This 80-year-old gentleman being admitted for A-fib RVR and acute on chronic heart failure exacerbation 1. A-fib RVR with history of PAF: Patient is being admitted to PCU. Heart rate controlled compared to triage. Chest x-ray shows mild pulmonary venous congestion and bilateral pleural effusion. Twelve-lead EKG A-fib RVR 150 bpm. QTc 467 ms. Started on metoprolol succinate 25 mg daily and low-dose metoprolol succinate. On Xarelto 20 mg daily. 05/02 heart rate is controlled: radio division officer shows heart rate in 60s, still in A-fib. Discussed with the fishing floats assembler Dr. Saunders. Discharged on metoprolol succinate 25 mg daily. Patient already on Xarelto 20 mg daily. Cardizem discontinued. 2. Acute on chronic HFpEF: Chest x-ray as described above. NT proBNP 2400. Lactic acid normal. Electrolytes in normal limit. Started on furosemide 40 mL IV twice daily. Heart failure core measures including intake and output, fluid restriction less than 1800 mL, daily weight monitoring, kidney and electrolytes monitoring. Last echo September 2023 shows EF 55%, LA mildly enlarged with mild AI repeat echo ordered. Patient follows [facility], Dr. Franky Saunders and Loida Hartman. 05/02: At home patient was on furosemide 40 mg daily increased to 40 mg twice daily. Leg swelling is well-controlled. Modified Wells criteria was 1.5 therefore low for PE/DVT. Venous duplex was done to rule out DVT but not reported yet. Bilateral symmetric leg swelling and less chances for DVT and goes more with heart failure exacerbation 3. Mild troponin elevation with history of CAD status post stent: First troponin 28, second 26 downtrending. Patient does not have convincing evidence of chest pressure or tightness related to PA. Last cardiac stent was in 2011. Mild troponin elevation nonischemic in nature, due to acute myocardial injury from increased cardiac demand from A-fib RVR 4. Sick sinus syndrome status post pacemaker: No acute issues. 5. Uncontrolled essential hypertension: Blood pressure was high in the ED. Most recent 123/90, 136/80 controlled. Monitor BP. 6. Other comorbidities include dyslipidemia, restless leg syndrome, obstructive sleep apnea: Home medication reconciliation done. 7. Mild hyperglycemia: Glucose 122. A1c tomorrow a.m. 8. DVT prophylaxis: On Xarelto 20 mg daily. Discontinue if platelet count drops less than 50,000 or hemoglobin less than 8 g% Living will/advanced directive/end of life care: Patient does not have living will or advanced directive. His , next of kin and son present in the room. After discussion of benefits/risks procedures involved with full code, DNR CC arrest and DNR CC, the patient opted for full code. Patient does want artificial life support including intubation, tube feed, ventilator and/chest compression, central venous catheter, vasopressor and DC shock if needed Discharge medication reconciliation done. Discharge follow-up instructions completed. Discharge process discussed with the patient and all questions were answered to patient's satisfaction. Follow with PCP in 1 to 2 weeks Total time spent, exact 35 minutes on discharge meds reconciliation, examination, coordination of care with nurses and ancillary staff, review of imaging and blood test and discussion with the patient on follow-up instructions. Laboratory Results 05/01/25 09:25: WBC 6.9, RBC 5.22, Hgb 16.1, Hct 47.7, MCV 91.4, MCH 30.8, MCHC 33.8, RDW Std Deviation 52.8 H, RDW Coeff of Mimi 15.8 H, Plt Count 187, MPV 12.8 H, Immature Gran % (Auto) 0.300, Neut % (Auto) 75.1 H, Lymph % (Auto) 12.4 L, Summers % (Auto) 10.8 H, Eos % (Auto) 1.3, Baso % (Auto) 0.1, Absolute Neuts (auto) 5.2, Absolute Lymphs (auto) 0.86, Nucleated RBC % 0, Sodium 138, Potassium 4.2, Chloride 104, Carbon Dioxide 21.3, Anion Gap 13, BUN 15, Creatinine 1.08, Estim Creat Clear Calc 67.58, Est GFR (MDRD) Non-Af 69, BUN/Creatinine Ratio 13.6, Glucose 122 H, Lactic Acid 1.8, Calcium 9.3, Troponin T High Sens 28 H, NT pro BNP II 2404 H 05/01/25 11:28: Troponin T Hi Sens 2 Hr 26 H Clinical Impression(s) from Imaging Studies Chest X-Ray 05/01/25 09:30 IMPRESSION: Mild pulmonary venous congestion and bilateral pleural effusions concerning for mild congestive heart failure. Reading Location: [facility] Interpretation Summary The estimated ejection fraction is 55 %. Unable to assess diastolic dysfunction. The left atrium is mildly enlarged. Trivial mitral valve insufficiency. Mild (1+) aortic valve insufficiency. Medications at Discharge Home Medications nitroglycerin 0.4 mg sublingual tablet 0.4 mg sublingual Q5-15M PRN chest pain #25 tabs 12/29/21 aspirin 81 mg tablet,delayed release (Adult Aspirin Regimen) 81 mg PO QDAY 03/17/24 tamsulosin 0.4 mg capsule 0.4 mg PO DAILY prostate #90 caps 07/31/24 rivaroxaban 20 mg tablet (Xarelto) 20 mg PO DAILY #90 tabs 09/25/24 vitamins A,C,G-rygg-dzvfpo 2,148 mcg-113 mg-45 mg-17.4 mg tablet (Eye Multivitamin) 1 tab PO BID 05/01/25 furosemide 40 mg tablet 40 mg PO BID 3 months #180 tabs 05/02/25 metoprolol succinate 25 mg tablet,extended release 24 hr 25 mg PO DAILY 30 days #30 tabs 05/02/25 Hospital Course Summary of Care Provided Hospital Course: Clinical Impression(s) from Imaging Studies Chest X-Ray 05/01/25 09:30 IMPRESSION: Mild pulmonary venous congestion and bilateral pleural effusions concerning for mild congestive heart failure. Reading Location: [facility] Echocardiogram 05/01/25 14:04 Interpretation Summary Mild LV systolic dysfunction. Estimated LVEF 45%. Stage I diastolic dysfunction. There is severe biatrial dilatation. Moderate (2+) mitral valve insufficiency. Moderate-Severe (3+) tricuspid valve insufficiency. Right ventricular systolic pressure estimated to be 37 mmHg. Aortic sclerosis, no stenosis. Mild (1+) aortic valve insufficiency. Mild (1+) pulmonic valve insufficiency. Ordering Physician: Vitaly Haney Referring Physician: Ruma Terry Performed By: Trent Vo RCS Laboratory Results 05/01/25 11:28: Troponin T Hi Sens 2 Hr 26 H 05/01/25 15:01: Magnesium 2.0, Troponin T Hi Sens 4Hr 28 H 05/02/25 05:32: WBC 5.8, RBC 4.72, Hgb 14.5, Hct 42.9, MCV 90.9, MCH 30.7, MCHC 33.8, RDW Std Deviation 51.7 H, RDW Coeff of Mimi 15.6 H, Plt Count 165, MPV 12.4 H, Immature Gran % (Auto) 0.300, Neut % (Auto) 67.3, Lymph % (Auto) 17.6 L, Summers % (Auto) 12.4 H, Eos % (Auto) 2.1, Baso % (Auto) 0.3, Absolute Neuts (auto) 3.9, Absolute Lymphs (auto) 1.02, Nucleated RBC % 0, Sodium 137, Potassium 3.6, Chloride 101, Carbon Dioxide 25.7, Anion Gap 11, BUN 22 H, Creatinine 1.12, Estim Creat Clear Calc 64.15, Est GFR (MDRD) Non-Af 66, BUN/Creatinine Ratio 19.4, Glucose 99, Calcium 8.6, Triglycerides 97, Cholesterol 160, LDL Cholesterol, Calc 110, VLDL Cholesterol 19, HDL Cholesterol 32 L, Cholesterol/HDL Ratio 4.95, TSH 2.680 Physical Exam Narrative General: Alert, Oriented x3, Cooperative. BMI 31.5 kg/m² HEENT: Atraumatic, PERRLA, EOMI, Normocephalic. Oral: No Gingival or Mucosal Lesions/ Ulcerations Neck: Supple, No JVD, Negative Carotid Bruits Chest wall/Lungs: Air entry diminished in bilateral lung bases. No crepitation/rhonchi Cardiovascular: A-fib, heart rate controlled mild systolic murmur faint, heart rate is in 100s Abdomen: Bowel Sounds Present, Soft, Non Tender, Non-Distended : No dysuria. No renal angle tenderness. No suprapubic tenderness. Extremities: 2+ bilateral symmetric leg edema below knee, Capillary Refill Less than 3 Seconds Skin: No rashes, No breakdown Musculoskeletal: No Tenderness to Palpation of Joints or Extremities Neurological: Cranial nerves II-XII grossly intact, DTR 2+/4. No acute focal neurological deficit. Psych/Mental Status: Normal Affect, Appropriate. Weight / BMI Weight Weight: 226 lb 3.108 oz Body Mass Index (BMI) 31.5 ABG / Lab / Microbiology Data 05/02/25 05:32 05/02/25 05:32 Laboratory: Laboratory Results - last 24 hr 05/02/25 05:32: WBC 5.8, RBC 4.72, Hgb 14.5, Hct 42.9, MCV 90.9, MCH 30.7, MCHC 33.8, RDW Std Deviation 51.7 H, RDW Coeff of Mimi 15.6 H, Plt Count 165, MPV 12.4 H, Immature Gran % (Auto) 0.300, Neut % (Auto) 67.3, Lymph % (Auto) 17.6 L, Summers % (Auto) 12.4 H, Eos % (Auto) 2.1, Baso % (Auto) 0.3, Absolute Neuts (auto) 3.9, Absolute Lymphs (auto) 1.02, Nucleated RBC % 0, Sodium 137, Potassium 3.6, Chloride 101, Carbon Dioxide 25.7, Anion Gap 11, BUN 22 H, Creatinine 1.12, Estim Creat Clear Calc 64.15, Est GFR (MDRD) Non-Af 66, BUN/Creatinine Ratio 19.4, Glucose 99, Calcium 8.6, Triglycerides 97, Cholesterol 160, LDL Cholesterol, Calc 110, VLDL Cholesterol 19, HDL Cholesterol 32 L, Cholesterol/HDL Ratio 4.95, TSH 2.680 Radiography Diagnostic Testing: Radiology Impression Echocardiogram 05/01/25 14:04 Interpretation Summary Mild LV systolic dysfunction. Estimated LVEF 45%. Stage I diastolic dysfunction. There is severe biatrial dilatation. Moderate (2+) mitral valve insufficiency. Moderate-Severe (3+) tricuspid valve insufficiency. Right ventricular systolic pressure estimated to be 37 mmHg. Aortic sclerosis, no stenosis. Mild (1+) aortic valve insufficiency. Mild (1+) pulmonic valve insufficiency. Ordering Physician: Vitaly Haney Referring Physician: Ruma Terry Performed By: Trent Vo RCS D/C Instructions Weight Bearing Status: Weight bearing as tolerated Call your doctor if you observe: Fever of 101 or Higher, Coldness, Increased Pain, Numbness or Tingling, Change in Color, Inability to urinate, Inability to have a bowel movement, Shortness of breath, Dizziness, Fainting spells, Swelling in the ankles, Chest pain, Prolonged hiccupping, Increased palpitations (irregular heartbeat) and Calf discomfort DC O2, CPAP, BIPAP Needs Home O2 Discharge instructions: No When: IN 2 WEEKS Meaningful Use Info Meaningful Use Meaningful Use Diagnoses (Choose all that apply): None applicable Discharge Plan Admission Admit Date/Time: 05/01/25 12:14 Primary Reason for Your Visit: Heart failure exacerbation, A-fib RVR Attending Provider: Vitaly Haney Primary Care Provider: Ruma Terry Discharge Orders/Prescriptions Prescriptions: New metoprolol succinate 25 mg Tablet Extended Release 24 Hr 25 mg PO DAILY 30 Days Qty: 30 2RF Continued aspirin [Adult Aspirin Regimen] 81 mg tablet,delayed release (DR/EC) 81 mg PO QDAY Eye Multivitamin 2,148 mcg-113 mg-45 mg-17.4mg tablet 1 tab PO BID Rx Instructions: administer with AM and PM meals nitroglycerin 0.4 mg tablet, sublingual 0.4 mg sublingual Q5-15M PRN (Reason: chest pain) Qty: 25 3RF tamsulosin 0.4 mg capsule 0.4 mg PO DAILY Qty: 90 3RF Xarelto 20 mg tablet 20 mg PO DAILY Qty: 90 3RF Rx Instructions: must administer with evening meal Changed furosemide 40 mg tablet 40 mg PO BID 90 Days Qty: 180 0RF Referrals / Follow Up: Ruma Terry MD [Primary Care Provider, Internal Medicine - [facility]] Franky Saunders MD [Med Staff - Active Staff, Cardiology] - Within 1 Month Loida Hartman PA [Med Staff - Adv Practice Prof, Cardiology] - Within 1 Week Disposition Disposition (needs filled in before D/C Order can be placed): Home, Self Care Charges/Coding Visit Charges Inpatient E&M: 08671 Disch Hosp >30min
[2025-05-02 11:47] VITALS: O2SAT 96
--- NOTE | 2025-05-02 12:00 | CASEMGMT ---
RN ALEJANDRA sales floor manager CM to room to meet with patient for initial transition planning/care coordination assessment. RN ALEJANDRA introduced self and role at [facility]. Patient lying in bed, alert and oriented. @ bedside. Patient willing to participate in assessment and is able to answer all questions appropriately. Care providers, pharmacy, and demographics verified. PCP: Dr Terry Specialists: Dr Saunders, business test analyst; Dr Younger, urologist; Dr Puri Preferred Pharmacy: [facility] Insurance: [employer] Prescription Benefit: yes LNOK: , son, daughter Living Arrangements: Patient lives with in a 2 story home. Patient is independent and able to ambulate stairs. Transportation: self, DME/HHC: Patient denies DME in the home. No previous HHC. Pt was in [facility] TCU in 2023. Discussed discharge planning. Patient wishes to discharge home, denies having any concerns w/going home and denies the need for HHC or OP therapy. Plan: Home Kristin WHYTE RN, CM
[2025-05-02 13:22] VITALS: BP 108/58; PULSE 64; RESP 16; TEMP 36.4; O2SAT 96
--- NOTE | 2025-05-02 14:57 | PHA.DC.MR.R ---
Pharmacy [place] Med Reconciliation Pharmacy Service has performed discharge medication reconciliation for this patient. Medication education papers prepared, patient discharged when counseling was attempted. Medications reviewed. The patient's discharge medication list was reviewed for discrepancies and discrepancies were resolved. Medications at Discharge Home Medications nitroglycerin 0.4 mg sublingual tablet 0.4 mg sublingual Q5-15M PRN chest pain #25 tabs 12/29/21 aspirin 81 mg tablet,delayed release (Adult Aspirin Regimen) 81 mg PO QDAY 03/17/24 tamsulosin 0.4 mg capsule 0.4 mg PO DAILY prostate #90 caps 07/31/24 rivaroxaban 20 mg tablet (Xarelto) 20 mg PO DAILY #90 tabs 09/25/24 vitamins A,C,A-qhdh-fnmucr 2,148 mcg-113 mg-45 mg-17.4 mg tablet (Eye Multivitamin) 1 tab PO BID 05/01/25 furosemide 40 mg tablet 40 mg PO BID 3 months #180 tabs 05/02/25 metoprolol succinate 25 mg tablet,extended release 24 hr 25 mg PO DAILY 30 days #30 tabs 05/02/25
== END 2025-05-02 13:39 | disposition home or self-care (01) | DRG 291 ==
LOC: ED 11:43 → PCU 12:31
PROVIDERS: Admitting Provider Internal Medicine; Emergency Provider Emergency Medicine; PCP Internal Medicine; Visit Provider Internal Medicine
DX: I11.0 Hypertensive heart disease with heart failure (principal); I50.33 Acute on chronic diastolic (congestive) heart failure; I5A Non-ischemic myocardial injury (non-traumatic); Z66 Do not resuscitate; Z51.5 Encounter for palliative care; G25.81 Restless legs syndrome; I48.0 Paroxysmal atrial fibrillation; E78.00 Pure hypercholesterolemia, unspecified; I34.0 Nonrheumatic mitral (valve) insufficiency; G47.33 Obstructive sleep apnea (adult) (pediatric); I25.10 Atherosclerotic heart disease of native coronary artery without angina pectoris; R73.9 Hyperglycemia, unspecified; Z79.01 Long term (current) use of anticoagulants; Z95.5 Presence of coronary angioplasty implant and graft; N40.0 Benign prostatic hyperplasia without lower urinary tract symptoms; Z79.82 Long term (current) use of aspirin; Z87.891 Personal history of nicotine dependence; Z79.899 Other long term (current) drug therapy; Z95.0 Presence of cardiac pacemaker; Z90.49 Acquired absence of other specified parts of digestive tract; Z90.5 Acquired absence of kidney
CPT/HCPCS: 36415; 71046; 80048; 80061; 83605; 83735; 83880; 84443; 84484; 85025; 93005; 93306; 93970; 94668; 99252; 99285; A4216; G0463; J1938

== ENCOUNTER → 2025-05-09 | Outpatient (CLI) | payer MEDICARE, SELFPAY ==
[2025-05-09 10:49] LABS: Anion Gap 12 (5-15); BUN 27 mg/dL (4-19); BUN/Creat Ratio 20.8 RATIO (10-20); Calcium,Total 8.8 mg/dL (7.6-11.0); Carbon Dioxide 27.9 mmol/L (21.0-32.0); Chloride 98 mmol/L (98-108); Glucose 114 mg/dL (70-99); Magnesium 2.4 mg/dL (1.5-2.2); Potassium 3.7 mmol/L (3.3-5.1); Pro- Brain NATRIURETIC PEPTIDE 744 pg/mL (<=1800)
== END | disposition home or self-care (01) ==
LOC: LAB 09:05
PROVIDERS: PCP Internal Medicine; Referring Provider Internal Medicine; Visit Provider Internal Medicine
DX: I50.33 Acute on chronic diastolic (congestive) heart failure (principal); I48.91 Unspecified atrial fibrillation
CPT/HCPCS: 36415; 80048; 83735; 83880